=== PATIENT | male | born 1965 | race Caucasian/White ===

== ENCOUNTER 2017-05-16 21:12 | Inpatient (IN) | payer BC ==
[~2017-05-16] VITALS: Ht 182.9 cm; Wt 112.8 kg
[~2017-05-16 21:12] MED LIST: IMOD2TAB PO; LORTA5 PO; ZOFR4TAB3 SL
[2017-05-16 21:14] VITALS: BP 177/71; PULSE 74; RESP 16; TEMP 97.5; O2SAT 98
[2017-05-16] MEDS ORDERED: MORPHINE SULFATE 4 MG/ML INJ IV PUSH ONE (22:00)
[2017-05-16] MEDS ORDERED: SODIUM CHLOR 0.9% 1000 ML INJ 1,000 ML IV ONE (22:00)
[2017-05-16] MEDS ORDERED: ONDANSETRON HCL 4 MG/2 ML VIAL IV PUSH ONE (22:00)
[2017-05-16 22:04] VITALS: O2SAT 100
--- NOTE | 2017-05-16 22:07 | PD ---
HPI Chief Complaint: Lump, Cyst, Hernia Time Seen by Provider: 21:40 Travel History International Travel<30 days: No Contact w/Intl Traveler<30days: No Traveled to known affect area: No History of Present Illness HPI Patient is a 51 year old male with history of hypertension who presents to ER with c/o of incarcerated umbilical hernia. Patient reports that he has had a prior appendectomy by Dr. Sexton in the past. Patient reports that he had a stomach bug yesterday and had multiple episodes of nausea and vomiting (x8). Patient reports that he does have history of an umbilical hernia, reports that usually the hernia is controlled by using a pelvic band. Patient reports that he woke up this morning with the umbilical hernia that was non reducible. Patient reports that he tried to reduce his hernia multiple times by himself but was unable to. In the past, he was able to reduce his hernia without difficulty. Patient reports severe abdominal pain with nausea vomiting. Denies fever/chills. PFSH Past Medical History Arthritis: No Asthma: No Autoimmune Disease: No Blood Disorders: No Heart Rhythm Problems: No Cancer: No Cardiovascular Problems: Yes (HTN) High Cholesterol: No Chemotherapy: No Chest Pain: No Congestive Heart Failure: No COPD: No Cerebrovascular Accident: No Diabetes: No Diminished Hearing: No Endocrine: No Gastrointestinal Disorders: Yes GERD: No Glaucoma: No Genitourinary: Yes Headaches: No Hepatitis: No Hiatal Hernia: No Hypertension: No Immune Disorder: No Kidney Stones: No Musculoskeletal: Yes (UMBILICAL HERNIA) Neurologic: No Psychiatric: No Reproductive: No Respiratory: No Migraines: No Myocardial Infarction: No Radiation Therapy: No Renal Failure: No Seizures: No Sickle Cell Disease: No Sleep Apnea: No Thyroid Disease: No Ulcer: No Past Surgical History Abdominal Surgery: Yes (APPY 08/06/2006 FEEDING TUBE AN DUE TO PRE- MATURE ) AICD: No Appendectomy: Yes (08/06/2006) Arteriovenous Shunt: No Cardiac Surgery: No Cholecystectomy: No Ear Surgery: No Endocrine Surgery: No Eye Surgery: No Genitourinary Surgery: No Gynecologic Surgery: No Insulin Pump: No Joint Replacement: No Oral Surgery: No Pacemaker: No Thoracic Surgery: Yes (LUNG SURGERY AN DUE TO PRE-MATURE W/ COMPLICATIONS) Other Surgery: Yes Social History Alcohol Use: No Tobacco Use: No Substance Use: No Allergies-Medications (Allergen,Severity, Reaction): Coded Allergies: cephalexin (Unverified Allergy, Mild, 05/16/17) hydromorphone (Unverified Adverse Reaction, Unknown, 05/16/17) VOMITING morphine (Unverified Adverse Reaction, Unknown, 05/16/17) VOMITNG Reported Meds & Prescriptions Reported Meds & Active Scripts Active No Active Prescriptions or Reported Medications Review of Systems General / Constitutional: No: Fever, Chills Eyes: No: Visual changes HENT: No: Headaches Cardiovascular: No: Chest Pain or Discomfort Respiratory: No: Shortness of Breath Gastrointestinal: Positive: Nausea, Vomiting, Abdominal Pain Genitourinary: No: Dysuria Musculoskeletal: No: Pain Skin: No Rash Neurologic: No: Weakness Psychiatric: No: Depression Endocrine: No: Polydipsia Hematologic/Lymphatic: No: Easy Bruising Physical Exam Narrative GENERAL: moderate distress SKIN: Focused skin assessment warm/dry. HEAD: Atraumatic. Normocephalic. EYES: Pupils equal and round. No scleral icterus. No injection or drainage. ENT: No nasal bleeding or discharge. Mucous membranes pink and moist. NECK: Trachea midline. No JVD. CARDIOVASCULAR: Regular rate and rhythm. No murmur appreciated. RESPIRATORY: No accessory muscle use. Clear to auscultation. Breath sounds equal bilaterally. GASTROINTESTINAL: Abdomen soft, non-tender, patient with incarcerated umbilical hernia which is nonreducible MUSCULOSKELETAL: No obvious deformities. No clubbing. No cyanosis. No edema. NEUROLOGICAL: Awake and alert. No obvious cranial nerve deficits. Motor grossly within normal limits. Normal speech. PSYCHIATRIC: Appropriate mood and affect; insight and judgment normal. Data Data Last Documented VS Vital Signs Date Time Temp Pulse Resp B/P (MAP) Pulse Ox O2 Delivery O2 Flow Rate FiO2 05/16/17 22:04 100 Room Air 05/16/17 22:04 05/16/17 21:14 97.5 74 16 Orders Orders Act Partial Throm Time (Ptt) (05/16/17 21:48) Lactic Acid Sepsis Protocol (05/16/17 21:48) Urinalysis - C+S If Indicated (05/16/17 21:48) Ecg Monitoring (05/16/17 21:48) Iv Access Insert/Monitor (05/16/17 21:48) Oximetry (05/16/17 21:48) Oxygen Administration (05/16/17 21:48) Ct Abd/Pel W Iv Contrast(Rout) (05/16/17 21:48) Sodium Chlor 0.9% 1000 Ml Inj (Ns 1000 M (05/16/17 22:00) Ondansetron Inj (Zofran Inj) (05/16/17 22:00) Morphine Inj (Morphine Inj) (05/16/17 22:00) Complete Blood Count With Diff (05/16/17 21:48) Comprehensive Metabolic Panel (05/16/17 21:48) Prothrombin Time / Inr (Pt) (05/16/17 21:48) Iohexol 350 Inj (Omnipaque 350 Inj) (05/16/17 23:22) Morphine Inj (Morphine Inj) (05/17/17 00:30) Ondansetron Inj (Zofran Inj) (05/17/17 00:30) Consult General Surgery (05/17/17 00:38) (Hub Use Only)Inp Phy Cons/Ref (05/17/17 ) Admit Order (Ed Use Only) (05/17/17 01:07) Labs Laboratory Tests Test 05/16/17 22:00 05/17/17 00:59 White Blood Count 18.7 TH/MM3 Red Blood Count 5.29 MIL/MM3 Hemoglobin 16.1 GM/DL Hematocrit 46.5 % Mean Corpuscular Volume 87.9 FL Mean Corpuscular Hemoglobin 30.4 PG Mean Corpuscular Hemoglobin Concent 34.6 % Red Cell Distribution Width 13.0 % Platelet Count 264 TH/MM3 Mean Platelet Volume 8.8 FL Neutrophils (%) (Auto) 78.1 % Lymphocytes (%) (Auto) 15.1 % Monocytes (%) (Auto) 6.6 % Eosinophils (%) (Auto) 0.1 % Basophils (%) (Auto) 0.1 % Neutrophils # (Auto) 14.6 TH/MM3 Lymphocytes # (Auto) 2.8 TH/MM3 Monocytes # (Auto) 1.2 TH/MM3 Eosinophils # (Auto) 0.0 TH/MM3 Basophils # (Auto) 0.0 TH/MM3 CBC Comment DIFF FINAL Differential Comment Prothrombin Time 11.0 SEC Prothromb Time International Ratio 1.0 RATIO Activated Partial Thromboplast Time 29.4 SEC Blood Urea Nitrogen 17 MG/DL Creatinine 0.90 MG/DL Random Glucose 112 MG/DL Total Protein 7.5 GM/DL Albumin 3.8 GM/DL Calcium Level 9.3 MG/DL Alkaline Phosphatase 104 U/L Aspartate Amino Transf (AST/SGOT) 25 U/L Alanine Aminotransferase (ALT/SGPT) 24 U/L Total Bilirubin 0.8 MG/DL Sodium Level 132 MEQ/L Potassium Level 3.7 MEQ/L Chloride Level 99 MEQ/L Carbon Dioxide Level 24.7 MEQ/L Anion Gap 8 MEQ/L Estimat Glomerular Filtration Rate 89 ML/MIN Lactic Acid Level 1.0 mmol/L Urine Color LIGHT-YELLOW Urine Turbidity CLEAR Urine pH 6.5 Urine Specific [place] 1.014 Urine Protein NEG mg/dL Urine Glucose (UA) NEG mg/dL Urine Ketones NEG mg/dL Urine Occult Blood NEG Urine Nitrite NEG Urine Bilirubin NEG Urine Urobilinogen LESS THAN 2.0 MG/DL Urine Leukocyte Esterase NEG Urine RBC LESS THAN 1 /hpf Urine WBC 1 /hpf Urine Bacteria RARE /hpf Microscopic Urinalysis Comment CATH-CULTURE IND MDM Medical Decision Making Medical Screen Exam Complete: Yes Emergency Medical Condition: Yes Medical Record Reviewed: Yes Interpretation(s) Vital Signs Date Time Temp Pulse Resp B/P (MAP) Pulse Ox O2 Delivery O2 Flow Rate FiO2 05/16/17 21:14 97.5 74 16 177/71 (106) 98 Room Air Differential Diagnosis incarcerated umbilical hernia, strangulated bowel Narrative Course Patient is a 51-year-old male presents to emergency room with complaints of abdominal pain. Reports that he had episodes of nausea vomiting yesterday, reports that he woke up this morning and noticed that his umbilical hernia was "stuck" and non-reducible. On evaluation, patient has an incarcerated umbilical hernia that is not reducible. An IV line was established, CBC, CMP, lactate ordered. CT with the abdomen pelvis with IV contrast ordered to evaluate for strangulated bowel within umbilical hernia. IV fluid was ordered, patient reports allergies to morphine as "just nausea", he is in severe pain at this time, will premedicate with zofran and administer morphine. CBC & BMP Diagram 05/16/17 22:00 Total Protein 7.5, Albumin 3.8, Calcium Level 9.3, Alkaline Phosphatase 104, Aspartate Amino Transf (AST/SGOT) 25, Alanine Aminotransferase (ALT/SGPT) 24, Total Bilirubin 0.8 Last Impressions Abdomen/Pelvis CT 05/16/17 5024 Signed Impressions: Service Date/Time: Tuesday, May 16, 2017 23:18 - CONCLUSION: Small bowel containing umbilical hernia producing bowel obstruction. Clovis Lainez MD case reviewed with dr. queen who will see patient in consult Dr. Queen evaluated patient in the ER, plan for OR for hernia reduction and umbilical hernia repair. Diagnosis Primary Impression: Umbilical hernia, incarcerated Admitting Information Admitting Physician Requests: Observation Scripts No Active Prescriptions or Reported Meds Ashia Moreno DO May 16, 2017 22:07
[2017-05-16 22:17] LABS: AUTOMATED NEUTROPHIL # 14.6 TH/MM3 (1.8-7.7); BASOPHIL % 0.1 % (0.0-2.0); EOSINOPHIL % 0.1 % (0.0-4.0); HEMATOCRIT 46.5 % (39.0-51.0); HEMO FLAGS DIFF FINAL; LYMPH % 15.1 % (9.0-44.0); LYMPHOCYTE # 2.8 TH/MM3 (1.0-4.8); MEAN CELL VOLUME 87.9 FL (80.0-100.0); MEAN CORPUSCULAR HEMOGLOBIN 30.4 PG (27.0-34.0); MEAN CORPUSCULAR HGB CONC 34.6 % (32.0-36.0); MONO % 6.6 % (0.0-8.0); NEUT % 78.1 % (16.0-70.0); PLATELET COUNT 264 TH/MM3 (150-450); RED BLOOD COUNT 5.29 MIL/MM3 (4.50-5.90); WHITE BLOOD COUNT 18.7 TH/MM3 (4.0-11.0)
[2017-05-16 22:30] LABS: APTT (PATIENT) 29.4 SEC (24.3-30.1)
[2017-05-16 22:37] LABS: ANION GAP 8 MEQ/L (5-15); AST (GOT) 25 U/L (15-37); BICARBONATE 24.7 MEQ/L (21.0-32.0); BLOOD UREA NITROGEN 17 MG/DL (7-18); CHLORIDE 99 MEQ/L (98-107); GLOMERULAR FILTRATION RATE 89 ML/MIN (>89); POTASSIUM 3.7 MEQ/L (3.5-5.1); SODIUM (NA) 132 MEQ/L (136-145)
[2017-05-16 22:39] LABS: ALKALINE PHOSPHATASE 104 U/L (45-117); ALT (GPT) 24 U/L (12-78); TOTAL BILIRUBIN ADULT 0.8 MG/DL (0.2-1.0)
[2017-05-16] MEDS ORDERED: IOHEXOL 350 MG/ML 10 ML VIAL (for RAD DIAG) IVCONTRAST ONE (23:22)
--- NOTE | 2017-05-16 23:48 | RADRPT ---
EXAM DATE/TIME: 05/16/2017 23:18 [facility] COMPARISON: CT ABDOMEN & PELVIS W CONTRAST, September 01, 2014, 10:53. INDICATIONS : Stomach pain with known umbilical hernia. Patient states he vomited and is now unable to reduce his hernia. IV CONTRAST: 98 cc Omnipaque 350 (iohexol) IV ORAL CONTRAST: No oral contrast ingested. RADIATION DOSE: 19.11 CTDIvol (mGy) MEDICAL HISTORY : Hernia, umbilical. SURGICAL HISTORY : Appendectomy. ENCOUNTER: Initial ACUITY: 1 day PAIN SCALE: 4/10 LOCATION: medial abdomen TECHNIQUE: Volumetric scanning of the abdomen and pelvis was performed. Using automated exposure control and ad justment of the mA and/or kV according to patient size, radiation dose was kept as low as reasonably achievable to obtain optimal diagnostic quality images. DICOM format image data is available electro nically for review and comparison. FINDINGS: LOWER LUNGS: The visualized lower lungs are clear. LIVER: Homogeneous density without lesion. There is no dilation of the biliary tree. No calcified [place]ston es. SPLEEN: Normal size without lesion. PANCREAS: Within normal limits. KIDNEYS: Normal in size and shape. There is no mass, stone or hydronephrosis. ADRENAL GLANDS: Within normal limits. VASCULAR: There is no aortic aneurysm. BOWEL/MESENTERY: There is a prominently dilated segment of mid small bowel leading up to a loop which extends into the patient's umbilical hernia. Small bowel exiting the hernia and more distally is decompressed. The co zheng is normal in caliber and appearance throughout. There is no evidence of perforation. No free noelle toneal fluid. ABDOMINAL WALL: Fat and small bowel containing umbilical hernia RETROPERITONEUM: There is no lymphadenopathy. BLADDER: No wall thickening or mass. REPRODUCTIVE: Within normal limits. INGUINAL: There is no lymphadenopathy or hernia. MUSCULOSKELETAL: Within normal limits for patient age. CONCLUSION: Small bowel containing umbilical hernia producing bowel obstruction. Clovis Lainez MD on May 16, 2017 at 23:33 Board Certified Radiologist. This report was verified electronically.
[2017-05-17] MEDS ORDERED: ONDANSETRON HCL 4 MG/2 ML VIAL IV PUSH ONE ×2 (00:30→12:00)
[2017-05-17] MEDS ORDERED: MORPHINE SULFATE 4 MG/ML INJ IV PUSH ONE (00:30)
[2017-05-17] MEDS ORDERED: ACETAMINOPHEN 1000 MG/100 ML 100 ML IV ONE (01:14)
[2017-05-17 01:26] LABS: BACTERIA, URINE RARE /hpf; BLOOD, URINE NEG (NEG); GLUCOSE,URINE NEG (NEG); KETONE, URINE NEG (NEG); NITRITE,URINE NEG (NEG); PH, URINE 6.5 (5.0-8.5); URINE COLOR LIGHT-YELLOW (YELLW/STRAW)
[2017-05-17] MEDS ORDERED: LEVOFLOXACIN 500 MG PREMIX INJ 100 ML IV ONE (01:45)
[2017-05-17 02:03] LABS: COMMENT (UR) CATH-CULTURE IND; CULTURE IF INDICATED CATH CULTURE IND
[2017-05-17] MEDS: SODIUM CHLOR 0.9% 1000 ML INJ 1,000 ML IV SCH ×4 (03:10→23:10)
[2017-05-17] MEDS ORDERED: NALOXONE HCL 0.4 MG/ML AMP IV PUSH PRN ×2 (03:15→10:45)
[2017-05-17] MEDS ORDERED: SODIUM CHLORIDE 0.9% FLUSH 10 ML FLUSH IV FLUSH PRN (03:15)
[2017-05-17] MEDS ORDERED: ACETAMINOPHEN 1000 MG/100 ML 100 ML IV SCH (03:15)
[2017-05-17] MEDS ORDERED: Post-op Orders (for Pharmacy) MISC XX ONE (03:15)
[2017-05-17] MEDS ORDERED: HYDROmorphone HCL PCA 6 MG/30 ML IV SCH ×2 (03:15→10:45)
[2017-05-17] MEDS ORDERED: DO NOT ADM ANY ANTICOAGULANT DRUGS PRN (03:30)
[2017-05-17 04:52] VITALS: BP 114/66; PULSE 72; RESP 18; TEMP 97.4; O2SAT 96
--- NOTE | 2017-05-17 05:21 | MH ---
cc: JAME QUEEN M.D. DATE OF ADMISSION: 05/17/2017 REASON FOR ADMISSION Incarcerated umbilical hernia. HISTORY This is a 51-year-old gentleman who has had a longstanding umbilical hernia. Over the last 24 hours he developed a virus and had a lot of nausea and vomiting, fairly extensive and the hernia got stuck out. He could not push it back in. He tried all day and then it became more tender and he had more vomiting and then came into the emergency room. ER personnel could not push the hernia in as well. He had a CT scan which showed incarcerated bowel in the hernia and surgery was called to evaluate the patient. PAST MEDICAL HISTORY Significant for some hypertension. No cardiac umbilical or pulmonary issues. PAST SURGICAL HISTORY 1. He has had appendectomy laparoscopic. 2. He had some lung surgery as an infant due to premature . 3. He had a feeding tube in place as well when he was an . MEDICATIONS He does not take any routine medications. ALLERGIES His allergy list includes - CEPHALEXIN. HYDROMORPHONE and MORPHINE gives him a little vomiting; not really an allergy but a side effect. REVIEW OF SYSTEMS CONSTITUTIONAL: He has no fever, chills. NEUROLOGIC: No neurologic deficits or neurologic changes. CARDIOVASCULAR: No chest pain or chest discomfort. No shortness of breath. GI: As above with nausea, vomiting and this umbilical hernia that gave him more vomiting. : He has had a little bit of dysuria. PSYCHIATRIC: No problems. PSYCHIATRIC: No problems. PHYSICAL EXAMINATION GENERAL: He was standing up in the emergency room, a little bit of distressed, somewhat frustrated with his medical condition. EYES: Pupils equal and round. NECK: Supple. CHEST: Clear. HEART: Regular rate. ABDOMEN: Soft with 6-cm incarcerated umbilical hernia, very tight and tender. He has got some soreness to the left side of his abdomen. No rebound or guarding. There is a surgical scar just to the right of the umbilicus that is well-healed. NEUROLOGIC: He has no deficits. He is awake, oriented and appropriate psychiatric evaluation. LABORATORY DATA He had a white count of 18,000, H&H of 16 and 46. Chemistry essentially normal with a lactic acid of 1. Coags are all fine. IMAGING STUDIES A CT scan read by Dr. Lainez shows small bowel containing umbilical hernia with bowel obstruction. ASSESSMENT Incarcerated umbilical local hernia somewhat acutely after some type of viral gastroenteritis syndrome. PLAN He will need immediate operative intervention. This was explained to the patient who appeared to understand and we will plan to proceed to the operating room this morning. The OR crew is on their way in. Jame Queen MD JDB/SSB /1:38 AM /5:02 AM
[2017-05-17] MEDS ORDERED: PCA - TOTAL MG DILAUDID DELIVERED PER SHIFT OTHER SCH (06:00)
--- NOTE | 2017-05-17 06:17 | MP ---
cc: JAME QUEEN M.D. DATE OF PROCEDURE 05/17/2017 PREOPERATIVE DIAGNOSIS Incarcerated umbilical hernia. POSTOPERATIVE DIAGNOSIS Incarcerated umbilical hernia with small bowel obstruction secondary to incarcerated small bowel and omentum. PROCEDURE Reduction of incarcerated hernia with primary repair of hernia defect. ANESTHESIA General. SURGEON Dr. Queen. HISTORY This is a 51-year-old gentleman who has had an umbilical hernia. He was unable to reduce it. Plans were made for above. PROCEDURE The patient is taken to the operating room, placed in supine position. After anesthesia his abdomen is prepped with Betadine. We had given him preoperative antibiotics. The size of the incarcerated hernia outside measures approximately 12 cm. The defect probably measures 4. After prepping and draping, time-out is done. We make a linear incision in a vertical fashion overlying the apex of this hernia defect as I feel this is greatest ease of access to the defect. He has some redundant tissue because this umbilical hernia is longstanding. We dissect down just underneath the skin where incarcerated omentum and small bowel can be seen. We avoid injuring these two structures. We extend the incision about 2 cm below and 2 cm above the hernia defect. We are able to see the defect; it is very tight. I still cannot reduce it. The fascia must be incised about 2 cm to be able to reduce the defect. The bowel is then able to be pulled up in the field and see where it was strangulated. There is no vascular compromise but it is bruised where it was stuck in the hernia sac. We watch this pink up. The omentum pinks up as well and this was all reduced into the abdominal cavity. The hernia sac is removed. The redundant skin is all removed. We then dissect out laterally on either side of the abdomen to obtain the edges of the fascia and this is just reapproximated with 0 Ethibond suture in an interrupted fashion, in vertical fashion. Once the fascia is reapproximated in the vertical fashion with the 0 Ethibond suture, we then close the deep layer with a 3-0 Vicryl and skin is reapproximated with a skin stapling device. A sterile bandage is applied. The patient tolerated the procedure well and had no immediate post-op complication at the time of this dictation. Jame Queen MD JDB/SSB /2:52 AM /6:06 AM
[2017-05-17] MEDS: SODIUM CHLORIDE 0.9% FLUSH 10 ML FLUSH IV FLUSH SCH ×2 (08:09→21:33)
[2017-05-17] MEDS: ACETAMINOPHEN 1000 MG/100 ML 100 ML IV SCH ×3 (08:11→21:30)
[2017-05-17] MEDS: guaiFENesin E.R. 600 MG TAB PO SCH ×2 (10:30→21:29)
[2017-05-17 11:52] VITALS: BP 130/76; PULSE 69; RESP 20; TEMP 97; O2SAT 96
[2017-05-17 12:00] VITALS: BP 130/76; PULSE 69; RESP 20; TEMP 97; O2SAT 96
[2017-05-17] MEDS ORDERED: LACTATED RINGER'S 1000 ML INJ 2,000 ML IV ONE (12:00)
[2017-05-17] MEDS ORDERED: ROCURONIUM INJ 50 MG/5 ML SYRINGE IV PUSH ONE (12:00)
[2017-05-17] MEDS ORDERED: PROPOFOL 200 MG/20 ML AMP IV ONE (12:00)
[2017-05-17] MEDS ORDERED: NEOSTIGMINE 3 MG/3 ML SYR IV ONE (12:00)
[2017-05-17] MEDS ORDERED: LIDOCAINE HCL 1% PF 5 ML AMPULE OTHER ONE (12:00)
[2017-05-17] MEDS ORDERED: DEXAMETHASONE SOD PHOS 4 MG/ML VIAL IV ONE (12:00)
[2017-05-17] MEDS ORDERED: MIDAZOLAM HCL 2 MG/2 ML VIAL IV ONE (12:00)
[2017-05-17] MEDS ORDERED: PCA - TOTAL MG DILAUDID DELIVERED PER SHIFT SCH (14:00)
--- NOTE | 2017-05-17 15:18 | HHI.PR ---
cc: Jame Hudson MD Subjective Subjective Notes DAILY PROGRESS NOTE FOR SURGICAL ATTENDING, DR. JAME HUDSON Resting in bed Family at bedside No issues since surgery Objective Vitals/I&O Vital Signs Date Time Temp Pulse Resp B/P (MAP) Pulse Ox O2 Delivery O2 Flow Rate FiO2 05/17/17 12:00 97.0 69 20 130/76 (94) 96 05/17/17 04:00 Nasal Cannula 3.00 Labs Laboratory Tests Test 05/16/17 22:00 05/17/17 00:59 White Blood Count 18.7 Red Blood Count 5.29 Hemoglobin 16.1 Hematocrit 46.5 Mean Corpuscular Volume 87.9 Mean Corpuscular Hemoglobin 30.4 Mean Corpuscular Hemoglobin Concent 34.6 Red Cell Distribution Width 13.0 Platelet Count 264 Mean Platelet Volume 8.8 Neutrophils (%) (Auto) 78.1 Lymphocytes (%) (Auto) 15.1 Monocytes (%) (Auto) 6.6 Eosinophils (%) (Auto) 0.1 Basophils (%) (Auto) 0.1 Neutrophils # (Auto) 14.6 Lymphocytes # (Auto) 2.8 Monocytes # (Auto) 1.2 Eosinophils # (Auto) 0.0 Basophils # (Auto) 0.0 CBC Comment DIFF FINAL Differential Comment Prothrombin Time 11.0 Prothromb Time International Ratio 1.0 Activated Partial Thromboplast Time 29.4 Blood Urea Nitrogen 17 Creatinine 0.90 Random Glucose 112 Total Protein 7.5 Albumin 3.8 Calcium Level 9.3 Alkaline Phosphatase 104 Aspartate Amino Transf (AST/SGOT) 25 Alanine Aminotransferase (ALT/SGPT) 24 Total Bilirubin 0.8 Sodium Level 132 Potassium Level 3.7 Chloride Level 99 Carbon Dioxide Level 24.7 Anion Gap 8 Estimat Glomerular Filtration Rate 89 Lactic Acid Level 1.0 Urine Color LIGHT-YELLOW Urine Turbidity CLEAR Urine pH 6.5 Urine Specific [place] 1.014 Urine Protein NEG Urine Glucose (UA) NEG Urine Ketones NEG Urine Occult Blood NEG Urine Nitrite NEG Urine Bilirubin NEG Urine Urobilinogen LESS THAN 2.0 Urine Leukocyte Esterase NEG Urine RBC LESS THAN 1 Urine WBC 1 Urine Bacteria RARE Microscopic Urinalysis Comment CATH-CULTURE IND Date/Time Source Procedure Growth Status 05/17/17 00:59 Urine Catheterized Urine Urine Culture Pending Received Radiology Last 72 hours Impressions Abdomen/Pelvis CT 05/16/17 2148 Signed Impressions: Service Date/Time: Tuesday, May 16, 2017 23:18 - CONCLUSION: Small bowel containing umbilical hernia producing bowel obstruction. Clovis Lainez MD Cardiovascular: Regular Lungs: Clear Abdomen: Other (abdominal dressing place---minimal tenderness; abdominal binder in place) Extremities: No edema A/P Problem List: (1) Status post umbilical hernia repair, follow-up exam ICD Codes: Z09 - Encounter for follow-up examination after completed treatment for conditions other than malignant neoplasm Status: Acute (2) Umbilical hernia, incarcerated ICD Codes: K42.0 - Umbilical hernia with obstruction, without gangrene Status: Resolved (3) Small bowel obstruction ICD Codes: K56.609 - Unspecified intestinal obstruction, unspecified as to partial versus complete obstruction Status: Resolved (4) Abnormal CT of the abdomen ICD Codes: R93.5 - Abnormal findings on diagnostic imaging of other abdominal regions, including retroperitoneum Status: Resolved Assessment and Plan 51 year old male POD0 repair of incarcerated umbilical hernia -Continue clear liquids -IVF -CABLE SPOOLER for pain control -OOB and mobilize as tolerated Attending Statement NOTE FOR SURGICAL ATTENDING, DR. JAME HUDSON Doing well Ambulating some Will anticipate discharge tomorrow after breakfast I agree with above assessment and plan. The exam, history, and the medical decision-making described in the above note were completed with the assistance of the mid-level provider. I reviewed and agree with the findings presented. I attest that I had a [id number] encounter with the patient on the same day, and personally performed and documented my assessment and findings in the medical record. The following services were provided during this hospital visit: Chart data review, vital sign assessments/reviewing monitor data Review of consultations notes if present. Medication orders/review and/or management Ordering and/or reviewing lab tests Ordering and/or interpreting/reviewing x-rays and/or diagnostic studies Care of the patient and discussion of the patient with the care team Documentation time To help prompt me to consider important information that might be impacting today's encounter and assessment, information from prior notes written by myself or my colleagues may have been "brought forward/copy and pasted" into today's note. Oksana Ferguson May 17, 2017 15:18 Jame Hudson MD May 17, 2017 16:26
[2017-05-17 16:00] VITALS: BP 146/72; PULSE 77; RESP 21; TEMP 97.5; O2SAT 95
[2017-05-17] MEDS ORDERED: NORC5TAB PO (17:40)
[2017-05-17 20:00] VITALS: BP 126/75; PULSE 78; RESP 18; TEMP 97.9; O2SAT 96
[2017-05-17] MEDS ORDERED: ZOLPIDEM TARTRATE 5 MG TAB PO PRN (23:30)
[2017-05-17] MEDS: ONDANSETRON HCL 4 MG/2 ML VIAL IV PUSH PRN (23:57)
[2017-05-18] VITALS: BP 137/85; PULSE 80; RESP 18; TEMP 97.8; O2SAT 94
[2017-05-18] MEDS: ACETAMINOPHEN 1000 MG/100 ML 100 ML IV SCH (02:13)
[2017-05-18 04:24] VITALS: BP 151/83; PULSE 94; RESP 18; TEMP 96.6; O2SAT 92
[2017-05-18] MEDS: ONDANSETRON HCL 4 MG/2 ML VIAL IV PUSH PRN ×4 (05:48→23:34)
[2017-05-18 08:00] VITALS: BP 158/91; PULSE 91; RESP 20; TEMP 97.4; O2SAT 95
[2017-05-18] MEDS: guaiFENesin E.R. 600 MG TAB PO SCH ×2 (08:31→22:08)
[2017-05-18] MEDS: SODIUM CHLOR 0.9% 1000 ML INJ 1,000 ML IV SCH ×2 (08:31→22:08)
[2017-05-18] MEDS: SODIUM CHLORIDE 0.9% FLUSH 10 ML FLUSH IV FLUSH SCH ×2 (08:31→21:00)
[2017-05-18] MEDS: SCOPOLAMINE 1.5 MG PATCH T-DERMAL SCH (11:35)
[2017-05-18 12:00] VITALS: BP 137/90; PULSE 82; RESP 18; TEMP 96.6; O2SAT 96
[2017-05-18] MEDS: METOCLOPRAMIDE HCL 10 MG/2 ML VIAL IV PUSH SCH ×2 (12:50→22:06)
--- NOTE | 2017-05-18 15:45 | HHI.PR ---
cc: Jame Hudson MD Subjective Subjective Notes +nausea/vomiting overnight Objective Vitals/I&O Vital Signs Date Time Temp Pulse Resp B/P (MAP) Pulse Ox O2 Delivery O2 Flow Rate FiO2 05/18/17 12:00 96.6 82 18 137/90 (106) 96 05/17/17 04:00 Nasal Cannula 3.00 Labs Laboratory Tests Test 05/16/17 22:00 05/17/17 00:59 White Blood Count 18.7 TH/MM3 Red Blood Count 5.29 MIL/MM3 Hemoglobin 16.1 GM/DL Hematocrit 46.5 % Mean Corpuscular Volume 87.9 FL Mean Corpuscular Hemoglobin 30.4 PG Mean Corpuscular Hemoglobin Concent 34.6 % Red Cell Distribution Width 13.0 % Platelet Count 264 TH/MM3 Mean Platelet Volume 8.8 FL Neutrophils (%) (Auto) 78.1 % Lymphocytes (%) (Auto) 15.1 % Monocytes (%) (Auto) 6.6 % Eosinophils (%) (Auto) 0.1 % Basophils (%) (Auto) 0.1 % Neutrophils # (Auto) 14.6 TH/MM3 Lymphocytes # (Auto) 2.8 TH/MM3 Monocytes # (Auto) 1.2 TH/MM3 Eosinophils # (Auto) 0.0 TH/MM3 Basophils # (Auto) 0.0 TH/MM3 CBC Comment DIFF FINAL Differential Comment Prothrombin Time 11.0 SEC Prothromb Time International Ratio 1.0 RATIO Activated Partial Thromboplast Time 29.4 SEC Blood Urea Nitrogen 17 MG/DL Creatinine 0.90 MG/DL Random Glucose 112 MG/DL Total Protein 7.5 GM/DL Albumin 3.8 GM/DL Calcium Level 9.3 MG/DL Alkaline Phosphatase 104 U/L Aspartate Amino Transf (AST/SGOT) 25 U/L Alanine Aminotransferase (ALT/SGPT) 24 U/L Total Bilirubin 0.8 MG/DL Sodium Level 132 MEQ/L Potassium Level 3.7 MEQ/L Chloride Level 99 MEQ/L Carbon Dioxide Level 24.7 MEQ/L Anion Gap 8 MEQ/L Estimat Glomerular Filtration Rate 89 ML/MIN Lactic Acid Level 1.0 mmol/L Urine Color LIGHT-YELLOW Urine Turbidity CLEAR Urine pH 6.5 Urine Specific [place] 1.014 Urine Protein NEG mg/dL Urine Glucose (UA) NEG mg/dL Urine Ketones NEG mg/dL Urine Occult Blood NEG Urine Nitrite NEG Urine Bilirubin NEG Urine Urobilinogen LESS THAN 2.0 MG/DL Urine Leukocyte Esterase NEG Urine RBC LESS THAN 1 /hpf Urine WBC 1 /hpf Urine Bacteria RARE /hpf Microscopic Urinalysis Comment CATH-CULTURE IND Date/Time Source Procedure Growth Status 05/17/17 00:59 Urine Catheterized Urine Urine Culture - Preliminary Staphylococcus Species Resulted Radiology Last 72 hours Impressions Abdomen/Pelvis CT 05/16/17 2538 Signed Impressions: Service Date/Time: Tuesday, May 16, 2017 23:18 - CONCLUSION: Small bowel containing umbilical hernia producing bowel obstruction. Clovis Lainez MD Cardiovascular: Regular Lungs: Clear Abdomen: Other (obese abdomen; tender to palpation; mildly distended ) Extremities: No edema A/P Problem List: (1) Status post umbilical hernia repair, follow-up exam ICD Codes: Z09 - Encounter for follow-up examination after completed treatment for conditions other than malignant neoplasm Status: Acute (2) Umbilical hernia, incarcerated ICD Codes: K42.0 - Umbilical hernia with obstruction, without gangrene Status: Resolved (3) Small bowel obstruction ICD Codes: K56.609 - Unspecified intestinal obstruction, unspecified as to partial versus complete obstruction Status: Resolved (4) Abnormal CT of the abdomen ICD Codes: R93.5 - Abnormal findings on diagnostic imaging of other abdominal regions, including retroperitoneum Status: Resolved Assessment and Plan 71 year old male POD1 repair of incarcerated umbilical hernia -Likely has post op ileus -Okay for ice chips and popsicles -Continue IVF -RESEARCH GEOLOGIST for pain control -Start Reglan -OOB and mobilize as tolerated Attending Statement PROGRESS NOTE FOR SURGICAL ATTENDING, DR. JAME HUDSON no increase abd pain ok UOP recheck labs and electrolytes restrict po intake I agree with above assessment and plan. The exam, history, and the medical decision-making described in the above note were completed with the assistance of the mid-level provider. I reviewed and agree with the findings presented. I attest that I had a [id number] encounter with the patient on the same day, and personally performed and documented my assessment and findings in the medical record. The following services were provided during this hospital visit: Chart data review, vital sign assessments/reviewing monitor data Review of consultations notes if present. Medication orders/review and/or management Ordering and/or reviewing lab tests Ordering and/or interpreting/reviewing x-rays and/or diagnostic studies Care of the patient and discussion of the patient with the care team Documentation time To help prompt me to consider important information that might be impacting today's encounter and assessment, information from prior notes written by myself or my colleagues may have been "brought forward/copy and pasted" into today's note. Oksana Ferguson May 18, 2017 15:45 Jame Hudson MD May 18, 2017 17:48
[2017-05-18 16:00] VITALS: BP 171/89; PULSE 92; RESP 18; TEMP 97.7; O2SAT 93
[2017-05-18 19:30] LABS: AUTOMATED NEUTROPHIL # 10.5 TH/MM3 (1.8-7.7); BASOPHIL % 0.1 % (0.0-2.0); EOSINOPHIL % 0.3 % (0.0-4.0); HEMATOCRIT 43.6 % (39.0-51.0); HEMO FLAGS DIFF FINAL; LYMPH % 13.1 % (9.0-44.0); LYMPHOCYTE # 1.8 TH/MM3 (1.0-4.8); MEAN CELL VOLUME 88.5 FL (80.0-100.0); MEAN CORPUSCULAR HEMOGLOBIN 30.5 PG (27.0-34.0); MEAN CORPUSCULAR HGB CONC 34.5 % (32.0-36.0); MONO % 8.7 % (0.0-8.0); NEUT % 77.8 % (16.0-70.0); PLATELET COUNT 252 TH/MM3 (150-450); RED BLOOD COUNT 4.93 MIL/MM3 (4.50-5.90); RED CELL DISTRIBUTION WIDTH 13.3 % (11.6-17.2); WHITE BLOOD COUNT 13.5 TH/MM3 (4.0-11.0)
[2017-05-18 19:56] LABS: ANION GAP 6 MEQ/L (5-15); AST (GOT) 14 U/L (15-37); BICARBONATE 26.9 MEQ/L (21.0-32.0); BLOOD UREA NITROGEN 22 MG/DL (7-18); CHLORIDE 103 MEQ/L (98-107); GLOMERULAR FILTRATION RATE 107 ML/MIN (>89); MAGNESIUM 2.1 MG/DL (1.5-2.5); POTASSIUM 3.5 MEQ/L (3.5-5.1); SODIUM (NA) 136 MEQ/L (136-145)
[2017-05-18 19:57] LABS: ALT (GPT) 20 U/L (12-78)
[2017-05-18 20:00] VITALS: BP 136/94; PULSE 92; RESP 18; TEMP 97.6; O2SAT 94
[2017-05-18 20:00] LABS: ALKALINE PHOSPHATASE 84 U/L (45-117); TOTAL BILIRUBIN ADULT 0.6 MG/DL (0.2-1.0)
[2017-05-18] MEDS: KETOROLAC TROMETHAMINE 30 MG/ML (IVP) VIAL IVP PRN (23:34)
[2017-05-19 00:25] VITALS: BP 136/77; PULSE 77; RESP 18; TEMP 98.7; O2SAT 95
[2017-05-19] MEDS: ONDANSETRON HCL 4 MG/2 ML VIAL IV PUSH PRN ×4 (03:46→21:12)
[2017-05-19] MEDS: SODIUM CHLOR 0.9% 1000 ML INJ 1,000 ML IV SCH ×2 (05:56→14:46)
[2017-05-19] MEDS: METOCLOPRAMIDE HCL 10 MG/2 ML VIAL IV PUSH SCH ×3 (05:56→22:32)
[2017-05-19] MEDS: KETOROLAC TROMETHAMINE 30 MG/ML (IVP) VIAL IVP PRN ×3 (06:01→22:33)
[2017-05-19 08:00] VITALS: BP 141/89; PULSE 75; RESP 18; TEMP 98.2; O2SAT 95
[2017-05-19] MEDS: SODIUM CHLORIDE 0.9% FLUSH 10 ML FLUSH IV FLUSH SCH ×2 (08:37→21:12)
[2017-05-19] MEDS: guaiFENesin E.R. 600 MG TAB PO SCH ×2 (08:37→21:13)
[2017-05-19] MEDS: PHENOL 1.4% SOLN 180 ML BTL OROPHARYNG PRN ×2 (11:46→15:42)
[2017-05-19 12:00] VITALS: BP 139/84; PULSE 67; RESP 18; TEMP 96.7; O2SAT 94
--- NOTE | 2017-05-19 13:59 | HHI.PR ---
cc: Raffy Hudson MD Subjective Subjective Notes PROGRESS NOTE FOR SURGICAL ATTENDING, DR. RAFFY HUDSON Resting in bed Multiple episodes of nausea overnight with one episode of nausea overnight and one this morning Objective Vitals/I&O Vital Signs Date Time Temp Pulse Resp B/P (MAP) Pulse Ox O2 Delivery O2 Flow Rate FiO2 05/19/17 12:00 96.7 67 18 139/84 (102) 94 05/17/17 04:00 Nasal Cannula 3.00 Labs Laboratory Tests Test 05/18/17 18:54 White Blood Count 13.5 Red Blood Count 4.93 Hemoglobin 15.0 Hematocrit 43.6 Mean Corpuscular Volume 88.5 Mean Corpuscular Hemoglobin 30.5 Mean Corpuscular Hemoglobin Concent 34.5 Red Cell Distribution Width 13.3 Platelet Count 252 Mean Platelet Volume 9.3 Neutrophils (%) (Auto) 77.8 Lymphocytes (%) (Auto) 13.1 Monocytes (%) (Auto) 8.7 Eosinophils (%) (Auto) 0.3 Basophils (%) (Auto) 0.1 Neutrophils # (Auto) 10.5 Lymphocytes # (Auto) 1.8 Monocytes # (Auto) 1.2 Eosinophils # (Auto) 0.0 Basophils # (Auto) 0.0 CBC Comment DIFF FINAL Differential Comment Blood Urea Nitrogen 22 Creatinine 0.77 Random Glucose 106 Total Protein 6.9 Albumin 3.1 Calcium Level 8.5 Magnesium Level 2.1 Alkaline Phosphatase 84 Aspartate Amino Transf (AST/SGOT) 14 Alanine Aminotransferase (ALT/SGPT) 20 Total Bilirubin 0.6 Sodium Level 136 Potassium Level 3.5 Chloride Level 103 Carbon Dioxide Level 26.9 Anion Gap 6 Estimat Glomerular Filtration Rate 107 Date/Time Source Procedure Growth Status 05/17/17 00:59 Urine Catheterized Urine Urine Culture - Preliminary Staphylococcus Species Resulted Radiology Last 72 hours Impressions Abdomen/Pelvis CT 05/16/178 Signed Impressions: Service Date/Time: Tuesday, May 16, 2017 23:18 - CONCLUSION: Small bowel containing umbilical hernia producing bowel obstruction. Clovis Lainez MD Cardiovascular: Regular Lungs: Clear Abdomen: Other (distended; midline abdominal incision with germaine c/d/i; distended ) Extremities: No edema A/P Problem List: (1) Post-operative nausea and vomiting ICD Codes: R11.2 - Nausea with vomiting, unspecified; Z98.890 - Other specified postprocedural states Status: Acute (2) Postoperative ileus ICD Codes: K91.89 - Other postprocedural complications and disorders of digestive system; K56.7 - Ileus, unspecified Status: Acute (3) Status post umbilical hernia repair, follow-up exam ICD Codes: Z09 - Encounter for follow-up examination after completed treatment for conditions other than malignant neoplasm Status: Acute (4) Umbilical hernia, incarcerated ICD Codes: K42.0 - Umbilical hernia with obstruction, without gangrene Status: Resolved (5) Small bowel obstruction ICD Codes: K56.609 - Unspecified intestinal obstruction, unspecified as to partial versus complete obstruction Status: Resolved (6) Abnormal CT of the abdomen ICD Codes: R93.5 - Abnormal findings on diagnostic imaging of other abdominal regions, including retroperitoneum Status: Resolved Assessment and Plan 51 year old male POD2 repair of incarcerated umbilical hernia -Likely has post op ileus -Insert NGT and connect to LIWS -Okay for ice chips and non red Gatorade -Continue IVF -Pain control -Continue Reglan -OOB and mobilize as tolerated ---okay to clamp NGT to ambulate as patient tolerates Attending Statement PROGRESS NOTE FOR SURGICAL ATTENDING, DR. RAFFY HUDSON feels better after ngt placed I agree with above assessment and plan. The exam, history, and the medical decision-making described in the above note were completed with the assistance of the mid-level provider. I reviewed and agree with the findings presented. I attest that I had a [id number] encounter with the patient on the same day, and personally performed and documented my assessment and findings in the medical record. The following services were provided during this hospital visit: Chart data review, vital sign assessments/reviewing monitor data Review of consultations notes if present. Medication orders/review and/or management Ordering and/or reviewing lab tests Ordering and/or interpreting/reviewing x-rays and/or diagnostic studies Care of the patient and discussion of the patient with the care team Documentation time To help prompt me to consider important information that might be impacting today's encounter and assessment, information from prior notes written by myself or my colleagues may have been "brought forward/copy and pasted" into today's note. Oksana Ferguson May 19, 2017 13:59 Raffy Hudson MD May 19, 2017 15:10
--- NOTE | 2017-05-19 14:26 | RADRPT ---
EXAM DATE/TIME: 05/19/2017 12:55 [facility] COMPARISON: No previous studies available for comparison. INDICATIONS : NG tube placement. Post hernia repair. MEDICAL HISTORY : Umbilical hernia SURGICAL HISTORY : Appendectomy. ENCOUNTER: Subsequent ACUITY: 4 - 6 days PAIN SCORE: 0/10 LOCATION: FINDINGS: Supine view of the abdomen was performed. Dilated central small bowel loops. Postsurgical changes. Na sogastric tube with tip at the GE junction. No abnormal masses, calcifications, or organomegaly is s een. The osseous structures are unremarkable. CONCLUSION: 1. Dilated central small bowel loops likely ileus. 2. Nasogastric tube with tip at the GE junction. It should be advanced at least 10-15 cm. Nacho Zarate MD on May 19, 2017 at 14:24 Board Certified Radiologist. This report was verified electronically.
[2017-05-19 16:00] VITALS: BP 162/93; PULSE 76; RESP 18; TEMP 98.9; O2SAT 96
[2017-05-19 20:51] VITALS: BP 152/88; PULSE 82; RESP 16; TEMP 98.9; O2SAT 94
[2017-05-20] VITALS: BP 134/87; PULSE 96; RESP 20; TEMP 98.1; O2SAT 94
[2017-05-20] MEDS: SODIUM CHLOR 0.9% 1000 ML INJ 1,000 ML IV SCH ×3 (03:47→19:02)
[2017-05-20] MEDS: ONDANSETRON HCL 4 MG/2 ML VIAL IV PUSH PRN ×4 (03:53→18:53)
[2017-05-20] MEDS: METOCLOPRAMIDE HCL 10 MG/2 ML VIAL IV PUSH SCH ×3 (06:20→21:18)
[2017-05-20 08:00] VITALS: BP 155/88; PULSE 78; RESP 18; TEMP 98.1; O2SAT 95
[2017-05-20] MEDS: SODIUM CHLORIDE 0.9% FLUSH 10 ML FLUSH IV FLUSH SCH ×2 (09:00→21:19)
[2017-05-20] MEDS: guaiFENesin E.R. 600 MG TAB PO SCH ×2 (09:13→21:18)
[2017-05-20] MEDS: ALPRAZolam 0.25 MG TAB PO PRN ×2 (09:13→22:04)
[2017-05-20 12:00] VITALS: BP 154/89; PULSE 77; RESP 19; TEMP 97.2; O2SAT 95
--- NOTE | 2017-05-20 13:10 | HHI.PR ---
cc: Raffy Hudson MD Subjective Subjective Notes Resting in bed States he thinks he had an anxiety attack last night and removed NGT. He is feeling much better now and reports no nausea/vomiting Wants to stick with the clear liquids but also try some crackers Objective Vitals/I&O Vital Signs Date Time Temp Pulse Resp B/P (MAP) Pulse Ox O2 Delivery O2 Flow Rate FiO2 05/20/17 12:00 97.2 77 19 154/89 (110) 95 05/17/17 04:00 Nasal Cannula 3.00 Labs Date/Time Source Procedure Growth Status 05/17/17 00:59 Urine Catheterized Urine Urine Culture - Final Staphylococcus Epidermidis Complete Radiology Last 72 hours Impressions Abdomen/Pelvis CT 05/16/172147 Signed Impressions: Service Date/Time: Tuesday, May 16, 2017 23:18 - CONCLUSION: Small bowel containing umbilical hernia producing bowel obstruction. Clovis Lainez MD Cardiovascular: Regular Lungs: Clear Abdomen: Other (obese abdomen; much less distended that yesterday; midline incision with germaine---minimal serous drainage ), Post-op tenderness Extremities: No edema A/P Problem List: (1) Postoperative ileus ICD Codes: K91.89 - Other postprocedural complications and disorders of digestive system; K56.7 - Ileus, unspecified Status: Acute (2) Status post umbilical hernia repair, follow-up exam ICD Codes: Z09 - Encounter for follow-up examination after completed treatment for conditions other than malignant neoplasm Status: Acute (3) Small bowel obstruction ICD Codes: K56.609 - Unspecified intestinal obstruction, unspecified as to partial versus complete obstruction Status: Resolved Assessment and Plan 51 year old male POD3 repair of incarcerated umbilical hernia -Post op ileus seems to be resolving -No need to replace NGT at this time -Continue with clear liquids + crackers; may advance this afternoon depending on progress -Continue IVF -Pain control -Continue Reglan -Miralax -OOB and mobilize as tolerated Attending Statement Wound clean Seroma under the skin Good bowel sounds Passing flatus and had a couple bowel movements small NOTE FOR SURGICAL ATTENDING, DR. RAFFY HUDSON I agree with above assessment and plan. The exam, history, and the medical decision-making described in the above note were completed with the assistance of the mid-level provider. I reviewed and agree with the findings presented. I attest that I had a [id number] encounter with the patient on the same day, and personally performed and documented my assessment and findings in the medical record. The following services were provided during this hospital visit: Chart data review, vital sign assessments/reviewing monitor data Review of consultations notes if present. Medication orders/review and/or management Ordering and/or reviewing lab tests Ordering and/or interpreting/reviewing x-rays and/or diagnostic studies Care of the patient and discussion of the patient with the care team Documentation time To help prompt me to consider important information that might be impacting today's encounter and assessment, information from prior notes written by myself or my colleagues may have been "brought forward/copy and pasted" into today's note. Oksana Ferguson [facility] May 20, 2017 13:10 Raffy Hudson MD May 20, 2017 17:00
[2017-05-20] MEDS: POLYETHYLENE GLYCOL 17 GM PKG PO SCH (13:49)
[2017-05-20 16:00] VITALS: BP 133/77; PULSE 86; RESP 18; TEMP 98; O2SAT 94
[2017-05-20 20:00] VITALS: BP 170/87; PULSE 76; RESP 22; TEMP 97.7; O2SAT 95
[2017-05-20] MEDS: KETOROLAC TROMETHAMINE 30 MG/ML (IVP) VIAL IVP PRN (22:04)
[2017-05-21] VITALS: BP 156/90; PULSE 83; RESP 22; TEMP 98.5; O2SAT 95
[2017-05-21] MEDS: ONDANSETRON HCL 4 MG/2 ML VIAL IV PUSH PRN ×5 (01:43→21:16)
[2017-05-21] MEDS: METOCLOPRAMIDE HCL 10 MG/2 ML VIAL IV PUSH SCH ×3 (04:57→21:04)
[2017-05-21] MEDS: SODIUM CHLOR 0.9% 1000 ML INJ 1,000 ML IV SCH ×2 (06:04→11:58)
[2017-05-21] MEDS: SODIUM CHLORIDE 0.9% FLUSH 10 ML FLUSH IV FLUSH SCH ×2 (07:08→21:00)
[2017-05-21] MEDS: ALPRAZolam 0.25 MG TAB PO PRN ×2 (07:37→19:06)
[2017-05-21] MEDS: POLYETHYLENE GLYCOL 17 GM PKG PO SCH (07:37)
[2017-05-21] MEDS: KETOROLAC TROMETHAMINE 30 MG/ML (IVP) VIAL IVP PRN ×3 (07:38→21:05)
[2017-05-21 08:00] VITALS: BP 138/71; PULSE 97; RESP 18; TEMP 97.1; O2SAT 93
[2017-05-21] MEDS: guaiFENesin E.R. 600 MG TAB PO SCH ×2 (09:52→21:00)
[2017-05-21] MEDS: SCOPOLAMINE 1.5 MG PATCH T-DERMAL SCH (09:52)
[2017-05-21 12:00] VITALS: BP 164/86; PULSE 99; RESP 18; TEMP 98.1; O2SAT 93
--- NOTE | 2017-05-21 13:48 | HHI.PR ---
cc: Raffy Hudson MD Subjective Subjective Notes DAILY PROGRESS NOTE FOR SURGICAL ATTENDING, DR. RAFFY HUDSON Resting in bed Patient reports he had a rough night; was up all night vomiting; filled a green emesis bag Feeling better today Objective Vitals/I&O Vital Signs Date Time Temp Pulse Resp B/P (MAP) Pulse Ox O2 Delivery O2 Flow Rate FiO2 05/21/17 12:00 98.1 99 18 164/86 (954) 93 Labs Date/Time Source Procedure Growth Status 05/17/17 00:59 Urine Catheterized Urine Urine Culture - Final Staphylococcus Epidermidis Complete Radiology Last 72 hours Impressions Abdomen/Pelvis CT 05/16/17 9381 Signed Impressions: Service Date/Time: Tuesday, May 16, 2017 23:18 - CONCLUSION: Small bowel containing umbilical hernia producing bowel obstruction. Clovis Lainez MD Cardiovascular: Regular Lungs: Clear Abdomen: Other (obese abdomen; mildly distended; midline incision with germaine ), Post-op tenderness Extremities: No edema A/P Problem List: (1) Postoperative ileus ICD Codes: K91.89 - Other postprocedural complications and disorders of digestive system; K56.7 - Ileus, unspecified Status: Acute (2) Status post umbilical hernia repair, follow-up exam ICD Codes: Z09 - Encounter for follow-up examination after completed treatment for conditions other than malignant neoplasm Status: Acute (3) Small bowel obstruction ICD Codes: K56.609 - Unspecified intestinal obstruction, unspecified as to partial versus complete obstruction Status: Resolved Assessment and Plan 71 year old male POD4 repair of incarcerated umbilical hernia -Continues to have post op ileus -No need to replace NGT at this time although if nausea/vomiting continues may need decompression again -Continue with clear liquids + crackers -Continue IVF -Pain control -Continue Reglan -Miralax -OOB and mobilize as tolerated Attending Statement NOTE FOR SURGICAL ATTENDING, DR. RAFFY HUDSON I agree with above assessment and plan. The exam, history, and the medical decision-making described in the above note were completed with the assistance of the mid-level provider. I reviewed and agree with the findings presented. I attest that I had a [id number] encounter with the patient on the same day, and personally performed and documented my assessment and findings in the medical record. The following services were provided during this hospital visit: Chart data review, vital sign assessments/reviewing monitor data Review of consultations notes if present. Medication orders/review and/or management Ordering and/or reviewing lab tests Ordering and/or interpreting/reviewing x-rays and/or diagnostic studies Care of the patient and discussion of the patient with the care team Documentation time To help prompt me to consider important information that might be impacting today's encounter and assessment, information from prior notes written by myself or my colleagues may have been "brought forward/copy and pasted" into today's note. Oksana Ferguson May 21, 2017 13:48 Raffy Hudson MD May 21, 2017 16:27
[2017-05-21 16:00] VITALS: BP 143/71; PULSE 93; RESP 19; TEMP 96.6; O2SAT 93
[2017-05-21] MEDS ORDERED: ZOLPIDEM TARTRATE 10 MG TAB PO PRN (16:15)
[2017-05-21] MEDS: CIPROFLOXACIN 400 MG PREMIX 200 ML IV SCH (17:43)
[2017-05-21 20:00] VITALS: BP 164/104; PULSE 111; RESP 18; TEMP 97.4; O2SAT 92
[2017-05-21] MEDS ORDERED: LORazepam 2 MG/ML VIAL IV ONE (22:15)
[2017-05-21] MEDS: ACETAMINOPHEN 1000 MG/100 ML VIAL IV SCH (22:53)
--- NOTE | 2017-05-21 22:58 | RADRPT ---
EXAM DATE/TIME: 05/21/2017 22:24 [facility] COMPARISON: ABDOMEN KUB ONLY, May 19, 2017, 12:55. INDICATIONS : Abdominal pain and vomitting. MEDICAL HISTORY : None. SURGICAL HISTORY : Appendectomy. ENCOUNTER: Subsequent ACUITY: 4 - 6 days PAIN SCORE: 7/10 LOCATION: Bilateral abdomen. FINDINGS: 2 supine AP views of the abdomen. Multiple dilated air-filled loops of proximal small bowel again julia ntified along with air-filled distended stomach. Findings are very similar to the prior study of 05/19. Nasogastric tube is no longer seen. Paucity of gas in the distal small bowel and colon. CONCLUSION: 1. Findings similar to the prior study of 05/19/2017. Dilated air-filled proximal small bowel. Paucity of gas in the distal small bowel and colon. 2. Differential diagnosis is small bowel obstruction and ileus. Geovani Marquez MD on May 21, 2017 at 22:53 Board Certified Radiologist. This report was verified electronically.
[2017-05-22] VITALS (8 sets, daily range): BP systolic 95–137; BP diastolic 57–87; PULSE 114–126; RESP 14–40; TEMP 95.6–98.7; O2SAT 90–99
[2017-05-22 00:13] LABS: HEMATOCRIT 44.6 % (39.0-51.0); MEAN CELL VOLUME 88.2 FL (80.0-100.0); MEAN CORPUSCULAR HEMOGLOBIN 31.5 PG (27.0-34.0); MEAN CORPUSCULAR HGB CONC 35.7 % (32.0-36.0); PLATELET COUNT 291 TH/MM3 (150-450); RED BLOOD COUNT 5.06 MIL/MM3 (4.50-5.90); REVIEW FLAG FINAL; WHITE BLOOD COUNT 3.6 TH/MM3 (4.0-11.0)
[2017-05-22 00:25] LABS: BLOOD GAS BASE EXCESS -1.6 mmol/L (-2-2); BLOOD GAS CARBOXYHEMOGLOBIN 1.6 % (0-4); BLOOD GAS HCO3 22 mmol/L (22-26); BLOOD GAS METHEMOGLOBIN 0.8 % (0-2); BLOOD GAS PCO2 33 mmHg (38-42); BLOOD GAS PO2 75 mmHg (61-120)
[2017-05-22 00:26] LABS: BLOOD GAS O2 HGB SATURATION 93 % (90-100); BLOOD GAS OXYGEN CONTENT 20.4 Vol % (12.0-20.0); BLOOD GAS TOTAL HGB 15.7 G/DL (12.0-16.0); TEMP CORR TO 98.6
[2017-05-22 00:27] LABS: CRITICAL VALUE NO; LITER FLOW 2 L/M; OXYGEN DEVICE NASAL CANNULA
[2017-05-22 00:28] LABS: DRAW SITE RT RADIAL; NUMBER OF ARTERIAL PUNCTURES 1; STAT YES; ULNAR PULSE PRESENT
[2017-05-22 00:36] LABS: BICARBONATE 26.8 MEQ/L (21.0-32.0); POTASSIUM 3.6 MEQ/L (3.5-5.1)
[2017-05-22] MEDS ORDERED: IOHEXOL 350 MG/ML 10 ML VIAL (for RAD DIAG) IVCONTRAST ONE (00:39)
--- NOTE | 2017-05-22 00:45 | HHI.PR ---
Addendum to Inpatient Note Addendum Reason: Additional Documentation Additional Information S: 51 yo WM with PMH of HTN (no h/o MN) who is post op day 4 of umbilical hernia repair complicated with post operative SBO now with new onset SOB, tachycardia (130's), tachypnea following a large volume emesis after NG tube placement failure. Patient denying CP, abdominal pain. Endorses SOB, nausea. O: Vitals: Vital Signs Date Time Temp Pulse Resp B/P (MAP) Pulse Ox O2 Delivery O2 Flow Rate FiO2 05/21/17 20:00 97.4 111 18 164/104 (124) 92 Vitals on arrival: BP 134/78, HR 134, RR 22, O2 92-94% on 2L NC Gen: obese WM laying in bed in moderate respiratory distress CV: tachycardic to 130's, regular rate, no murmurs Resp: tachypneic in the 20's, shallow breathing, crackles appreciated in LLL base (improved slightly after cough) Ext: No calf tenderness, no swelling or warmth of either lower extremity Laboratory Tests Test 05/22/17 00:02 05/22/17 00:07 White Blood Count 3.6 TH/MM3 Red Blood Count 5.06 MIL/MM3 Hemoglobin 15.9 GM/DL Hematocrit 44.6 % Mean Corpuscular Volume 88.2 FL Mean Corpuscular Hemoglobin 31.5 PG Mean Corpuscular Hemoglobin Concent 35.7 % Red Cell Distribution Width 13.0 % Platelet Count 291 TH/MM3 Mean Platelet Volume 8.2 FL Blood Gas Puncture Site RT RADIAL Blood Gas Patient Temperature 98.6 Blood Gas HCO3 22 mmol/L Blood Gas Base Excess -1.6 mmol/L Blood Gas Oxygen Saturation 93 % Arterial Blood pH 7.44 Arterial Blood Partial Pressure CO2 33 mmHg Arterial Blood Partial Pressure O2 75 mmHg Arterial Blood Oxygen Content 20.4 Vol % Arterial Blood Carboxyhemoglobin 1.6 % Arterial Blood Methemoglobin 0.8 % Blood Gas Hemoglobin 15.7 G/DL Oxygen Delivery Device NASAL CANNULA Blood Gas Liter Flow 2 L/M Current Medications Medications (Trade) Dose Ordered Sig/Lanie Route PRN Reason Start Time Stop Time Status Last Admin Dose Admin Sodium Chloride 1,000 ml @ 999 mls/hr BOLUS ONCE IV 05/16/17 22:00 05/16/17 23:00 DC 05/16/17 22:06 Ondansetron HCl (Zofran Inj) 4 mg ONCE ONCE IV PUSH 05/16/17 22:00 05/16/17 22:01 DC 05/16/17 22:06 Morphine Sulfate (Morphine Inj) 4 mg ONCE ONCE IV PUSH 05/16/17 22:00 05/16/17 22:01 DC 05/16/17 22:07 Iohexol (Omnipaque 350 Inj) 96 ml STK-MED ONCE IVCONTRAST 05/16/17 23:22 05/16/17 23:23 DC 05/16/17 23:22 Morphine Sulfate (Morphine Inj) 4 mg ONCE ONCE IV PUSH 05/17/17 00:30 05/17/17 00:31 DC 05/17/17 01:20 Ondansetron HCl (Zofran Inj) 4 mg ONCE ONCE IV PUSH 05/17/17 00:30 05/17/17 00:31 DC 05/17/17 01:20 Acetaminophen 100 ml @ As Directed STK-MED ONCE IV 05/17/17 01:14 05/17/17 01:15 DC Levofloxacin/ Dextrose 100 ml @ As Directed STK-MED ONCE IV 05/17/17 01:45 05/17/17 01:46 DC Sodium Chloride 1,000 ml @ 100 mls/hr Q10H IV 05/17/17 03:10 05/21/17 11:58 Sodium Chloride (NS Flush) 2 ml UNSCH PRN IV FLUSH FLUSH AFTER USING IV ACCESS 05/17/17 03:15 Sodium Chloride (NS Flush) 2 ml BID IV FLUSH 05/17/17 09:00 05/20/17 21:19 Ketorolac Tromethamine (Toradol Inj) 30 mg Q6H PRN IVP PAIN SCALE 1 TO 5 05/17/17 03:15 05/22/17 03:14 05/21/17 21:05 Ondansetron HCl (Zofran Inj) 4 mg Q4H PRN IV PUSH NAUSEA OR VOMITING 05/17/17 03:15 05/21/17 21:16 Miscellaneous Information (Post-op Orders (for Pharmacy)) STAT ONCE XX 05/17/17 03:15 05/17/17 03:19 DC Naloxone HCl (Narcan Inj) 0.4 mg UNSCH PRN IV PUSH RESPIRATORY RATE LESS THAN 10 05/17/17 03:15 05/17/17 10:39 DC ELECTRONIC IMAGING SYSTEM OPERATOR Dosage Infused (Pha) 1 Q8HR OTHER 05/17/17 06:00 05/17/17 10:39 DC 05/17/17 05:54 Hydromorphone HCl (Dilaudid ELECTRONIC IMAGING SYSTEM OPERATOR Inj) 6 mg UNSCH IV 05/17/17 03:15 05/17/17 10:39 DC 05/17/17 04:07 Acetaminophen 100 ml @ 400 mls/hr Q6H IV 05/17/17 03:15 05/17/17 03:17 DC Acetaminophen 100 ml @ 400 mls/hr Q6H IV 05/17/17 08:00 05/18/17 02:14 DC 05/18/17 02:13 Miscellaneous Information ALL NURSING DEPARTME... UNSCH PRN .XX SEE LABEL COMMENTS 05/17/17 03:30 05/18/17 03:29 DC Guaifenesin (Mucinex Er) 600 mg BID PO 05/17/17 10:15 05/21/17 09:52 Hydromorphone HCl (Dilaudid ELECTRONIC IMAGING SYSTEM OPERATOR Inj) 6 mg UNSCH IV 05/17/17 10:45 05/17/17 17:46 DC ELECTRONIC IMAGING SYSTEM OPERATOR Dosage Infused (Pha) 1 Q8HR .XX 05/17/17 14:00 05/17/17 17:46 DC 05/17/17 13:17 Naloxone HCl (Narcan Inj) 0.4 mg UNSCH PRN IV PUSH RESPIRATORY RATE LESS THAN 10 05/17/17 10:45 05/17/17 17:46 DC Zolpidem Tartrate (Ambien) 5 mg HS PRN PO INSOMNIA 05/17/17 23:30 05/21/17 16:18 DC 05/17/17 23:59 Metoclopramide HCl (Reglan Inj) 10 mg Q8HR IV PUSH 05/18/17 14:00 05/21/17 21:04 Scopolamine (Transderm-Scop 1.5 Mg Patch.72 Hr) 1 patch Q3D T-DERMAL 05/18/17 11:00 05/18/17 11:35 Phenol (Chloraseptic [place]) 2 spray Q2H PRN OROPHARYNG sore throat 05/19/17 11:00 05/19/17 15:42 Alprazolam (Xanax) 0.25 mg Q8H PRN PO ANXIETY 05/20/17 07:15 05/21/17 19:06 Polyethylene Glycol (Miralax) 17 gm DAILY PO 05/20/17 12:45 05/21/17 07:37 Ciprofloxacin/ Dextrose 200 ml @ 200 mls/hr Q12H IV 05/21/17 17:00 05/21/17 17:43 Zolpidem Tartrate (Ambien) 10 mg HS PRN PO sleep 05/21/17 16:15 05/21/17 21:07 Acetaminophen (Ofirmev 1000 Mg/ 100 ml Inj) 1,000 mg Q6H IV 05/21/17 23:00 05/21/17 22:53 Lorazepam (Ativan Inj) 1 mg NOW ONCE IV 05/21/17 22:15 05/21/17 22:16 DC 05/21/17 22:52 A: 51 yo WM post op day 4 of umbilical hernia repair complicated by SBO with acute tachycardia, tachypnea and increased oxygen demand following episode of emesis. P: Differential including atelectasis, PE (patient not anticoagulated), PNA, MN , GI bleed, worsening SBO Orders: CBC, CMP, EKG, ABG, CTA thorax, CT abdomen, Hemoccult of emesis Orders above based on discussion with primary team Primary team was notified and was aware of Hal[facility] - primary team will be informed of lab/imaging results Seen and evaluated with Edu Hope MD R1 May 22, 2017 00:45
--- NOTE | 2017-05-22 01:06 | RADRPT ---
EXAM DATE/TIME: 05/22/2017 00:24 [facility] COMPARISON: ABDOMEN KUB ONLY, May 21, 2017, 22:24. CT ABDOMEN & PELVIS W CONTRAST, May 16, 2017, 23:18. INDICATIONS : Abdomen pain. Post op hernia repair. IV CONTRAST: 100 cc Omnipaque 350 (iohexol) IV ; Cumulative dose for multiple exams. ORAL CONTRAST: No oral contrast ingested. RADIATION DOSE: 14.30 CTDIvol (mGy) ; Combined studies - Thorax/Abdomen/Pelvis MEDICAL HISTORY : Hypertension. Hernia, umbilical. SURGICAL HISTORY : Umbilical hernia repair. Appendectomy. ENCOUNTER: Initial ACUITY: 4 - 6 days PAIN SCALE: 10/10 LOCATION: Bilateral abdomen TECHNIQUE: Volumetric scanning of the abdomen and pelvis was performed. Using automated exposure control and ad justment of the mA and/or kV according to patient size, radiation dose was kept as low as reasonably achievable to obtain optimal diagnostic quality images. DICOM format image data is available electro nically for review and comparison. FINDINGS: LOWER LUNGS: Mild consolidation at the inferior aspects of the lower lobes bilaterally. Trace bilateral pleural ef fusions. LIVER: Homogeneous density without lesion. There is no dilation of the biliary tree. No calcified gallston es. SPLEEN: Normal size without lesion. PANCREAS: Within normal limits. KIDNEYS: Normal in size and shape. There is no mass, stone or hydronephrosis. ADRENAL GLANDS: Within normal limits. VASCULAR: There is no aortic aneurysm. BOWEL/MESENTERY: Small amount of free fluid is seen in all 4 quadrants of the abdomen. Layering fluid in the dependent portion of the pelvis has slightly higher density. Scattered foci of free air also seen in the abdom en. Distended air-filled stomach. Distended proximal loops of small bowel measuring up to 6.7 cm in d iameter. Nondistended distal small bowel. Midline anterior abdominal wall hernia is again identified with several small bowel loops seen in the superficial adipose layer immediately deep to the cutaneou s germaine. Neck of the hernia measures 3.7 cm in width. No bowel wall thickening identified. A discre te transition point is not seen but the distended loops of bowel are proximal to the level of hernia. No distended loops are seen distal to the hernia. RETROPERITONEUM: There is no lymphadenopathy. BLADDER: No wall thickening or mass. REPRODUCTIVE: Within normal limits. INGUINAL: There is no lymphadenopathy or hernia. MUSCULOSKELETAL: Within normal limits for patient age. CONCLUSION: 1. Post surgical findings with cutaneous germaine anteriorly. 2. Anterior abdominal wall hernia with multiple loops of small bowel again seen. Small bowel distenti on is seen proximal to the herniated loops indicating possible partial small bowel obstruction or ile us. 3. Free fluid and free air likely due to recent surgery. Geovani Marquez MD on May 22, 2017 at 0:50 Board Certified Radiologist. This report was verified electronically.
--- NOTE | 2017-05-22 01:08 | RADRPT ---
EXAM DATE/TIME: 05/22/2017 00:24 [facility] COMPARISON: No previous studies available for comparison. INDICATIONS : Shortness of breath. Post op hernia repair. IV CONTRAST: 100 cc Omnipaque 350 (iohexol) IV RADIATION DOSE: 16.34 CTDIvol (mGy) ; Combined studies - Thorax/Abdomen/Pelvis MEDICAL HISTORY : Hypertension. Hernia, umbilical. SURGICAL HISTORY : Umbilical hernia repair. Appendectomy. ENCOUNTER: Initial ACUITY: 1 day PAIN SCALE: 2/10 LOCATION: Bilateral chest TECHNIQUE: Volumetric scanning of the chest was performed using a pulmonary embolism protocol MIP images were re constructed. Using automated exposure control and adjustment of the mA and/or kV according to patien t size, radiation dose was kept as low as reasonably achievable to obtain optimal diagnostic quality images. DICOM format image data is available electronically for review and comparison. Follow-up recommendations for detected pulmonary nodules are based at a minimum on nodule size and pa tient risk factors according to Fleischner Society Guidelines. FINDINGS: PULMONARY ARTERIES: No filling defects are seen in the pulmonary arteries through the segmental level. LUNGS: Bilateral inferior lower lobe pulmonary consolidation. PLEURAE: Trace bilateral pleural effusions MEDIASTINUM: There is good visualization of the great vessels of the middle mediastinum. No evidence of mediastin al or hilar adenopathy/mass. MUSCULOSKELETAL: Within normal limits for patient age. MISCELLANEOUS: Upper abdomen described on abdomen CT report. CONCLUSION: 1. No evidence of pulmonary embolus. 2. Bilateral inferior lower lobe consolidation/atelectasis. 3. Trace bilateral pleural effusions. Geovani Marquez MD on May 22, 2017 at 1:04 Board Certified Radiologist. This report was verified electronically.
[2017-05-22] MEDS ORDERED: LORazepam 2 MG/ML VIAL IV ONE (01:15)
[2017-05-22] MEDS: SODIUM CHLOR 0.9% 1000 ML INJ 1,000 ML IV SCH ×3 (02:20→14:20)
[2017-05-22] MEDS: ACETAMINOPHEN 1000 MG/100 ML VIAL IV SCH ×4 (05:16→23:04)
[2017-05-22] MEDS: CIPROFLOXACIN 400 MG PREMIX 200 ML IV SCH (05:16)
[2017-05-22] MEDS: METOCLOPRAMIDE HCL 10 MG/2 ML VIAL IV PUSH SCH (05:18)
[2017-05-22] MEDS ORDERED: SODIUM CHLOR 0.9% 1000 ML INJ 1,000 ML IV ONE (06:45)
[2017-05-22] MEDS: SODIUM CHLORIDE 0.9% FLUSH 10 ML FLUSH IV FLUSH SCH ×3 (09:00→20:26)
[2017-05-22] MEDS: POLYETHYLENE GLYCOL 17 GM PKG PO SCH (09:00)
[2017-05-22] MEDS: guaiFENesin E.R. 600 MG TAB PO SCH ×2 (09:00→20:26)
[2017-05-22 10:06] LABS: AUTOMATED NEUTROPHIL # 3.8 TH/MM3 (1.8-7.7); BASOPHIL % 0.1 % (0.0-2.0); EOSINOPHIL % 0.1 % (0.0-4.0); HEMATOCRIT 45.2 % (39.0-51.0); HEMO FLAGS DIFF FINAL; LYMPH % 14.5 % (9.0-44.0); LYMPHOCYTE # 0.7 TH/MM3 (1.0-4.8); MEAN CELL VOLUME 90.3 FL (80.0-100.0); MEAN CORPUSCULAR HEMOGLOBIN 30.7 PG (27.0-34.0); MONO % 5.8 % (0.0-8.0); NEUT % 79.5 % (16.0-70.0); PLATELET COUNT 317 TH/MM3 (150-450); RED CELL DISTRIBUTION WIDTH 13.5 % (11.6-17.2); WHITE BLOOD COUNT 4.8 TH/MM3 (4.0-11.0)
[2017-05-22 10:39] LABS: BICARBONATE 19.1 MEQ/L (21.0-32.0)
[2017-05-22] MEDS ORDERED: ACETAMINOPHEN 1000 MG/100 ML 0 ML IV ONE (11:01)
[2017-05-22] MEDS ORDERED: BUPIVACAINE/EPINEPHRINE 0.5% 50 ML VIAL ONE (11:16)
[2017-05-22] MEDS ORDERED: PHENYLEPH/NS 1000 MCG/10 ML SYR IV ONE (12:00)
[2017-05-22] MEDS ORDERED: LIDOCAINE HCL 1% PF 5 ML AMPULE OTHER ONE (12:00)
[2017-05-22] MEDS ORDERED: LACTATED RINGER'S 1000 ML INJ 1,000 ML IV ONE ×2 (12:00→16:45)
[2017-05-22] MEDS ORDERED: ROCURONIUM INJ 50 MG/5 ML SYRINGE IV PUSH ONE (12:00)
[2017-05-22] MEDS ORDERED: DEXAMETHASONE SOD PHOS 4 MG/ML VIAL IV ONE (12:00)
[2017-05-22] MEDS ORDERED: PROPOFOL 200 MG/20 ML AMP IV ONE (12:00)
[2017-05-22] MEDS ORDERED: NORMOSOL R INJ 2,000 ML IV ONE (12:00)
[2017-05-22] MEDS ORDERED: PHENYLEPHRINE HCL 10 MG/ML VIAL IV ONE (12:00)
[2017-05-22] MEDS ORDERED: SUCCINYLCHOLINE CHLORIDE 100 MG/5 ML SYRINGE IV PUSH ONE (12:00)
[2017-05-22] MEDS ORDERED: ceFAZolin 2 GM PREMIX 50 ML ONE (12:06)
[2017-05-22 12:49] LABS: BLOOD GAS BASE EXCESS -6.5 mmol/L (-2-2); BLOOD GAS CARBOXYHEMOGLOBIN 1.1 % (0-4); BLOOD GAS HCO3 19 mmol/L (22-26); BLOOD GAS METHEMOGLOBIN 1.1 % (0-2); BLOOD GAS O2 HGB SATURATION 95 % (90-100); BLOOD GAS OXYGEN CONTENT 18.6 Vol % (12.0-20.0); BLOOD GAS PCO2 39 mmHg (38-42); BLOOD GAS PO2 116 mmHg (61-120); BLOOD GAS TOTAL HGB 13.8 G/DL (12.0-16.0); CRITICAL VALUE NO; DRAW SITE ART LINE; FIO2 100 %; OXYGEN DEVICE VENTILATOR; STAT NO; TEMP CORR TO 98.6; VENT SETTINGS IN OR
--- NOTE | 2017-05-22 13:12 | GIPROC ---
[facility] [address] [facility]. [facility], [address] EGD PROCEDURE REPORT EXAM DATE: 05/22/2017 PATIENT NAME: Willy Alfaro MR #: [id number] BIRTHDATE: 1965 ATTENDING: Meredith Steward MD ORDER #: [id number] BROADCAST MAINTENANCE ENGINEER: Arnulfo Sorto BUSINESS CONTROLLER STATUS: outpatient INDICATIONS: The patient is a 51 yr old male here for an EGD due to therapeutic procedure PROCEDURE PERFORMED: EGD w/ tube or catheter placement MEDICATIONS: None and Per Anesthesia. TOPICAL ANESTHETIC: none CONSENT: The patient understands the risks and benefits of the procedure and understands that these risks include, but are not limited to: sedation, allergic reaction, infection, perforation and/or bleeding. Alternative means of evaluation and treatment include, among others: physical exam, x-rays, and/or surgical intervention. The patient elects to proceed with this endoscopic procedure. medical equipment was checked for proper function. Hand hygiene and appropriate measures for infection prevention was taken. After the risks, benefits and alternatives of the procedure were thoroughly explained, Informed consent was verified, confirmed and timeout was successfully executed by the treatment team. The patient was anesthetized with topical anesthesia and the Pentax EG-[id number] endoscope was introduced through the mouth and advanced to the second portion of the duodenum. Retroflexion was performed and was normal The gastroscope was then slowly withdrawn and removed. ESOPHAGUS: Tortousity. STOMACH: There was a large amount of gastric secreations seen in the entire examined stomach. Due to the large amount of fluids, complete mucosal examination could not be performed. Drained through the scope total of 1200 cc gastric secreations. DUODENUM: The duodenal mucosa appeared normal. ADVERSE EVENTS: There were no complications. IMPRESSIONS: 1. Tortousity of the esophagus 2. Gastric secreations in the entire examined stomach, total of 1200 cc drained 3. Normal duodenal mucosa 4. NGT placed under endoscopic guidance RECOMMENDATIONS: Surgery as planned PATIENT CONDITION: stable DISPOSITION: Observation REPEAT EXAM: NONE Meredith Steward MD eSigned: Meredith Steward MD 05/22/2017 1:11 PM cc: PATIENT NAME: Willy Alfaro MR#: [id number]
[2017-05-22] MEDS ORDERED: PROPOFOL 1000 MG/100 ML INJ 100 ML ONE (13:20)
--- NOTE | 2017-05-22 13:35 | HHI.PR ---
cc: Raffy Queen MD Immediate Post Op Note Procedure Date: May 22, 2017 Pre Op Diagnosis: (1) Perforated small intestine (2) Wound dehiscence (3) Dehiscence of closure of fascia, superficial or muscular (4) Postoperative ileus (5) Umbilical hernia, incarcerated Post Op Diagnosis: (1) Wound dehiscence (2) Perforated small intestine (3) Umbilical hernia, incarcerated (4) Postoperative ileus (5) Post-operative nausea and vomiting Surgeon: Raffy Queen Scouring Machine Operator(s): See operating room records Procedure: Exploratory laparotomy Partial omentectomy Small bowel resection Open packing of abdominal wall Findings: Small pinpoint hole in the small bowel that was massively dilated from postop ileus. It was near the area that was previous incarcerated. Intraoperatively he required an EGD for NG tube placement because of massively dilated stomach and small bowel Additional Information: Will plan to return to the operating room on Wednesday for closure of the abdominal wall fascia Complications: None Specimen(s) removed: Small bowel omentum Estimated blood loss: Minimal Anesthesia: General Drains: SINGH IVF Patient to: PACU Patient Condition: Critical Implant/Devices: SEE IMPLANT LOG (if applicable) Date/Time of Procedure: SEE SURGICAL CARE RECORD Raffy Queen MD May 22, 2017 13:35
[2017-05-22] MEDS: PROPOFOL 1000 MG/100 ML INJ 100 ML IV PRN ×3 (13:38→20:44)
--- NOTE | 2017-05-22 13:47 | HHI.PR ---
cc: Raffy Hudson MD Subjective Subjective Notes DAILY PROGRESS NOTE FOR SURGICAL ATTENDING, DR. RAFFY HUDSON I don't feel very well I'm trying to go to the bathroom I was short of breath last night Objective Vitals/I&O Vital Signs Date Time Temp Pulse Resp B/P (MAP) Pulse Ox O2 Delivery O2 Flow Rate FiO2 05/22/17 08:00 95.6 125 36 109/68 (82) 90 Labs Laboratory Tests Test 05/22/17 00:02 05/22/17 00:07 05/22/17 09:23 05/22/17 12:34 White Blood Count 3.6 4.8 Red Blood Count 5.06 5.00 Hemoglobin 15.9 15.4 Hematocrit 44.6 45.2 Mean Corpuscular Volume 88.2 90.3 Mean Corpuscular Hemoglobin 31.5 30.7 Mean Corpuscular Hemoglobin Concent 35.7 34.0 Red Cell Distribution Width 13.0 13.5 Platelet Count 291 317 Mean Platelet Volume 8.2 8.7 Blood Urea Nitrogen 27 32 Creatinine 1.14 1.45 Random Glucose 128 120 Calcium Level 8.3 8.1 Sodium Level 135 134 Potassium Level 3.6 3.0 Chloride Level 98 101 Carbon Dioxide Level 26.8 19.1 Anion Gap 10 14 Estimat Glomerular Filtration Rate 68 52 Blood Gas Puncture Site RT RADIAL ART LINE Blood Gas Patient Temperature 98.6 98.6 Blood Gas HCO3 22 19 Blood Gas Base Excess -1.6 -6.5 Blood Gas Oxygen Saturation 93 95 Arterial Blood pH 7.44 7.31 Arterial Blood Partial Pressure CO2 33 39 Arterial Blood Partial Pressure O2 75 116 Arterial Blood Oxygen Content 20.4 18.6 Arterial Blood Carboxyhemoglobin 1.6 1.1 Arterial Blood Methemoglobin 0.8 1.1 Blood Gas Hemoglobin 15.7 13.8 Oxygen Delivery Device NASAL CANNULA VENTILATOR Blood Gas Liter Flow 2 Neutrophils (%) (Auto) 79.5 Lymphocytes (%) (Auto) 14.5 Monocytes (%) (Auto) 5.8 Eosinophils (%) (Auto) 0.1 Basophils (%) (Auto) 0.1 Neutrophils # (Auto) 3.8 Lymphocytes # (Auto) 0.7 Monocytes # (Auto) 0.3 Eosinophils # (Auto) 0.0 Basophils # (Auto) 0.0 CBC Comment DIFF FINAL Differential Comment Blood Gas Ventilator Setting IN OR Blood Gas Inspired Oxygen 100 Date/Time Source Procedure Growth Status 05/22/17 00:05 Gastric Gastric Occult Blood - Final GASTROCCULT NEGATIVE Complete 05/17/17 00:59 Urine Catheterized Urine Urine Culture - Final Staphylococcus Epidermidis Complete 05/22/17 12:22 Wound Abdomen Gram Stain Pending Received 05/22/17 12:22 Wound Abdomen Wound Culture Pending Received Radiology Last Impressions CT Angiography 05/22/17 0000 Signed Impressions: Service Date/Time: Monday, May 22, 2017 00:24 - CONCLUSION: 1. No evidence of pulmonary embolus. 2. Bilateral inferior lower lobe consolidation/atelectasis. 3. Trace bilateral pleural effusions. Geovani Marquez MD Abdomen/Pelvis CT 05/22/17 0000 Signed Impressions: Service Date/Time: Monday, May 22, 2017 00:24 - CONCLUSION: 1. Post surgical findings with cutaneous germaine anteriorly. 2. Anterior abdominal wall hernia with multiple loops of small bowel again seen. Small bowel distention is seen proximal to the herniated loops indicating possible partial small bowel obstruction or ileus. 3. Free fluid and free air likely due to recent surgery. Geovani Marquez MD Abdomen X-Ray 05/21/17 0000 Signed Impressions: Service Date/Time: Sunday, May 21, 2017 22:24 - CONCLUSION: 1. Findings similar to the prior study of 05/19/2017. Dilated air-filled proximal small bowel. Paucity of gas in the distal small bowel and colon. 2. Differential diagnosis is small bowel obstruction and ileus. Geovani Marquez MD Last 72 hours Impressions Abdomen/Pelvis CT 05/16/178 Signed Impressions: Service Date/Time: Tuesday, May 16, 2017 23:18 - CONCLUSION: Small bowel containing umbilical hernia producing bowel obstruction. Clovis Lainez MD Cardiovascular: Other (tachycardia) Lungs: Upper airway course sound, Other (short of breath dyspnea) Abdomen: Other (distended tender appears to have ruptured his fascial repair), Post-op tenderness Extremities: Perfused Narrative Exam Appears more ill although he is walking in the room. A/P Problem List: (1) Dehiscence of closure of fascia, superficial or muscular ICD Codes: T81.32XA - Disruption of internal operation (surgical) wound, not elsewhere classified, initial encounter Status: Acute (2) Postoperative ileus ICD Codes: K91.89 - Other postprocedural complications and disorders of digestive system; K56.7 - Ileus, unspecified Status: Acute (3) Status post umbilical hernia repair, follow-up exam ICD Codes: Z09 - Encounter for follow-up examination after completed treatment for conditions other than malignant neoplasm Status: Acute (4) Small bowel obstruction ICD Codes: K56.609 - Unspecified intestinal obstruction, unspecified as to partial versus complete obstruction Status: Resolved Assessment and Plan 51 year old male POD repair of incarcerated umbilical hernia Appears to have ruptured his fascial repair and now is more ill I discussed with him the need to return to the operating room He appeared to understand He had a CT scan of his abdomen and a CTA looking for PE early this morning and. No PE It looks like he's ruptured his fascial repair Attending Statement NOTE FOR SURGICAL ATTENDING, DR. RAFFY HUDSON I attest that I had a [id number] encounter with the patient on the same day, and personally performed and documented my assessment and findings in the medical record. The following services were provided during this hospital visit: Chart data review, vital sign assessments/reviewing monitor data Review of consultations notes if present. Medication orders/review and/or management Ordering and/or reviewing lab tests Ordering and/or interpreting/reviewing x-rays and/or diagnostic studies Care of the patient and discussion of the patient with the care team Documentation time To help prompt me to consider important information that might be impacting today's encounter and assessment, information from prior notes written by myself or my colleagues may have been "brought forward/copy and pasted" into today's note. Problem Qualifiers (1) Dehiscence of closure of fascia, superficial or muscular: Qualified Codes: T81.32XA - Disruption of internal operation (surgical) wound, not elsewhere classified, initial encounter Raffy Hudson MD May 22, 2017 13:47
[2017-05-22] MEDS ORDERED: *HYDROmorphone PF 1 MG VIAL PERIprocedural Use ONLY ONE (13:51)
[2017-05-22] MEDS ORDERED: LACTULOSE SYRUP 20 GM/30 ML CUP PO PRN (14:15)
[2017-05-22] MEDS ORDERED: CHLORHEXIDINE GLUCONATE 2 % 1 PACK (2 CLOTHS) TOP PRN (14:15)
[2017-05-22] MEDS ORDERED: MISCELLANEOUS NURSING INFORMATION XX SCH (14:15)
[2017-05-22] MEDS ORDERED: SODIUM CHLORIDE 0.9% FLUSH 10 ML FLUSH IV FLUSH PRN (14:15)
[2017-05-22] MEDS ORDERED: MIDAZOLAM HCL 2 MG/2 ML VIAL IV PUSH PRN (14:15)
[2017-05-22] MEDS ORDERED: SENNOSIDES 8.6 MG TAB PO PRN (14:15)
[2017-05-22] MEDS ORDERED: BISACODYL 10 MG SUPP RECTAL PRN (14:15)
[2017-05-22] MEDS ORDERED: MAGNESIUM HYDROXIDE SUSP 30 ML CUP PO PRN (14:15)
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
[2017-05-22] MEDS ORDERED: POTASSIUM PHOSPHATE MONOBASIC 500 MG TAB PO/TUBE PRN (14:30)
[2017-05-22] MEDS ORDERED: MAGNESIUM OXIDE 400 MG TAB PO PRN (14:30)
[2017-05-22] MEDS ORDERED: POTASSIUM CHLOR 20 MEQ PREMIX 100 ML IV PRN (14:30)
[2017-05-22] MEDS ORDERED: POTASSIUM PHOSPHATE INJ 30 MMOL in SODIUM CHLOR 0.9% 250 ML INJ 250 ML IV PRN (14:30)
[2017-05-22] MEDS ORDERED: MAGNESIUM SULFATE INJ 2 GM in SODIUM CHLORIDE 0.9% INJ 96 ML IV PRN (14:30)
[2017-05-22] MEDS ORDERED: DO NOT ADM ANY ANTICOAGULANT DRUGS PRN (14:30)
[2017-05-22] MEDS ORDERED: MAGNESIUM SULFATE INJ 4 GM in SODIUM CHLORIDE 0.9% INJ 92 ML IV PRN (14:30)
[2017-05-22] MEDS ORDERED: POTASSIUM PHOSPHATE MONOBASIC 500 MG TAB PO PRN (14:30)
[2017-05-22] MEDS ORDERED: POTASSIUM CHLOR 40 MEQ PREMIX 100 ML IV PRN ×2 (14:30)
[2017-05-22] MEDS ORDERED: POTASSIUM CHLORIDE 25 MEQ EFFERVESCENT TAB PO PRN (14:30)
[2017-05-22] MEDS ORDERED: SODIUM PHOSPHATE INJ 30 MMOL in SODIUM CHLOR 0.9% 250 ML INJ 240 ML IV PRN (14:30)
--- NOTE | 2017-05-22 14:33 | RADRPT ---
EXAM DATE/TIME: 05/22/2017 14:22 [facility] COMPARISON: CT PULMONARY ANGIOGRAM, May 22, 2017, 0:24. INDICATIONS : Post intubation. MEDICAL HISTORY : Hypertension. Hernia, umbilical. SURGICAL HISTORY : Umbilical hernia repair. Appendectomy. ENCOUNTER: Initial ACUITY: 1 day PAIN SCORE: Non-responsive. LOCATION: Bilateral chest FINDINGS: Bibasilar consolidation with small effusions noted. No pneumothorax. Heart size within normal limits. Endotracheal tube tip is approximately 5 cm above the erika. There is a nasogastric tube coursing in to the stomach. CONCLUSION: Appropriately positioned endotracheal tube and nasogastric tubes. Bibasilar consolidation with small effusions again noted. Clovis Reed MD on May 22, 2017 at 14:30 Board Certified Radiologist. This report was verified electronically.
[2017-05-22 14:36] LABS: HEMATOCRIT 41.1 % (39.0-51.0); MEAN CELL VOLUME 89.4 FL (80.0-100.0); MEAN CORPUSCULAR HEMOGLOBIN 30.5 PG (27.0-34.0); MEAN CORPUSCULAR HGB CONC 34.1 % (32.0-36.0); PLATELET COUNT 282 TH/MM3 (150-450); RED BLOOD COUNT 4.61 MIL/MM3 (4.50-5.90); RED CELL DISTRIBUTION WIDTH 13.4 % (11.6-17.2); REVIEW FLAG FINAL; WHITE BLOOD COUNT 4.2 TH/MM3 (4.0-11.0)
[2017-05-22] MEDS: PANTOPRAZOLE SODIUM 40 MG VIAL IVP SCH (15:00)
[2017-05-22] MEDS: FLUCONAZOLE 400 MG PREMIX BAG 200 ML IV SCH (15:00)
[2017-05-22 15:08] LABS: BICARBONATE 21.2 MEQ/L (21.0-32.0); MAGNESIUM 1.7 MG/DL (1.5-2.5); POTASSIUM 3.4 MEQ/L (3.5-5.1)
[2017-05-22 15:38] LABS: CALCIUM-PROTEIN CORRECTED 9.1 MG/DL (8.5-10.1)
[2017-05-22] MEDS: POTASSIUM CHLOR 20 MEQ PREMIX 100 ML IV PRN ×2 (15:55→16:30)
[2017-05-22] MEDS ORDERED: LEVOFLOXACIN 750 MG PREMIX INJ 150 ML IV SCH (16:00)
[2017-05-22] MEDS: MIDAZOLAM 100 MG/100 ML INJ 100 ML IV PRN (16:45)
[2017-05-22] MEDS ORDERED: ALBUMIN 5% INJ 250 ML IV ONE (16:45)
[2017-05-22] MEDS ORDERED: CALCIUM GLUCONATE INJ 1 GM in SODIUM CHLORIDE 0.9% INJ 100 ML IV ONE (16:45)
[2017-05-22] MEDS: MAGNESIUM SULFATE 1 GM PREMIX 100 ML IV SCH ×2 (17:00→18:00)
[2017-05-22 17:06] LABS: BLOOD GAS BASE EXCESS -2.9 mmol/L (-2-2); BLOOD GAS CARBOXYHEMOGLOBIN 0.8 % (0-4); BLOOD GAS HCO3 22 mmol/L (22-26); BLOOD GAS METHEMOGLOBIN 1.1 % (0-2); BLOOD GAS O2 HGB SATURATION 97 % (90-100); BLOOD GAS OXYGEN CONTENT 19.8 Vol % (12.0-20.0); BLOOD GAS PCO2 42 mmHg (38-42); BLOOD GAS PO2 163 mmHg (61-120); BLOOD GAS TOTAL HGB 14.3 G/DL (12.0-16.0); TEMP CORR TO 98.6
[2017-05-22 17:07] LABS: CRITICAL VALUE NO; DRAW SITE ART LINE; FIO2 100 %; OXYGEN DEVICE VENTILATOR; STAT NO; ULNAR PULSE PRESENT
[2017-05-22] MEDS: metroNIDAZOLE 500 MG INJ 100 ML IV SCH ×2 (17:48→23:04)
[2017-05-22] MEDS: POTASSIUM CHLOR 10 MEQ PREMIX 100 ML IV SCH ×3 (18:00→21:25)
[2017-05-22] MEDS: ARTIFICIAL TEARS OPTH SOLN 15 ML BTL EACH EYE SCH ×2 (18:00→21:25)
[2017-05-22] MEDS: LEVOFLOXACIN 750 MG PREMIX INJ 150 ML IV SCH (18:24)
[2017-05-22] MEDS: DOCUSATE SODIUM 50 MG/SENNA 8.6 MG TAB PO SCH (20:26)
[2017-05-22] MEDS: CHLORHEXIDINE 0.12% (ORAL KIT) 15 ML CUP MT SCH (20:26)
[2017-05-22 22:29] LABS: HEMATOCRIT 38.5 % (39.0-51.0); MEAN CELL VOLUME 89.3 FL (80.0-100.0); MEAN CORPUSCULAR HEMOGLOBIN 30.9 PG (27.0-34.0); MEAN CORPUSCULAR HGB CONC 34.7 % (32.0-36.0); PLATELET COUNT 241 TH/MM3 (150-450); RED BLOOD COUNT 4.31 MIL/MM3 (4.50-5.90); RED CELL DISTRIBUTION WIDTH 13.6 % (11.6-17.2); REVIEW FLAG FINAL; WHITE BLOOD COUNT 6.8 TH/MM3 (4.0-11.0)
--- NOTE | 2017-05-22 23:15 | MP ---
cc: TRISTANJAME DATE OF SURGERY 05/22/17 PREOPERATIVE DIAGNOSIS Fascial dehiscence with incarcerated bowel. POSTOPERATIVE DIAGNOSIS Fascial dehiscence with bowel perforation. PROCEDURE 1. Exploratory laparotomy, lysis of adhesions. 2. Small bowel resection of ischemic bowel with two small perforations. 3. Primary anastomosis. 4. Temporary VAC closure of the abdominal wall secondary to increasing abdominal distension. 5. Omentectomy ANESTHESIA General SURGEON Dr. Marie Queen INDICATIONS The patient is a pleasant gentleman who had urgent umbilical hernia repair. At that time, he had told me he was recovering from viral illness with viral gastroenteritis, had some nausea and vomiting. In the postoperative period, he still had vomiting. Over the ensuing days, his abdomen became more distended. He had a recent CT evaluation because of decompensation showed fascial dehiscence with some free fluid and air. Plans were made for above. PROCEDURE IN DETAIL The patient was taken to the operating room and placed in supine position. After anesthesia, his abdomen was prepped with Betadine. We make the previous incision and opened this up right under the skin. There is small bowel that can be seen. We extend the incision larger to fully explore the abdomen because of the amount of spillage in the abdomen. The cultures were taken. The small bowel was run. It is massively dilated the entirety of this small bowel all the way to the cecal valve. The majority of it is more proximal. There are two small pinholes in the area that was previously incarcerated. This was leaking. This portion had been incarcerated again with the fascial dehiscence. This bowel was resected using the GI stapling device. Harmonic scalpel was used to take the mesentery down. The patient's omentum was fairly inflamed and necrotic appearing and fourth this reason omentectomy was performed using the Harmonic Scalpel scalpel. An NG tube could not be placed by Anesthesia. Gastroenterology was close by and so they place an NG tube endoscopically. It returned about a liter of fluid. We were able to milk back a fair amount of the small bowel that was massively dilated. The contents at least into the stomach to decompress it. The NG tube can be palpated in the stomach and this decompressed. The liver is smooth. The peritoneal surfaces are smooth. I do not feel any other gross abnormality. All four quadrants are irrigated copiously. We are able to then create anastomosis using a ELVIN stapler device and the TA 60 oversewing the staple line and closing the mesenteric defect with the silk pop-offs. Once this was done because of his hemodynamics and the fact that his small bowel was fairly dilated and fluid resuscitation, I was concerned about compartment syndrome and closing the abdomen. For this reason, we use 10-10 drape and a towel and two JPs to temporarily close the abdominal wound placing this to suction with the plan to return to the operating room on Wednesday to allow him to become more stable and hopefully decrease his abdominal distension. He remained intubated. I talked to the granite polisher apprentice. We will keep him in the intensive care unit. He returned to the recovery room critical but stable. I was able to talk to the sister afterwards. I then told her about the intraoperative findings. She appeared to understand and knows were are taking him back to the operating room on Wednesday. MD PREMA Donovan/ /6:09 PM /11:03 PM DEXTER
[2017-05-22] MEDS: fentaNYL 2,500 MCG/NS 250 ML IV PRN (23:29)
[2017-05-23] VITALS (19 sets, daily range): BP systolic 94–109; BP diastolic 52–62; PULSE 96–118; RESP 16; TEMP 97.9–99.5; O2SAT 94–99
[2017-05-23] MEDS: PROPOFOL 1000 MG/100 ML INJ 100 ML IV PRN ×4 (00:25→17:15)
[2017-05-23] MEDS: SODIUM CHLOR 0.9% 1000 ML INJ 1,000 ML IV SCH ×3 (03:52→19:52)
[2017-05-23] MEDS: CHLORHEXIDINE GLUCONATE 2 % 1 PACK (2 CLOTHS) TOP SCH (04:00)
[2017-05-23] MEDS: metroNIDAZOLE 500 MG INJ 100 ML IV SCH ×3 (06:02→17:14)
[2017-05-23] MEDS: ACETAMINOPHEN 1000 MG/100 ML VIAL IV SCH ×3 (06:02→17:14)
[2017-05-23] MEDS: ARTIFICIAL TEARS OPTH SOLN 15 ML BTL EACH EYE SCH ×6 (06:02→22:00)
[2017-05-23 06:14] LABS: AUTOMATED NEUTROPHIL # 8.2 TH/MM3 (1.8-7.7); BASOPHIL % 0.1 % (0.0-2.0); EOSINOPHIL % 0.1 % (0.0-4.0); LYMPH % 5.3 % (9.0-44.0); LYMPHOCYTE # 0.5 TH/MM3 (1.0-4.8); MEAN CELL VOLUME 89.6 FL (80.0-100.0); MEAN CORPUSCULAR HEMOGLOBIN 31.1 PG (27.0-34.0); MEAN CORPUSCULAR HGB CONC 34.7 % (32.0-36.0); NEUT % 90.5 % (16.0-70.0); PLATELET COUNT 232 TH/MM3 (150-450); RED BLOOD COUNT 4.12 MIL/MM3 (4.50-5.90); RED CELL DISTRIBUTION WIDTH 13.6 % (11.6-17.2); WHITE BLOOD COUNT 9.1 TH/MM3 (4.0-11.0)
[2017-05-23 06:19] LABS: HEMO FLAGS AUTO DIFF
--- NOTE | 2017-05-23 06:32 | RADRPT ---
EXAM DATE/TIME: 05/23/2017 05:31 [facility] COMPARISON: CHEST SINGLE AP, May 22, 2017, 14:22. INDICATIONS : Evaluate for pnuemonia- Respiratory failure MEDICAL HISTORY : Hypertension. Umbilical hernia SURGICAL HISTORY : Umbilical hernia repair. Appendectomy. ENCOUNTER: Subsequent ACUITY: 1 week PAIN SCORE: Non-responsive. LOCATION: Bilateral chest FINDINGS: Single AP view of the chest. Endotracheal tube and nasogastric tube remain in place. Low lung volumes . Increase in confluent right perihilar pulmonary parenchymal opacity. Persistent bilateral lower saadia g zone consolidation versus atelectasis. Slight increase in bilateral pleural effusions. CONCLUSION: Bilateral pulmonary opacity and bilateral pleural effusions again seen. Increase in opacity in the ri ght perihilar region. Slight increase in pleural effusions. Geovani Marquez MD on May 23, 2017 at 6:29 Board Certified Radiologist. This report was verified electronically.
[2017-05-23 06:41] LABS: ALKALINE PHOSPHATASE 51 U/L (45-117); ALT (GPT) 18 U/L (12-78); ANION GAP 8 MEQ/L (5-15); AST (GOT) 19 U/L (15-37); BLOOD UREA NITROGEN 23 MG/DL (7-18); CHLORIDE 103 MEQ/L (98-107); GLOMERULAR FILTRATION RATE 92 ML/MIN (>89); MAGNESIUM 2.3 MG/DL (1.5-2.5); POTASSIUM 4.2 MEQ/L (3.5-5.1); SODIUM (NA) 137 MEQ/L (136-145); TOTAL BILIRUBIN ADULT 1.4 MG/DL (0.2-1.0)
[2017-05-23] MEDS: CHLORHEXIDINE 0.12% (ORAL KIT) 15 ML CUP MT SCH ×2 (08:00→20:00)
[2017-05-23] MEDS: DOCUSATE SODIUM 50 MG/SENNA 8.6 MG TAB PO SCH ×2 (08:38→21:00)
[2017-05-23] MEDS: guaiFENesin E.R. 600 MG TAB PO SCH ×2 (08:38→21:00)
[2017-05-23] MEDS: SODIUM CHLORIDE 0.9% FLUSH 10 ML FLUSH IV FLUSH SCH ×3 (08:39→21:00)
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
[2017-05-23 09:01] LABS: BANDS 60 % (0-6); METAMYELOCYTES 1 % (0-1); NEUTROPHIL # MANUAL DIFF 8.9 TH/MM3 (1.8-7.7); PLATELET ESTIMATE SMEAR NORMAL (NORMAL); PLATELET MORPHOLOGY NORMAL (NORMAL); POLYS (SEG NEUTROPHILS) 37 % (16-70); SCAN/DIFF FINAL DIFF MANUAL; WBC DIFF SAMPLE 100
--- NOTE | 2017-05-23 09:08 | EKG ---
Date Performed: 05/22/2017 Time Performed: 00:51:50 PTAGE: 51 years EKG: Probable sinus tachycardia. rSr'(V1) - probable normal variant Poor R wave progression - pr obable normal variant Lateral T wave changes are nonspecific Low QRS voltages in precordial leads Com pared to prior tracing no significant change Borderline ECG PREVIOUS TRACING : 08/06/2006 17.55 DOCTOR: Oni Estes Interpretating Date/Time 05/23/2017 09:06:48
[2017-05-23] MEDS ORDERED: TERBUTALINE INJ 1 MG/ML AMP SQ PRN (09:15)
[2017-05-23] MEDS ORDERED: NOREPINEPHRINE-DEXTROSE DRIP 250 ML IV PRN (09:15)
--- NOTE | 2017-05-23 12:01 | EKG ---
Date Performed: 05/22/2017 Time Performed: 17:07:58 PTAGE: 51 years EKG: SINUS TACHYCARDIA LOW QRS VOLTAGE IN PRECORDIAL LEADS POSSIBLE RIGHT VENTRICULAR CONDUCTION DELAY ABNORMAL RHYTHM ECG PREVIOUS TRACING : 05/22/2017 00.51 Consider anteroseptal myocardial infarction - age indetermi mir DOCTOR: Oni Estes Interpretating Date/Time 05/23/2017 11:59:56
--- NOTE | 2017-05-23 13:06 | HHI.PR ---
Subjective Subjective Notes intubated and sedated in ISC, nurse reports they are weaning pressor support, no current issues Objective Vitals/I&O Vital Signs Date Time Temp Pulse Resp B/P (MAP) Pulse Ox O2 Delivery O2 Flow Rate FiO2 05/23/17 11:41 97 50 05/23/17 09:30 100 87/47 05/23/17 04:00 99.2 16 05/22/17 17:00 Mechanical Ventilator Labs Laboratory Tests Test 05/22/17 14:10 05/22/17 17:00 05/22/17 17:35 05/22/17 22:07 White Blood Count 4.2 6.8 Red Blood Count 4.61 4.31 Hemoglobin 14.0 13.3 Hematocrit 41.1 38.5 Mean Corpuscular Volume 89.4 89.3 Mean Corpuscular Hemoglobin 30.5 30.9 Mean Corpuscular Hemoglobin Concent 34.1 34.7 Red Cell Distribution Width 13.4 13.6 Platelet Count 282 241 Mean Platelet Volume 8.5 8.3 Blood Urea Nitrogen 28 Creatinine 0.92 Random Glucose 112 Total Protein 4.1 Calcium Level 7.3 Phosphorus Level 3.6 Magnesium Level 1.7 Sodium Level 137 Potassium Level 3.4 Chloride Level 101 Carbon Dioxide Level 21.2 Anion Gap 15 Estimat Glomerular Filtration Rate 87 Lactic Acid Level 4.5 2.6 Protein Corrected Calcium 9.1 Blood Gas Puncture Site ART LINE Blood Gas Patient Temperature 98.6 Blood Gas HCO3 22 Blood Gas Base Excess -2.9 Blood Gas Oxygen Saturation 97 Arterial Blood pH 7.34 Arterial Blood Partial Pressure CO2 42 Arterial Blood Partial Pressure O2 163 Arterial Blood Oxygen Content 19.8 Arterial Blood Carboxyhemoglobin 0.8 Arterial Blood Methemoglobin 1.1 Blood Gas Hemoglobin 14.3 Oxygen Delivery Device VENTILATOR Blood Gas Ventilator Setting Blood Gas Inspired Oxygen 100 Nasal Screen MRSA (PCR) MRSA NOT DETECTED Test 05/23/17 05:45 White Blood Count 9.1 Red Blood Count 4.12 Hemoglobin 12.8 Hematocrit 37.0 Mean Corpuscular Volume 89.6 Mean Corpuscular Hemoglobin 31.1 Mean Corpuscular Hemoglobin Concent 34.7 Red Cell Distribution Width 13.6 Platelet Count 232 Mean Platelet Volume 8.6 Neutrophils (%) (Auto) 90.5 Lymphocytes (%) (Auto) 5.3 Monocytes (%) (Auto) 4.0 Eosinophils (%) (Auto) 0.1 Basophils (%) (Auto) 0.1 Neutrophils # (Auto) 8.2 Lymphocytes # (Auto) 0.5 Monocytes # (Auto) 0.4 Eosinophils # (Auto) 0.0 Basophils # (Auto) 0.0 CBC Comment AUTO DIFF Differential Total Cells Counted 100 Neutrophils % (Manual) 37 Band Neutrophils % 60 Monocytes % 2 Neutrophils # (Manual) 8.9 Metamyelocytes 1 Differential Comment FINAL DIFF MANUAL Platelet Estimate NORMAL Platelet Morphology Comment NORMAL Red Cell Morphology Comment NORMAL Blood Urea Nitrogen 23 Creatinine 0.88 Random Glucose 112 Total Protein 4.8 Albumin 1.8 Calcium Level 7.7 Phosphorus Level 2.7 Magnesium Level 2.3 Alkaline Phosphatase 51 Aspartate Amino Transf (AST/SGOT) 19 Alanine Aminotransferase (ALT/SGPT) 18 Total Bilirubin 1.4 Sodium Level 137 Potassium Level 4.2 Chloride Level 103 Carbon Dioxide Level 26.0 Anion Gap 8 Estimat Glomerular Filtration Rate 92 Lactic Acid Level 1.9 Date/Time Source Procedure Growth Status 05/22/17 00:05 Gastric Gastric Occult Blood - Final GASTROCCULT NEGATIVE Complete 05/17/17 00:59 Urine Catheterized Urine Urine Culture - Final Staphylococcus Epidermidis Complete 05/22/17 12:22 Wound Abdomen Gram Stain - Final Resulted 05/22/17 12:22 Wound Abdomen Wound Culture - Preliminary Resulted Radiology Last Impressions CT Angiography 05/22/17 0000 Signed Impressions: Service Date/Time: Monday, May 22, 2017 00:24 - CONCLUSION: 1. No evidence of pulmonary embolus. 2. Bilateral inferior lower lobe consolidation/atelectasis. 3. Trace bilateral pleural effusions. Geovani Marquez MD Abdomen/Pelvis CT 05/22/17 0000 Signed Impressions: Service Date/Time: Monday, May 22, 2017 00:24 - CONCLUSION: 1. Post surgical findings with cutaneous germaine anteriorly. 2. Anterior abdominal wall hernia with multiple loops of small bowel again seen. Small bowel distention is seen proximal to the herniated loops indicating possible partial small bowel obstruction or ileus. 3. Free fluid and free air likely due to recent surgery. Geovani Marquez MD Abdomen X-Ray 05/21/17 0000 Signed Impressions: Service Date/Time: Sunday, May 21, 2017 22:24 - CONCLUSION: 1. Findings similar to the prior study of 05/19/2017. Dilated air-filled proximal small bowel. Paucity of gas in the distal small bowel and colon. 2. Differential diagnosis is small bowel obstruction and ileus. Geovani Marquez MD Last 72 hours Impressions Abdomen/Pelvis CT 05/16/17 2148 Signed Impressions: Service Date/Time: Tuesday, May 16, 2017 23:18 - CONCLUSION: Small bowel containing umbilical hernia producing bowel obstruction. Clovis Lainez MD Abdomen: Other, Post-op tenderness Narrative Exam abdomen open with VAC in place A/P Problem List: (1) Dehiscence of closure of fascia, superficial or muscular ICD Codes: T81.32XA - Disruption of internal operation (surgical) wound, not elsewhere classified, initial encounter Status: Acute (2) Postoperative ileus ICD Codes: K91.89 - Other postprocedural complications and disorders of digestive system; K56.7 - Ileus, unspecified Status: Acute (3) Status post umbilical hernia repair, follow-up exam ICD Codes: Z09 - Encounter for follow-up examination after completed treatment for conditions other than malignant neoplasm Status: Acute (4) Small bowel obstruction ICD Codes: K56.609 - Unspecified intestinal obstruction, unspecified as to partial versus complete obstruction Status: Resolved Assessment and Plan s/p exp lap, small bowel resection, open abdomen continue supportive care will need to return to OR for abdominal closure in near future. Problem Qualifiers (1) Dehiscence of closure of fascia, superficial or muscular: Qualified Codes: T81.32XA - Disruption of internal operation (surgical) wound, not elsewhere classified, initial encounter Manjit Fritz MD May 23, 2017 13:06
[2017-05-23] MEDS: fentaNYL 2,500 MCG/NS 250 ML IV PRN (14:26)
[2017-05-23] MEDS: PANTOPRAZOLE SODIUM 40 MG VIAL IVP SCH (14:26)
[2017-05-23] MEDS: FLUCONAZOLE 400 MG PREMIX BAG 200 ML IV SCH (14:27)
[2017-05-23] MEDS: LEVOFLOXACIN 750 MG PREMIX INJ 150 ML IV SCH (17:14)
[2017-05-23] MEDS: MIDAZOLAM 100 MG/100 ML INJ 100 ML IV PRN (18:11)
[2017-05-24] VITALS (18 sets, daily range): BP systolic 98–118; BP diastolic 57–69; PULSE 85–97; RESP 16; TEMP 97.9–99.2; O2SAT 88–100
[2017-05-24] MEDS: ACETAMINOPHEN 1000 MG/100 ML VIAL IV SCH ×4 (00:08→16:24)
[2017-05-24] MEDS: metroNIDAZOLE 500 MG INJ 100 ML IV SCH ×4 (00:09→17:24)
[2017-05-24] MEDS: PROPOFOL 1000 MG/100 ML INJ 100 ML IV PRN ×3 (01:23→17:28)
[2017-05-24] MEDS: SODIUM CHLOR 0.9% 1000 ML INJ 1,000 ML IV SCH ×3 (02:54→20:25)
[2017-05-24] MEDS: CHLORHEXIDINE GLUCONATE 2 % 1 PACK (2 CLOTHS) TOP SCH (04:00)
[2017-05-24] MEDS: fentaNYL 2,500 MCG/NS 250 ML IV PRN ×2 (04:13→22:38)
[2017-05-24 04:52] LABS: HEMATOCRIT 34.5 % (39.0-51.0); MEAN CELL VOLUME 90.4 FL (80.0-100.0); MEAN CORPUSCULAR HEMOGLOBIN 30.4 PG (27.0-34.0); MEAN CORPUSCULAR HGB CONC 33.6 % (32.0-36.0); PLATELET COUNT 267 TH/MM3 (150-450); RED BLOOD COUNT 3.82 MIL/MM3 (4.50-5.90); RED CELL DISTRIBUTION WIDTH 13.7 % (11.6-17.2); WHITE BLOOD COUNT 13.1 TH/MM3 (4.0-11.0)
[2017-05-24 04:58] LABS: HEMO FLAGS AUTO DIFF
[2017-05-24 05:26] LABS: BANDS 22 % (0-6); CORRECTED NUCLEATED RBC 1 /100 WBC (0-0); METAMYELOCYTES 7 % (0-1); NEUTROPHIL # MANUAL DIFF 12.2 TH/MM3 (1.8-7.7); POLYS (SEG NEUTROPHILS) 63 % (16-70); PROMYELOCYTES 1 % (0-0); WBC DIFF SAMPLE 100
[2017-05-24 05:28] LABS: BICARBONATE 29.2 MEQ/L (21.0-32.0); POTASSIUM 4.4 MEQ/L (3.5-5.1)
[2017-05-24] MEDS: ARTIFICIAL TEARS OPTH SOLN 15 ML BTL EACH EYE SCH ×6 (06:00→21:36)
[2017-05-24 06:08] LABS: SCAN/DIFF FINAL DIFF MANUAL
[2017-05-24 06:09] LABS: PLATELET ESTIMATE SMEAR NORMAL (NORMAL); PLATELET MORPHOLOGY NORMAL (NORMAL); TOXIC VACUOLATION PRESENT (NONE SEEN)
[2017-05-24 06:10] LABS: DOHLE BODIES PRESENT (NONE SEEN); TOXIC GRANULATION 1+ (NORMAL)
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
[2017-05-24] MEDS: CHLORHEXIDINE 0.12% (ORAL KIT) 15 ML CUP MT SCH ×2 (08:15→20:25)
[2017-05-24] MEDS: SODIUM CHLORIDE 0.9% FLUSH 10 ML FLUSH IV FLUSH SCH ×2 (08:28→20:26)
[2017-05-24] MEDS: guaiFENesin E.R. 600 MG TAB PO SCH ×2 (08:28→20:26)
[2017-05-24] MEDS: DOCUSATE SODIUM 50 MG/SENNA 8.6 MG TAB PO SCH ×2 (08:28→20:26)
--- NOTE | 2017-05-24 10:20 | HHI.PR ---
cc: Jame Hudson MD Subjective Subjective Notes on vent sedated no pressors making good urine l Objective Vitals/I&O Vital Signs Date Time Temp Pulse Resp B/P (MAP) Pulse Ox O2 Delivery O2 Flow Rate FiO2 05/24/17 10:00 90 05/24/17 08:00 40 05/24/17 08:00 98.3 16 107/58 (74) 96 05/22/17 17:00 Mechanical Ventilator Labs Laboratory Tests Test 05/24/17 04:40 White Blood Count 13.1 Red Blood Count 3.82 Hemoglobin 11.6 Hematocrit 34.5 Mean Corpuscular Volume 90.4 Mean Corpuscular Hemoglobin 30.4 Mean Corpuscular Hemoglobin Concent 33.6 Red Cell Distribution Width 13.7 Platelet Count 267 Mean Platelet Volume 8.1 CBC Comment AUTO DIFF Differential Total Cells Counted 100 Neutrophils % (Manual) 63 Band Neutrophils % 22 Lymphocytes % 2 Monocytes % 5 Neutrophils # (Manual) 12.2 Metamyelocytes 7 Promyelocytes 1 Nucleated Red Blood Cells 1 Differential Comment FINAL DIFF MANUAL Toxic Granulation 1+ Toxic Vacuolation PRESENT Dohle Bodies PRESENT Platelet Estimate NORMAL Platelet Morphology Comment NORMAL Red Cell Morphology Comment NORMAL Blood Urea Nitrogen 23 Creatinine 0.68 Random Glucose 97 Calcium Level 7.9 Sodium Level 141 Potassium Level 4.4 Chloride Level 105 Carbon Dioxide Level 29.2 Anion Gap 7 Estimat Glomerular Filtration Rate 123 Date/Time Source Procedure Growth Status 05/22/17 00:05 Gastric Gastric Occult Blood - Final GASTROCCULT NEGATIVE Complete 05/17/17 00:59 Urine Catheterized Urine Urine Culture - Final Staphylococcus Epidermidis Complete 05/22/17 12:22 Wound Abdomen Gram Stain - Final Resulted 05/22/17 12:22 Wound Abdomen Wound Culture - Preliminary Resulted Radiology Last Impressions Chest X-Ray 05/23/17 0600 Signed Impressions: Service Date/Time: Tuesday, May 23, 2017 05:31 - CONCLUSION: Bilateral pulmonary opacity and bilateral pleural effusions again seen. Increase in opacity in the right perihilar region. Slight increase in pleural effusions. Geovani Marquez MD CT Angiography 05/22/17 0000 Signed Impressions: Service Date/Time: Monday, May 22, 2017 00:24 - CONCLUSION: 1. No evidence of pulmonary embolus. 2. Bilateral inferior lower lobe consolidation/atelectasis. 3. Trace bilateral pleural effusions. Geovani Marquez MD Abdomen/Pelvis CT 05/22/17 Signed Impressions: Service Date/Time: Monday, May 22, 2017 00:24 - CONCLUSION: 1. Post surgical findings with cutaneous germaine anteriorly. 2. Anterior abdominal wall hernia with multiple loops of small bowel again seen. Small bowel distention is seen proximal to the herniated loops indicating possible partial small bowel obstruction or ileus. 3. Free fluid and free air likely due to recent surgery. Geovani Marquez MD Abdomen X-Ray 05/21/17 Signed Impressions: Service Date/Time: Sunday, May 21, 2017 22:24 - CONCLUSION: 1. Findings similar to the prior study of 05/19/2017. Dilated air-filled proximal small bowel. Paucity of gas in the distal small bowel and colon. 2. Differential diagnosis is small bowel obstruction and ileus. Geovani Marquez MD Cardiovascular: Regular Lungs: Other (vent) Abdomen: Other (vac in place ) Extremities: SCD's on, Other Wound Wound : Wound Location: Abdomen Appearance: Clean & Dry Drainage: Clear Dressing: VAC A/P Problem List: (1) Open abdominal incision with drainage ICD Codes: T81.31XA - Disruption of external operation (surgical) wound, not elsewhere classified, initial encounter Status: Acute (2) Dehiscence of closure of fascia, superficial or muscular ICD Codes: T81.32XA - Disruption of internal operation (surgical) wound, not elsewhere classified, initial encounter Status: Acute (3) Postoperative ileus ICD Codes: K91.89 - Other postprocedural complications and disorders of digestive system; K56.7 - Ileus, unspecified Status: Acute Assessment and Plan 51 year old male POD repair of incarcerated umbilical hernia sp bowel resection with open abd plan return to or in am to close abd if he is stable Attending Statement DAILY PROGRESS NOTE FOR SURGICAL ATTENDING, DR. JAME HUDSON I attest that I had a [id number] encounter with the patient on the same day, and personally performed and documented my assessment and findings in the medical record. The following services were provided during this hospital visit: Chart data review, vital sign assessments/reviewing monitor data Review of consultations notes if present. Medication orders/review and/or management Ordering and/or reviewing lab tests Ordering and/or interpreting/reviewing x-rays and/or diagnostic studies Care of the patient and discussion of the patient with the care team Documentation time To help prompt me to consider important information that might be impacting today's encounter and assessment, information from prior notes written by myself or my colleagues may have been "brought forward/copy and pasted" into today's note. Problem Qualifiers (1) Open abdominal incision with drainage: Qualified Codes: T81.31XD - Disruption of external operation (surgical) wound, not elsewhere classified, subsequent encounter (2) Dehiscence of closure of fascia, superficial or muscular: Qualified Codes: T81.32XD - Disruption of internal operation (surgical) wound, not elsewhere classified, subsequent encounter Jame Hudson MD May 24, 2017 10:20
--- NOTE | 2017-05-24 12:22 | HHI.PR ---
Subjective Subjective Notes Intubated/Sedated MELLISSA Jacobs at bedside Objective Vitals/I&O Vital Signs Date Time Temp Pulse Resp B/P (MAP) Pulse Ox O2 Delivery O2 Flow Rate FiO2 05/24/17 12:00 40 05/24/17 12:00 99.0 86 16 118/58 (78) 96 05/22/17 17:00 Mechanical Ventilator Labs Laboratory Tests Test 05/24/17 04:40 05/24/17 10:46 White Blood Count 13.1 Red Blood Count 3.82 Hemoglobin 11.6 Hematocrit 34.5 Mean Corpuscular Volume 90.4 Mean Corpuscular Hemoglobin 30.4 Mean Corpuscular Hemoglobin Concent 33.6 Red Cell Distribution Width 13.7 Platelet Count 267 Mean Platelet Volume 8.1 CBC Comment AUTO DIFF Differential Total Cells Counted 100 Neutrophils % (Manual) 63 Band Neutrophils % 22 Lymphocytes % 2 Monocytes % 5 Neutrophils # (Manual) 12.2 Metamyelocytes 7 Promyelocytes 1 Nucleated Red Blood Cells 1 Differential Comment FINAL DIFF MANUAL Toxic Granulation 1+ Toxic Vacuolation PRESENT Dohle Bodies PRESENT Platelet Estimate NORMAL Platelet Morphology Comment NORMAL Red Cell Morphology Comment NORMAL Blood Urea Nitrogen 23 Creatinine 0.68 Random Glucose 97 Calcium Level 7.9 Sodium Level 141 Potassium Level 4.4 Chloride Level 105 Carbon Dioxide Level 29.2 Anion Gap 7 Estimat Glomerular Filtration Rate 123 Urine Eosinophils NONE SEEN Urine Random Creatinine 102.7 Urine Random Sodium 11 Date/Time Source Procedure Growth Status 05/22/17 00:05 Gastric Gastric Occult Blood - Final GASTROCCULT NEGATIVE Complete 05/17/17 00:59 Urine Catheterized Urine Urine Culture - Final Staphylococcus Epidermidis Complete 05/22/17 12:22 Wound Abdomen Gram Stain - Final Complete 05/22/17 12:22 Wound Abdomen Wound Culture - Final Complete Radiology Last Impressions Chest X-Ray 05/23/17 0600 Signed Impressions: Service Date/Time: Tuesday, May 23, 2017 05:31 - CONCLUSION: Bilateral pulmonary opacity and bilateral pleural effusions again seen. Increase in opacity in the right perihilar region. Slight increase in pleural effusions. Geovani Marquez MD CT Angiography 05/22/17 0000 Signed Impressions: Service Date/Time: Monday, May 22, 2017 00:24 - CONCLUSION: 1. No evidence of pulmonary embolus. 2. Bilateral inferior lower lobe consolidation/atelectasis. 3. Trace bilateral pleural effusions. Geovani Marquez MD Abdomen/Pelvis CT 05/22/17 0000 Signed Impressions: Service Date/Time: Monday, May 22, 2017 00:24 - CONCLUSION: 1. Post surgical findings with cutaneous germaine anteriorly. 2. Anterior abdominal wall hernia with multiple loops of small bowel again seen. Small bowel distention is seen proximal to the herniated loops indicating possible partial small bowel obstruction or ileus. 3. Free fluid and free air likely due to recent surgery. Geovani Marquez MD Abdomen X-Ray 05/21/17 0000 Signed Impressions: Service Date/Time: Sunday, May 21, 2017 22:24 - CONCLUSION: 1. Findings similar to the prior study of 05/19/2017. Dilated air-filled proximal small bowel. Paucity of gas in the distal small bowel and colon. 2. Differential diagnosis is small bowel obstruction and ileus. Geovani Marquez MD Cardiovascular: Regular Lungs: Clear Abdomen: Other (abdomen with suction device in place with good seal) Extremities: Other (moderate generlized edema ) A/P Problem List: (1) Open abdominal incision with drainage ICD Codes: T81.31XA - Disruption of external operation (surgical) wound, not elsewhere classified, initial encounter Status: Acute (2) Dehiscence of closure of fascia, superficial or muscular ICD Codes: T81.32XA - Disruption of internal operation (surgical) wound, not elsewhere classified, initial encounter Status: Acute (3) Postoperative ileus ICD Codes: K91.89 - Other postprocedural complications and disorders of digestive system; K56.7 - Ileus, unspecified Status: Acute Assessment and Plan 51 year old male POD7 repair of incarcerated umbilical hernia taken back to the OR Wednesday for ex lap; DARCI; small bowel resection of ischemic bowel with two small perforation -NPO -Pressors currently on standby -Plan to return to OR tomorrow for abdominal wound closure -Obtain consents -Protonix -CCM following -Discussed with MELLISSA Jacobs at bedside Attending Statement NOTE FOR SURGICAL ATTENDING, DR. RAFFY QUEEN I agree with above assessment and plan. The exam, history, and the medical decision-making described in the above note were completed with the assistance of the mid-level provider. I reviewed and agree with the findings presented. I attest that I had a [id number] encounter with the patient on the same day, and personally performed and documented my assessment and findings in the medical record. The following services were provided during this hospital visit: Chart data review, vital sign assessments/reviewing monitor data Review of consultations notes if present. Medication orders/review and/or management Ordering and/or reviewing lab tests Ordering and/or interpreting/reviewing x-rays and/or diagnostic studies Care of the patient and discussion of the patient with the care team Documentation time To help prompt me to consider important information that might be impacting today's encounter and assessment, information from prior notes written by myself or my colleagues may have been "brought forward/copy and pasted" into today's note. Problem Qualifiers (1) Open abdominal incision with drainage: Qualified Codes: T81.31XD - Disruption of external operation (surgical) wound, not elsewhere classified, subsequent encounter (2) Dehiscence of closure of fascia, superficial or muscular: Qualified Codes: T81.32XD - Disruption of internal operation (surgical) wound, not elsewhere classified, subsequent encounter Oksana Ferguson May 24, 2017 12:22 Raffy Queen MD May 24, 2017 19:00
[2017-05-24] MEDS: FLUCONAZOLE 400 MG PREMIX BAG 200 ML IV SCH (16:23)
[2017-05-24] MEDS: PANTOPRAZOLE SODIUM 40 MG VIAL IVP SCH (16:24)
[2017-05-24] MEDS: LEVOFLOXACIN 750 MG PREMIX INJ 150 ML IV SCH (17:24)
[2017-05-25] VITALS (16 sets, daily range): BP systolic 111–134; BP diastolic 58–75; PULSE 95–120; RESP 16–17; TEMP 99.2–100.6; O2SAT 94–99
[2017-05-25] MEDS: ACETAMINOPHEN 1000 MG/100 ML VIAL IV SCH ×5 (00:21→22:03)
[2017-05-25] MEDS: metroNIDAZOLE 500 MG INJ 100 ML IV SCH ×5 (00:22→23:32)
[2017-05-25] MEDS: PROPOFOL 1000 MG/100 ML INJ 100 ML IV PRN ×3 (01:22→17:11)
[2017-05-25] MEDS: MIDAZOLAM 100 MG/100 ML INJ 100 ML IV PRN (02:24)
[2017-05-25] MEDS: CHLORHEXIDINE GLUCONATE 2 % 1 PACK (2 CLOTHS) TOP SCH (04:00)
[2017-05-25 04:31] LABS: AUTOMATED NEUTROPHIL # 14.8 TH/MM3 (1.8-7.7); BASOPHIL % 0.2 % (0.0-2.0); EOSINOPHIL # 0.1 TH/MM3 (0-0.4); EOSINOPHIL % 0.8 % (0.0-4.0); HEMATOCRIT 33.9 % (39.0-51.0); LYMPHOCYTE # 1.2 TH/MM3 (1.0-4.8); MEAN CELL VOLUME 90.6 FL (80.0-100.0); MEAN CORPUSCULAR HEMOGLOBIN 30.9 PG (27.0-34.0); MEAN CORPUSCULAR HGB CONC 34.2 % (32.0-36.0); MONO % 3.6 % (0.0-8.0); NEUT % 88.4 % (16.0-70.0); PLATELET COUNT 273 TH/MM3 (150-450); RED BLOOD COUNT 3.75 MIL/MM3 (4.50-5.90); RED CELL DISTRIBUTION WIDTH 14.1 % (11.6-17.2); WHITE BLOOD COUNT 16.7 TH/MM3 (4.0-11.0)
[2017-05-25 04:46] LABS: HEMO FLAGS AUTO DIFF
[2017-05-25 04:57] LABS: BICARBONATE 29.6 MEQ/L (21.0-32.0); POTASSIUM 4.6 MEQ/L (3.5-5.1)
[2017-05-25] MEDS: ARTIFICIAL TEARS OPTH SOLN 15 ML BTL EACH EYE SCH ×6 (05:01→21:26)
[2017-05-25] MEDS: SODIUM CHLOR 0.9% 1000 ML INJ 1,000 ML IV SCH ×3 (05:21→20:40)
[2017-05-25] MEDS ORDERED: BUPIVACAINE/EPINEPHRINE 0.5% 50 ML VIAL ONE (07:03)
[2017-05-25 07:05] LABS: BANDS 17 % (0-6); EOSINOPHILS 1 % (0-4); METAMYELOCYTES 2 % (0-1); MYELOCYTES 5 % (0-0); NEUTROPHIL # MANUAL DIFF 15.5 TH/MM3 (1.8-7.7); PLATELET ESTIMATE SMEAR NORMAL (NORMAL); PLATELET MORPHOLOGY NORMAL (NORMAL); POLYS (SEG NEUTROPHILS) 69 % (16-70); SCAN/DIFF FINAL DIFF MANUAL; WBC DIFF SAMPLE 100
[2017-05-25 07:06] LABS: DOHLE BODIES PRESENT (NONE SEEN)
[2017-05-25 07:07] LABS: TOXIC VACUOLATION PRESENT (NONE SEEN)
[2017-05-25] MEDS: CHLORHEXIDINE 0.12% (ORAL KIT) 15 ML CUP MT SCH ×2 (08:00→20:40)
[2017-05-25] MEDS: SODIUM CHLORIDE 0.9% FLUSH 10 ML FLUSH IV FLUSH SCH ×2 (09:00→20:41)
[2017-05-25] MEDS: DOCUSATE SODIUM 50 MG/SENNA 8.6 MG TAB PO SCH ×2 (09:00→20:41)
[2017-05-25] MEDS: guaiFENesin E.R. 600 MG TAB PO SCH ×2 (09:00→20:41)
--- NOTE | 2017-05-25 10:03 | MP ---
cc: RAFFY QUEEN M.D. DATE OF SURGERY: 05/25/2017 PREOPERATIVE DIAGNOSIS Open abdomen. POSTOPERATIVE DIAGNOSIS Open abdomen with adhesions. PROCEDURE 1. Exploratory laparotomy, lysis of adhesions, drainage of cloudy fluid in the abdomen. 2. Closure of midline fascia with permanent suture. ANESTHESIA General. SURGEON Dr. Queen. INDICATION This is a pleasant gentleman who had dehisced his wound from previous umbilical hernia repair, incarcerated some bowel causing necrosis with leakage. He was not able to be closed at his original surgery. He was left open with a VAC pack to allow some of the abdominal swelling to resolve, which it has now, and plans were made for closure. DETAILS OF PROCEDURE The patient was taken to the operating room and placed in the supine position. He was already intubated. The VAC dressing is removed. The skin is prepped with Betadine. He is on antibiotics for his infection and we continued those antibiotics. The fascia is identified. The omentum is elevated. We check our anastomosis; it is quite viable without any leakage. There is some cloudy fluid and adhesions, interloop fluid that is cloudy, and this is all evacuated. We irrigate with two liters of saline. He does have some mild oozing from the inflammatory response and again this is all irrigated. NGT is in the stomach We close the fascia with #2 interrupted nylon suture to reapproximate the fascia in the midline. The midline wound is then washed with saline and Betadine and loosely re-approximated with a skin stapling device with Betadine emeka placed in between the staple lines. An abdominal binder is applied. The patient returns to the intensive care unit intubated. Will wean him later today. Raffy Queen MD JFAUSTINA/CANDELARIA /9:43 AM /10:00 AM DEXTER
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
[2017-05-25] MEDS: METOPROLOL TARTRATE 5 MG/5 ML VIAL IV PUSH PRN (11:07)
[2017-05-25] MEDS ORDERED: ROCURONIUM INJ 50 MG/5 ML SYRINGE IV PUSH ONE (12:00)
[2017-05-25] MEDS ORDERED: LIDOCAINE HCL 1% PF 5 ML AMPULE OTHER ONE (12:00)
[2017-05-25] MEDS ORDERED: PROPOFOL 200 MG/20 ML AMP IV ONE (12:00)
[2017-05-25] MEDS: fentaNYL 2,500 MCG/NS 250 ML IV PRN (14:42)
[2017-05-25] MEDS: PANTOPRAZOLE SODIUM 40 MG VIAL IVP SCH (14:42)
[2017-05-25] MEDS: FLUCONAZOLE 400 MG PREMIX BAG 200 ML IV SCH (14:43)
[2017-05-25] MEDS: LEVOFLOXACIN 750 MG PREMIX INJ 150 ML IV SCH (17:11)
[2017-05-26] VITALS (18 sets, daily range): BP systolic 121–139; BP diastolic 72–82; PULSE 99–114; RESP 11–20; TEMP 99.7–101.2; O2SAT 95–97
[2017-05-26] MEDS: CHLORHEXIDINE GLUCONATE 2 % 1 PACK (2 CLOTHS) TOP SCH (04:00)
[2017-05-26] MEDS: ACETAMINOPHEN 1000 MG/100 ML VIAL IV SCH ×4 (04:02→22:59)
[2017-05-26] MEDS: PROPOFOL 1000 MG/100 ML INJ 100 ML IV PRN ×4 (04:35→22:06)
[2017-05-26 05:01] LABS: BICARBONATE 33.1 MEQ/L (21.0-32.0); POTASSIUM 4.3 MEQ/L (3.5-5.1)
[2017-05-26] MEDS: metroNIDAZOLE 500 MG INJ 100 ML IV SCH ×3 (05:04→17:16)
[2017-05-26] MEDS: ARTIFICIAL TEARS OPTH SOLN 15 ML BTL EACH EYE SCH ×6 (05:04→23:44)
[2017-05-26] MEDS: fentaNYL 2,500 MCG/NS 250 ML IV PRN (07:05)
[2017-05-26] MEDS: SODIUM CHLOR 0.9% 1000 ML INJ 1,000 ML IV SCH ×2 (07:09→15:14)
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
[2017-05-26] MEDS: CHLORHEXIDINE 0.12% (ORAL KIT) 15 ML CUP MT SCH ×2 (08:53→23:44)
[2017-05-26] MEDS: guaiFENesin E.R. 600 MG TAB PO SCH (09:00)
[2017-05-26] MEDS: SODIUM CHLORIDE 0.9% FLUSH 10 ML FLUSH IV FLUSH SCH ×2 (09:35→23:44)
[2017-05-26] MEDS: DOCUSATE SODIUM 50 MG/SENNA 8.6 MG TAB PO SCH ×2 (09:36→23:44)
--- NOTE | 2017-05-26 11:15 | HHI.PR ---
cc: Raffy Queen MD Subjective Subjective Notes DAILY PROGRESS NOTE FOR SURGICAL ATTENDING, DR. RAFFY QUEEN -Niradha at bedside Reviewed case with nurses at bedside Discussed with Dr. Carter Objective Vitals/I&O Vital Signs Date Time Temp Pulse Resp B/P (MAP) Pulse Ox O2 Delivery O2 Flow Rate FiO2 05/26/17 08:06 95 40 05/26/17 08:00 100.5 108 14 128/82 (97) 05/22/17 17:00 Mechanical Ventilator Labs Laboratory Tests Test 05/26/17 04:15 Blood Urea Nitrogen 24 Creatinine 0.62 Random Glucose 122 Calcium Level 7.5 Sodium Level 145 Potassium Level 4.3 Chloride Level 108 Carbon Dioxide Level 33.1 Anion Gap 4 Estimat Glomerular Filtration Rate 137 Date/Time Source Procedure Growth Status 05/22/17 00:05 Gastric Gastric Occult Blood - Final GASTROCCULT NEGATIVE Complete 05/17/17 00:59 Urine Catheterized Urine Urine Culture - Final Staphylococcus Epidermidis Complete 05/22/17 12:22 Wound Abdomen Gram Stain - Final Complete 05/22/17 12:22 Wound Abdomen Wound Culture - Final Complete Radiology Last Impressions Chest X-Ray 05/23/17 0600 Signed Impressions: Service Date/Time: Tuesday, May 23, 2017 05:31 - CONCLUSION: Bilateral pulmonary opacity and bilateral pleural effusions again seen. Increase in opacity in the right perihilar region. Slight increase in pleural effusions. Geovani Marquez MD CT Angiography 05/22/17 0000 Signed Impressions: Service Date/Time: Monday, May 22, 2017 00:24 - CONCLUSION: 1. No evidence of pulmonary embolus. 2. Bilateral inferior lower lobe consolidation/atelectasis. 3. Trace bilateral pleural effusions. Geovani Marquez MD Abdomen/Pelvis CT 05/22/17 0000 Signed Impressions: Service Date/Time: Monday, May 22, 2017 00:24 - CONCLUSION: 1. Post surgical findings with cutaneous germaine anteriorly. 2. Anterior abdominal wall hernia with multiple loops of small bowel again seen. Small bowel distention is seen proximal to the herniated loops indicating possible partial small bowel obstruction or ileus. 3. Free fluid and free air likely due to recent surgery. Geovani Marquez MD Abdomen X-Ray 05/21/17 0000 Signed Impressions: Service Date/Time: Sunday, May 21, 2017 22:24 - CONCLUSION: 1. Findings similar to the prior study of 05/19/2017. Dilated air-filled proximal small bowel. Paucity of gas in the distal small bowel and colon. 2. Differential diagnosis is small bowel obstruction and ileus. Geovani Marquez MD Cardiovascular: Regular Lungs: Other (ventilator) Abdomen: Other (bandage intact), Post-op tenderness Extremities: SCD's on, Other (mild edema) Narrative Exam Good urine output Wound Wound : Wound Location: Abdomen Appearance: Clean & Dry, Erythema Dressing: Dry A/P Problem List: (1) Postop check ICD Codes: Z09 - Encounter for follow-up examination after completed treatment for conditions other than malignant neoplasm (2) Dehiscence of closure of fascia, superficial or muscular ICD Codes: T81.32XA - Disruption of internal operation (surgical) wound, not elsewhere classified, initial encounter Status: Acute (3) Postoperative ileus ICD Codes: K91.89 - Other postprocedural complications and disorders of digestive system; K56.7 - Ileus, unspecified Status: Acute Assessment and Plan 51 year old male s/p repair of incarcerated umbilical hernia taken back to the OR Wednesday for ex lap; DARCI; small bowel resection of ischemic bowel with two small perforation; POD1 ex lap; DARCI; drainage of fluid collection; closure of abdominal wound -Start trickle feed -Slow wean for ventilator -Protonix -CCM following -Discussed with MELLISSA Baltazar at bedside -Discussed with delilah at bedside Attending Statement NOTE FOR SURGICAL ATTENDING, DR. RAFFY QUEEN Patient seen at bedside in the ICU Discussed with Dr. Carter cash control specialist Delilah at bedside I agree with above assessment and plan. The exam, history, and the medical decision-making described in the above note were completed with the assistance of the mid-level provider. I reviewed and agree with the findings presented. I attest that I had a [id number] encounter with the patient on the same day, and personally performed and documented my assessment and findings in the medical record. The following services were provided during this hospital visit: Chart data review, vital sign assessments/reviewing monitor data Review of consultations notes if present. Medication orders/review and/or management Ordering and/or reviewing lab tests Ordering and/or interpreting/reviewing x-rays and/or diagnostic studies Care of the patient and discussion of the patient with the care team Documentation time To help prompt me to consider important information that might be impacting today's encounter and assessment, information from prior notes written by myself or my colleagues may have been "brought forward/copy and pasted" into today's note. Problem Qualifiers (1) Dehiscence of closure of fascia, superficial or muscular: Qualified Codes: T81.32XD - Disruption of internal operation (surgical) wound, not elsewhere classified, subsequent encounter Oksana Ferguson May 26, 2017 11:15 Raffy Queen MD May 26, 2017 11:46
[2017-05-26] MEDS: METOPROLOL TARTRATE 5 MG/5 ML VIAL IV PUSH PRN (11:35)
[2017-05-26] MEDS: FLUCONAZOLE 400 MG PREMIX BAG 200 ML IV SCH (13:41)
[2017-05-26] MEDS: PANTOPRAZOLE SODIUM 40 MG VIAL IVP SCH (13:41)
[2017-05-26] MEDS: LEVOFLOXACIN 750 MG PREMIX INJ 150 ML IV SCH (18:08)
[2017-05-27] VITALS (17 sets, daily range): BP systolic 119–155; BP diastolic 62–92; PULSE 94–110; RESP 14–31; TEMP 98.6–100.3; O2SAT 94–99
[2017-05-27] MEDS: metroNIDAZOLE 500 MG INJ 100 ML IV SCH ×5 (00:14→23:02)
[2017-05-27] MEDS: PROPOFOL 1000 MG/100 ML INJ 100 ML IV PRN ×3 (02:41→07:54)
[2017-05-27] MEDS: CHLORHEXIDINE GLUCONATE 2 % 1 PACK (2 CLOTHS) TOP SCH (03:24)
[2017-05-27] MEDS: fentaNYL 2,500 MCG/NS 250 ML IV PRN (04:00)
[2017-05-27] MEDS: SODIUM CHLOR 0.9% 1000 ML INJ 1,000 ML IV SCH ×3 (04:24→13:27)
[2017-05-27] MEDS: ACETAMINOPHEN 1000 MG/100 ML VIAL IV SCH ×3 (04:25→16:33)
[2017-05-27 05:05] LABS: BICARBONATE 32.6 MEQ/L (21.0-32.0); POTASSIUM 3.8 MEQ/L (3.5-5.1)
[2017-05-27] MEDS: ARTIFICIAL TEARS OPTH SOLN 15 ML BTL EACH EYE SCH ×6 (05:41→17:40)
[2017-05-27] MEDS: RESP: LEVALBUTEROL HYDROCHLORIDE 1.25 MG/3 ML NEB (PRN) NEB (08:25)
[2017-05-27] MEDS: DOCUSATE SODIUM 50 MG/SENNA 8.6 MG TAB PO SCH ×2 (08:33→21:07)
[2017-05-27] MEDS: SODIUM CHLORIDE 0.9% FLUSH 10 ML FLUSH IV FLUSH SCH ×2 (08:34→20:43)
[2017-05-27] MEDS: CHLORHEXIDINE 0.12% (ORAL KIT) 15 ML CUP MT SCH ×2 (08:37→20:00)
[2017-05-27] MEDS: FLUCONAZOLE 400 MG PREMIX BAG 200 ML IV SCH (14:43)
[2017-05-27] MEDS: PANTOPRAZOLE SODIUM 40 MG VIAL IVP SCH (14:44)
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
--- NOTE | 2017-05-27 15:26 | HHI.PR ---
Subjective Subjective Notes DAILY PROGRESS NOTE FOR SURGICAL ATTENDING, DR. RAFFY QUEEN Intubated; on CPAP trials Objective Vitals/I&O 05/27/17 05/27/17 05/28/17 15:00 23:00 07:00 Intake Total 378 ml 200 ml Output Total 515.0 ml Balance -137.0 ml 200 ml IV Total 291 ml 200 ml Tube Feeding 87 ml Gastric Drainage Total 410 ml Tube Feeding Residual Discard 105.0 ml Vital Signs Date Time Temp Pulse Resp B/P (MAP) Pulse Ox O2 Delivery O2 Flow Rate FiO2 05/27/17 12:00 99.1 103 17 147/83 (104) 95 05/27/17 11:50 Nasal Cannula 4 05/27/17 10:35 40 Labs Laboratory Tests Test 05/27/17 04:00 Blood Urea Nitrogen 24 Creatinine 0.54 Random Glucose 116 Calcium Level 7.5 Sodium Level 148 Potassium Level 3.8 Chloride Level 110 Carbon Dioxide Level 32.6 Anion Gap 5 Estimat Glomerular Filtration Rate 161 Date/Time Source Procedure Growth Status 05/22/17 00:05 Gastric Gastric Occult Blood - Final GASTROCCULT NEGATIVE Complete 05/17/17 00:59 Urine Catheterized Urine Urine Culture - Final Staphylococcus Epidermidis Complete 05/22/17 12:22 Wound Abdomen Gram Stain - Final Complete 05/22/17 12:22 Wound Abdomen Wound Culture - Final Complete Radiology Last Impressions Chest X-Ray 05/23/17 0600 Signed Impressions: Service Date/Time: Tuesday, May 23, 2017 05:31 - CONCLUSION: Bilateral pulmonary opacity and bilateral pleural effusions again seen. Increase in opacity in the right perihilar region. Slight increase in pleural effusions. Geovani Marquez MD CT Angiography 05/22/17 0000 Signed Impressions: Service Date/Time: Monday, May 22, 2017 00:24 - CONCLUSION: 1. No evidence of pulmonary embolus. 2. Bilateral inferior lower lobe consolidation/atelectasis. 3. Trace bilateral pleural effusions. Geovani Marquez MD Abdomen/Pelvis CT 05/22/17 0000 Signed Impressions: Service Date/Time: Monday, May 22, 2017 00:24 - CONCLUSION: 1. Post surgical findings with cutaneous germaine anteriorly. 2. Anterior abdominal wall hernia with multiple loops of small bowel again seen. Small bowel distention is seen proximal to the herniated loops indicating possible partial small bowel obstruction or ileus. 3. Free fluid and free air likely due to recent surgery. Geovani Marquez MD Abdomen X-Ray 05/21/17 0000 Signed Impressions: Service Date/Time: Sunday, May 21, 2017 22:24 - CONCLUSION: 1. Findings similar to the prior study of 05/19/2017. Dilated air-filled proximal small bowel. Paucity of gas in the distal small bowel and colon. 2. Differential diagnosis is small bowel obstruction and ileus. Geovani Marquez MD Cardiovascular: Regular Lungs: Clear, Upper airway course sound Abdomen: Other (midline incision---emeka removed; obese abdomen; mildly distended ) Extremities: No edema Wound Wound : Wound Location: Abdomen Appearance: Clean & Dry Drainage: Clear Dressing: Dry A/P Problem List: (1) Physical deconditioning ICD Codes: R53.81 - Other malaise Status: Acute (2) Postop check ICD Codes: Z09 - Encounter for follow-up examination after completed treatment for conditions other than malignant neoplasm (3) Dehiscence of closure of fascia, superficial or muscular ICD Codes: T81.32XA - Disruption of internal operation (surgical) wound, not elsewhere classified, initial encounter Status: Acute (4) Postoperative ileus ICD Codes: K91.89 - Other postprocedural complications and disorders of digestive system; K56.7 - Ileus, unspecified Status: Acute Assessment and Plan 51 year old male s/p repair of incarcerated umbilical hernia taken back to the OR Wednesday for ex lap; DARCI; small bowel resection of ischemic bowel with two small perforation; POD2 ex lap; DARCI; drainage of fluid collection; closure of abdominal wound -CPAP trials; possible extubation -Daily dressing changes -Clamp NGT as tolerated -Protonix -CCM following -Discussed with MELLISSA Baltazar at bedside -Discussed with delilah at bedside Attending Statement NOTE FOR SURGICAL ATTENDING, DR. RAFFY QUEEN Patient has been extubated He is slightly confused NG tube in place minimal output Bandage changed We'll get PT OT May need rehabilitation I agree with above assessment and plan. The exam, history, and the medical decision-making described in the above note were completed with the assistance of the mid-level provider. I reviewed and agree with the findings presented. I attest that I had a [id number] encounter with the patient on the same day, and personally performed and documented my assessment and findings in the medical record. The following services were provided during this hospital visit: Chart data review, vital sign assessments/reviewing monitor data Review of consultations notes if present. Medication orders/review and/or management Ordering and/or reviewing lab tests Ordering and/or interpreting/reviewing x-rays and/or diagnostic studies Care of the patient and discussion of the patient with the care team Documentation time To help prompt me to consider important information that might be impacting today's encounter and assessment, information from prior notes written by myself or my colleagues may have been "brought forward/copy and pasted" into today's note. Problem Qualifiers (1) Dehiscence of closure of fascia, superficial or muscular: Qualified Codes: T81.32XD - Disruption of internal operation (surgical) wound, not elsewhere classified, subsequent encounter Oksana Ferguson May 27, 2017 15:26 Raffy Queen MD May 27, 2017 17:15
[2017-05-27] MEDS: LEVOFLOXACIN 750 MG PREMIX INJ 150 ML IV SCH (17:40)
[2017-05-27] MEDS: ALPRAZolam 0.25 MG TAB PO PRN (21:07)
[2017-05-28] VITALS (12 sets, daily range): BP systolic 137–156; BP diastolic 81–91; PULSE 87–102; RESP 24–29; TEMP 98.5–99.5; O2SAT 95–96
[2017-05-28] MEDS: ONDANSETRON HCL 4 MG/2 ML VIAL IV PUSH PRN (00:05)
[2017-05-28] MEDS: ACETAMINOPHEN 1000 MG/100 ML VIAL IV SCH ×5 (00:51→23:46)
[2017-05-28] MEDS: ARTIFICIAL TEARS OPTH SOLN 15 ML BTL EACH EYE SCH ×6 (00:51→22:09)
[2017-05-28] MEDS: SODIUM CHLOR 0.9% 1000 ML INJ 1,000 ML IV SCH ×2 (03:01→13:08)
[2017-05-28] MEDS: CHLORHEXIDINE GLUCONATE 2 % 1 PACK (2 CLOTHS) TOP SCH (04:00)
[2017-05-28 05:54] LABS: HEMATOCRIT 32.9 % (39.0-51.0); PLATELET COUNT 306 TH/MM3 (150-450); RED BLOOD COUNT 3.61 MIL/MM3 (4.50-5.90); RED CELL DISTRIBUTION WIDTH 14.2 % (11.6-17.2); WHITE BLOOD COUNT 19.4 TH/MM3 (4.0-11.0)
[2017-05-28 06:02] LABS: HEMO FLAGS AUTO DIFF
[2017-05-28] MEDS: metroNIDAZOLE 500 MG INJ 100 ML IV SCH ×4 (06:25→23:46)
[2017-05-28 07:08] LABS: BANDS 17 % (0-6); EOSINOPHILS 1 % (0-4); METAMYELOCYTES 4 % (0-1); MYELOCYTES 3 % (0-0); NEUTROPHIL # MANUAL DIFF 17.5 TH/MM3 (1.8-7.7); PLATELET ESTIMATE SMEAR NORMAL (NORMAL); PLATELET MORPHOLOGY NORMAL (NORMAL); POLYS (SEG NEUTROPHILS) 64 % (16-70); PROMYELOCYTES 2 % (0-0); SCAN/DIFF FINAL DIFF MANUAL; WBC DIFF SAMPLE 100
[2017-05-28 07:10] LABS: BICARBONATE 30.6 MEQ/L (21.0-32.0); POTASSIUM 3.6 MEQ/L (3.5-5.1)
[2017-05-28 07:37] LABS: CALCIUM-PROTEIN CORRECTED 8.8 MG/DL (8.5-10.1)
[2017-05-28] MEDS: CHLORHEXIDINE 0.12% (ORAL KIT) 15 ML CUP MT SCH ×2 (07:51→19:51)
[2017-05-28] MEDS: ALPRAZolam 0.25 MG TAB PO PRN ×2 (08:13→21:27)
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
[2017-05-28] MEDS: SODIUM CHLORIDE 0.9% FLUSH 10 ML FLUSH IV FLUSH SCH ×2 (08:52→19:57)
[2017-05-28] MEDS: DOCUSATE SODIUM 50 MG/SENNA 8.6 MG TAB PO SCH ×2 (08:52→19:57)
[2017-05-28] MEDS: LORazepam 2 MG/ML VIAL IV PUSH PRN ×2 (13:14→18:18)
--- NOTE | 2017-05-28 13:19 | HHI.PR ---
cc: Raffy Queen MD Subjective Subjective Notes DAILY PROGRESS NOTE FOR SURGICAL ATTENDING, DR. RAFFY QUEEN "Dr. Queen please let me go home today" MELLISSA Moulton at bedside Family visiting Objective Vitals/I&O Vital Signs Date Time Temp Pulse Resp B/P (MAP) Pulse Ox O2 Delivery O2 Flow Rate FiO2 05/28/17 12:00 98.6 88 29 148/90 (109) 95 05/28/17 07:00 Nasal Cannula 3.00 05/27/17 10:35 40 Labs Laboratory Tests Test 05/28/17 04:36 White Blood Count 19.4 Red Blood Count 3.61 Hemoglobin 10.9 Hematocrit 32.9 Mean Corpuscular Volume 91.0 Mean Corpuscular Hemoglobin 30.0 Mean Corpuscular Hemoglobin Concent 33.0 Red Cell Distribution Width 14.2 Platelet Count 306 Mean Platelet Volume 8.4 CBC Comment AUTO DIFF Differential Total Cells Counted 100 Neutrophils % (Manual) 64 Band Neutrophils % 17 Lymphocytes % 3 Monocytes % 6 Eosinophils % 1 Neutrophils # (Manual) 17.5 Metamyelocytes 4 Myelocytes 3 Promyelocytes 2 Differential Comment FINAL DIFF MANUAL Platelet Estimate NORMAL Platelet Morphology Comment NORMAL Red Cell Morphology Comment NORMAL Blood Urea Nitrogen 21 Creatinine 0.41 Random Glucose 110 Total Protein 4.7 Calcium Level 7.4 Sodium Level 146 Potassium Level 3.6 Chloride Level 107 Carbon Dioxide Level 30.6 Anion Gap 8 Estimat Glomerular Filtration Rate 221 Protein Corrected Calcium 8.8 Date/Time Source Procedure Growth Status 05/22/17 00:05 Gastric Gastric Occult Blood - Final GASTROCCULT NEGATIVE Complete 05/17/17 00:59 Urine Catheterized Urine Urine Culture - Final Staphylococcus Epidermidis Complete 05/22/17 12:22 Wound Abdomen Gram Stain - Final Complete 05/22/17 12:22 Wound Abdomen Wound Culture - Final Complete Radiology Last Impressions Chest X-Ray 05/23/17 0600 Signed Impressions: Service Date/Time: Tuesday, May 23, 2017 05:31 - CONCLUSION: Bilateral pulmonary opacity and bilateral pleural effusions again seen. Increase in opacity in the right perihilar region. Slight increase in pleural effusions. Geovani Marquez MD CT Angiography 05/22/17 0000 Signed Impressions: Service Date/Time: Monday, May 22, 2017 00:24 - CONCLUSION: 1. No evidence of pulmonary embolus. 2. Bilateral inferior lower lobe consolidation/atelectasis. 3. Trace bilateral pleural effusions. Geovani Marquez MD Abdomen/Pelvis CT 05/22/17 0000 Signed Impressions: Service Date/Time: Monday, May 22, 2017 00:24 - CONCLUSION: 1. Post surgical findings with cutaneous germaine anteriorly. 2. Anterior abdominal wall hernia with multiple loops of small bowel again seen. Small bowel distention is seen proximal to the herniated loops indicating possible partial small bowel obstruction or ileus. 3. Free fluid and free air likely due to recent surgery. Geovani Marquez MD Abdomen X-Ray 05/21/17 0000 Signed Impressions: Service Date/Time: Sunday, May 21, 2017 22:24 - CONCLUSION: 1. Findings similar to the prior study of 05/19/2017. Dilated air-filled proximal small bowel. Paucity of gas in the distal small bowel and colon. 2. Differential diagnosis is small bowel obstruction and ileus. Geovani Marquez MD Cardiovascular: Regular Lungs: Clear Abdomen: Other (midline incision with germaine in place; minimal drainage; dressing replaced ) Extremities: Other (mild generalized edema ) Wound Wound : Wound Location: Abdomen Appearance: Clean & Dry Drainage: Clear Dressing: Dry A/P Problem List: (1) Physical deconditioning ICD Codes: R53.81 - Other malaise Status: Acute (2) Postop check ICD Codes: Z09 - Encounter for follow-up examination after completed treatment for conditions other than malignant neoplasm (3) Dehiscence of closure of fascia, superficial or muscular ICD Codes: T81.32XA - Disruption of internal operation (surgical) wound, not elsewhere classified, initial encounter Status: Acute (4) Postoperative ileus ICD Codes: K91.89 - Other postprocedural complications and disorders of digestive system; K56.7 - Ileus, unspecified Status: Acute Assessment and Plan 51 year old male s/p repair of incarcerated umbilical hernia taken back to the OR Wednesday for ex lap; DARCI; small bowel resection of ischemic bowel with two small perforation; POD3 ex lap; DARCI; drainage of fluid collection; closure of abdominal wound -Extubated; stable on NC -Daily dressing changes -Continue trickle feeds; start sips of clear liquids -Protonix -CCM following---will try some Ativan -Discussed with MELLISSA Moulton at bedside Attending Statement NOTE FOR SURGICAL ATTENDING, DR. RAFFY QUEEN Discussed with Dr. Carter exchange clerk Wound looks good Slowly increase tube feeds Discussed with sister at bedside We'll most likely need rehabilitation I agree with above assessment and plan. The exam, history, and the medical decision-making described in the above note were completed with the assistance of the mid-level provider. I reviewed and agree with the findings presented. I attest that I had a [id number] encounter with the patient on the same day, and personally performed and documented my assessment and findings in the medical record. The following services were provided during this hospital visit: Chart data review, vital sign assessments/reviewing monitor data Review of consultations notes if present. Medication orders/review and/or management Ordering and/or reviewing lab tests Ordering and/or interpreting/reviewing x-rays and/or diagnostic studies Care of the patient and discussion of the patient with the care team Documentation time To help prompt me to consider important information that might be impacting today's encounter and assessment, information from prior notes written by myself or my colleagues may have been "brought forward/copy and pasted" into today's note. Problem Qualifiers (1) Dehiscence of closure of fascia, superficial or muscular: Qualified Codes: T81.32XD - Disruption of internal operation (surgical) wound, not elsewhere classified, subsequent encounter Oksana Ferguson May 28, 2017 13:19 Raffy Queen MD May 28, 2017 13:54
[2017-05-28] MEDS: PANTOPRAZOLE SODIUM 40 MG VIAL IVP SCH (14:01)
[2017-05-28] MEDS: FLUCONAZOLE 400 MG PREMIX BAG 200 ML IV SCH (14:01)
[2017-05-28] MEDS: LEVOFLOXACIN 750 MG PREMIX INJ 150 ML IV SCH (18:05)
[2017-05-29] VITALS (14 sets, daily range): BP systolic 149–169; BP diastolic 90–106; PULSE 87–116; RESP 16–27; TEMP 98.7–99.5; O2SAT 95–98
[2017-05-29] MEDS: LORazepam 2 MG/ML VIAL IV PUSH PRN ×3 (00:44→21:16)
[2017-05-29] MEDS: SODIUM CHLOR 0.9% 1000 ML INJ 1,000 ML IV SCH ×2 (03:54→16:37)
[2017-05-29] MEDS: CHLORHEXIDINE GLUCONATE 2 % 1 PACK (2 CLOTHS) TOP SCH (04:00)
[2017-05-29] MEDS: ARTIFICIAL TEARS OPTH SOLN 15 ML BTL EACH EYE SCH ×6 (05:47→23:10)
[2017-05-29] MEDS: metroNIDAZOLE 500 MG INJ 100 ML IV SCH ×3 (05:47→16:14)
[2017-05-29] MEDS: ACETAMINOPHEN 1000 MG/100 ML VIAL IV SCH ×4 (05:47→23:09)
[2017-05-29 06:24] LABS: AUTOMATED NEUTROPHIL # 19.4 TH/MM3 (1.8-7.7); BASOPHIL % 0.2 % (0.0-2.0); EOSINOPHIL # 0.2 TH/MM3 (0-0.4); HEMATOCRIT 34.5 % (39.0-51.0); LYMPH % 7.2 % (9.0-44.0); LYMPHOCYTE # 1.6 TH/MM3 (1.0-4.8); MEAN CELL VOLUME 91.2 FL (80.0-100.0); MEAN CORPUSCULAR HEMOGLOBIN 30.7 PG (27.0-34.0); MEAN CORPUSCULAR HGB CONC 33.7 % (32.0-36.0); MONO % 3.3 % (0.0-8.0); NEUT % 88.3 % (16.0-70.0); PLATELET COUNT 373 TH/MM3 (150-450); RED BLOOD COUNT 3.79 MIL/MM3 (4.50-5.90)
[2017-05-29 06:30] LABS: BICARBONATE 32.6 MEQ/L (21.0-32.0); POTASSIUM 4.1 MEQ/L (3.5-5.1)
[2017-05-29 06:51] LABS: HEMO FLAGS AUTO DIFF
[2017-05-29] MEDS: CHLORHEXIDINE 0.12% (ORAL KIT) 15 ML CUP MT SCH ×2 (08:00→20:00)
[2017-05-29] MEDS: METOPROLOL TARTRATE 5 MG/5 ML VIAL IV PUSH PRN (08:24)
[2017-05-29] MEDS: SODIUM CHLORIDE 0.9% FLUSH 10 ML FLUSH IV FLUSH SCH ×2 (08:54→21:00)
[2017-05-29] MEDS: DOCUSATE SODIUM 50 MG/SENNA 8.6 MG TAB PO SCH ×2 (08:54→23:09)
[2017-05-29] MEDS: ALPRAZolam 0.25 MG TAB PO PRN (09:06)
[2017-05-29] MEDS ORDERED: LISINOPRIL 5 MG TAB PO SCH (09:15)
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
[2017-05-29] MEDS: METOPROLOL TARTRATE 50 MG TAB PO SCH ×2 (09:27→23:09)
[2017-05-29] MEDS ORDERED: LABETALOL HCL 100 MG/20 ML VIAL IV PUSH PRN (09:30)
[2017-05-29 09:50] LABS: BANDS 2 % (0-6); MYELOCYTES 3 % (0-0); NEUTROPHIL # MANUAL DIFF 20.5 TH/MM3 (1.8-7.7); PLATELET ESTIMATE SMEAR NORMAL (NORMAL); PLATELET MORPHOLOGY NORMAL (NORMAL); POLYS (SEG NEUTROPHILS) 88 % (16-70); SCAN/DIFF FINAL DIFF MANUAL; WBC DIFF SAMPLE 100
--- NOTE | 2017-05-29 11:00 | HHI.PR ---
Subjective Subjective Notes htn, mild tach, better with meds, appears to be tolerating tf, increasing leukocytosis Objective Vitals/I&O Vital Signs Date Time Temp Pulse Resp B/P (MAP) Pulse Ox O2 Delivery O2 Flow Rate FiO2 05/29/17 08:00 98.7 89 25 169/106 (127) 96 05/29/17 07:31 Nasal Cannula 3.00 05/27/17 10:35 40 Labs Laboratory Tests Test 05/29/17 05:15 White Blood Count 22.0 Red Blood Count 3.79 Hemoglobin 11.6 Hematocrit 34.5 Mean Corpuscular Volume 91.2 Mean Corpuscular Hemoglobin 30.7 Mean Corpuscular Hemoglobin Concent 33.7 Red Cell Distribution Width 14.0 Platelet Count 373 Mean Platelet Volume 8.5 Neutrophils (%) (Auto) 88.3 Lymphocytes (%) (Auto) 7.2 Monocytes (%) (Auto) 3.3 Eosinophils (%) (Auto) 1.0 Basophils (%) (Auto) 0.2 Neutrophils # (Auto) 19.4 Lymphocytes # (Auto) 1.6 Monocytes # (Auto) 0.7 Eosinophils # (Auto) 0.2 Basophils # (Auto) 0.0 CBC Comment AUTO DIFF Differential Total Cells Counted 100 Neutrophils % (Manual) 88 Band Neutrophils % 2 Lymphocytes % 6 Monocytes % 1 Neutrophils # (Manual) 20.5 Myelocytes 3 Differential Comment FINAL DIFF MANUAL Platelet Estimate NORMAL Platelet Morphology Comment NORMAL Red Cell Morphology Comment NORMAL Blood Urea Nitrogen 18 Creatinine 0.48 Random Glucose 121 Calcium Level 7.8 Sodium Level 144 Potassium Level 4.1 Chloride Level 107 Carbon Dioxide Level 32.6 Anion Gap 4 Estimat Glomerular Filtration Rate 184 Date/Time Source Procedure Growth Status 05/22/17 00:05 Gastric Gastric Occult Blood - Final GASTROCCULT NEGATIVE Complete 05/17/17 00:59 Urine Catheterized Urine Urine Culture - Final Staphylococcus Epidermidis Complete 05/22/17 12:22 Wound Abdomen Gram Stain - Final Complete 05/22/17 12:22 Wound Abdomen Wound Culture - Final Complete Radiology Last Impressions Chest X-Ray 05/23/17 0600 Signed Impressions: Service Date/Time: Tuesday, May 23, 2017 05:31 - CONCLUSION: Bilateral pulmonary opacity and bilateral pleural effusions again seen. Increase in opacity in the right perihilar region. Slight increase in pleural effusions. Geovani Marquez MD CT Angiography 05/22/17 0000 Signed Impressions: Service Date/Time: Monday, May 22, 2017 00:24 - CONCLUSION: 1. No evidence of pulmonary embolus. 2. Bilateral inferior lower lobe consolidation/atelectasis. 3. Trace bilateral pleural effusions. Geovani Marquez MD Abdomen/Pelvis CT 05/22/17 0000 Signed Impressions: Service Date/Time: Monday, May 22, 2017 00:24 - CONCLUSION: 1. Post surgical findings with cutaneous germaine anteriorly. 2. Anterior abdominal wall hernia with multiple loops of small bowel again seen. Small bowel distention is seen proximal to the herniated loops indicating possible partial small bowel obstruction or ileus. 3. Free fluid and free air likely due to recent surgery. Geovani Marquez MD Abdomen X-Ray 05/21/17 Signed Impressions: Service Date/Time: Sunday, May 21, 2017 22:24 - CONCLUSION: 1. Findings similar to the prior study of 05/19/2017. Dilated air-filled proximal small bowel. Paucity of gas in the distal small bowel and colon. 2. Differential diagnosis is small bowel obstruction and ileus. Geovani Marquez MD Abdomen: Other (incision with germaine scant drainage, no cellulitis) A/P Problem List: (1) Physical deconditioning ICD Codes: R53.81 - Other malaise Status: Acute (2) Postop check ICD Codes: Z09 - Encounter for follow-up examination after completed treatment for conditions other than malignant neoplasm (3) Dehiscence of closure of fascia, superficial or muscular ICD Codes: T81.32XA - Disruption of internal operation (surgical) wound, not elsewhere classified, initial encounter Status: Acute (4) Postoperative ileus ICD Codes: K91.89 - Other postprocedural complications and disorders of digestive system; K56.7 - Ileus, unspecified Status: Acute Assessment and Plan 51 year old male s/p repair of incarcerated umbilical hernia taken back to the OR Wednesday for ex lap; DARCI; small bowel resection of ischemic bowel with two small perforation; POD4 ex lap; DARCI; drainage of fluid collection; closure of abdominal wound -Extubated; stable on NC, still with decreased ms -Daily dressing changes- scant drainage on dressing -Continue trickle feeds; sips of clear only -Protonix -ISC for bp and hr control -Discussed with RN - if persistent leukocytosis may need ReCT in several days Problem Qualifiers (1) Dehiscence of closure of fascia, superficial or muscular: Qualified Codes: T81.32XD - Disruption of internal operation (surgical) wound, not elsewhere classified, subsequent encounter Brandon Cisneros MD May 29, 2017 11:00
[2017-05-29] MEDS: ENOXAPARIN SODIUM 40 MG/0.4 ML SYRINGE SQ SCH (11:02)
[2017-05-29] MEDS: PANTOPRAZOLE SODIUM 40 MG VIAL IVP SCH (14:10)
[2017-05-29] MEDS: ALPRAZolam 1 MG TAB PO PRN (14:10)
[2017-05-29] MEDS: FLUCONAZOLE 400 MG PREMIX BAG 200 ML IV SCH (14:12)
[2017-05-29] MEDS: LEVOFLOXACIN 750 MG PREMIX INJ 150 ML IV SCH (17:21)
[2017-05-30] VITALS (14 sets, daily range): BP systolic 145–169; BP diastolic 84–95; PULSE 91–112; RESP 19–30; TEMP 99.2–101; O2SAT 95–97
[2017-05-30] MEDS: metroNIDAZOLE 500 MG INJ 100 ML IV SCH ×4 (01:21→17:08)
[2017-05-30] MEDS: LORazepam 2 MG/ML VIAL IV PUSH PRN (03:49)
[2017-05-30] MEDS: CHLORHEXIDINE GLUCONATE 2 % 1 PACK (2 CLOTHS) TOP SCH (04:00)
[2017-05-30 05:25] LABS: BICARBONATE 29.1 MEQ/L (21.0-32.0); POTASSIUM 3.9 MEQ/L (3.5-5.1)
[2017-05-30] MEDS: ACETAMINOPHEN 1000 MG/100 ML VIAL IV SCH ×4 (05:42→22:39)
[2017-05-30] MEDS: ARTIFICIAL TEARS OPTH SOLN 15 ML BTL EACH EYE SCH ×6 (05:42→20:35)
[2017-05-30] MEDS ORDERED: cloNIDine HCL 0.1 MG TAB PO PRN (07:30)
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
[2017-05-30] MEDS: CHLORHEXIDINE 0.12% (ORAL KIT) 15 ML CUP MT SCH ×2 (08:00→19:34)
[2017-05-30] MEDS: SODIUM CHLORIDE 0.9% FLUSH 10 ML FLUSH IV FLUSH SCH ×2 (08:03→19:34)
[2017-05-30] MEDS: DOCUSATE SODIUM 50 MG/SENNA 8.6 MG TAB PO SCH ×2 (08:09→20:38)
[2017-05-30] MEDS: SODIUM CHLOR 0.9% 1000 ML INJ 1,000 ML IV SCH ×2 (08:09→18:35)
[2017-05-30] MEDS: amLODIPine BESYLATE 5 MG TAB PO SCH (08:09)
[2017-05-30] MEDS: METOPROLOL TARTRATE 25 MG TAB PO SCH ×2 (08:09→20:35)
[2017-05-30] MEDS: LISINOPRIL 10 MG TAB PO SCH (08:09)
[2017-05-30] MEDS: ENOXAPARIN SODIUM 40 MG/0.4 ML SYRINGE SQ SCH (09:54)
--- NOTE | 2017-05-30 13:15 | HHI.PR ---
Subjective Subjective Notes DAILY PROGRESS NOTE FOR SURGICAL ATTENDING, DR. RAFFY QUEEN i feel bettter can i go home tomorrow xiao tf +bm Objective Vitals/I&O Vital Signs Date Time Temp Pulse Resp B/P (MAP) Pulse Ox O2 Delivery O2 Flow Rate FiO2 05/30/17 12:00 93 05/30/17 12:00 100.0 24 168/84 (112) 96 05/30/17 07:49 Nasal Cannula 3.00 05/27/17 10:35 40 Labs Laboratory Tests Test 05/30/17 03:47 Blood Urea Nitrogen 15 Creatinine 0.43 Random Glucose 113 Calcium Level 7.6 Sodium Level 141 Potassium Level 3.9 Chloride Level 103 Carbon Dioxide Level 29.1 Anion Gap 9 Estimat Glomerular Filtration Rate 209 Date/Time Source Procedure Growth Status 05/22/17 00:05 Gastric Gastric Occult Blood - Final GASTROCCULT NEGATIVE Complete 05/17/17 00:59 Urine Catheterized Urine Urine Culture - Final Staphylococcus Epidermidis Complete 05/22/17 12:22 Wound Abdomen Gram Stain - Final Complete 05/22/17 12:22 Wound Abdomen Wound Culture - Final Complete Radiology Last Impressions Chest X-Ray 05/23/17 0600 Signed Impressions: Service Date/Time: Tuesday, May 23, 2017 05:31 - CONCLUSION: Bilateral pulmonary opacity and bilateral pleural effusions again seen. Increase in opacity in the right perihilar region. Slight increase in pleural effusions. Geovani Marquez MD CT Angiography 05/22/17 0000 Signed Impressions: Service Date/Time: Monday, May 22, 2017 00:24 - CONCLUSION: 1. No evidence of pulmonary embolus. 2. Bilateral inferior lower lobe consolidation/atelectasis. 3. Trace bilateral pleural effusions. Geovani Marquez MD Abdomen/Pelvis CT 05/22/17 0000 Signed Impressions: Service Date/Time: Monday, May 22, 2017 00:24 - CONCLUSION: 1. Post surgical findings with cutaneous germaine anteriorly. 2. Anterior abdominal wall hernia with multiple loops of small bowel again seen. Small bowel distention is seen proximal to the herniated loops indicating possible partial small bowel obstruction or ileus. 3. Free fluid and free air likely due to recent surgery. Geovani Marquez MD Abdomen X-Ray 05/21/17 0000 Signed Impressions: Service Date/Time: Sunday, May 21, 2017 22:24 - CONCLUSION: 1. Findings similar to the prior study of 05/19/2017. Dilated air-filled proximal small bowel. Paucity of gas in the distal small bowel and colon. 2. Differential diagnosis is small bowel obstruction and ileus. Geovani Marquez MD Cardiovascular: Regular Lungs: Upper airway course sound Abdomen: Post-op tenderness, BS normal Extremities: SCD's on, Other (le edema) Narrative Exam Good urine output Wound Wound : Wound Location: Abdomen Appearance: Clean & Dry, Granulating Drainage: Cloudy Dressing: Dry A/P Problem List: (1) Physical deconditioning ICD Codes: R53.81 - Other malaise Status: Acute (2) Postop check ICD Codes: Z09 - Encounter for follow-up examination after completed treatment for conditions other than malignant neoplasm (3) Dehiscence of closure of fascia, superficial or muscular ICD Codes: T81.32XA - Disruption of internal operation (surgical) wound, not elsewhere classified, initial encounter Status: Acute (4) Postoperative ileus ICD Codes: K91.89 - Other postprocedural complications and disorders of digestive system; K56.7 - Ileus, unspecified Status: Acute (5) Elevated WBC count ICD Codes: D72.829 - Elevated white blood cell count, unspecified Status: Chronic Assessment and Plan 51 year old male s/p repair of incarcerated umbilical hernia taken back to the OR week ago Wednesday for ex lap; DARCI; small bowel resection of ischemic bowel with two small perforation; POD ex lap; DARCI; drainage of fluid collection; closure of abdominal wound discussed with Dr Guillen and nursing staff dc tf DC NG tube start po intake wound drainage a little cloudy if wbc up may need wound opened I will keep him in the ICU until he stops hallucinating Discharge Planning May need short stay rehabilitation Attending Statement NOTE FOR SURGICAL ATTENDING, DR. RAFFY QUEEN I attest that I had a [id number] encounter with the patient on the same day, and personally performed and documented my assessment and findings in the medical record. The following services were provided during this hospital visit: Chart data review, vital sign assessments/reviewing monitor data Review of consultations notes if present. Medication orders/review and/or management Ordering and/or reviewing lab tests Ordering and/or interpreting/reviewing x-rays and/or diagnostic studies Care of the patient and discussion of the patient with the care team Documentation time To help prompt me to consider important information that might be impacting today's encounter and assessment, information from prior notes written by myself or my colleagues may have been "brought forward/copy and pasted" into today's note. Problem Qualifiers (1) Dehiscence of closure of fascia, superficial or muscular: Qualified Codes: T81.32XD - Disruption of internal operation (surgical) wound, not elsewhere classified, subsequent encounter Raffy Queen MD May 30, 2017 13:15
[2017-05-30] MEDS: PANTOPRAZOLE SODIUM 40 MG VIAL IVP SCH (15:23)
[2017-05-30] MEDS: FLUCONAZOLE 400 MG PREMIX BAG 200 ML IV SCH (15:23)
[2017-05-30] MEDS: LEVOFLOXACIN 750 MG PREMIX INJ 150 ML IV SCH (17:08)
[2017-05-30] MEDS: ALPRAZolam 1 MG TAB PO PRN (19:34)
[2017-05-31] VITALS (14 sets, daily range): BP systolic 143–166; BP diastolic 70–92; PULSE 88–110; RESP 18–23; TEMP 98.2–100.7; O2SAT 92–99
[2017-05-31] MEDS: metroNIDAZOLE 500 MG INJ 100 ML IV SCH ×4 (00:52→17:53)
[2017-05-31] MEDS: CHLORHEXIDINE GLUCONATE 2 % 1 PACK (2 CLOTHS) TOP SCH (04:00)
[2017-05-31] MEDS: ALPRAZolam 1 MG TAB PO PRN (04:02)
[2017-05-31] MEDS: SODIUM CHLOR 0.9% 1000 ML INJ 1,000 ML IV SCH (05:03)
[2017-05-31] MEDS: ACETAMINOPHEN 1000 MG/100 ML VIAL IV SCH ×3 (05:03→17:01)
[2017-05-31 05:23] LABS: BICARBONATE 27.9 MEQ/L (21.0-32.0); POTASSIUM 3.6 MEQ/L (3.5-5.1)
[2017-05-31] MEDS: ARTIFICIAL TEARS OPTH SOLN 15 ML BTL EACH EYE SCH ×7 (05:57→21:52)
[2017-05-31] MEDS: CHLORHEXIDINE 0.12% (ORAL KIT) 15 ML CUP MT SCH ×2 (07:53→20:00)
[2017-05-31] MEDS: DOCUSATE SODIUM 50 MG/SENNA 8.6 MG TAB PO SCH ×2 (07:54→21:00)
[2017-05-31] MEDS: METOPROLOL TARTRATE 25 MG TAB PO SCH (07:58)
[2017-05-31] MEDS: amLODIPine BESYLATE 5 MG TAB PO SCH (09:00)
[2017-05-31] MEDS: SODIUM CHLORIDE 0.9% FLUSH 10 ML FLUSH IV FLUSH SCH ×2 (09:00→21:00)
[2017-05-31] MEDS: LISINOPRIL 10 MG TAB PO SCH (09:00)
--- NOTE | 2017-05-31 09:01 | HHI.PR ---
cc: Raffy Queen MD Subjective Subjective Notes DAILY PROGRESS NOTE FOR SURGICAL ATTENDING, DR. RAFFY QUEEN Feeling better Tolerated by mouth Bowel movement Family at bedside Objective Vitals/I&O Vital Signs Date Time Temp Pulse Resp B/P (MAP) Pulse Ox O2 Delivery O2 Flow Rate FiO2 05/31/17 08:00 110 05/31/17 08:00 98.2 22 147/80 (102) 96 05/31/17 07:15 Nasal Cannula 2.00 05/27/17 10:35 40 Labs Laboratory Tests Test 05/31/17 04:36 Blood Urea Nitrogen 12 Creatinine 0.40 Random Glucose 100 Calcium Level 7.8 Sodium Level 137 Potassium Level 3.6 Chloride Level 101 Carbon Dioxide Level 27.9 Anion Gap 8 Estimat Glomerular Filtration Rate 228 Date/Time Source Procedure Growth Status 05/22/17 00:05 Gastric Gastric Occult Blood - Final GASTROCCULT NEGATIVE Complete 05/17/17 00:59 Urine Catheterized Urine Urine Culture - Final Staphylococcus Epidermidis Complete 05/22/17 12:22 Wound Abdomen Gram Stain - Final Complete 05/22/17 12:22 Wound Abdomen Wound Culture - Final Complete Radiology Last Impressions Chest X-Ray 05/23/17 0600 Signed Impressions: Service Date/Time: Tuesday, May 23, 2017 05:31 - CONCLUSION: Bilateral pulmonary opacity and bilateral pleural effusions again seen. Increase in opacity in the right perihilar region. Slight increase in pleural effusions. Geovani Marquez MD CT Angiography 05/22/17 0000 Signed Impressions: Service Date/Time: Monday, May 22, 2017 00:24 - CONCLUSION: 1. No evidence of pulmonary embolus. 2. Bilateral inferior lower lobe consolidation/atelectasis. 3. Trace bilateral pleural effusions. Geovani Marquez MD Abdomen/Pelvis CT 05/22/17 0000 Signed Impressions: Service Date/Time: Monday, May 22, 2017 00:24 - CONCLUSION: 1. Post surgical findings with cutaneous germaine anteriorly. 2. Anterior abdominal wall hernia with multiple loops of small bowel again seen. Small bowel distention is seen proximal to the herniated loops indicating possible partial small bowel obstruction or ileus. 3. Free fluid and free air likely due to recent surgery. Geovani Marquez MD Abdomen X-Ray 05/21/17 0000 Signed Impressions: Service Date/Time: Sunday, May 21, 2017 22:24 - CONCLUSION: 1. Findings similar to the prior study of 05/19/2017. Dilated air-filled proximal small bowel. Paucity of gas in the distal small bowel and colon. 2. Differential diagnosis is small bowel obstruction and ileus. Geovani Marquez MD Cardiovascular: Regular Lungs: Clear Abdomen: Non-tender, BS normal Extremities: SCD's on, Other (upper and lower extremity edema) Narrative Exam Good urine output Wound Wound : Wound Location: Abdomen Appearance: Clean & Dry Drainage: Cloudy Dressing: NS - Wet to Dry (upper portion of wound opened about 4 cm small amount of purulent material wet-to-dry applied) A/P Problem List: (1) Superficial postoperative wound infection ICD Codes: T81.4XXA - Infection following a procedure, initial encounter Status: Acute (2) Physical deconditioning ICD Codes: R53.81 - Other malaise Status: Acute (3) Postop check ICD Codes: Z09 - Encounter for follow-up examination after completed treatment for conditions other than malignant neoplasm (4) Dehiscence of closure of fascia, superficial or muscular ICD Codes: T81.32XA - Disruption of internal operation (surgical) wound, not elsewhere classified, initial encounter Status: Acute (5) Postoperative ileus ICD Codes: K91.89 - Other postprocedural complications and disorders of digestive system; K56.7 - Ileus, unspecified Status: Acute (6) Elevated WBC count ICD Codes: D72.829 - Elevated white blood cell count, unspecified Status: Chronic Assessment and Plan 51 year old male s/p repair of incarcerated umbilical hernia taken back to the OR week ago Wednesday for ex lap; DARCI; small bowel resection of ischemic bowel with two small perforation; POD ex lap; DARCI; drainage of fluid collection; closure of abdominal wound discussed with Dr Guillen and nursing staff Doing fairly well Portion of superior germaine removed cloudy fluid removed wet-to-dry applied and a wound approximate 5 cm in length Transfer to floor Remove Echeverria Discharge Planning May need short stay rehabilitation Attending Statement NOTE FOR SURGICAL ATTENDING, DR. RAFFY QUEEN I attest that I had a [id number] encounter with the patient on the same day, and personally performed and documented my assessment and findings in the medical record. The following services were provided during this hospital visit: Chart data review, vital sign assessments/reviewing monitor data Review of consultations notes if present. Medication orders/review and/or management Ordering and/or reviewing lab tests Ordering and/or interpreting/reviewing x-rays and/or diagnostic studies Care of the patient and discussion of the patient with the care team Documentation time To help prompt me to consider important information that might be impacting today's encounter and assessment, information from prior notes written by myself or my colleagues may have been "brought forward/copy and pasted" into today's note. Problem Qualifiers (1) Superficial postoperative wound infection: Qualified Codes: T81.4XXA - Infection following a procedure, initial encounter (2) Dehiscence of closure of fascia, superficial or muscular: Qualified Codes: T81.32XD - Disruption of internal operation (surgical) wound, not elsewhere classified, subsequent encounter Raffy Queen MD May 31, 2017 09:00
[2017-05-31] MEDS: ENOXAPARIN SODIUM 40 MG/0.4 ML SYRINGE SQ SCH (10:24)
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
[2017-05-31 12:06] LABS: BASOPHIL % 0.1 % (0.0-2.0); EOSINOPHIL # 0.1 TH/MM3 (0-0.4); EOSINOPHIL % 0.5 % (0.0-4.0); HEMATOCRIT 36.6 % (39.0-51.0); HEMO FLAGS DIFF FINAL; LYMPHOCYTE # 1.3 TH/MM3 (1.0-4.8); MEAN CELL VOLUME 89.8 FL (80.0-100.0); MEAN CORPUSCULAR HGB CONC 33.4 % (32.0-36.0); MONO % 4.3 % (0.0-8.0); NEUT % 90.1 % (16.0-70.0); PLATELET COUNT 487 TH/MM3 (150-450); RED BLOOD COUNT 4.07 MIL/MM3 (4.50-5.90); RED CELL DISTRIBUTION WIDTH 13.8 % (11.6-17.2); WHITE BLOOD COUNT 25.6 TH/MM3 (4.0-11.0)
[2017-05-31 13:22] LABS: BICARBONATE 31.2 MEQ/L (21.0-32.0); POTASSIUM 3.7 MEQ/L (3.5-5.1)
[2017-05-31] MEDS: PANTOPRAZOLE SODIUM 40 MG VIAL IVP SCH (14:26)
[2017-05-31] MEDS: FLUCONAZOLE 400 MG PREMIX BAG 200 ML IV SCH (14:26)
[2017-05-31] MEDS: LEVOFLOXACIN 750 MG PREMIX INJ 150 ML IV SCH (18:27)
[2017-05-31] MEDS: METOPROLOL TARTRATE 100 MG TAB PO SCH (21:39)
[2017-06-01] VITALS: BP 147/78; PULSE 101; RESP 18; TEMP 98.6; O2SAT 92
[2017-06-01] MEDS: ACETAMINOPHEN 1000 MG/100 ML VIAL IV SCH ×5 (00:34→21:09)
[2017-06-01] MEDS: metroNIDAZOLE 500 MG INJ 100 ML IV SCH ×3 (01:21→11:06)
[2017-06-01] MEDS: CHLORHEXIDINE GLUCONATE 2 % 1 PACK (2 CLOTHS) TOP SCH ×2 (04:00→21:09)
[2017-06-01] MEDS: ARTIFICIAL TEARS OPTH SOLN 15 ML BTL EACH EYE SCH ×5 (06:00→21:10)
[2017-06-01] MEDS: CHLORHEXIDINE 0.12% (ORAL KIT) 15 ML CUP MT SCH ×2 (07:13→20:00)
[2017-06-01 07:47] VITALS: BP 155/87; PULSE 86; RESP 20; TEMP 97.5; O2SAT 92
[2017-06-01] MEDS: DOCUSATE SODIUM 50 MG/SENNA 8.6 MG TAB PO SCH ×2 (08:23→21:00)
[2017-06-01] MEDS: amLODIPine BESYLATE 5 MG TAB PO SCH (08:23)
[2017-06-01] MEDS: METOPROLOL TARTRATE 100 MG TAB PO SCH ×2 (08:24→21:06)
[2017-06-01] MEDS: SODIUM CHLORIDE 0.9% FLUSH 10 ML FLUSH IV FLUSH SCH ×2 (08:24→21:12)
[2017-06-01] MEDS: LISINOPRIL 10 MG TAB PO SCH (08:24)
[2017-06-01 08:34] LABS: AUTOMATED NEUTROPHIL # 18.6 TH/MM3 (1.8-7.7); BASOPHIL # 0.1 TH/MM3 (0-0.2); BASOPHIL % 0.4 % (0.0-2.0); EOSINOPHIL # 0.2 TH/MM3 (0-0.4); EOSINOPHIL % 0.9 % (0.0-4.0); HEMATOCRIT 34.9 % (39.0-51.0); HEMO FLAGS DIFF FINAL; LYMPH % 6.4 % (9.0-44.0); LYMPHOCYTE # 1.4 TH/MM3 (1.0-4.8); MEAN CELL VOLUME 90.3 FL (80.0-100.0); MEAN CORPUSCULAR HEMOGLOBIN 30.2 PG (27.0-34.0); MEAN CORPUSCULAR HGB CONC 33.4 % (32.0-36.0); MONO % 5.8 % (0.0-8.0); NEUT % 86.5 % (16.0-70.0); PLATELET COUNT 539 TH/MM3 (150-450); RED BLOOD COUNT 3.87 MIL/MM3 (4.50-5.90); RED CELL DISTRIBUTION WIDTH 13.9 % (11.6-17.2); WHITE BLOOD COUNT 21.6 TH/MM3 (4.0-11.0)
--- NOTE | 2017-06-01 08:52 | HHI.PR ---
Subjective Subjective Notes DAILY PROGRESS NOTE FOR SURGICAL ATTENDING, DR. RAFFY QUEEN Resting in bed Slept well last night Still issues with mobility but overall better today Objective Vitals/I&O Vital Signs Date Time Temp Pulse Resp B/P (MAP) Pulse Ox O2 Delivery O2 Flow Rate FiO2 06/01/17 07:47 97.5 86 20 155/87 (109) 92 05/31/17 21:05 Nasal Cannula 4.00 Labs Laboratory Tests Test 05/31/17 11:15 05/31/17 16:34 06/01/17 07:21 White Blood Count 25.6 21.6 Red Blood Count 4.07 3.87 Hemoglobin 12.2 11.7 Hematocrit 36.6 34.9 Mean Corpuscular Volume 89.8 90.3 Mean Corpuscular Hemoglobin 30.0 30.2 Mean Corpuscular Hemoglobin Concent 33.4 33.4 Red Cell Distribution Width 13.8 13.9 Platelet Count 487 539 Mean Platelet Volume 8.9 9.1 Neutrophils (%) (Auto) 90.1 86.5 Lymphocytes (%) (Auto) 5.0 6.4 Monocytes (%) (Auto) 4.3 5.8 Eosinophils (%) (Auto) 0.5 0.9 Basophils (%) (Auto) 0.1 0.4 Neutrophils # (Auto) 23.0 18.6 Lymphocytes # (Auto) 1.3 1.4 Monocytes # (Auto) 1.1 1.3 Eosinophils # (Auto) 0.1 0.2 Basophils # (Auto) 0.0 0.1 CBC Comment DIFF FINAL DIFF FINAL Differential Comment Blood Urea Nitrogen 12 Creatinine 0.40 Random Glucose 104 Calcium Level 7.9 Sodium Level 135 Potassium Level 3.7 4.5 Chloride Level 99 Carbon Dioxide Level 31.2 Anion Gap 5 Estimat Glomerular Filtration Rate 228 Date/Time Source Procedure Growth Status 05/22/17 00:05 Gastric Gastric Occult Blood - Final GASTROCCULT NEGATIVE Complete 05/17/17 00:59 Urine Catheterized Urine Urine Culture - Final Staphylococcus Epidermidis Complete 05/22/17 12:22 Wound Abdomen Gram Stain - Final Complete 05/22/17 12:22 Wound Abdomen Wound Culture - Final Complete Radiology Last Impressions Chest X-Ray 05/23/17 0600 Signed Impressions: Service Date/Time: Tuesday, May 23, 2017 05:31 - CONCLUSION: Bilateral pulmonary opacity and bilateral pleural effusions again seen. Increase in opacity in the right perihilar region. Slight increase in pleural effusions. Geovani Marquez MD CT Angiography 05/22/17 0000 Signed Impressions: Service Date/Time: Monday, May 22, 2017 00:24 - CONCLUSION: 1. No evidence of pulmonary embolus. 2. Bilateral inferior lower lobe consolidation/atelectasis. 3. Trace bilateral pleural effusions. Geovani Marquez MD Abdomen/Pelvis CT 05/22/17 0000 Signed Impressions: Service Date/Time: Monday, May 22, 2017 00:24 - CONCLUSION: 1. Post surgical findings with cutaneous germaine anteriorly. 2. Anterior abdominal wall hernia with multiple loops of small bowel again seen. Small bowel distention is seen proximal to the herniated loops indicating possible partial small bowel obstruction or ileus. 3. Free fluid and free air likely due to recent surgery. Geovani Marquez MD Abdomen X-Ray 05/21/17 0000 Signed Impressions: Service Date/Time: Sunday, May 21, 2017 22:24 - CONCLUSION: 1. Findings similar to the prior study of 05/19/2017. Dilated air-filled proximal small bowel. Paucity of gas in the distal small bowel and colon. 2. Differential diagnosis is small bowel obstruction and ileus. Geovani Marquez MD Cardiovascular: Regular Lungs: Clear Abdomen: Other (midline incision with superior portion open with packing in place---packing removed and minimal drainage; replaced ) Extremities: No edema A/P Problem List: (1) Superficial postoperative wound infection ICD Codes: T81.4XXA - Infection following a procedure, initial encounter Status: Acute (2) Physical deconditioning ICD Codes: R53.81 - Other malaise Status: Acute (3) Postop check ICD Codes: Z09 - Encounter for follow-up examination after completed treatment for conditions other than malignant neoplasm (4) Dehiscence of closure of fascia, superficial or muscular ICD Codes: T81.32XA - Disruption of internal operation (surgical) wound, not elsewhere classified, initial encounter Status: Acute (5) Postoperative ileus ICD Codes: K91.89 - Other postprocedural complications and disorders of digestive system; K56.7 - Ileus, unspecified Status: Acute (6) Elevated WBC count ICD Codes: D72.829 - Elevated white blood cell count, unspecified Status: Chronic Assessment and Plan 51 year old male s/p repair of incarcerated umbilical hernia taken back to the OR Wednesday for ex lap; DARCI; small bowel resection of ischemic bowel with two small perforation; s/p ex lap; DARCI; drainage of fluid collection; closure of abdominal wound -Continue dressing changes -Regular diet -+BM -OOB and mobilize; PT -Referral sent to [facility] -Discussed with MELLISSA Preciado Attending Statement NOTE FOR SURGICAL ATTENDING, DR. RAFFY QUEEN Family of bedside More alert Tolerating diet I agree with above assessment and plan. The exam, history, and the medical decision-making described in the above note were completed with the assistance of the mid-level provider. I reviewed and agree with the findings presented. I attest that I had a [id number] encounter with the patient on the same day, and personally performed and documented my assessment and findings in the medical record. The following services were provided during this hospital visit: Chart data review, vital sign assessments/reviewing monitor data Review of consultations notes if present. Medication orders/review and/or management Ordering and/or reviewing lab tests Ordering and/or interpreting/reviewing x-rays and/or diagnostic studies Care of the patient and discussion of the patient with the care team Documentation time To help prompt me to consider important information that might be impacting today's encounter and assessment, information from prior notes written by myself or my colleagues may have been "brought forward/copy and pasted" into today's note. Problem Qualifiers (1) Superficial postoperative wound infection: Qualified Codes: T81.4XXA - Infection following a procedure, initial encounter (2) Dehiscence of closure of fascia, superficial or muscular: Qualified Codes: T81.32XD - Disruption of internal operation (surgical) wound, not elsewhere classified, subsequent encounter Oksana FergusonP Jun 01, 2017 08:52 Raffy Queen MD Jun 02, 2017 10:58
[2017-06-01 09:04] LABS: BICARBONATE 30.7 MEQ/L (21.0-32.0); POTASSIUM 3.8 MEQ/L (3.5-5.1)
[2017-06-01] MEDS: ENOXAPARIN SODIUM 40 MG/0.4 ML SYRINGE SQ SCH (09:59)
[2017-06-01 12:00] VITALS: BP 166/87; PULSE 85; RESP 18; TEMP 98.6; O2SAT 93
[2017-06-01] MEDS: FLUCONAZOLE 200 MG TAB PO SCH (13:47)
[2017-06-01] MEDS: LEVOFLOXACIN 750 MG TAB PO SCH (13:47)
[2017-06-01] MEDS: PANTOPRAZOLE SOD 40 MG DELAYED RELEASE TAB PO SCH (13:47)
[2017-06-01 15:45] VITALS: BP 144/76; PULSE 85; RESP 20; TEMP 98.1; O2SAT 93
[2017-06-01] MEDS: metroNIDAZOLE 500 MG TAB PO SCH ×2 (16:53→21:09)
--- NOTE | 2017-06-01 17:58 | HHI.PR ---
Subjective Remarks Patient states he feels better. Denies fevers and chills. Denies cough, nausea, vomiting or diarrhea Denies cp/sob Objective Vitals Vital Signs Date Time Temp Pulse Resp B/P (MAP) Pulse Ox O2 Delivery O2 Flow Rate FiO2 06/01/17 15:45 98.1 85 20 144/76 (98) 93 06/01/17 12:00 98.6 85 18 166/87 (113) 93 06/01/17 07:47 97.5 86 20 155/87 (109) 92 06/01/17 00:00 98.6 101 18 147/78 (101) 92 05/31/17 21:05 92 Nasal Cannula 4.00 05/31/17 20:00 98.4 97 18 143/87 (105) 92 05/31/17 18:00 107 I/O 05/31/17 05/31/17 05/31/17 06/01/17 06/01/17 06/01/17 07:00 15:00 23:00 07:00 15:00 23:00 Intake Total 1800 ml 327 ml 610 ml 100 ml 200 ml Output Total 1800 ml 475 ml 825 ml Balance 0 ml -148 ml -215 ml 100 ml 200 ml Intake Oral 500 ml 360 ml IV Total 1300 ml 327 ml 250 ml 100 ml 200 ml Output Urine Total 1800 ml 475 ml 825 ml # Voids 2 3 # Bowel Movements 2 3 Result Diagram: 06/01/1772006/01/17720 Objective Remarks GENERAL: 51-year-old male, tachypneic with mild to moderate respiratory distress. SKIN: Warm and dry. Well perfused HEAD: Atraumatic. Normocephalic. EYES: Pupils 2 mm bilaterally and reactive. No scleral icterus. No injection or drainage. ENT: No nasal bleeding or discharge. Mucous membranes pink and moist. NECK: Trachea midline. Supple. Airway widely patent. CARDIOVASCULAR: Tachycardic 99, RR. S1, S2. No murmur, no JVD. RESPIRATORY: Decreased breath sounds at the bases. No wheezing, good air movement. No adventitious sounds. GASTROINTESTINAL: Abdomen is currently closed. BS active. Postsurgical, benign. No guarding. MUSCULOSKELETAL: Extremities with trace edema. No obvious deformities. NEUROLOGICAL: Awake, alert, cooperative. Moves bilateral upper and lower extremities. O X 3. Conversant. Repeats himself a lot. A/P Assessment and Plan Neuro/Psych: SP intubation and mechanical ventilation Extubated 05/27. AAOx3 CV: Sinus tachycardia -4 L crystalloid in the operating room. Currently receiving fifth liter. Negative CT pulmonary angiogram for pulmonary embolism. Continue crystalloid per general surgery's recommendations. Was intermittently on a phenylephrine in OR now on low dose levophed to counter sedation, all off.. Resp: Postoperative respiratory failure PRVC 16/550/0.9/5/100 Ventilator bundle Albuterol/ipratropium aerosols every 6 hours with albuterol aerosols every 2 hours. Dyspnea Spontaneous breathing trials daily Follow-up ABG/chest x-ray post surgery and PACU CT pulmonary angiogram 05/22 revealed bilateral lower lobe infiltrates,'s small bilateral pleural effusions. No central pulmonary embolism. Extubated 05/27. 06/01 Patient stil on high requirement of o2, sating 94% on 4 liters nasal canula. Will start on oral lasix and check a CXR. GI: SP exploratory laparotomy, partial home meniscectomy with small bowel resection and packing of abdominal wall secondary to wound dehiscence, nausea/vomiting and Postoperative ileus. Postoperative day #11 reduction of incarcerated hernia with primary. Hernia defect secondary to incarcerated umbilical hernia with small bowel obstruction secondary to incarcerated small bowel and omentum by Dr. Queen Postoperative ileus GIs status post EGD for NG tube placement secondary to massively dilated stomach and small bowel in OR without cuff cage. Plan to return to OR on Wednesday for closure abdominal wall fascia. Continue NG tube to [facility] Pantoprazole for GI prophylaxis Feed per surgery. 05/22 tolerating regular diet. : Echeverria catheter has been placed for accurate I's and O's in a critically ill patient Endo: Sliding scale with Accu-Cheks to maintain euglycemia/every 6 hours Renal: Acute kidney injury Monitor urine output Accurate I's and O's Noted patient received intravenous dye CT pulmonary angiogram today Resolved Heme: CBC preop within normal limits. Postoperative pending ID: Staph epi cystitis pansensitive Currently on levofloxacin, metronidazole and fluconazole day per Dr. Queen Urine culture 05/17 revealed staph epi FEN: Hyponatremia Hypokalemia Replacing electrolytes per ICU left leg protocol see orders MSK: PT evaluate and treat Access - Utilize peripheral IV. - Left radial arterial line placed in OR 05/22 Prophylaxis - GI - pantoprazole - DVT - SCD/pharmacological prophylaxis lovenox. Bob Figueroa MD Jun 01, 2017 17:58
[2017-06-01 20:00] VITALS: BP 167/81; PULSE 98; RESP 17; TEMP 99.5; O2SAT 91
--- NOTE | 2017-06-01 20:40 | RADRPT ---
EXAM DATE/TIME: 06/01/2017 19:13 [facility] COMPARISON: CHEST SINGLE AP, May 23, 2017, 5:31. INDICATIONS : Short of breath. MEDICAL HISTORY : Hypertension. Hernia, umbilical. SURGICAL HISTORY : Umbilical hernia repair. Appendectomy ENCOUNTER: Initial ACUITY: 2 days PAIN SCORE: 0/10 LOCATION: upper chest FINDINGS: There is increased density at the bases bilaterally secondary to effusions. Some degree of atelectasi s and/or consolidation at the bases needs to be considered. The heart borders are silhouetted. CONCLUSION: Suspected bilateral pleural effusions with accompanying areas of atelectasis or consolidation at the lung bases. Clovis Borrero MD on June 01, 2017 at 20:38 Board Certified Radiologist. This report was verified electronically.
[2017-06-01 22:37] VITALS: O2SAT 93
[2017-06-02] VITALS: BP 140/91; PULSE 89; RESP 17; TEMP 97.9; O2SAT 91
[2017-06-02] MEDS: ALPRAZolam 1 MG TAB PO PRN (02:58)
[2017-06-02] MEDS: metroNIDAZOLE 500 MG TAB PO SCH ×3 (05:34→20:58)
[2017-06-02] MEDS: ARTIFICIAL TEARS OPTH SOLN 15 ML BTL EACH EYE SCH ×6 (05:36→21:00)
[2017-06-02] MEDS: ACETAMINOPHEN 1000 MG/100 ML VIAL IV SCH ×2 (05:37→11:06)
[2017-06-02 08:00] VITALS: BP 151/88; PULSE 94; RESP 16; TEMP 98.8; O2SAT 90
[2017-06-02] MEDS: DOCUSATE SODIUM 50 MG/SENNA 8.6 MG TAB PO SCH ×3 (09:00→21:00)
[2017-06-02] MEDS: SODIUM CHLORIDE 0.9% FLUSH 10 ML FLUSH IV FLUSH SCH ×2 (09:00→20:58)
[2017-06-02] MEDS ORDERED: amLODIPine BESYLATE 5 MG TAB PO ONE (09:45)
--- NOTE | 2017-06-02 10:29 | RADRPT ---
EXAM DATE/TIME: 06/02/2017 10:02 [facility] COMPARISON: CHEST SINGLE AP, June 01, 2017, 19:13. INDICATIONS : Short of breath and evaluate for respiratory failure. MEDICAL HISTORY : Hypertension. Hernia, umbilical. SURGICAL HISTORY : Umbilical hernia repair. Appendectomy. ENCOUNTER: Subsequent ACUITY: 2 weeks PAIN SCORE: 0/10 LOCATION: Bilateral chest FINDINGS: Moderate bibasilar parenchymal changes bilateral pleural effusions.,; As seen on 1416. The heart remains enlarged. The portion of the bony skeleton visualized is unremarkable. CONCLUSION: Persistent bibasal peripheral changes and small bilateral pleural effusions stable in the interval. Julio C Ordonez MD FACR on June 02, 2017 at 10:23 Board Certified Radiologist. This report was verified electronically.
[2017-06-02] MEDS: ENOXAPARIN SODIUM 40 MG/0.4 ML SYRINGE SQ SCH (11:06)
[2017-06-02] MEDS: LEVOFLOXACIN 750 MG TAB PO SCH (11:07)
[2017-06-02] MEDS: FUROSEMIDE 40 MG TAB PO SCH ×2 (11:07→16:18)
[2017-06-02] MEDS: PANTOPRAZOLE SOD 40 MG DELAYED RELEASE TAB PO SCH (11:07)
[2017-06-02] MEDS: METOPROLOL TARTRATE 100 MG TAB PO SCH ×2 (11:08→20:58)
[2017-06-02] MEDS: LISINOPRIL 10 MG TAB PO SCH (11:13)
[2017-06-02] MEDS: FLUCONAZOLE 200 MG TAB PO SCH (11:13)
[2017-06-02 12:00] VITALS: BP 136/84; PULSE 95; RESP 18; TEMP 99.2; O2SAT 92
[2017-06-02 13:26] LABS: AUTOMATED NEUTROPHIL # 20.5 TH/MM3 (1.8-7.7); BASOPHIL % 0.1 % (0.0-2.0); EOSINOPHIL # 0.1 TH/MM3 (0-0.4); EOSINOPHIL % 0.4 % (0.0-4.0); HEMATOCRIT 35.5 % (39.0-51.0); HEMO FLAGS DIFF FINAL; LYMPH % 6.3 % (9.0-44.0); LYMPHOCYTE # 1.5 TH/MM3 (1.0-4.8); MEAN CELL VOLUME 89.6 FL (80.0-100.0); MEAN CORPUSCULAR HEMOGLOBIN 29.7 PG (27.0-34.0); MEAN CORPUSCULAR HGB CONC 33.2 % (32.0-36.0); MONO % 5.2 % (0.0-8.0); PLATELET COUNT 688 TH/MM3 (150-450); RED BLOOD COUNT 3.96 MIL/MM3 (4.50-5.90); RED CELL DISTRIBUTION WIDTH 13.6 % (11.6-17.2); WHITE BLOOD COUNT 23.3 TH/MM3 (4.0-11.0)
[2017-06-02 14:01] LABS: ANION GAP 6 MEQ/L (5-15); AST (GOT) 16 U/L (15-37); BICARBONATE 32.6 MEQ/L (21.0-32.0); BLOOD UREA NITROGEN 13 MG/DL (7-18); CHLORIDE 97 MEQ/L (98-107); GLOMERULAR FILTRATION RATE 257 ML/MIN (>89); MAGNESIUM 2.1 MG/DL (1.5-2.5); POTASSIUM 3.7 MEQ/L (3.5-5.1); SODIUM (NA) 136 MEQ/L (136-145)
[2017-06-02 14:02] LABS: ALT (GPT) 16 U/L (12-78)
[2017-06-02 14:04] LABS: ALKALINE PHOSPHATASE 289 U/L (45-117); TOTAL BILIRUBIN ADULT 0.6 MG/DL (0.2-1.0)
[2017-06-02 16:00] VITALS: BP 137/80; PULSE 98; RESP 19; TEMP 98.7; O2SAT 87
--- NOTE | 2017-06-02 16:13 | HHI.PR ---
Subjective Subjective Notes DAILY PROGRESS NOTE FOR SURGICAL ATTENDING, DR. RAFFY QUEEN Resting in bed Had panic attack again last night Objective Vitals/I&O Vital Signs Date Time Temp Pulse Resp B/P (MAP) Pulse Ox O2 Delivery O2 Flow Rate FiO2 06/02/17 12:00 99.2 95 18 136/84 (101) 92 06/01/17 22:37 Nasal Cannula 4.00 Labs Laboratory Tests Test 06/02/17 12:46 White Blood Count 23.3 Red Blood Count 3.96 Hemoglobin 11.8 Hematocrit 35.5 Mean Corpuscular Volume 89.6 Mean Corpuscular Hemoglobin 29.7 Mean Corpuscular Hemoglobin Concent 33.2 Red Cell Distribution Width 13.6 Platelet Count 688 Mean Platelet Volume 8.4 Neutrophils (%) (Auto) 88.0 Lymphocytes (%) (Auto) 6.3 Monocytes (%) (Auto) 5.2 Eosinophils (%) (Auto) 0.4 Basophils (%) (Auto) 0.1 Neutrophils # (Auto) 20.5 Lymphocytes # (Auto) 1.5 Monocytes # (Auto) 1.2 Eosinophils # (Auto) 0.1 Basophils # (Auto) 0.0 CBC Comment DIFF FINAL Differential Comment Blood Urea Nitrogen 13 Creatinine 0.36 Random Glucose 116 Total Protein 5.8 Albumin 1.5 Calcium Level 7.9 Phosphorus Level 2.4 Magnesium Level 2.1 Alkaline Phosphatase 289 Aspartate Amino Transf (AST/SGOT) 16 Alanine Aminotransferase (ALT/SGPT) 16 Total Bilirubin 0.6 Sodium Level 136 Potassium Level 3.7 Chloride Level 97 Carbon Dioxide Level 32.6 Anion Gap 6 Estimat Glomerular Filtration Rate 257 Date/Time Source Procedure Growth Status 05/22/17 00:05 Gastric Gastric Occult Blood - Final GASTROCCULT NEGATIVE Complete 05/17/17 00:59 Urine Catheterized Urine Urine Culture - Final Staphylococcus Epidermidis Complete 05/22/17 12:22 Wound Abdomen Gram Stain - Final Complete 05/22/17 12:22 Wound Abdomen Wound Culture - Final Complete Radiology Last Impressions Chest X-Ray 05/23/17 0600 Signed Impressions: Service Date/Time: Tuesday, May 23, 2017 05:31 - CONCLUSION: Bilateral pulmonary opacity and bilateral pleural effusions again seen. Increase in opacity in the right perihilar region. Slight increase in pleural effusions. Geovani Marquez MD CT Angiography 05/22/17 0000 Signed Impressions: Service Date/Time: Monday, May 22, 2017 00:24 - CONCLUSION: 1. No evidence of pulmonary embolus. 2. Bilateral inferior lower lobe consolidation/atelectasis. 3. Trace bilateral pleural effusions. Geovani Marquez MD Abdomen/Pelvis CT 05/22/17 0000 Signed Impressions: Service Date/Time: Monday, May 22, 2017 00:24 - CONCLUSION: 1. Post surgical findings with cutaneous germaine anteriorly. 2. Anterior abdominal wall hernia with multiple loops of small bowel again seen. Small bowel distention is seen proximal to the herniated loops indicating possible partial small bowel obstruction or ileus. 3. Free fluid and free air likely due to recent surgery. Geovani Marquez MD Abdomen X-Ray 05/21/17 0000 Signed Impressions: Service Date/Time: Sunday, May 21, 2017 22:24 - CONCLUSION: 1. Findings similar to the prior study of 05/19/2017. Dilated air-filled proximal small bowel. Paucity of gas in the distal small bowel and colon. 2. Differential diagnosis is small bowel obstruction and ileus. Geovani Marquez MD Cardiovascular: Regular Lungs: Clear Abdomen: Other (midline incision--- opened inferior and middle of incision with a moderate amount of pus drainaged---packed open areas ) Extremities: Other (moderate generalized edema ) A/P Problem List: (1) Superficial postoperative wound infection ICD Codes: T81.4XXA - Infection following a procedure, initial encounter Status: Acute (2) Physical deconditioning ICD Codes: R53.81 - Other malaise Status: Acute (3) Postop check ICD Codes: Z09 - Encounter for follow-up examination after completed treatment for conditions other than malignant neoplasm (4) Dehiscence of closure of fascia, superficial or muscular ICD Codes: T81.32XA - Disruption of internal operation (surgical) wound, not elsewhere classified, initial encounter Status: Acute (5) Postoperative ileus ICD Codes: K91.89 - Other postprocedural complications and disorders of digestive system; K56.7 - Ileus, unspecified Status: Acute (6) Elevated WBC count ICD Codes: D72.829 - Elevated white blood cell count, unspecified Status: Chronic Assessment and Plan 51 year old male s/p repair of incarcerated umbilical hernia taken back to the OR Wednesday for ex lap; DARCI; small bowel resection of ischemic bowel with two small perforation; s/p ex lap; DARCI; drainage of fluid collection; closure of abdominal wound -Continue dressing changes ---increase to TID frequency -Regular diet -+BM -OOB and mobilize; PT---encouraged the use of pain medications 30-45 minutes prior to start of PT -Ambien PRN -Referral sent to [facility] Attending Statement NOTE FOR SURGICAL ATTENDING, DR. RAFFY QUEEN I agree with above assessment and plan. The exam, history, and the medical decision-making described in the above note were completed with the assistance of the mid-level provider. I reviewed and agree with the findings presented. I attest that I had a [id number] encounter with the patient on the same day, and personally performed and documented my assessment and findings in the medical record. The following services were provided during this hospital visit: Chart data review, vital sign assessments/reviewing monitor data Review of consultations notes if present. Medication orders/review and/or management Ordering and/or reviewing lab tests Ordering and/or interpreting/reviewing x-rays and/or diagnostic studies Care of the patient and discussion of the patient with the care team Documentation time To help prompt me to consider important information that might be impacting today's encounter and assessment, information from prior notes written by myself or my colleagues may have been "brought forward/copy and pasted" into today's note. Problem Qualifiers (1) Superficial postoperative wound infection: Qualified Codes: T81.4XXA - Infection following a procedure, initial encounter (2) Dehiscence of closure of fascia, superficial or muscular: Qualified Codes: T81.32XD - Disruption of internal operation (surgical) wound, not elsewhere classified, subsequent encounter Oksana Ferguson Jun 02, 2017 16:13 Raffy Queen MD Jun 02, 2017 17:23
--- NOTE | 2017-06-02 18:42 | HHI.PR ---
Subjective Remarks Deferred entry - patient seen at 16:00 hrs Patient has no complaints - denies cp or sob. States had a panic attack last night. Objective Vitals Vital Signs Date Time Temp Pulse Resp B/P (MAP) Pulse Ox O2 Delivery O2 Flow Rate FiO2 06/02/17 16:00 98.7 98 19 137/80 (99) 87 06/02/17 12:00 99.2 95 18 136/84 (101) 92 06/02/17 11:36 18 06/02/17 08:00 98.8 94 16 151/88 (109) 90 06/02/17 00:00 97.9 89 17 140/91 (107) 91 06/01/17 22:37 93 Nasal Cannula 4.00 06/01/17 20:00 99.5 98 17 167/81 (109) 91 I/O 06/01/17 06/01/17 06/01/17 06/02/17 06/02/17 06/02/17 07:00 15:00 23:00 07:00 15:00 23:00 Intake Total 100 ml 200 ml 360 ml 200 ml 240 ml Output Total 1450 ml 1600 ml 1150 ml Balance 100 ml 200 ml -1090 ml -1600 ml 200 ml -910 ml Intake Oral 360 ml 240 ml IV Total 100 ml 200 ml 200 ml Output Urine Total 1450 ml 1600 ml 1150 ml # Voids 3 # Bowel Movements 3 1 Result Diagram: 06/02/17 1246 06/02/17 1246 Imaging Last Impressions Chest X-Ray 06/02/17 0000 Signed Impressions: Service Date/Time: Friday, June 02, 2017 10:02 - CONCLUSION: Persistent bibasal peripheral changes and small bilateral pleural effusions stable in the interval. Julio C Ordonez MD FACR CT Angiography 05/22/17 0000 Signed Impressions: Service Date/Time: Monday, May 22, 2017 00:24 - CONCLUSION: 1. No evidence of pulmonary embolus. 2. Bilateral inferior lower lobe consolidation/atelectasis. 3. Trace bilateral pleural effusions. Geovani Marquez MD Abdomen/Pelvis CT 05/22/17 0000 Signed Impressions: Service Date/Time: Monday, May 22, 2017 00:24 - CONCLUSION: 1. Post surgical findings with cutaneous germaine anteriorly. 2. Anterior abdominal wall hernia with multiple loops of small bowel again seen. Small bowel distention is seen proximal to the herniated loops indicating possible partial small bowel obstruction or ileus. 3. Free fluid and free air likely due to recent surgery. Geovani Marquez MD Abdomen X-Ray 05/21/17 0000 Signed Impressions: Service Date/Time: Sunday, May 21, 2017 22:24 - CONCLUSION: 1. Findings similar to the prior study of 05/19/2017. Dilated air-filled proximal small bowel. Paucity of gas in the distal small bowel and colon. 2. Differential diagnosis is small bowel obstruction and ileus. Geovani Marquez MD Objective Remarks GENERAL: 51-year-old male, tachypneic with mild to moderate respiratory distress. SKIN: Warm and dry. Well perfused HEAD: Atraumatic. Normocephalic. EYES: Pupils 2 mm bilaterally and reactive. No scleral icterus. No injection or drainage. ENT: No nasal bleeding or discharge. Mucous membranes pink and moist. NECK: Trachea midline. Supple. Airway widely patent. CARDIOVASCULAR: Tachycardic 99, RR. S1, S2. No murmur, no JVD. RESPIRATORY: Decreased breath sounds at the bases. No wheezing, good air movement. No adventitious sounds. GASTROINTESTINAL: Abdomen is currently closed. BS active. Postsurgical, benign. No guarding. MUSCULOSKELETAL: Extremities with trace edema. No obvious deformities. NEUROLOGICAL: Awake, alert, cooperative. Moves bilateral upper and lower extremities. O X 3. Conversant. Repeats himself a lot. Medications and IVs Current Medications Medications (Trade) Dose Ordered Sig/Lanie Route Start Time Stop Time Status Last Admin (Zofran Inj) 4 mg Q4H PRN IV PUSH 05/17/17 03:15 05/28/17 00:05 (Chloraseptic [place]) 2 spray Q2H PRN OROPHARYNG 05/19/17 11:00 05/19/17 15:42 (Xopenex Neb) 1.25 mg Q8HR NEB PRN NEB 05/22/17 06:45 05/27/17 08:25 (Lopressor Inj) 5 mg Q8H PRN IV PUSH 05/22/17 08:15 05/29/17 08:24 (NS Flush) 2 ml UNSCH PRN IV FLUSH 05/22/17 14:15 (NS Flush) 2 ml BID IV FLUSH 05/22/17 21:00 06/02/17 09:00 (Tears Naturale Opth Soln) 1 drop TID EACH EYE 05/22/17 18:00 06/02/17 16:19 Miscellaneous Information 1 Q361D XX 05/22/17 14:15 (Chlorhexidine 2% Cloth) Taper DAILY@04 TOP 05/23/17 04:00 05/19/18 03:59 (Chlorhexidine 2% Cloth) 3 pack UNSCH PRN TOP 05/22/17 14:15 (Mayte-Colace) 1 tab BID PO 05/22/17 21:00 05/30/17 08:09 (Milk Of Magnesia Liq) 30 ml Q12H PRN PO 05/22/17 14:15 (Senokot) 17.2 mg Q12H PRN PO 05/22/17 14:15 (Dulcolax Supp) 10 mg DAILY PRN RECTAL 05/22/17 14:15 (Lactulose Liq) 30 ml DAILY PRN PO 05/22/17 14:15 (Tears Naturale Opth Soln) 1 drop Q8HR EACH EYE 05/22/17 22:00 06/02/17 05:36 (Xanax) 1 mg Q8H PRN PO 05/29/17 15:15 06/02/17 02:58 (Lovenox Inj) 40 mg Q24H SQ 05/29/17 10:00 06/02/17 11:06 (Trandate Inj) 20 mg Q3H PRN IV PUSH 05/29/17 09:30 (Prinivil) 10 mg DAILY PO 05/30/17 09:00 06/02/17 11:13 (Catapres) 0.1 mg Q6H PRN PO 05/30/17 07:30 (Lopressor) 100 mg Q12HR PO 05/31/17 21:00 06/02/17 11:08 (Diflucan) 400 mg DAILY PO 06/01/17 13:00 06/02/17 11:13 (Flagyl) 500 mg Q8HR PO 06/01/17 17:00 06/02/17 16:18 (Levaquin) 750 mg DAILY PO 06/01/17 13:00 06/02/17 11:07 (Protonix) 40 mg DAILY PO 06/01/17 13:00 06/02/17 11:07 (Lasix) 40 mg BID@09,18 PO 06/02/17 09:00 06/02/17 16:18 (Norvasc) 10 mg DAILY PO 06/03/17 09:00 (Ambien) 10 mg HS PRN PO 06/02/17 16:00 A/P Assessment and Plan Neuro/Psych: SP intubation and mechanical ventilation Extubated 05/27. AAOx3 CV: Sinus tachycardia -4 L crystalloid in the operating room. Currently receiving fifth liter. Negative CT pulmonary angiogram for pulmonary embolism. Continue crystalloid per general surgery's recommendations. Was intermittently on a phenylephrine in OR now on low dose levophed to counter sedation, all off.. Resp: Postoperative respiratory failure PRVC 16/550/0.9/5/100 Ventilator bundle Albuterol/ipratropium aerosols every 6 hours with albuterol aerosols every 2 hours. Dyspnea Spontaneous breathing trials daily Follow-up ABG/chest x-ray post surgery and PACU CT pulmonary angiogram 05/22 revealed bilateral lower lobe infiltrates,'s small bilateral pleural effusions. No central pulmonary embolism. Extubated 05/27. 06/01 Patient stil on high requirement of o2, sating 94% on 4 liters nasal canula. Will start on oral lasix and check a CXR. 06/02 CXR shows BL pleural effusions. Patient still requiring high O2. Repeat CXR shows BL pleural effusions and persistent bibasilar peripheral changes. Will order a CT chest without IV contrast to look at lung parenchyma and better asses size of effusions. GI: SP exploratory laparotomy, partial home meniscectomy with small bowel resection and packing of abdominal wall secondary to wound dehiscence, nausea/vomiting and Postoperative ileus. SP reduction of incarcerated hernia with primary. Hernia defect secondary to incarcerated umbilical hernia with small bowel obstruction secondary to incarcerated small bowel and omentum by Dr. Queen Postoperative ileus GIs status post EGD for NG tube placement secondary to massively dilated stomach and small bowel in OR without cuff cage. Plan to return to OR on Wednesday for closure abdominal wall fascia. Continue NG tube to [facility] Pantoprazole for GI prophylaxis Feed per surgery. 05/22 tolerating regular diet. 06/02 Discussed case with Oksana [facility] PA. states wound has some purulent discharge. Will obtain wound culture and consult infectious disease. : Echeverria catheter has been placed for accurate I's and O's in a critically ill patient Endo: Sliding scale with Accu-Cheks to maintain euglycemia/every 6 hours Renal: Acute kidney injury Monitor urine output Accurate I's and O's Noted patient received intravenous dye CT pulmonary angiogram today Resolved Heme: CBC preop within normal limits. Postoperative pending ID: Staph epi cystitis pansensitive Currently on levofloxacin, metronidazole and fluconazole day per Dr. Queen Urine culture 05/17 revealed staph epi 06/02 Wounf discharge as per GS. Will consult infecious disease and order a wound culture. WBC is trending up. FEN: Hyponatremia Hypokalemia Replacing electrolytes per ICU left leg protocol see orders MSK: PT evaluate and treat Access - Utilize peripheral IV. - Left radial arterial line placed in OR 05/22 Prophylaxis - GI - pantoprazole - DVT - SCD/pharmacological prophylaxis lovenox. Discharge Planning Patient still on high O2. CT ordered. ID consult ordered. Bob Figueroa MD Jun 02, 2017 18:42
[2017-06-02 20:00] VITALS: BP 144/78; PULSE 106; RESP 20; TEMP 99.7; O2SAT 92
[2017-06-02] MEDS ORDERED: VANCOMYCIN INJ 1,000 MG in SODIUM CHLOR 0.9% 250 ML INJ 250 ML IV SCH (20:30)
[2017-06-02] MEDS ORDERED: Vancomycin Consult Pharmacy 1 EA OTHER SCH (20:30)
[2017-06-02] MEDS: VANCOMYCIN INJ 2,000 MG in SODIUM CHLORID 0.9% 500 ML INJ 500 ML IV SCH (22:27)
[2017-06-02] MEDS: ZOLPIDEM TARTRATE 10 MG TAB PO PRN (22:27)
[2017-06-03] VITALS: BP 137/85; PULSE 105; RESP 20; TEMP 98; O2SAT 92
--- NOTE | 2017-06-03 00:38 | RADRPT ---
EXAM DATE/TIME: 06/02/2017 23:44 [place] COMPARISON: No previous studies available for comparison. INDICATIONS : Left arm pain and swelling. MEDICAL HISTORY : Hypercholesterolemia. Hypertension. Measles. SURGICAL HISTORY : Appendectomy. Umbilical hernia repair. ENCOUNTER: Initial ACUITY: 1 day PAIN SCORE: 6/10 LOCATION: Left arm. FINDINGS: There is spontaneous flow documented in the brachial, basilic, axillary, and subclavian veins. Small amount of thrombus in the cephalic vein and a small superficial vein. There are impressive subcutaneo us edema across the wrist. The vessels are compressible and augmentation response is documented. No filling defects are seen. The flow is phasic with respiration. Direction of flow in the jugular vei n is caudal. CONCLUSION: Significant soft tissue swelling of the wrist. If there is concern for infection then a cross-section al study should be performed. Small amount of superficial thrombus extending into the cephalic vein, minimal. Joshua Adhikari MD on June 03, 2017 at 0:35 Board Certified Radiologist. This report was verified electronically.
[2017-06-03] MEDS: CHLORHEXIDINE GLUCONATE 2 % 1 PACK (2 CLOTHS) TOP SCH ×2 (02:14→20:45)
[2017-06-03] MEDS: metroNIDAZOLE 500 MG TAB PO SCH (05:35)
[2017-06-03] MEDS: ARTIFICIAL TEARS OPTH SOLN 15 ML BTL EACH EYE SCH ×6 (05:35→20:52)
[2017-06-03 08:00] VITALS: BP 148/93; PULSE 102; RESP 19; TEMP 97.1; O2SAT 91
[2017-06-03 08:45] LABS: AUTOMATED NEUTROPHIL # 15.4 TH/MM3 (1.8-7.7); BASOPHIL % 0.2 % (0.0-2.0); EOSINOPHIL # 0.1 TH/MM3 (0-0.4); EOSINOPHIL % 0.7 % (0.0-4.0); HEMATOCRIT 34.1 % (39.0-51.0); HEMO FLAGS DIFF FINAL; LYMPH % 7.5 % (9.0-44.0); LYMPHOCYTE # 1.4 TH/MM3 (1.0-4.8); MEAN CELL VOLUME 90.2 FL (80.0-100.0); MEAN CORPUSCULAR HEMOGLOBIN 30.1 PG (27.0-34.0); MEAN CORPUSCULAR HGB CONC 33.4 % (32.0-36.0); MONO % 7.9 % (0.0-8.0); NEUT % 83.7 % (16.0-70.0); PLATELET COUNT 723 TH/MM3 (150-450); RED BLOOD COUNT 3.78 MIL/MM3 (4.50-5.90); RED CELL DISTRIBUTION WIDTH 13.8 % (11.6-17.2); WHITE BLOOD COUNT 18.4 TH/MM3 (4.0-11.0)
[2017-06-03] MEDS: DOCUSATE SODIUM 50 MG/SENNA 8.6 MG TAB PO SCH ×2 (09:00→20:44)
[2017-06-03 09:21] LABS: CHLORIDE 96 MEQ/L (98-107); POTASSIUM 3.5 MEQ/L (3.5-5.1); SODIUM (NA) 135 MEQ/L (136-145)
[2017-06-03] MEDS: METOPROLOL TARTRATE 100 MG TAB PO SCH ×2 (09:48→20:43)
[2017-06-03] MEDS: LISINOPRIL 10 MG TAB PO SCH (09:48)
[2017-06-03] MEDS: FLUCONAZOLE 200 MG TAB PO SCH (09:48)
[2017-06-03] MEDS: PANTOPRAZOLE SOD 40 MG DELAYED RELEASE TAB PO SCH (09:48)
[2017-06-03] MEDS: SODIUM CHLORIDE 0.9% FLUSH 10 ML FLUSH IV FLUSH SCH ×2 (09:49→20:46)
[2017-06-03] MEDS: FUROSEMIDE 40 MG TAB PO SCH ×2 (09:49→18:00)
[2017-06-03] MEDS: ENOXAPARIN SODIUM 40 MG/0.4 ML SYRINGE SQ SCH (09:51)
[2017-06-03] MEDS: VANCOMYCIN INJ 2,000 MG in SODIUM CHLORID 0.9% 500 ML INJ 500 ML IV SCH ×2 (09:52→20:45)
[2017-06-03 10:03] LABS: ALT (GPT) 14 U/L (12-78); ANION GAP 8 MEQ/L (5-15); BICARBONATE 31.4 MEQ/L (21.0-32.0); BLOOD UREA NITROGEN 14 MG/DL (7-18); GLOMERULAR FILTRATION RATE 209 ML/MIN (>89); MAGNESIUM 2.1 MG/DL (1.5-2.5)
[2017-06-03 10:04] LABS: AST (GOT) 16 U/L (15-37)
[2017-06-03 10:07] LABS: ALKALINE PHOSPHATASE 241 U/L (45-117); TOTAL BILIRUBIN ADULT 0.4 MG/DL (0.2-1.0)
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
[2017-06-03] MEDS ORDERED: LEVOFLOXACIN 750 MG PREMIX INJ 150 ML IV SCH (11:00)
--- NOTE | 2017-06-03 11:49 | RADRPT ---
EXAM DATE/TIME: 06/03/2017 10:58 [facility] COMPARISON: CT PULMONARY ANGIOGRAM, May 22, 2017, 0:24. CHEST SINGLE AP, June 02, 2017, 10:02. INDICATIONS : Dyspnea RADIATION DOSE: 11.12 CTDIvol (mGy) MEDICAL HISTORY : Cardiovascular disease. Hypertension. SURGICAL HISTORY : Appendectomy. ENCOUNTER: Initial ACUITY: 2 days PAIN SCALE: 0/10 LOCATION: chest TECHNIQUE: Volumetric scanning of the chest was performed. Using automated exposure control and adjustment of t he mA and/or kV according to patient size, radiation dose was kept as low as reasonably achievable to obtain optimal diagnostic quality images. DICOM format image data is available electronically for r eview and comparison. Follow-up recommendations for detected pulmonary nodules are based at a minimum on nodule size and pa tient risk factors according to Fleischner Society Guidelines. FINDINGS: Small bilateral pleural effusions are noted. Bibasilar alveolar consolidations are noted consistent w ith pneumonia and/or atelectasis. No nodules or masses are identified within the aerated portions of the lungs. The heart is stable. No mediastinal, hilar or axillary lymphadenopathy is noted. Minimal a scites is noted within the upper abdomen. Degenerative changes and scoliosis of the thoracolumbar spi ne are noted. CONCLUSION: 1. Bibasilar alveolar consolidations consistent with pneumonia and/or atelectasis. 2. Small bilateral pleural effusions. 3. Minimal ascites within the upper abdomen. 4. Degenerative changes and scoliosis of the thoracolumbar spine. Roberto Rivera MD on June 03, 2017 at 11:43 Board Certified Radiologist. This report was verified electronically.
[2017-06-03 12:00] VITALS: BP 158/92; PULSE 102; RESP 19; TEMP 98.4; O2SAT 90
[2017-06-03] MEDS ORDERED: DIATRIZOATE MEGLUM/DIATRIZOATE SOD 9 ML CUP PO ONE (14:15)
[2017-06-03] MEDS: PIPERACIL-TAZO 4.5 GM PREMIX 100 ML IV SCH ×2 (14:35→20:45)
[2017-06-03 16:00] VITALS: BP 149/88; PULSE 92; RESP 19; TEMP 100.4; O2SAT 90
--- NOTE | 2017-06-03 16:53 | HHI.PR ---
Subjective Subjective Notes DAILY PROGRESS NOTE FOR SURGICAL ATTENDING, DR. RAFFY QUEEN Resting in bed Did not sleep well last night Objective Vitals/I&O Vital Signs Date Time Temp Pulse Resp B/P (MAP) Pulse Ox O2 Delivery O2 Flow Rate FiO2 06/03/17 16:13 93 4.00 06/03/17 16:00 100.4 92 19 149/88 (108) 06/03/17 00:00 Nasal Cannula Labs Laboratory Tests Test 06/03/17 06:48 White Blood Count 18.4 Red Blood Count 3.78 Hemoglobin 11.4 Hematocrit 34.1 Mean Corpuscular Volume 90.2 Mean Corpuscular Hemoglobin 30.1 Mean Corpuscular Hemoglobin Concent 33.4 Red Cell Distribution Width 13.8 Platelet Count 723 Mean Platelet Volume 8.5 Neutrophils (%) (Auto) 83.7 Lymphocytes (%) (Auto) 7.5 Monocytes (%) (Auto) 7.9 Eosinophils (%) (Auto) 0.7 Basophils (%) (Auto) 0.2 Neutrophils # (Auto) 15.4 Lymphocytes # (Auto) 1.4 Monocytes # (Auto) 1.4 Eosinophils # (Auto) 0.1 Basophils # (Auto) 0.0 CBC Comment DIFF FINAL Differential Comment Blood Urea Nitrogen 14 Creatinine 0.43 Random Glucose 100 Total Protein 5.7 Albumin 1.5 Calcium Level 7.6 Phosphorus Level 2.9 Magnesium Level 2.1 Alkaline Phosphatase 241 Aspartate Amino Transf (AST/SGOT) 16 Alanine Aminotransferase (ALT/SGPT) 14 Total Bilirubin 0.4 Sodium Level 135 Potassium Level 3.5 Chloride Level 96 Carbon Dioxide Level 31.4 Anion Gap 8 Estimat Glomerular Filtration Rate 209 Date/Time Source Procedure Growth Status 05/22/17 00:05 Gastric Gastric Occult Blood - Final GASTROCCULT NEGATIVE Complete 05/17/17 00:59 Urine Catheterized Urine Urine Culture - Final Staphylococcus Epidermidis Complete 06/03/17 11:25 Wound Abdomen Gram Stain - Final Resulted 06/03/17 11:25 Wound Abdomen Wound Culture Pending Resulted Radiology Last Impressions Chest X-Ray 05/23/17 0600 Signed Impressions: Service Date/Time: Tuesday, May 23, 2017 05:31 - CONCLUSION: Bilateral pulmonary opacity and bilateral pleural effusions again seen. Increase in opacity in the right perihilar region. Slight increase in pleural effusions. Geovani Marquez MD CT Angiography 05/22/17 0000 Signed Impressions: Service Date/Time: Monday, May 22, 2017 00:24 - CONCLUSION: 1. No evidence of pulmonary embolus. 2. Bilateral inferior lower lobe consolidation/atelectasis. 3. Trace bilateral pleural effusions. Geovani Marquez MD Abdomen/Pelvis CT 05/22/17 0000 Signed Impressions: Service Date/Time: Monday, May 22, 2017 00:24 - CONCLUSION: 1. Post surgical findings with cutaneous germaine anteriorly. 2. Anterior abdominal wall hernia with multiple loops of small bowel again seen. Small bowel distention is seen proximal to the herniated loops indicating possible partial small bowel obstruction or ileus. 3. Free fluid and free air likely due to recent surgery. Geovani Marquez MD Abdomen X-Ray 05/21/17 0000 Signed Impressions: Service Date/Time: Sunday, May 21, 2017 22:24 - CONCLUSION: 1. Findings similar to the prior study of 05/19/2017. Dilated air-filled proximal small bowel. Paucity of gas in the distal small bowel and colon. 2. Differential diagnosis is small bowel obstruction and ileus. Geovani Marquez MD Cardiovascular: Regular Lungs: Clear Abdomen: Other (midline incision with open areas---packed---minimal drainage; abdomen soft ) Extremities: No edema A/P Problem List: (1) Superficial postoperative wound infection ICD Codes: T81.4XXA - Infection following a procedure, initial encounter Status: Acute (2) Physical deconditioning ICD Codes: R53.81 - Other malaise Status: Acute (3) Postop check ICD Codes: Z09 - Encounter for follow-up examination after completed treatment for conditions other than malignant neoplasm (4) Dehiscence of closure of fascia, superficial or muscular ICD Codes: T81.32XA - Disruption of internal operation (surgical) wound, not elsewhere classified, initial encounter Status: Acute (5) Postoperative ileus ICD Codes: K91.89 - Other postprocedural complications and disorders of digestive system; K56.7 - Ileus, unspecified Status: Acute (6) Elevated WBC count ICD Codes: D72.829 - Elevated white blood cell count, unspecified Status: Chronic Assessment and Plan 51 year old male s/p repair of incarcerated umbilical hernia taken back to the OR for wound dehiscence for ex lap; DARCI; small bowel resection of ischemic bowel with two small perforation; s/p ex lap; DARCI; drainage of fluid collection ; closure of abdominal wound -Continue dressing changes ---increase to TID frequency -Regular diet -+BM -OOB and mobilize; PT---encouraged the use of pain medications 30-45 minutes prior to start of PT -[place] PRN -Referral sent to [facility] Attending Statement Patient's is making slow steady progress NOTE FOR SURGICAL ATTENDING, DR. RAFFY QUEEN I agree with above assessment and plan. The exam, history, and the medical decision-making described in the above note were completed with the assistance of the mid-level provider. I reviewed and agree with the findings presented. I attest that I had a [id number] encounter with the patient on the same day, and personally performed and documented my assessment and findings in the medical record. The following services were provided during this hospital visit: Chart data review, vital sign assessments/reviewing monitor data Review of consultations notes if present. Medication orders/review and/or management Ordering and/or reviewing lab tests Ordering and/or interpreting/reviewing x-rays and/or diagnostic studies Care of the patient and discussion of the patient with the care team Documentation time To help prompt me to consider important information that might be impacting today's encounter and assessment, information from prior notes written by myself or my colleagues may have been "brought forward/copy and pasted" into today's note. Problem Qualifiers (1) Superficial postoperative wound infection: Qualified Codes: T81.4XXD - Infection following a procedure, subsequent encounter (2) Dehiscence of closure of fascia, superficial or muscular: Qualified Codes: T81.32XD - Disruption of internal operation (surgical) wound, not elsewhere classified, subsequent encounter Oksana Ferguson Jun 03, 2017 16:53 Raffy Queen MD Jun 03, 2017 20:20
--- NOTE | 2017-06-03 16:54 | HHI.PR ---
Subjective Remarks Patient seen at 11:30 am. Patient states he feels better. states left upper extremity swelling is better. wbc trending down. Objective Vitals Vital Signs Date Time Temp Pulse Resp B/P (MAP) Pulse Ox O2 Delivery O2 Flow Rate FiO2 06/03/17 16:13 93 4.00 06/03/17 12:00 98.4 102 19 158/92 (114) 90 06/03/17 08:00 97.1 102 19 148/93 (111) 91 06/03/17 00:00 98.0 105 20 137/85 (102) 92 06/03/17 00:00 Nasal Cannula 4.00 06/02/17 21:29 Nasal Cannula 4.00 06/02/17 20:00 Nasal Cannula 4.00 06/02/17 20:00 99.7 106 20 144/78 (100) 92 I/O 06/02/17 06/02/17 06/02/17 06/03/17 06/03/17 06/03/17 07:00 15:00 23:00 07:00 15:00 23:00 Intake Total 200 ml 240 ml 980 ml Output Total 1600 ml 1150 ml 1450 ml Balance -1600 ml 200 ml -910 ml -470 ml Intake Oral 240 ml 480 ml IV Total 200 ml 500 ml Output Urine Total 1600 ml 1150 ml 1450 ml # Bowel Movements 1 2 Result Diagram: 06/03/1748 06/03/17 0648 Objective Remarks GENERAL: 51-year-old male, tachypneic with mild to moderate respiratory distress. SKIN: Warm and dry. Well perfused HEAD: Atraumatic. Normocephalic. EYES: Pupils 2 mm bilaterally and reactive. No scleral icterus. No injection or drainage. ENT: No nasal bleeding or discharge. Mucous membranes pink and moist. NECK: Trachea midline. Supple. Airway widely patent. CARDIOVASCULAR: Tachycardic 99, RR. S1, S2. No murmur, no JVD. RESPIRATORY: Decreased breath sounds at the bases. No wheezing, good air movement. No adventitious sounds. GASTROINTESTINAL: Abdomen is currently closed. BS active. Postsurgical, benign. No guarding. MUSCULOSKELETAL: Extremities with trace edema. No obvious deformities. NEUROLOGICAL: Awake, alert, cooperative. Moves bilateral upper and lower extremities. O X 3. Conversant. Repeats himself a lot. Medications and IVs Current Medications Medications (Trade) Dose Ordered Sig/Lanie Route Start Time Stop Time Status Last Admin (Zofran Inj) 4 mg Q4H PRN IV PUSH 05/17/17 03:15 05/28/17 00:05 (Chloraseptic [place]) 2 spray Q2H PRN OROPHARYNG 05/19/17 11:00 05/19/17 15:42 (Xopenex Neb) 1.25 mg Q8HR NEB PRN NEB 05/22/17 06:45 05/27/17 08:25 (Lopressor Inj) 5 mg Q8H PRN IV PUSH 05/22/17 08:15 05/29/17 08:24 (NS Flush) 2 ml UNSCH PRN IV FLUSH 05/22/17 14:15 (NS Flush) 2 ml BID IV FLUSH 05/22/17 21:00 06/03/17 09:49 (Tears Naturale Opth Soln) 1 drop TID EACH EYE 05/22/17 18:00 06/03/17 13:00 Miscellaneous Information 1 Q361D XX 05/22/17 14:15 (Chlorhexidine 2% Cloth) Taper DAILY@04 TOP 05/23/17 04:00 05/19/18 03:59 (Chlorhexidine 2% Cloth) 3 pack UNSCH PRN TOP 05/22/17 14:15 (Mayte-Colace) 1 tab BID PO 05/22/17 21:00 05/30/17 08:09 (Milk Of Magnesia Liq) 30 ml Q12H PRN PO 05/22/17 14:15 (Senokot) 17.2 mg Q12H PRN PO 05/22/17 14:15 (Dulcolax Supp) 10 mg DAILY PRN RECTAL 05/22/17 14:15 (Lactulose Liq) 30 ml DAILY PRN PO 05/22/17 14:15 (Tears Naturale Opth Soln) 1 drop Q8HR EACH EYE 05/22/17 22:00 06/03/17 13:27 (Xanax) 1 mg Q8H PRN PO 05/29/17 15:15 06/02/17 02:58 (Lovenox Inj) 40 mg Q24H SQ 05/29/17 10:00 06/03/17 09:51 (Trandate Inj) 20 mg Q3H PRN IV PUSH 05/29/17 09:30 (Prinivil) 10 mg DAILY PO 05/30/17 09:00 06/03/17 09:48 (Catapres) 0.1 mg Q6H PRN PO 05/30/17 07:30 (Lopressor) 100 mg Q12HR PO 05/31/17 21:00 06/03/17 09:48 (Diflucan) 400 mg DAILY PO 06/01/17 13:00 06/03/17 09:48 (Protonix) 40 mg DAILY PO 06/01/17 13:00 06/03/17 09:48 (Lasix) 40 mg BID@,18 PO 06/02/17 09:00 06/03/17 09:49 (Norvasc) 10 mg DAILY PO 06/03/17 09:00 06/03/17 09:49 (Ambien) 10 mg HS PRN PO 06/02/17 16:00 06/02/17 22:27 Pharmacy Profile Note 0 ml @ 0 mls/hr UNSCH OTHER 06/02/17 20:30 Vancomycin HCl 2000 mg/Sodium Chloride 520 ml @ 250 mls/hr Q12H IV 06/02/17 22:00 06/03/17 09:52 Miscellaneous Information SPECIFIC LAB TO BE DRAWN:[facility]... ONCE ONCE .XX 06/04/17 09:45 06/04/17 09:46 Piperacillin Sod/ Tazobactam Sod 100 ml @ 200 mls/hr Q6H IV 06/03/17 11:00 06/03/17 14:35 A/P Assessment and Plan Neuro/Psych: SP intubation and mechanical ventilation Extubated 05/27. AAOx3 CV: Sinus tachycardia -4 L crystalloid in the operating room. Currently receiving fifth liter. Negative CT pulmonary angiogram for pulmonary embolism. Continue crystalloid per general surgery's recommendations. Was intermittently on a phenylephrine in OR now on low dose levophed to counter sedation, all off.. Resp: Postoperative respiratory failure HCAP PRVC 16/550/0.9/5/100 Ventilator bundle Albuterol/ipratropium aerosols every 6 hours with albuterol aerosols every 2 hours. Dyspnea Spontaneous breathing trials daily Follow-up ABG/chest x-ray post surgery and PACU CT pulmonary angiogram 05/22 revealed bilateral lower lobe infiltrates,'s small bilateral pleural effusions. No central pulmonary embolism. Extubated 05/27. 06/01 Patient stil on high requirement of o2, sating 94% on 4 liters nasal canula. Will start on oral lasix and check a CXR. 06/02 CXR shows BL pleural effusions. Patient still requiring high O2. Repeat CXR shows BL pleural effusions and persistent bibasilar peripheral changes. Will order a CT chest without IV contrast to look at lung parenchyma and better asses size of effusions. 06/[address] as described above. Shows bibasilar alveolar consolidations consistent with pneumonia and/or atelectasis. Minimal ascites in the upper abdomen. Degenerative changes and scoliosis of the thoracolumbar spine. Continue Lasix. Patient currently on broad spectrum antibiotics. GI: SP exploratory laparotomy, partial home meniscectomy with small bowel resection and packing of abdominal wall secondary to wound dehiscence, nausea/vomiting and Postoperative ileus. SP reduction of incarcerated hernia with primary. Hernia defect secondary to incarcerated umbilical hernia with small bowel obstruction secondary to incarcerated small bowel and omentum by Dr. Queen Postoperative ileus GIs status post EGD for NG tube placement secondary to massively dilated stomach and small bowel in OR without cuff cage. Plan to return to OR on Wednesday for closure abdominal wall fascia. Continue NG tube to [facility] Pantoprazole for GI prophylaxis Feed per surgery. 05/22 tolerating regular diet. 06/02 Discussed case with Oksana Ferguson, Surgical PA. states wound has some purulent discharge. Will obtain wound culture and consult infectious disease. 06/03 Wound culture pending. Discussed case with Dr Dao from ID who recommended CT abdomen and pelvis. : Echeverria catheter has been placed for accurate I's and O's in a critically ill patient Endo: Sliding scale with Accu-Cheks to maintain euglycemia/every 6 hours Renal: Acute kidney injury Monitor urine output Accurate I's and O's Noted patient received intravenous dye CT pulmonary angiogram today Resolved Heme: CBC preop within normal limits. Postoperative pending ID: Staph epi cystitis pansensitive Currently on levofloxacin, metronidazole and fluconazole day per Dr. Queen Urine culture 05/17 revealed staph epi 06/02 Wound care as per GS. Will consult infecious disease and order a wound culture. WBC is trending up. 06/03 Levaquin and Flagyl discontinued - patient started on IV zosyn, continue Vancomycin. FEN: Hyponatremia Hypokalemia Electrolytes within normal range. MSK: PT evaluate and treat Access - Utilize peripheral IV. - Left radial arterial line placed in OR 05/22 Prophylaxis - GI - pantoprazole - DVT - SCD/pharmacological prophylaxis lovenox. Discharge Planning Patient still on high O2. CT ordered. ID consult ordered. Bob Figueroa MD Jun 03, 2017 16:54
--- NOTE | 2017-06-03 19:07 | RADRPT ---
EXAM DATE/TIME: 06/03/2017 18:18 [place] COMPARISON: CT ABDOMEN & PELVIS W CONTRAST, May 22, 2017, 0:24. INDICATIONS : Abdomenn surgery for incarcerated hernia,now evaluate for abscess. ORAL CONTRAST: Prescribed oral contrast ingested. RADIATION DOSE: 10.76 CTDIvol (mGy) MEDICAL HISTORY : Cardiovascular disease. Hypertension. SURGICAL HISTORY : Appendectomy. Umbilical hernia repair. ENCOUNTER: Initial ACUITY: 1 week PAIN SCALE: 0/10 LOCATION: Abdomen TECHNIQUE: Volumetric scanning of the abdomen and pelvis was performed. Using automated exposure control and ad justment of the mA and/or kV according to patient size, radiation dose was kept as low as reasonably achievable to obtain optimal diagnostic quality images. DICOM format image data is available electro nically for review and comparison. FINDINGS: LOWER LUNGS: There are mild to moderate bilateral pleural effusions with accompanying areas of atelectasis of the lower lobes being worse on the right side. LIVER: Homogeneous density without lesion. There is no dilation of the biliary tree. No calcified gall[place] es. SPLEEN: Normal size without lesion. PANCREAS: Within normal limits. KIDNEYS: Normal in size and shape. There is no mass, stone, or hydronephrosis. ADRENAL GLANDS: Within normal limits. VASCULAR: There is no aortic aneurysm. BOWEL/MESENTERY: The patient is status post bowel surgery with a bowel anastomosis sutures in the small bowel in the l eft lower quadrant. There is thickening of the small bowel throughout the abdomen. No abscess is seen . There is some mild fluid seen in the right paracolic gutter region. ABDOMINAL WALL: The patient is status post abdominal surgery. A portion of the incision is still open at the anterior abdominal wall. There is edema seen in the lateral aspect of the abdominal wall bilaterally. RETROPERITONEUM: There is no lymphadenopathy. BLADDER: No wall thickening or mass. REPRODUCTIVE: Within normal limits. INGUINAL: There is no lymphadenopathy or hernia. MUSCULOSKELETAL: Within normal limits for patient age. CONCLUSION: 1. Thickening of the small bowel especially the distal small bowel. The patient is status post small bowel surgery. An abscess is not seen. The anterior abdominal wall incision is partially still open. 2. Mild to moderate bilateral pleural effusions with accompanying areas of atelectasis. Clovis Borrero MD on June 03, 2017 at 18:57 Board Certified Radiologist. This report was verified electronically.
[2017-06-03 20:00] VITALS: BP 134/80; PULSE 102; RESP 22; TEMP 98.8; O2SAT 91
[2017-06-03 20:30] VITALS: O2SAT 89
[2017-06-03] MEDS: ZOLPIDEM TARTRATE 10 MG TAB PO PRN (21:20)
[2017-06-04] VITALS (8 sets, daily range): BP systolic 116–144; BP diastolic 68–84; PULSE 92–106; RESP 18–22; TEMP 96.3–100.1; O2SAT 90–93
[2017-06-04] MEDS: PIPERACIL-TAZO 4.5 GM PREMIX 100 ML IV SCH ×4 (05:39→20:43)
[2017-06-04] MEDS: RESP: LEVALBUTEROL HYDROCHLORIDE 1.25 MG/3 ML NEB (PRN) NEB ×2 (05:40→20:43)
[2017-06-04] MEDS: ARTIFICIAL TEARS OPTH SOLN 15 ML BTL EACH EYE SCH ×3 (05:43→20:41)
[2017-06-04] MEDS: DOCUSATE SODIUM 50 MG/SENNA 8.6 MG TAB PO SCH ×2 (09:00→20:41)
[2017-06-04 09:13] LABS: AUTOMATED NEUTROPHIL # 13.6 TH/MM3 (1.8-7.7); BASOPHIL % 0.2 % (0.0-2.0); EOSINOPHIL # 0.1 TH/MM3 (0-0.4); EOSINOPHIL % 0.6 % (0.0-4.0); HEMO FLAGS DIFF FINAL; LYMPH % 10.1 % (9.0-44.0); LYMPHOCYTE # 1.7 TH/MM3 (1.0-4.8); MEAN CELL VOLUME 89.9 FL (80.0-100.0); MEAN CORPUSCULAR HEMOGLOBIN 31.4 PG (27.0-34.0); MEAN CORPUSCULAR HGB CONC 34.9 % (32.0-36.0); MONO % 9.3 % (0.0-8.0); NEUT % 79.8 % (16.0-70.0); PLATELET COUNT 721 TH/MM3 (150-450); RED BLOOD COUNT 3.78 MIL/MM3 (4.50-5.90); RED CELL DISTRIBUTION WIDTH 13.5 % (11.6-17.2); WHITE BLOOD COUNT 17.1 TH/MM3 (4.0-11.0)
[2017-06-04 09:38] LABS: ANION GAP 9 MEQ/L (5-15); AST (GOT) 20 U/L (15-37); BICARBONATE 31.7 MEQ/L (21.0-32.0); BLOOD UREA NITROGEN 13 MG/DL (7-18); CHLORIDE 93 MEQ/L (98-107); GLOMERULAR FILTRATION RATE 204 ML/MIN (>89); POTASSIUM 3.5 MEQ/L (3.5-5.1); SODIUM (NA) 134 MEQ/L (136-145)
[2017-06-04 09:41] LABS: ALKALINE PHOSPHATASE 221 U/L (45-117); ALT (GPT) 13 U/L (12-78); TOTAL BILIRUBIN ADULT 0.5 MG/DL (0.2-1.0)
[2017-06-04] MEDS ORDERED: PHARMACY ORDERED LAB ONE (09:45)
[2017-06-04] MEDS: FUROSEMIDE 40 MG TAB PO SCH ×2 (10:40→20:37)
[2017-06-04] MEDS: FLUCONAZOLE 200 MG TAB PO SCH (10:41)
[2017-06-04] MEDS: PANTOPRAZOLE SOD 40 MG DELAYED RELEASE TAB PO SCH (10:41)
[2017-06-04] MEDS: LISINOPRIL 10 MG TAB PO SCH (10:41)
[2017-06-04] MEDS: METOPROLOL TARTRATE 100 MG TAB PO SCH ×2 (10:41→20:35)
[2017-06-04] MEDS: VANCOMYCIN INJ 2,000 MG in SODIUM CHLORID 0.9% 500 ML INJ 500 ML IV SCH ×3 (10:56→20:40)
[2017-06-04] MEDS: SODIUM CHLORIDE 0.9% FLUSH 10 ML FLUSH IV FLUSH SCH ×2 (10:59→20:38)
[2017-06-04] MEDS ORDERED: POTASSIUM CHLORIDE 10 MEQ CONTROLLED RELEASE TAB PO ONE (11:00)
[2017-06-04] MEDS: ENOXAPARIN SODIUM 40 MG/0.4 ML SYRINGE SQ SCH (11:34)
[2017-06-04] MEDS ORDERED: ACETAMINOPHEN/HYDROcodone 325 MG/5 MG TAB PO PRN ×2 (11:45)
--- NOTE | 2017-06-04 13:29 | HHI.IDPN ---
Subjective Subjective Remarks Patient is a 51-year-old male, presented to the hospital complaining of his umbilical hernia. Patient has a known long-standing umbilical hernia, and he usually could do still hernia. Apparently he has been having problem with gastroenteritis and was having nausea and vomiting. He could not push back the hernia, and he was trying all day. It was becoming more tender, and he presented to the hospital and was found to have an incarcerated bowel in the hernia. He underwent surgery on May 17 and had reduction of incarcerated hernia with primary repair of the hernia defect. He was doing well, however he started having problem with abdominal tenderness, and he underwent CAT scan which showed the hernia again with incarcerated bowel, and there was free fluid and free air. He underwent another surgery on May 22, and had exploratory laparotomy, lysis of adhesions, small bowel resection of ischemic bowel with 2 small perforation, primary anastomosis, omentectomy, and temporary closure of the abdominal incision with a wound VAC. He went to surgery again on May 25 and had exploratory laparotomy, lysis of adhesion, and closure of his abdominal incision. Culture from surgery on May 22 showed polymicrobial bacteria including enteric rc. Patient was febrile from May 25 2 June 06. His temps got better. However on May 30 he started having fevers again. Also has had persistent leukocytosis. Yesterday he was noted to have purulent drainage from his midline incision. The incision was opened in 3 areas. His temps are better. Patient is complaining of some shortness of breath which she attributes to the abdominal binder. He is also complaining of pain in his left upper extremity, and ultrasound did not show any DVT. He had some occasional coughing. Denies any chest pain. Appetite is fairly poor. He has good bowel movements. Denies any dysuria, and currently has a condom. Patient has no central line, and has peripheral IV in place. He is on Levaquin , Flagyl, Diflucan. Vancomycin was added yesterday. Infectious disease consultation has been requested to evaluate the patient with persistent leukocytosis Notes reviewed Temps low grade CT A/P no abcess seen CT chest noted On nasal O2 WBC slightly lower Wound C/S pending Antibiotics Vancomycin Zosyn Diflucan Lines PIV Past Medical History Reviewed Allergies: Coded Allergies: cephalexin (Unverified Allergy, Mild, rash, 06/03/17) Has taken penicillin without any problem hydromorphone (Unverified Adverse Reaction, Unknown, 05/16/17) VOMITING morphine (Unverified Adverse Reaction, Unknown, 05/16/17) VOMITNG Objective . Vital Signs Date Time Temp Pulse Resp B/P (MAP) Pulse Ox O2 Delivery O2 Flow Rate FiO2 06/04/17 11:10 92 4.00 06/04/17 08:00 98.6 106 18 130/76 (94) 92 06/04/17 05:42 92 Nasal Cannula 5.00 06/04/17 04:00 96.3 98 20 136/79 (98) 91 06/04/17 00:00 98.9 100 22 144/84 (104) 90 06/03/17 20:30 89 Nasal Cannula 4.00 06/03/17 20:00 98.8 102 22 134/80 (98) 91 06/03/17 16:13 93 4.00 06/03/17 16:00 100.4 92 19 149/88 (108) 90 . Laboratory Tests Test 06/03/17 06:48 06/04/17 07:15 White Blood Count 18.4 TH/MM3 17.1 TH/MM3 Red Blood Count 3.78 MIL/MM3 3.78 MIL/MM3 Hemoglobin 11.4 GM/DL 11.9 GM/DL Hematocrit 34.1 % 34.0 % Mean Corpuscular Volume 90.2 FL 89.9 FL Mean Corpuscular Hemoglobin 30.1 PG 31.4 PG Mean Corpuscular Hemoglobin Concent 33.4 % 34.9 % Red Cell Distribution Width 13.8 % 13.5 % Platelet Count 723 TH/MM3 721 TH/MM3 Mean Platelet Volume 8.5 FL 8.6 FL Neutrophils (%) (Auto) 83.7 % 79.8 % Lymphocytes (%) (Auto) 7.5 % 10.1 % Monocytes (%) (Auto) 7.9 % 9.3 % Eosinophils (%) (Auto) 0.7 % 0.6 % Basophils (%) (Auto) 0.2 % 0.2 % Neutrophils # (Auto) 15.4 TH/MM3 13.6 TH/MM3 Lymphocytes # (Auto) 1.4 TH/MM3 1.7 TH/MM3 Monocytes # (Auto) 1.4 TH/MM3 1.6 TH/MM3 Eosinophils # (Auto) 0.1 TH/MM3 0.1 TH/MM3 Basophils # (Auto) 0.0 TH/MM3 0.0 TH/MM3 CBC Comment DIFF FINAL DIFF FINAL Differential Comment Laboratory Tests Test 06/03/17 06:48 06/04/17 07:15 Blood Urea Nitrogen 14 MG/DL 13 MG/DL Creatinine 0.43 MG/DL 0.44 MG/DL Random Glucose 100 MG/DL 103 MG/DL Total Protein 5.7 GM/DL 5.9 GM/DL Albumin 1.5 GM/DL 1.5 GM/DL Calcium Level 7.6 MG/DL 7.6 MG/DL Phosphorus Level 2.9 MG/DL 3.2 MG/DL Magnesium Level 2.1 MG/DL 2.0 MG/DL Alkaline Phosphatase 241 U/L 221 U/L Aspartate Amino Transf (AST/SGOT) 16 U/L 20 U/L Alanine Aminotransferase (ALT/SGPT) 14 U/L 13 U/L Total Bilirubin 0.4 MG/DL 0.5 MG/DL Sodium Level 135 MEQ/L 134 MEQ/L Potassium Level 3.5 MEQ/L 3.5 MEQ/L Chloride Level 96 MEQ/L 93 MEQ/L Carbon Dioxide Level 31.4 MEQ/L 31.7 MEQ/L Anion Gap 8 MEQ/L 9 MEQ/L Estimat Glomerular Filtration Rate 209 ML/MIN 204 ML/MIN Microbiology Date/Time Source Procedure Growth Status 06/03/17 11:25 Wound Abdomen Gram Stain - Final Resulted 06/03/17 11:25 Wound Abdomen Wound Culture Pending Resulted Imaging Last Impressions Chest CT 06/03/17 0000 Signed Impressions: Service Date/Time: May 10:58 - CONCLUSION: 1. Bibasilar alveolar consolidations consistent with pneumonia and/or atelectasis. 2. Small bilateral pleural effusions. 3. Minimal ascites within the upper abdomen. 4. Degenerative changes and scoliosis of the thoracolumbar spine. Roberto Rivera MD Abdomen/Pelvis CT 06/03/17 0000 Signed Impressions: Service Date/Time: May 18:18 - CONCLUSION: 1. Thickening of the small bowel especially the distal small bowel. The patient is status post small bowel surgery. An abscess is not seen. The anterior abdominal wall incision is partially still open. 2. Mild to moderate bilateral pleural effusions with accompanying areas of atelectasis. Clovis Borrero MD Upper Extremity Ultrasound 06/02/17 0000 Signed Impressions: Service Date/Time: Friday, June 02, 2017 23:44 - CONCLUSION: Significant soft tissue swelling of the wrist. If there is concern for infection then a cross-sectional study should be performed. Small amount of superficial thrombus extending into the cephalic vein, minimal. Joshua Adhikari MD Chest X-Ray 06/02/17 0000 Signed Impressions: Service Date/Time: Friday, June 02, 2017 10:02 - CONCLUSION: Persistent bibasal peripheral changes and small bilateral pleural effusions stable in the interval. Julio C Ordonez MD FACR CT Angiography 05/22/17 0000 Signed Impressions: Service Date/Time: Monday, May 22, 2017 00:24 - CONCLUSION: 1. No evidence of pulmonary embolus. 2. Bilateral inferior lower lobe consolidation/atelectasis. 3. Trace bilateral pleural effusions. Geovani Marquez MD Abdomen X-Ray 05/21/17 0000 Signed Impressions: Service Date/Time: Sunday, May 21, 2017 22:24 - CONCLUSION: 1. Findings similar to the prior study of 05/19/2017. Dilated air-filled proximal small bowel. Paucity of gas in the distal small bowel and colon. 2. Differential diagnosis is small bowel obstruction and ileus. Geovani Marquez MD Physical Exam GENERAL: awake and alert, looks comfortable SKIN: Warm and dry. No generalized rash, no ecchymoses and no evidence of embolic lesions. HEAD: Atraumatic. Normocephalic. No temporal wasting, or tenderness. EYES: [place] conjunctiva. No petechia or hemorrhage. Pupils equal, round and reactive to light. Extraocular movements full and intact. No scleral icterus. No injection or drainage. EARS, NOSE AND THROAT: Nose without bleeding or purulent nasal discharge. Slightly dry oral mucosa. No oral lesions noted. No exudate. No oral thrush. NECK: Trachea midline. Supple and not tender, no meningeal signs CARDIOVASCULAR: Tachycardic. Regular rate and rhythm. No murmurs, rubs or gallops heard RESPIRATORY: Decreased breath sounds at the bases. Breath sounds equal bilaterally. No rales, wheezing or rhonchi ABDOMEN: Obese, has midline incision, with 3 open areas, the longest is about 2.5 inch long, and the other 2 about 1.5 in long, with packing, light yellow drainage, no erythema noted, with diffuse tenderness more on L than on R, no guarding, no rebound. Soft, non-tender, nondistended. Bowel sounds present and hypoactive. EXTREMITIES: No clubbing, cyanosis, or edema in BLE. LUE is swollen with erythema whole LUE, did not appreciate any palpable cord. No joint effusion, has good ROM. No calf tenderness. Well perfused and warm. NEUROLOGICAL: Awake and alert. Cranial nerves grossly intact. Motor grossly within normal limits. PSYCHIATRIC: Normal affect, calm and cooperative. LINE: No evidence of infection Assessment & Plan Remarks IMPRESSION Sepsis post abdominal surgery, has wound infection - concern is intraabdominal abscess especially since he had SB perforations - also has LUE cellulitis, no DVT on US S/P repair of incarcerated hernia 05/17 S/P exp lap, DARCI, SB resection and primary anastomosis, with SB perforation 05/22, 05/25 (closure) SOB, ?fluid, ?PE RECOMMENDATION Continue IV Zosyn Continue IV Vanco Continue Diflucan Follow wound C/S Follow C/S Monitor progress Follow CBC Explained plan to patient D/W K Marty HURD () Shirley Dao MD Jun 04, 2017 13:28
--- NOTE | 2017-06-04 16:10 | HHI.PR ---
Subjective Remarks deferred entry - patient seen at 11:30 Patient states he feels good denies cp/sob. Patient with decreased oxygen saturation in the low 90's on 5 liters nasal canula. Objective Vitals Vital Signs Date Time Temp Pulse Resp B/P (MAP) Pulse Ox O2 Delivery O2 Flow Rate FiO2 06/04/17 11:10 92 4.00 06/04/17 08:00 98.6 106 18 130/76 (94) 92 06/04/17 05:42 92 Nasal Cannula 5.00 06/04/17 04:00 96.3 98 20 136/79 (98) 91 06/04/17 00:00 98.9 100 22 144/84 (104) 90 06/03/17 20:30 89 Nasal Cannula 4.00 06/03/17 20:00 98.8 102 22 134/80 (98) 91 06/03/17 16:13 93 4.00 06/03/17 16:00 100.4 92 19 149/88 (108) 90 I/O 06/03/17 06/03/17 06/03/17 06/04/17 06/04/17 06/04/17 07:00 15:00 23:00 07:00 15:00 23:00 Intake Total 980 ml 620 ml 1100 ml 580 ml Output Total 1450 ml 1600 ml 1900 ml Balance -470 ml 620 ml -500 ml -1320 ml Intake Oral 480 ml 480 ml 480 ml IV Total 500 ml 620 ml 620 ml 100 ml Output Urine Total 1450 ml 1600 ml 1900 ml # Bowel Movements 2 2 1 Result Diagram: 06/04/1715 06/04/17 0715 Imaging Last Impressions Chest CT 06/03/17 0000 Signed Impressions: Service Date/Time: May 10:58 - CONCLUSION: 1. Bibasilar alveolar consolidations consistent with pneumonia and/or atelectasis. 2. Small bilateral pleural effusions. 3. Minimal ascites within the upper abdomen. 4. Degenerative changes and scoliosis of the thoracolumbar spine. Roberto Rivera MD Abdomen/Pelvis CT 06/03/17 0000 Signed Impressions: Service Date/Time: May 18:18 - CONCLUSION: 1. Thickening of the small bowel especially the distal small bowel. The patient is status post small bowel surgery. An abscess is not seen. The anterior abdominal wall incision is partially still open. 2. Mild to moderate bilateral pleural effusions with accompanying areas of atelectasis. Clovis Borrero MD Upper Extremity Ultrasound 06/02/17 0000 Signed Impressions: Service Date/Time: Friday, June 02, 2017 23:44 - CONCLUSION: Significant soft tissue swelling of the wrist. If there is concern for infection then a cross-sectional study should be performed. Small amount of superficial thrombus extending into the cephalic vein, minimal. Joshua Adhikari MD Chest X-Ray 06/02/17 0000 Signed Impressions: Service Date/Time: Friday, June 02, 2017 10:02 - CONCLUSION: Persistent bibasal peripheral changes and small bilateral pleural effusions stable in the interval. Julio C Ordonez MD FACR CT Angiography 05/22/17 0000 Signed Impressions: Service Date/Time: Monday, May 22, 2017 00:24 - CONCLUSION: 1. No evidence of pulmonary embolus. 2. Bilateral inferior lower lobe consolidation/atelectasis. 3. Trace bilateral pleural effusions. Geovani Marquez MD Abdomen X-Ray 05/21/17 0000 Signed Impressions: Service Date/Time: Sunday, May 21, 2017 22:24 - CONCLUSION: 1. Findings similar to the prior study of 05/19/2017. Dilated air-filled proximal small bowel. Paucity of gas in the distal small bowel and colon. 2. Differential diagnosis is small bowel obstruction and ileus. Geovani Marquez MD Objective Remarks GENERAL: 51-year-old male, tachypneic with mild to moderate respiratory distress. SKIN: Warm and dry. Well perfused HEAD: Atraumatic. Normocephalic. EYES: Pupils 2 mm bilaterally and reactive. No scleral icterus. No injection or drainage. ENT: No nasal bleeding or discharge. Mucous membranes pink and moist. NECK: Trachea midline. Supple. Airway widely patent. CARDIOVASCULAR: Tachycardic 99, RR. S1, S2. No murmur, no JVD. RESPIRATORY: Decreased breath sounds at the bases. No wheezing, good air movement. No adventitious sounds. GASTROINTESTINAL: Abdomen is currently closed. BS active. Postsurgical, benign. No guarding. MUSCULOSKELETAL: Left upper extremity is edematous, with erythema and tenderness to palpation which seems to be improving. NEUROLOGICAL: Awake, alert, cooperative. Moves bilateral upper and lower extremities. O X 3. Conversant. Repeats himself a lot. Procedures DATE OF PROCEDURE 05/17/2017 PREOPERATIVE DIAGNOSIS Incarcerated umbilical hernia. POSTOPERATIVE DIAGNOSIS Incarcerated umbilical hernia with small bowel obstruction secondary to incarcerated small bowel and omentum. PROCEDURE Reduction of incarcerated hernia with primary repair of hernia defect. DATE OF SURGERY: 05/25/2017 PREOPERATIVE DIAGNOSIS Open abdomen. POSTOPERATIVE DIAGNOSIS Open abdomen with adhesions. PROCEDURE 1. Exploratory laparotomy, lysis of adhesions, drainage of cloudy fluid in the abdomen. 2. Closure of midline fascia with permanent suture. Date of procedure 05/22/17 Expiratory laparotomy, small bowel resection. Panendoscopy. Medications and IVs Current Medications Medications (Trade) Dose Ordered Sig/Lanie Route Start Time Stop Time Status Last Admin (Zofran Inj) 4 mg Q4H PRN IV PUSH 05/17/17 03:15 05/28/17 00:05 (Chloraseptic [place]) 2 spray Q2H PRN OROPHARYNG 05/19/17 11:00 05/19/17 15:42 (Xopenex Neb) 1.25 mg Q8HR NEB PRN NEB 05/22/17 06:45 06/04/17 05:40 (Lopressor Inj) 5 mg Q8H PRN IV PUSH 05/22/17 08:15 05/29/17 08:24 (NS Flush) 2 ml UNSCH PRN IV FLUSH 05/22/17 14:15 (NS Flush) 2 ml BID IV FLUSH 05/22/17 21:00 06/04/17 10:59 (Tears Naturale Opth Soln) 1 drop TID EACH EYE 05/22/17 18:00 06/04/17 09:00 Miscellaneous Information 1 Q361D XX 05/22/17 14:15 (Chlorhexidine 2% Cloth) Taper DAILY@04 TOP 05/23/17 04:00 05/19/18 03:59 (Chlorhexidine 2% Cloth) 3 pack UNSCH PRN TOP 05/22/17 14:15 (Mayte-Colace) 1 tab BID PO 05/22/17 21:00 05/30/17 08:09 (Milk Of Magnesia Liq) 30 ml Q12H PRN PO 05/22/17 14:15 (Senokot) 17.2 mg Q12H PRN PO 05/22/17 14:15 (Dulcolax Supp) 10 mg DAILY PRN RECTAL 05/22/17 14:15 (Lactulose Liq) 30 ml DAILY PRN PO 05/22/17 14:15 (Tears Naturale Opth Soln) 1 drop Q8HR EACH EYE 05/22/17 22:00 06/03/17 20:52 (Xanax) 1 mg Q8H PRN PO 05/29/17 15:15 06/02/17 02:58 (Lovenox Inj) 40 mg Q24H SQ 05/29/17 10:00 06/04/17 11:34 (Trandate Inj) 20 mg Q3H PRN IV PUSH 05/29/17 09:30 (Prinivil) 10 mg DAILY PO 05/30/17 09:00 06/04/17 10:41 (Catapres) 0.1 mg Q6H PRN PO 05/30/17 07:30 (Lopressor) 100 mg Q12HR PO 05/31/17 21:00 06/04/17 10:41 (Diflucan) 400 mg DAILY PO 06/01/17 13:00 06/04/17 10:41 (Protonix) 40 mg DAILY PO 06/01/17 13:00 06/04/17 10:41 (Lasix) 40 mg BID@09,18 PO 06/02/17 09:00 06/04/17 10:40 (Norvasc) 10 mg DAILY PO 06/03/17 09:00 06/03/17 09:49 (Ambien) 10 mg HS PRN PO 06/02/17 16:00 06/03/17 21:20 Pharmacy Profile Note 0 ml @ 0 mls/hr UNSCH OTHER 06/02/17 20:30 Piperacillin Sod/ Tazobactam Sod 100 ml @ 200 mls/hr Q6H IV 06/03/17 11:00 06/04/17 11:00 ([place] 5-325 Mg) 1 tab Q4H PRN PO 06/04/17 11:45 ([place] 5-325 Mg) 2 tab Q4H PRN PO 06/04/17 11:45 Vancomycin HCl 2000 mg/Sodium Chloride 520 ml @ 250 mls/hr Q8H IV 06/04/17 18:00 Miscellaneous Information SPECIFIC LAB TO BE ANAYELI... ONCE ONCE .XX 06/05/17 09:45 06/05/17 09:46 Urinary Catheter: No Vascular Central Line Catheter: No A/P Problem List: (1) Perforated small intestine ICD Code: K63.1 - Perforation of intestine (nontraumatic) (2) Dehiscence of closure of fascia, superficial or muscular ICD Code: T81.32XA - Disruption of internal operation (surgical) wound, not elsewhere classified, initial encounter Status: Acute (3) Open abdominal incision with drainage ICD Code: T81.31XA - Disruption of external operation (surgical) wound, not elsewhere classified, initial encounter Status: Acute (4) Physical deconditioning ICD Code: R53.81 - Other malaise Status: Acute (5) Superficial postoperative wound infection ICD Code: T81.4XXA - Infection following a procedure, initial encounter Status: Acute (6) Umbilical hernia, incarcerated ICD Code: K42.0 - Umbilical hernia with obstruction, without gangrene Status: Resolved (7) Small bowel obstruction ICD Code: K56.609 - Unspecified intestinal obstruction, unspecified as to partial versus complete obstruction Status: Resolved (8) Hypertension ICD Code: I10 - Essential (primary) hypertension (9) Cellulitis of left upper extremity ICD Code: L03.114 - Cellulitis of left upper limb Assessment and Plan Neuro/Psych: SP intubation and mechanical ventilation Extubated 05/27. AAOx3 Sinus tachycardia SP 4 L crystalloid in the operating room. Currently receiving fifth liter. Negative CT pulmonary angiogram for pulmonary embolism. Continue crystalloid per general surgery's recommendations. Was intermittently on a phenylephrine in OR, levophed in the unit, all has been discontinue. Postoperative respiratory failure HCAP SP intubation and mechanical ventilation. Albuterol/ipratropium aerosols every 6 hours with albuterol aerosols every 2 hours. Dyspnea Spontaneous breathing trials daily CT pulmonary angiogram 05/22 revealed bilateral lower lobe infiltrates,'s small bilateral pleural effusions. No central pulmonary embolism. Extubated 05/27. 06/01 Patient stil on high requirement of o2, sating 94% on 4 liters nasal canula. Started on Lasix and chest x-ray ordered. 06/02 CXR showed BL pleural effusions. Patient still requiring high O2. Repeat CXR shows BL pleural effusions and persistent bibasilar peripheral changes. CTA chest ordered 06/[address] as described above. Shows bibasilar alveolar consolidations consistent with pneumonia and/or atelectasis. Minimal ascites in the upper abdomen. Degenerative changes and scoliosis of the thoracolumbar spine. Continue Lasix. Patient currently on broad spectrum antibiotics. 06/04 patient still requiring elevated him on of oxygen, satting 92% on 5 L nasal cannula. Continue IV Zosyn and IV vancomycin. Tenial supplemental oxygen to keep an oxygen saturation more than 94%. GI: SP exploratory laparotomy, partial home meniscectomy with small bowel resection and packing of abdominal wall secondary to wound dehiscence, nausea/vomiting and Postoperative ileus. SP reduction of incarcerated hernia with primary. Hernia defect secondary to incarcerated umbilical hernia with small bowel obstruction secondary to incarcerated small bowel and omentum by Dr. Queen Postoperative ileus GIs status post EGD for NG tube placement secondary to massively dilated stomach and small bowel in OR without cuff cage. Plan to return to OR on Wednesday for closure abdominal wall fascia. Continue NG tube to [facility] Pantoprazole for GI prophylaxis Feed per surgery. 05/22 tolerating regular diet. 06/02 Discussed case with Oksana Ferguson, Surgical PA. states wound has some purulent discharge. Will obtain wound culture and consult infectious disease. 06/03 Wound culture pending. Discussed case with Dr Dao from ID who recommended CT abdomen and pelvis. 06/04 one culture is growing group D enterococcus , continue antibiotics as per ID. CT abdomen and pelvis showed thickening of the small bowel especially in the distal small bowel. Abscess not seen. Mild to moderate bilateral pleural effusions with accompanying areas of atelectasis. : Echeverria catheter discontinued Endo: Sliding scale with Accu-Cheks to maintain euglycemia/every 6 hours Blood sugars stable. Renal: Acute kidney injury Monitor urine output Accurate I's and O's Likely contrast induced Resolved Heme: Leukocytosis: WBC elevated but trending down from 25.6-17.1. Continue to monitor CBC with differential. ID: Staph epi cystitis pansensitive Left upper extremity cellulitis Initially placed on levofloxacin, metronidazole and fluconazole day per Dr. Queen Urine culture 05/17 revealed staph epi 06/02 Wound care as per GS. Will consult infecious disease and order a wound culture. WBC is trending up. 06/03 Levaquin and Flagyl discontinued - patient started on IV zosyn, continue Vancomycin. FEN: Hyponatremia Hypokalemia Replace orally and monitor BMP Sodium 134, monitor BMP MSK: PT evaluate and treat Access - Utilize peripheral IV. - Left radial arterial line placed in OR 05/22 Prophylaxis - GI - pantoprazole - DVT - SCD/pharmacological prophylaxis lovenox. Discharge Planning Patient still requiring high levels of oxygen with persistent tachycardia and leukocytosis. The patient is not medically clear for DC. Problem Qualifiers (1) Dehiscence of closure of fascia, superficial or muscular: Qualified Codes: T81.32XD - Disruption of internal operation (surgical) wound, not elsewhere classified, subsequent encounter (2) Open abdominal incision with drainage: Qualified Codes: T81.31XD - Disruption of external operation (surgical) wound, not elsewhere classified, subsequent encounter (3) Superficial postoperative wound infection: Qualified Codes: T81.4XXD - Infection following a procedure, subsequent encounter Bob Figueroa MD Jun 04, 2017 16:10
[2017-06-04] MEDS ORDERED: RESP: ALBUTEROL CONC 2.5 MG/0.5 ML NEB NEB PRN (16:15)
--- NOTE | 2017-06-04 16:23 | HHI.PR ---
Subjective Subjective Notes PT at bedside; encouraged patient to try to get up ---wants to only do passive range of motion Objective Vitals/I&O Vital Signs Date Time Temp Pulse Resp B/P (MAP) Pulse Ox O2 Delivery O2 Flow Rate FiO2 06/04/17 11:10 92 4.00 06/04/17 08:00 98.6 106 18 130/76 (94) 06/04/17 05:42 Nasal Cannula Labs Laboratory Tests Test 06/04/17 07:15 06/04/17 11:28 White Blood Count 17.1 Red Blood Count 3.78 Hemoglobin 11.9 Hematocrit 34.0 Mean Corpuscular Volume 89.9 Mean Corpuscular Hemoglobin 31.4 Mean Corpuscular Hemoglobin Concent 34.9 Red Cell Distribution Width 13.5 Platelet Count 721 Mean Platelet Volume 8.6 Neutrophils (%) (Auto) 79.8 Lymphocytes (%) (Auto) 10.1 Monocytes (%) (Auto) 9.3 Eosinophils (%) (Auto) 0.6 Basophils (%) (Auto) 0.2 Neutrophils # (Auto) 13.6 Lymphocytes # (Auto) 1.7 Monocytes # (Auto) 1.6 Eosinophils # (Auto) 0.1 Basophils # (Auto) 0.0 CBC Comment DIFF FINAL Differential Comment Blood Urea Nitrogen 13 Creatinine 0.44 Random Glucose 103 Total Protein 5.9 Albumin 1.5 Calcium Level 7.6 Phosphorus Level 3.2 Magnesium Level 2.0 Alkaline Phosphatase 221 Aspartate Amino Transf (AST/SGOT) 20 Alanine Aminotransferase (ALT/SGPT) 13 Total Bilirubin 0.5 Sodium Level 134 Potassium Level 3.5 Chloride Level 93 Carbon Dioxide Level 31.7 Anion Gap 9 Estimat Glomerular Filtration Rate 204 Vancomycin Level Trough 7.3 Date/Time Source Procedure Growth Status 05/22/17 00:05 Gastric Gastric Occult Blood - Final GASTROCCULT NEGATIVE Complete 05/17/17 00:59 Urine Catheterized Urine Urine Culture - Final Staphylococcus Epidermidis Complete 06/03/17 11:25 Wound Abdomen Gram Stain - Final Resulted 06/03/17 11:25 Wound Culture - Preliminary Group D Enterococcus Resulted Radiology Last Impressions Chest X-Ray 05/23/17 0600 Signed Impressions: Service Date/Time: Tuesday, May 23, 2017 05:31 - CONCLUSION: Bilateral pulmonary opacity and bilateral pleural effusions again seen. Increase in opacity in the right perihilar region. Slight increase in pleural effusions. Geovani Marquez MD CT Angiography 05/22/17 0000 Signed Impressions: Service Date/Time: Monday, May 22, 2017 00:24 - CONCLUSION: 1. No evidence of pulmonary embolus. 2. Bilateral inferior lower lobe consolidation/atelectasis. 3. Trace bilateral pleural effusions. Geovani Marquez MD Abdomen/Pelvis CT 05/22/17 0000 Signed Impressions: Service Date/Time: Monday, May 22, 2017 00:24 - CONCLUSION: 1. Post surgical findings with cutaneous germaine anteriorly. 2. Anterior abdominal wall hernia with multiple loops of small bowel again seen. Small bowel distention is seen proximal to the herniated loops indicating possible partial small bowel obstruction or ileus. 3. Free fluid and free air likely due to recent surgery. Geovani Marquez MD Abdomen X-Ray 05/21/17 0000 Signed Impressions: Service Date/Time: Sunday, May 21, 2017 22:24 - CONCLUSION: 1. Findings similar to the prior study of 05/19/2017. Dilated air-filled proximal small bowel. Paucity of gas in the distal small bowel and colon. 2. Differential diagnosis is small bowel obstruction and ileus. Geovani Marquez MD Cardiovascular: Regular Lungs: Clear Abdomen: Other (midline incision---dressing changed; wound clean ) Extremities: Other (mild generalized edema ) A/P Problem List: (1) Superficial postoperative wound infection ICD Codes: T81.4XXA - Infection following a procedure, initial encounter Status: Acute (2) Physical deconditioning ICD Codes: R53.81 - Other malaise Status: Acute (3) Postop check ICD Codes: Z09 - Encounter for follow-up examination after completed treatment for conditions other than malignant neoplasm (4) Dehiscence of closure of fascia, superficial or muscular ICD Codes: T81.32XA - Disruption of internal operation (surgical) wound, not elsewhere classified, initial encounter Status: Acute (5) Postoperative ileus ICD Codes: K91.89 - Other postprocedural complications and disorders of digestive system; K56.7 - Ileus, unspecified Status: Acute (6) Elevated WBC count ICD Codes: D72.829 - Elevated white blood cell count, unspecified Status: Chronic Assessment and Plan 51 year old male s/p repair of incarcerated umbilical hernia taken back to the OR Wednesday for ex lap; DARCI; small bowel resection of ischemic bowel with two small perforation; s/p ex lap; DARCI; drainage of fluid collection; closure of abdominal wound -Continue dressing changes ---increase to TID frequency -Regular diet -+BM -OOB and mobilize; PT---encouraged the use of pain medications 30-45 minutes prior to start of PT -Ambien PRN -Referral sent to [place] ---has been accepted once medically cleared Attending Statement PROGRESS NOTE FOR SURGICAL ATTENDING, DR. RAFFY QUEEN I agree with above assessment and plan. The exam, history, and the medical decision-making described in the above note were completed with the assistance of the mid-level provider. I reviewed and agree with the findings presented. I attest that I had a [id number] encounter with the patient on the same day, and personally performed and documented my assessment and findings in the medical record. The following services were provided during this hospital visit: Chart data review, vital sign assessments/reviewing monitor data Review of consultations notes if present. Medication orders/review and/or management Ordering and/or reviewing lab tests Ordering and/or interpreting/reviewing x-rays and/or diagnostic studies Care of the patient and discussion of the patient with the care team Documentation time To help prompt me to consider important information that might be impacting today's encounter and assessment, information from prior notes written by myself or my colleagues may have been "brought forward/copy and pasted" into today's note. Problem Qualifiers (1) Superficial postoperative wound infection: Qualified Codes: T81.4XXD - Infection following a procedure, subsequent encounter (2) Dehiscence of closure of fascia, superficial or muscular: Qualified Codes: T81.32XD - Disruption of internal operation (surgical) wound, not elsewhere classified, subsequent encounter Oksana Ferguson Jun 04, 2017 16:22 Raffy Queen MD Jun 04, 2017 18:57
[2017-06-04] MEDS: CHLORHEXIDINE GLUCONATE 2 % 1 PACK (2 CLOTHS) TOP SCH (20:46)
[2017-06-05] VITALS (9 sets, daily range): BP systolic 110–119; BP diastolic 63–72; PULSE 93–106; RESP 17–20; TEMP 96.8–100.1; O2SAT 90–94
[2017-06-05] MEDS: VANCOMYCIN INJ 2,000 MG in SODIUM CHLORID 0.9% 500 ML INJ 500 ML IV SCH ×2 (03:57→11:45)
[2017-06-05] MEDS: PIPERACIL-TAZO 4.5 GM PREMIX 100 ML IV SCH ×4 (03:57→23:15)
[2017-06-05] MEDS: ARTIFICIAL TEARS OPTH SOLN 15 ML BTL EACH EYE SCH ×6 (04:00→20:22)
[2017-06-05] MEDS: RESP: ACETYLCYSTEINE 10% 30 ML NEB NEB SCH ×3 (08:00→22:04)
[2017-06-05] MEDS: RESP: LEVALBUTEROL HYDROCHLORIDE 1.25 MG/3 ML NEB (PRN) NEB ×2 (08:35→22:03)
[2017-06-05] MEDS: DOCUSATE SODIUM 50 MG/SENNA 8.6 MG TAB PO SCH ×2 (09:00→20:21)
[2017-06-05] MEDS: ENOXAPARIN SODIUM 40 MG/0.4 ML SYRINGE SQ SCH (09:28)
[2017-06-05] MEDS: PANTOPRAZOLE SOD 40 MG DELAYED RELEASE TAB PO SCH (09:29)
[2017-06-05] MEDS: METOPROLOL TARTRATE 100 MG TAB PO SCH ×2 (09:29→20:21)
[2017-06-05] MEDS: FLUCONAZOLE 200 MG TAB PO SCH (09:29)
[2017-06-05] MEDS: FUROSEMIDE 40 MG TAB PO SCH (09:29)
[2017-06-05] MEDS: LISINOPRIL 10 MG TAB PO SCH (09:30)
[2017-06-05] MEDS: SODIUM CHLORIDE 0.9% FLUSH 10 ML FLUSH IV FLUSH SCH ×2 (09:32→20:21)
[2017-06-05] MEDS ORDERED: PHARMACY ORDERED LAB ONE (09:45)
--- NOTE | 2017-06-05 10:05 | HHI.IDPN ---
Subjective Subjective Remarks Patient is a 51-year-old male, presented to the hospital complaining of his umbilical hernia. Patient has a known long-standing umbilical hernia, and he usually could do still hernia. Apparently he has been having problem with gastroenteritis and was having nausea and vomiting. He could not push back the hernia, and he was trying all day. It was becoming more tender, and he presented to the hospital and was found to have an incarcerated bowel in the hernia. He underwent surgery on May 17 and had reduction of incarcerated hernia with primary repair of the hernia defect. He was doing well, however he started having problem with abdominal tenderness, and he underwent CAT scan which showed the hernia again with incarcerated bowel, and there was free fluid and free air. He underwent another surgery on May 22, and had exploratory laparotomy, lysis of adhesions, small bowel resection of ischemic bowel with 2 small perforation, primary anastomosis, omentectomy, and temporary closure of the abdominal incision with a wound VAC. He went to surgery again on May 25 and had exploratory laparotomy, lysis of adhesion, and closure of his abdominal incision. Culture from surgery on May 22 showed polymicrobial bacteria including enteric rc. Patient was febrile from May 25 2 June 06. His temps got better. However on May 30 he started having fevers again. Also has had persistent leukocytosis. Yesterday he was noted to have purulent drainage from his midline incision. The incision was opened in 3 areas. His temps are better. Patient is complaining of some shortness of breath which she attributes to the abdominal binder. He is also complaining of pain in his left upper extremity, and ultrasound did not show any DVT. He had some occasional coughing. Denies any chest pain. Appetite is fairly poor. He has good bowel movements. Denies any dysuria, and currently has a condom. Patient has no central line, and has peripheral IV in place. He is on Levaquin , Flagyl, Diflucan. Vancomycin was added yesterday. Infectious disease consultation has been requested to evaluate the patient with persistent leukocytosis Notes reviewed Temps low grade CT A/P no abcess seen CT chest noted On nasal O2 WBC slightly lower Wound C/S Emterococcus Antibiotics Vancomycin Zosyn Diflucan Lines PIV Past Medical History Reviewed Allergies: Coded Allergies: cephalexin (Unverified Allergy, Mild, rash, 06/03/17) Has taken penicillin without any problem hydromorphone (Unverified Adverse Reaction, Unknown, 05/16/17) VOMITING morphine (Unverified Adverse Reaction, Unknown, 05/16/17) VOMITNG Objective . Vital Signs Date Time Temp Pulse Resp B/P (MAP) Pulse Ox O2 Delivery O2 Flow Rate FiO2 06/05/17 08:35 93 Nasal Cannula 5.00 06/05/17 08:00 96.8 99 17 114/72 (86) 92 06/05/17 04:00 99.3 93 20 119/65 (83) 93 06/05/17 00:00 99.2 106 20 114/67 (83) 90 06/04/17 20:55 100.1 93 20 143/68 (93) 93 06/04/17 20:45 91 Nasal Cannula 5.00 06/04/17 16:00 98.9 104 18 132/74 (93) 90 06/04/17 12:00 97.7 92 20 116/75 (89) 91 06/04/17 11:10 92 4.00 . Laboratory Tests Test 06/04/17 07:15 White Blood Count 17.1 TH/MM3 Red Blood Count 3.78 MIL/MM3 Hemoglobin 11.9 GM/DL Hematocrit 34.0 % Mean Corpuscular Volume 89.9 FL Mean Corpuscular Hemoglobin 31.4 PG Mean Corpuscular Hemoglobin Concent 34.9 % Red Cell Distribution Width 13.5 % Platelet Count 721 TH/MM3 Mean Platelet Volume 8.6 FL Neutrophils (%) (Auto) 79.8 % Lymphocytes (%) (Auto) 10.1 % Monocytes (%) (Auto) 9.3 % Eosinophils (%) (Auto) 0.6 % Basophils (%) (Auto) 0.2 % Neutrophils # (Auto) 13.6 TH/MM3 Lymphocytes # (Auto) 1.7 TH/MM3 Monocytes # (Auto) 1.6 TH/MM3 Eosinophils # (Auto) 0.1 TH/MM3 Basophils # (Auto) 0.0 TH/MM3 CBC Comment DIFF FINAL Differential Comment Laboratory Tests Test 06/04/17 07:15 Blood Urea Nitrogen 13 MG/DL Creatinine 0.44 MG/DL Random Glucose 103 MG/DL Total Protein 5.9 GM/DL Albumin 1.5 GM/DL Calcium Level 7.6 MG/DL Phosphorus Level 3.2 MG/DL Magnesium Level 2.0 MG/DL Alkaline Phosphatase 221 U/L Aspartate Amino Transf (AST/SGOT) 20 U/L Alanine Aminotransferase (ALT/SGPT) 13 U/L Total Bilirubin 0.5 MG/DL Sodium Level 134 MEQ/L Potassium Level 3.5 MEQ/L Chloride Level 93 MEQ/L Carbon Dioxide Level 31.7 MEQ/L Anion Gap 9 MEQ/L Estimat Glomerular Filtration Rate 204 ML/MIN Microbiology Date/Time Source Procedure Growth Status 06/03/17 11:25 Wound Abdomen Gram Stain - Final Resulted 06/03/17 11:25 Wound Culture - Preliminary Group D Enterococcus Resulted Imaging Last Impressions Chest CT 06/03/17 0000 Signed Impressions: Service Date/Time: May 10:58 - CONCLUSION: 1. Bibasilar alveolar consolidations consistent with pneumonia and/or atelectasis. 2. Small bilateral pleural effusions. 3. Minimal ascites within the upper abdomen. 4. Degenerative changes and scoliosis of the thoracolumbar spine. Roberto Rivera MD Abdomen/Pelvis CT 06/03/17 0000 Signed Impressions: Service Date/Time: May 18:18 - CONCLUSION: 1. Thickening of the small bowel especially the distal small bowel. The patient is status post small bowel surgery. An abscess is not seen. The anterior abdominal wall incision is partially still open. 2. Mild to moderate bilateral pleural effusions with accompanying areas of atelectasis. Clovis Borrero MD Upper Extremity Ultrasound 06/02/17 0000 Signed Impressions: Service Date/Time: Friday, June 02, 2017 23:44 - CONCLUSION: Significant soft tissue swelling of the wrist. If there is concern for infection then a cross-sectional study should be performed. Small amount of superficial thrombus extending into the cephalic vein, minimal. Joshua Adhikari MD Chest X-Ray 06/02/17 0000 Signed Impressions: Service Date/Time: Friday, June 02, 2017 10:02 - CONCLUSION: Persistent bibasal peripheral changes and small bilateral pleural effusions stable in the interval. Julio C Ordonez MD FACR CT Angiography 05/22/17 0000 Signed Impressions: Service Date/Time: Monday, May 22, 2017 00:24 - CONCLUSION: 1. No evidence of pulmonary embolus. 2. Bilateral inferior lower lobe consolidation/atelectasis. 3. Trace bilateral pleural effusions. Geovani Marquez MD Abdomen X-Ray 05/21/17 0000 Signed Impressions: Service Date/Time: Sunday, May 21, 2017 22:24 - CONCLUSION: 1. Findings similar to the prior study of 05/19/2017. Dilated air-filled proximal small bowel. Paucity of gas in the distal small bowel and colon. 2. Differential diagnosis is small bowel obstruction and ileus. Geovani Marquez MD Physical Exam GENERAL: awake and alert, looks comfortable SKIN: Warm and dry. No generalized rash, no ecchymoses and no evidence of embolic lesions. HEAD: Atraumatic. Normocephalic. No temporal wasting, or tenderness. EYES: [place] conjunctiva. No petechia or hemorrhage. Pupils equal, round and reactive to light. Extraocular movements full and intact. No scleral icterus. No injection or drainage. EARS, NOSE AND THROAT: Nose without bleeding or purulent nasal discharge. Slightly dry oral mucosa. No oral lesions noted. No exudate. No oral thrush. NECK: Trachea midline. Supple and not tender, no meningeal signs CARDIOVASCULAR: Tachycardic. Regular rate and rhythm. No murmurs, rubs or gallops heard RESPIRATORY: Decreased breath sounds at the bases. Breath sounds equal bilaterally. No rales, wheezing or rhonchi ABDOMEN: Obese, has midline incision, with 3 open areas, the longest is about 2.5 inch long, and the other 2 about 1.5 in long, with packing, light yellow drainage, no erythema noted, with diffuse tenderness more on L than on R, no guarding, no rebound. Soft, non-tender, nondistended. Bowel sounds present and hypoactive. EXTREMITIES: No clubbing, cyanosis, or edema in BLE. LUE is swollen with erythema whole LUE, did not appreciate any palpable cord. No joint effusion, has good ROM. No calf tenderness. Well perfused and warm. NEUROLOGICAL: Awake and alert. Cranial nerves grossly intact. Motor grossly within normal limits. PSYCHIATRIC: Normal affect, calm and cooperative. LINE: No evidence of infection Assessment & Plan Remarks IMPRESSION Sepsis post abdominal surgery, has wound infection - concern is intraabdominal abscess especially since he had SB perforations - also has LUE cellulitis, no DVT on US Persistent low grade fevers Leukocytosis S/P repair of incarcerated hernia 10/30 S/P exp lap, DARCI, SB resection and primary anastomosis, with SB perforation 05/22, 05/25 (closure) SOB, ?fluid, ?PE RECOMMENDATION Continue IV Zosyn Continue IV Vanco Continue Diflucan UA and C/S Follow C/S Monitor progress Follow CBC Shirley Dao MD Jun 05, 2017 10:04
[2017-06-05 11:08] LABS: BLOOD, URINE NEG (NEG); GLUCOSE,URINE NEG (NEG); KETONE, URINE NEG (NEG); NITRITE,URINE NEG (NEG); PH, URINE 5.5 (5.0-8.5); URINE COLOR YELLOW (YELLW/STRAW)
[2017-06-05 11:17] LABS: AUTOMATED NEUTROPHIL # 11.7 TH/MM3 (1.8-7.7); BASOPHIL # 0.1 TH/MM3 (0-0.2); BASOPHIL % 0.4 % (0.0-2.0); EOSINOPHIL # 0.1 TH/MM3 (0-0.4); EOSINOPHIL % 0.6 % (0.0-4.0); HEMATOCRIT 35.4 % (39.0-51.0); HEMO FLAGS DIFF FINAL; LYMPH % 9.9 % (9.0-44.0); LYMPHOCYTE # 1.5 TH/MM3 (1.0-4.8); MEAN CELL VOLUME 89.3 FL (80.0-100.0); MEAN CORPUSCULAR HGB CONC 33.5 % (32.0-36.0); MONO % 11.3 % (0.0-8.0); NEUT % 77.8 % (16.0-70.0); PLATELET COUNT 787 TH/MM3 (150-450); RED BLOOD COUNT 3.96 MIL/MM3 (4.50-5.90); RED CELL DISTRIBUTION WIDTH 13.3 % (11.6-17.2); WHITE BLOOD COUNT 15.1 TH/MM3 (4.0-11.0)
[2017-06-05 11:40] LABS: COMMENT (UR) CULT NOT INDICATED; CULTURE IF INDICATED CULT NOT INDICATED
[2017-06-05 11:48] LABS: ANION GAP 4 MEQ/L (5-15); AST (GOT) 16 U/L (15-37); BLOOD UREA NITROGEN 9 MG/DL (7-18); CHLORIDE 94 MEQ/L (98-107); GLOMERULAR FILTRATION RATE 154 ML/MIN (>89); POTASSIUM 3.6 MEQ/L (3.5-5.1); SODIUM (NA) 133 MEQ/L (136-145)
[2017-06-05 11:52] LABS: ALKALINE PHOSPHATASE 185 U/L (45-117); ALT (GPT) 13 U/L (12-78); TOTAL BILIRUBIN ADULT 0.5 MG/DL (0.2-1.0)
--- NOTE | 2017-06-05 15:24 | HHI.PR ---
Subjective Remarks low grade temp with a tmax of 100.1 last night. wbc trending down sodium trending down Patient denies cp/sob denies fevers or chills still on 4 liters nasal canula Objective Vitals Vital Signs Date Time Temp Pulse Resp B/P (MAP) Pulse Ox O2 Delivery O2 Flow Rate FiO2 06/05/17 12:00 97.9 101 19 110/63 (79) 91 06/05/17 09:30 99 Nasal Cannula 4.00 40 06/05/17 08:35 93 Nasal Cannula 5.00 06/05/17 08:00 96.8 99 17 114/72 (86) 92 06/05/17 04:00 99.3 93 20 119/65 (83) 93 06/05/17 00:00 99.2 106 20 114/67 (83) 90 06/04/17 20:55 100.1 93 20 143/68 (93) 93 06/04/17 20:45 91 Nasal Cannula 5.00 06/04/17 16:00 98.9 104 18 132/74 (93) 90 I/O 06/04/17 06/04/17 06/04/17 06/05/17 06/05/17 06/05/17 07:00 15:00 23:00 07:00 15:00 23:00 Intake Total 580 ml 620 ml 1000 ml 720 ml 100 ml 500 ml Output Total 1900 ml 1200 ml 2450 ml Balance -1320 ml 620 ml -200 ml -1730 ml 100 ml 500 ml Intake Oral 480 ml 480 ml IV Total 100 ml 620 ml 520 ml 720 ml 100 ml 500 ml Output Urine Total 1900 ml 1200 ml 2450 ml # Bowel Movements 1 3 Result Diagram: 06/05/17 1020 06/05/17 1020 Imaging Last Impressions Chest CT 06/03/17 0000 Signed Impressions: Service Date/Time: May 10:58 - CONCLUSION: 1. Bibasilar alveolar consolidations consistent with pneumonia and/or atelectasis. 2. Small bilateral pleural effusions. 3. Minimal ascites within the upper abdomen. 4. Degenerative changes and scoliosis of the thoracolumbar spine. Roberto Rivera MD Abdomen/Pelvis CT 06/03/17 0000 Signed Impressions: Service Date/Time: May 18:18 - CONCLUSION: 1. Thickening of the small bowel especially the distal small bowel. The patient is status post small bowel surgery. An abscess is not seen. The anterior abdominal wall incision is partially still open. 2. Mild to moderate bilateral pleural effusions with accompanying areas of atelectasis. Clovis Borrero MD Upper Extremity Ultrasound 06/02/17 0000 Signed Impressions: Service Date/Time: Friday, June 02, 2017 23:44 - CONCLUSION: Significant soft tissue swelling of the wrist. If there is concern for infection then a cross-sectional study should be performed. Small amount of superficial thrombus extending into the cephalic vein, minimal. Joshua Adhikari MD Chest X-Ray 06/02/17 0000 Signed Impressions: Service Date/Time: Friday, June 02, 2017 10:02 - CONCLUSION: Persistent bibasal peripheral changes and small bilateral pleural effusions stable in the interval. Julio C Ordonez MD FACR CT Angiography 05/22/17 0000 Signed Impressions: Service Date/Time: Monday, May 22, 2017 00:24 - CONCLUSION: 1. No evidence of pulmonary embolus. 2. Bilateral inferior lower lobe consolidation/atelectasis. 3. Trace bilateral pleural effusions. Geovani Marquez MD Abdomen X-Ray 05/21/17 0000 Signed Impressions: Service Date/Time: Sunday, May 21, 2017 22:24 - CONCLUSION: 1. Findings similar to the prior study of 05/19/2017. Dilated air-filled proximal small bowel. Paucity of gas in the distal small bowel and colon. 2. Differential diagnosis is small bowel obstruction and ileus. Geovani Marquez MD Objective Remarks GENERAL: 51-year-old male, tachypneic with mild to moderate respiratory distress. SKIN: Warm and dry. Well perfused HEAD: Atraumatic. Normocephalic. EYES: Pupils 2 mm bilaterally and reactive. No scleral icterus. No injection or drainage. ENT: No nasal bleeding or discharge. Mucous membranes pink and moist. NECK: Trachea midline. Supple. Airway widely patent. CARDIOVASCULAR: Tachycardic 99, RR. S1, S2. No murmur, no JVD. RESPIRATORY: Decreased breath sounds at the bases. No wheezing, good air movement. No adventitious sounds. GASTROINTESTINAL: Abdomen is currently closed. BS active. Postsurgical, benign. No guarding. MUSCULOSKELETAL: Left upper extremity is edematous, with erythema and tenderness to palpation which seems to be improving. NEUROLOGICAL: Awake, alert, cooperative. Moves bilateral upper and lower extremities. O X 3. Conversant. Repeats himself a lot. Procedures DATE OF PROCEDURE 05/17/2017 PREOPERATIVE DIAGNOSIS Incarcerated umbilical hernia. POSTOPERATIVE DIAGNOSIS Incarcerated umbilical hernia with small bowel obstruction secondary to incarcerated small bowel and omentum. PROCEDURE Reduction of incarcerated hernia with primary repair of hernia defect. DATE OF SURGERY: 05/25/2017 PREOPERATIVE DIAGNOSIS Open abdomen. POSTOPERATIVE DIAGNOSIS Open abdomen with adhesions. PROCEDURE 1. Exploratory laparotomy, lysis of adhesions, drainage of cloudy fluid in the abdomen. 2. Closure of midline fascia with permanent suture. Date of procedure 05/22/17 Expiratory laparotomy, small bowel resection. Panendoscopy. Medications and IVs Current Medications Medications (Trade) Dose Ordered Sig/Lanie Route Start Time Stop Time Status Last Admin (Zofran Inj) 4 mg Q4H PRN IV PUSH 05/17/17 03:15 05/28/17 00:05 (Chloraseptic [place]) 2 spray Q2H PRN OROPHARYNG 05/19/17 11:00 05/19/17 15:42 (Xopenex Neb) 1.25 mg Q8HR NEB PRN NEB 05/22/17 06:45 06/05/17 08:35 (Lopressor Inj) 5 mg Q8H PRN IV PUSH 05/22/17 08:15 05/29/17 08:24 (NS Flush) 2 ml UNSCH PRN IV FLUSH 05/22/17 14:15 (NS Flush) 2 ml BID IV FLUSH 05/22/17 21:00 06/05/17 09:32 (Tears Naturale Opth Soln) 1 drop TID EACH EYE 05/22/17 18:00 06/05/17 12:22 Miscellaneous Information 1 Q361D XX 05/22/17 14:15 (Chlorhexidine 2% Cloth) Taper DAILY@04 TOP 05/23/17 04:00 05/19/18 03:59 (Chlorhexidine 2% Cloth) 3 pack UNSCH PRN TOP 05/22/17 14:15 (Mayte-Colace) 1 tab BID PO 05/22/17 21:00 05/30/17 08:09 (Milk Of Magnesia Liq) 30 ml Q12H PRN PO 05/22/17 14:15 (Senokot) 17.2 mg Q12H PRN PO 05/22/17 14:15 (Dulcolax Supp) 10 mg DAILY PRN RECTAL 05/22/17 14:15 (Lactulose Liq) 30 ml DAILY PRN PO 05/22/17 14:15 (Tears Naturale Opth Soln) 1 drop Q8HR EACH EYE 05/22/17 22:00 06/05/17 12:22 (Xanax) 1 mg Q8H PRN PO 05/29/17 15:15 06/02/17 02:58 (Lovenox Inj) 40 mg Q24H SQ 05/29/17 10:00 06/05/17 09:28 (Trandate Inj) 20 mg Q3H PRN IV PUSH 05/29/17 09:30 (Prinivil) 10 mg DAILY PO 05/30/17 09:00 06/05/17 09:30 (Catapres) 0.1 mg Q6H PRN PO 05/30/17 07:30 (Lopressor) 100 mg Q12HR PO 05/31/17 21:00 06/05/17 09:29 (Diflucan) 400 mg DAILY PO 06/01/17 13:00 06/05/17 09:29 (Protonix) 40 mg DAILY PO 06/01/17 13:00 06/05/17 09:29 (Lasix) 40 mg BID@,18 PO 06/02/17 09:00 06/05/17 09:29 (Norvasc) 10 mg DAILY PO 06/03/17 09:00 06/05/17 09:31 (Ambien) 10 mg HS PRN PO 06/02/17 16:00 06/03/17 21:20 Pharmacy Profile Note 0 ml @ 0 mls/hr UNSCH OTHER 06/02/17 20:30 Piperacillin Sod/ Tazobactam Sod 100 ml @ 200 mls/hr Q6H IV 06/03/17 11:00 06/05/17 10:44 (Sarver 5-325 Mg) 1 tab Q4H PRN PO 06/04/17 11:45 (Sarver 5-325 Mg) 2 tab Q4H PRN PO 06/04/17 11:45 (Albuterol Concentrated Neb) 2.5 mg Q6HR NEB PRN NEB 06/04/17 16:15 06/05/17 00:38 (Mucomyst 10% Neb) 2 ml Q8HR NEB NEB 06/04/17 19:00 06/05/17 08:00 Vancomycin HCl 1750 mg/Sodium Chloride 517.5 ml @ 250 mls/hr Q8H IV 06/05/17 18:00 Miscellaneous Information SPECIFIC LAB TO BE ANAYELI... ONCE ONCE .XX 06/06/17 09:45 06/06/17 09:46 A/P Problem List: (1) Perforated small intestine ICD Code: K63.1 - Perforation of intestine (nontraumatic) (2) Dehiscence of closure of fascia, superficial or muscular ICD Code: T81.32XA - Disruption of internal operation (surgical) wound, not elsewhere classified, initial encounter Status: Acute (3) Open abdominal incision with drainage ICD Code: T81.31XA - Disruption of external operation (surgical) wound, not elsewhere classified, initial encounter Status: Acute (4) Physical deconditioning ICD Code: R53.81 - Other malaise Status: Acute (5) Superficial postoperative wound infection ICD Code: T81.4XXA - Infection following a procedure, initial encounter Status: Acute (6) Umbilical hernia, incarcerated ICD Code: K42.0 - Umbilical hernia with obstruction, without gangrene Status: Resolved (7) Small bowel obstruction ICD Code: K56.609 - Unspecified intestinal obstruction, unspecified as to partial versus complete obstruction Status: Resolved (8) Hypertension ICD Code: I10 - Essential (primary) hypertension (9) Cellulitis of left upper extremity ICD Code: L03.114 - Cellulitis of left upper limb Assessment and Plan Neuro/Psych: SP intubation and mechanical ventilation Extubated 05/27. AAOx3 Sinus tachycardia SP 4 L crystalloid in the operating room. Currently receiving fifth liter. Negative CT pulmonary angiogram for pulmonary embolism. Continue crystalloid per general surgery's recommendations. Was intermittently on a phenylephrine in OR, levophed in the unit, all has been discontinue. Postoperative respiratory failure HCAP SP intubation and mechanical ventilation. Albuterol/ipratropium aerosols every 6 hours with albuterol aerosols every 2 hours. Dyspnea Spontaneous breathing trials daily CT pulmonary angiogram 05/22 revealed bilateral lower lobe infiltrates,'s small bilateral pleural effusions. No central pulmonary embolism. Extubated 05/27. 06/01 Patient stil on high requirement of o2, sating 94% on 4 liters nasal canula. Started on Lasix and chest x-ray ordered. 06/02 CXR showed BL pleural effusions. Patient still requiring high O2. Repeat CXR shows BL pleural effusions and persistent bibasilar peripheral changes. CTA chest ordered 06/[address] as described above. Shows bibasilar alveolar consolidations consistent with pneumonia and/or atelectasis. Minimal ascites in the upper abdomen. Degenerative changes and scoliosis of the thoracolumbar spine. Continue Lasix. Patient currently on broad spectrum antibiotics. 06/05 patient still requiring elevated him on of oxygen, satting 92% on 5 L nasal cannula. Continue IV Zosyn and IV vancomycin. Continue supplemental oxygen to keep an oxygen saturation more than 94%. GI: SP exploratory laparotomy, partial home meniscectomy with small bowel resection and packing of abdominal wall secondary to wound dehiscence, nausea/vomiting and Postoperative ileus. SP reduction of incarcerated hernia with primary. Hernia defect secondary to incarcerated umbilical hernia with small bowel obstruction secondary to incarcerated small bowel and omentum by Dr. Queen Postoperative ileus GIs status post EGD for NG tube placement secondary to massively dilated stomach and small bowel in OR without cuff cage. Plan to return to OR on Wednesday for closure abdominal wall fascia. Continue NG tube to [facility] Pantoprazole for GI prophylaxis Feed per surgery. 05/22 tolerating regular diet. 06/02 Discussed case with Oksana Ferguson, Surgical PA. states wound has some purulent discharge. Will obtain wound culture and consult infectious disease. 06/03 Wound culture pending. Discussed case with Dr Dao from ID who recommended CT abdomen and pelvis. 06/05 Wound culture is growing group D enterococcus , continue antibiotics as per ID. CT abdomen and pelvis showed thickening of the small bowel especially in the distal small bowel. Abscess not seen. Mild to moderate bilateral pleural effusions with accompanying areas of atelectasis. Continue IV zosyn, IV vancomycin and IV Diflucan. : Echeverria catheter discontinued Endo: Sliding scale with Accu-Cheks to maintain euglycemia/every 6 hours Blood sugars stable. Renal: Acute kidney injury Monitor urine output Accurate I's and O's Likely contrast induced Resolved Heme: Leukocytosis: WBC elevated but trending down from 25.6-17.1. Continue to monitor CBC with differential. ID: Staph epi cystitis pansensitive Left upper extremity cellulitis Initially placed on levofloxacin, metronidazole and fluconazole day per Dr. Queen Urine culture 05/17 revealed staph epi 06/02 Wound care as per GS. Will consult infecious disease and order a wound culture. WBC is trending up. 06/03 Levaquin and Flagyl discontinued - patient started on IV zosyn, continue Vancomycin. FEN: Hyponatremia Hypokalemia Replace orally and monitor BMP sodium slowly trending down. Hold furosemide MSK: PT evaluate and treat Access - Utilize peripheral IV. - Left radial arterial line placed in OR 05/22 Prophylaxis - GI - pantoprazole - DVT - SCD/pharmacological prophylaxis lovenox. Discharge Planning Patient still requiring high levels of oxygen with persistent tachycardia and leukocytosis. The patient is not medically clear for DC. Problem Qualifiers (1) Dehiscence of closure of fascia, superficial or muscular: Qualified Codes: T81.32XD - Disruption of internal operation (surgical) wound, not elsewhere classified, subsequent encounter (2) Open abdominal incision with drainage: Qualified Codes: T81.31XD - Disruption of external operation (surgical) wound, not elsewhere classified, subsequent encounter (3) Superficial postoperative wound infection: Qualified Codes: T81.4XXD - Infection following a procedure, subsequent encounter Bob Figueroa MD Jun 05, 2017 15:24
--- NOTE | 2017-06-05 18:11 | HHI.PR ---
cc: Daniel Modi MD Subjective Subjective Notes Getting stronger, wants to go to [facility] Objective Vitals/I&O Vital Signs Date Time Temp Pulse Resp B/P (MAP) Pulse Ox O2 Delivery O2 Flow Rate FiO2 06/05/17 16:00 96.9 99 18 112/70 (84) 92 06/05/17 09:30 Nasal Cannula 4.00 40 Labs Laboratory Tests Test 06/05/17 10:20 06/05/17 10:40 White Blood Count 15.1 Red Blood Count 3.96 Hemoglobin 11.9 Hematocrit 35.4 Mean Corpuscular Volume 89.3 Mean Corpuscular Hemoglobin 30.0 Mean Corpuscular Hemoglobin Concent 33.5 Red Cell Distribution Width 13.3 Platelet Count 787 Mean Platelet Volume 8.1 Neutrophils (%) (Auto) 77.8 Lymphocytes (%) (Auto) 9.9 Monocytes (%) (Auto) 11.3 Eosinophils (%) (Auto) 0.6 Basophils (%) (Auto) 0.4 Neutrophils # (Auto) 11.7 Lymphocytes # (Auto) 1.5 Monocytes # (Auto) 1.7 Eosinophils # (Auto) 0.1 Basophils # (Auto) 0.1 CBC Comment DIFF FINAL Differential Comment Blood Urea Nitrogen 9 Creatinine 0.56 Random Glucose 128 Total Protein 5.7 Albumin 1.5 Calcium Level 7.6 Alkaline Phosphatase 185 Aspartate Amino Transf (AST/SGOT) 16 Alanine Aminotransferase (ALT/SGPT) 13 Total Bilirubin 0.5 Sodium Level 133 Potassium Level 3.6 Chloride Level 94 Carbon Dioxide Level 35.0 Anion Gap 4 Estimat Glomerular Filtration Rate 154 Vancomycin Level Trough 21.5 Urine Color YELLOW Urine Turbidity CLEAR Urine pH 5.5 Urine Specific [place] 1.008 Urine Protein TRACE Urine Glucose (UA) NEG Urine Ketones NEG Urine Occult Blood NEG Urine Nitrite NEG Urine Bilirubin NEG Urine Urobilinogen LESS THAN 2.0 Urine Leukocyte Esterase NEG Microscopic Urinalysis Comment CULT NOT INDICATED Date/Time Source Procedure Growth Status 05/22/17 00:05 Gastric Gastric Occult Blood - Final GASTROCCULT NEGATIVE Complete 05/17/17 00:59 Urine Catheterized Urine Urine Culture - Final Staphylococcus Epidermidis Complete 06/03/17 11:25 Wound Abdomen Gram Stain - Final Resulted 06/03/17 11:25 Wound Culture - Preliminary Group D Enterococcus Resulted Radiology Last Impressions Chest X-Ray 05/23/17 0600 Signed Impressions: Service Date/Time: Tuesday, May 23, 2017 05:31 - CONCLUSION: Bilateral pulmonary opacity and bilateral pleural effusions again seen. Increase in opacity in the right perihilar region. Slight increase in pleural effusions. Geovani Marquez MD CT Angiography 05/22/17 0000 Signed Impressions: Service Date/Time: Monday, May 22, 2017 00:24 - CONCLUSION: 1. No evidence of pulmonary embolus. 2. Bilateral inferior lower lobe consolidation/atelectasis. 3. Trace bilateral pleural effusions. Geovani Marquez MD Abdomen/Pelvis CT 05/22/17 0000 Signed Impressions: Service Date/Time: Monday, May 22, 2017 00:24 - CONCLUSION: 1. Post surgical findings with cutaneous germaine anteriorly. 2. Anterior abdominal wall hernia with multiple loops of small bowel again seen. Small bowel distention is seen proximal to the herniated loops indicating possible partial small bowel obstruction or ileus. 3. Free fluid and free air likely due to recent surgery. Geovani Marquez MD Abdomen X-Ray 05/21/17 0000 Signed Impressions: Service Date/Time: Sunday, May 21, 2017 22:24 - CONCLUSION: 1. Findings similar to the prior study of 05/19/2017. Dilated air-filled proximal small bowel. Paucity of gas in the distal small bowel and colon. 2. Differential diagnosis is small bowel obstruction and ileus. Geovani Marquez MD Abdomen: Non-distended, Non-tender Narrative Exam Wounds x 3 with granulation, clean; some fat necrosis in base of wounds. No purulence Left arm with minimal erythema distal upper arm and proximal forearm without induration or tissue edema. Resolving cellulitis. Transfer to [facility] Wednesday or Wednesday Since he has poor IV access, if he will continue to need IV antibiotics, he may need a PICC line. A/P Problem List: (1) Superficial postoperative wound infection ICD Codes: T81.4XXA - Infection following a procedure, initial encounter Status: Acute (2) Physical deconditioning ICD Codes: R53.81 - Other malaise Status: Acute (3) Postop check ICD Codes: Z09 - Encounter for follow-up examination after completed treatment for conditions other than malignant neoplasm (4) Dehiscence of closure of fascia, superficial or muscular ICD Codes: T81.32XA - Disruption of internal operation (surgical) wound, not elsewhere classified, initial encounter Status: Acute (5) Postoperative ileus ICD Codes: K91.89 - Other postprocedural complications and disorders of digestive system; K56.7 - Ileus, unspecified Status: Acute (6) Elevated WBC count ICD Codes: D72.829 - Elevated white blood cell count, unspecified Status: Chronic Assessment and Plan Problem List: (1) Superficial postoperative wound infection ICD Codes: T81.4XXA - Infection following a procedure, initial encounter Status: Acute (2) Physical deconditioning ICD Codes: R53.81 - Other malaise Status: Acute (3) Postop check ICD Codes: Z09 - Encounter for follow-up examination after completed treatment for conditions other than malignant neoplasm (4) Dehiscence of closure of fascia, superficial or muscular ICD Codes: T81.32XA - Disruption of internal operation (surgical) wound, not elsewhere classified, initial encounter Status: Acute (5) Postoperative ileus ICD Codes: K91.89 - Other postprocedural complications and disorders of digestive system; K56.7 - Ileus, unspecified Status: Acute (6) Elevated WBC count ICD Codes: D72.829 - Elevated white blood cell count, unspecified Status: Chronic Assessment and Plan 51 year old male s/p repair of incarcerated umbilical hernia taken back to the OR Wednesday (7 days ago) for ex lap; DARCI; small bowel resection of ischemic bowel with two small perforation; s/p ex lap; DARCI; drainage of fluid collection ; closure of abdominal wound -Continue dressing changes ---BID frequency -Regular diet -+BM -OOB and mobilize; PT---encouraged the use of pain medications 30-45 minutes prior to start of PT -Ambien PRN -Referral sent to [facility] ---has been accepted once medically cleared - Will check with ID re: antibiotic mode of administration. Problem Qualifiers (1) Superficial postoperative wound infection: Qualified Codes: T81.4XXD - Infection following a procedure, subsequent encounter (2) Dehiscence of closure of fascia, superficial or muscular: Qualified Codes: T81.32XD - Disruption of internal operation (surgical) wound, not elsewhere classified, subsequent encounter Daniel Modi MD Jun 05, 2017 18:11
[2017-06-05] MEDS: VANCOMYCIN INJ 1,750 MG in SODIUM CHLORID 0.9% 500 ML INJ 500 ML IV SCH (19:09)
[2017-06-06] VITALS (7 sets, daily range): BP systolic 117–133; BP diastolic 65–81; PULSE 93–108; RESP 18–22; TEMP 96.8–99.5; O2SAT 91–96
[2017-06-06] MEDS: CHLORHEXIDINE GLUCONATE 2 % 1 PACK (2 CLOTHS) TOP SCH ×2 (04:00→22:21)
[2017-06-06] MEDS: PIPERACIL-TAZO 4.5 GM PREMIX 100 ML IV SCH (04:37)
[2017-06-06] MEDS: VANCOMYCIN INJ 1,750 MG in SODIUM CHLORID 0.9% 500 ML INJ 500 ML IV SCH (04:37)
[2017-06-06] MEDS: ARTIFICIAL TEARS OPTH SOLN 15 ML BTL EACH EYE SCH ×6 (04:37→19:45)
[2017-06-06 07:03] LABS: AUTOMATED NEUTROPHIL # 11.5 TH/MM3 (1.8-7.7); BASOPHIL # 0.1 TH/MM3 (0-0.2); BASOPHIL % 0.6 % (0.0-2.0); EOSINOPHIL # 0.1 TH/MM3 (0-0.4); HEMATOCRIT 33.6 % (39.0-51.0); HEMO FLAGS DIFF FINAL; LYMPH % 10.5 % (9.0-44.0); LYMPHOCYTE # 1.6 TH/MM3 (1.0-4.8); MEAN CELL VOLUME 89.2 FL (80.0-100.0); MEAN CORPUSCULAR HEMOGLOBIN 29.8 PG (27.0-34.0); MEAN CORPUSCULAR HGB CONC 33.4 % (32.0-36.0); MONO % 12.6 % (0.0-8.0); NEUT % 75.3 % (16.0-70.0); PLATELET COUNT 725 TH/MM3 (150-450); RED BLOOD COUNT 3.76 MIL/MM3 (4.50-5.90); RED CELL DISTRIBUTION WIDTH 13.3 % (11.6-17.2); WHITE BLOOD COUNT 15.3 TH/MM3 (4.0-11.0)
[2017-06-06 07:21] LABS: ALT (GPT) 13 U/L (12-78); ANION GAP 7 MEQ/L (5-15); AST (GOT) 19 U/L (15-37); BICARBONATE 33.3 MEQ/L (21.0-32.0); BLOOD UREA NITROGEN 9 MG/DL (7-18); CHLORIDE 95 MEQ/L (98-107); GLOMERULAR FILTRATION RATE 117 ML/MIN (>89); MAGNESIUM 2.2 MG/DL (1.5-2.5); POTASSIUM 3.7 MEQ/L (3.5-5.1); SODIUM (NA) 135 MEQ/L (136-145)
[2017-06-06 07:23] LABS: ALKALINE PHOSPHATASE 172 U/L (45-117); TOTAL BILIRUBIN ADULT 0.6 MG/DL (0.2-1.0)
[2017-06-06] MEDS: RESP: ACETYLCYSTEINE 10% 30 ML NEB NEB SCH ×2 (07:38→16:00)
[2017-06-06] MEDS: DOCUSATE SODIUM 50 MG/SENNA 8.6 MG TAB PO SCH ×2 (09:00→19:43)
[2017-06-06] MEDS: SODIUM CHLORIDE 0.9% FLUSH 10 ML FLUSH IV FLUSH SCH ×2 (09:00→19:44)
[2017-06-06] MEDS ORDERED: PHARMACY ORDERED LAB ONE (09:45)
--- NOTE | 2017-06-06 09:54 | HHI.IDPN ---
Subjective Subjective Remarks Patient is a 51-year-old male, presented to the hospital complaining of his umbilical hernia. Patient has a known long-standing umbilical hernia, and he usually could do still hernia. Apparently he has been having problem with gastroenteritis and was having nausea and vomiting. He could not push back the hernia, and he was trying all day. It was becoming more tender, and he presented to the hospital and was found to have an incarcerated bowel in the hernia. He underwent surgery on May 17 and had reduction of incarcerated hernia with primary repair of the hernia defect. He was doing well, however he started having problem with abdominal tenderness, and he underwent CAT scan which showed the hernia again with incarcerated bowel, and there was free fluid and free air. He underwent another surgery on May 22, and had exploratory laparotomy, lysis of adhesions, small bowel resection of ischemic bowel with 2 small perforation, primary anastomosis, omentectomy, and temporary closure of the abdominal incision with a wound VAC. He went to surgery again on May 25 and had exploratory laparotomy, lysis of adhesion, and closure of his abdominal incision. Culture from surgery on May 22 showed polymicrobial bacteria including enteric rc. Patient was febrile from May 25 2 June 06. His temps got better. However on May 30 he started having fevers again. Also has had persistent leukocytosis. Yesterday he was noted to have purulent drainage from his midline incision. The incision was opened in 3 areas. His temps are better. Patient is complaining of some shortness of breath which she attributes to the abdominal binder. He is also complaining of pain in his left upper extremity, and ultrasound did not show any DVT. He had some occasional coughing. Denies any chest pain. Appetite is fairly poor. He has good bowel movements. Denies any dysuria, and currently has a condom. Patient has no central line, and has peripheral IV in place. He is on Levaquin , Flagyl, Diflucan. Vancomycin was added yesterday. Infectious disease consultation has been requested to evaluate the patient with persistent leukocytosis Notes reviewed Continues to have low grade temps Feels good No new complaints [facility]cess seen CT chest noted On nasal O2 WBC same at 15K Wound C/S Enterococcus, skin rc (Corynebacterium and strep viridans) Antibiotics Vancomycin Zosyn Diflucan Lines PIV Past Medical History Reviewed Allergies: Coded Allergies: cephalexin (Unverified Allergy, Mild, rash, 06/03/17) Has taken penicillin without any problem hydromorphone (Unverified Adverse Reaction, Unknown, 05/16/17) VOMITING morphine (Unverified Adverse Reaction, Unknown, 05/16/17) VOMITNG Objective . Vital Signs Date Time Temp Pulse Resp B/P (MAP) Pulse Ox O2 Delivery O2 Flow Rate FiO2 06/06/17 08:00 98.1 97 18 127/72 (90) 92 06/06/17 07:38 92 Nasal Cannula 5.00 06/06/17 06:00 98.3 93 22 117/69 (85) 91 06/05/17 22:21 94 Nasal Cannula 5.00 06/05/17 22:06 90 Nasal Cannula 4.00 06/05/17 21:22 100.1 104 20 117/68 (84) 92 06/05/17 16:00 96.9 99 18 112/70 (84) 92 06/05/17 12:00 97.9 101 19 110/63 (79) 91 . Laboratory Tests Test 06/05/17 10:20 06/06/17 04:43 White Blood Count 15.1 TH/MM3 15.3 TH/MM3 Red Blood Count 3.96 MIL/MM3 3.76 MIL/MM3 Hemoglobin 11.9 GM/DL 11.2 GM/DL Hematocrit 35.4 % 33.6 % Mean Corpuscular Volume 89.3 FL 89.2 FL Mean Corpuscular Hemoglobin 30.0 PG 29.8 PG Mean Corpuscular Hemoglobin Concent 33.5 % 33.4 % Red Cell Distribution Width 13.3 % 13.3 % Platelet Count 787 TH/MM3 725 TH/MM3 Mean Platelet Volume 8.1 FL 8.6 FL Neutrophils (%) (Auto) 77.8 % 75.3 % Lymphocytes (%) (Auto) 9.9 % 10.5 % Monocytes (%) (Auto) 11.3 % 12.6 % Eosinophils (%) (Auto) 0.6 % 1.0 % Basophils (%) (Auto) 0.4 % 0.6 % Neutrophils # (Auto) 11.7 TH/MM3 11.5 TH/MM3 Lymphocytes # (Auto) 1.5 TH/MM3 1.6 TH/MM3 Monocytes # (Auto) 1.7 TH/MM3 1.9 TH/MM3 Eosinophils # (Auto) 0.1 TH/MM3 0.1 TH/MM3 Basophils # (Auto) 0.1 TH/MM3 0.1 TH/MM3 CBC Comment DIFF FINAL DIFF FINAL Differential Comment Laboratory Tests Test 06/05/17 10:20 06/06/17 04:43 Blood Urea Nitrogen 9 MG/DL 9 MG/DL Creatinine 0.56 MG/DL 0.71 MG/DL Random Glucose 128 MG/DL 109 MG/DL Total Protein 5.7 GM/DL 5.6 GM/DL Albumin 1.5 GM/DL 1.3 GM/DL Calcium Level 7.6 MG/DL 7.7 MG/DL Alkaline Phosphatase 185 U/L 172 U/L Aspartate Amino Transf (AST/SGOT) 16 U/L 19 U/L Alanine Aminotransferase (ALT/SGPT) 13 U/L 13 U/L Total Bilirubin 0.5 MG/DL 0.6 MG/DL Sodium Level 133 MEQ/L 135 MEQ/L Potassium Level 3.6 MEQ/L 3.7 MEQ/L Chloride Level 94 MEQ/L 95 MEQ/L Carbon Dioxide Level 35.0 MEQ/L 33.3 MEQ/L Anion Gap 4 MEQ/L 7 MEQ/L Estimat Glomerular Filtration Rate 154 ML/MIN 117 ML/MIN Phosphorus Level 3.8 MG/DL Magnesium Level 2.2 MG/DL Microbiology Date/Time Source Procedure Growth Status 06/03/17 11:25 Wound Abdomen Gram Stain - Final Complete 06/03/17 11:25 Wound Culture - Final Enterococcus Faecium Complete Imaging Last Impressions Chest CT 06/03/17 0000 Signed Impressions: Service Date/Time: May 10:58 - CONCLUSION: 1. Bibasilar alveolar consolidations consistent with pneumonia and/or atelectasis. 2. Small bilateral pleural effusions. 3. Minimal ascites within the upper abdomen. 4. Degenerative changes and scoliosis of the thoracolumbar spine. Roberto Rivera MD Abdomen/Pelvis CT 06/03/17 0000 Signed Impressions: Service Date/Time: May 18:18 - CONCLUSION: 1. Thickening of the small bowel especially the distal small bowel. The patient is status post small bowel surgery. An abscess is not seen. The anterior abdominal wall incision is partially still open. 2. Mild to moderate bilateral pleural effusions with accompanying areas of atelectasis. Clovis Borrero MD Upper Extremity Ultrasound 06/02/17 0000 Signed Impressions: Service Date/Time: Friday, June 02, 2017 23:44 - CONCLUSION: Significant soft tissue swelling of the wrist. If there is concern for infection then a cross-sectional study should be performed. Small amount of superficial thrombus extending into the cephalic vein, minimal. Joshua Adhikari MD Chest X-Ray 06/02/17 0000 Signed Impressions: Service Date/Time: Friday, June 02, 2017 10:02 - CONCLUSION: Persistent bibasal peripheral changes and small bilateral pleural effusions stable in the interval. Julio C Ordonez MD FACR CT Angiography 05/22/17 0000 Signed Impressions: Service Date/Time: Monday, May 22, 2017 00:24 - CONCLUSION: 1. No evidence of pulmonary embolus. 2. Bilateral inferior lower lobe consolidation/atelectasis. 3. Trace bilateral pleural effusions. Geovani Marquez MD Abdomen X-Ray 05/21/17 0000 Signed Impressions: Service Date/Time: Sunday, May 21, 2017 22:24 - CONCLUSION: 1. Findings similar to the prior study of 05/19/2017. Dilated air-filled proximal small bowel. Paucity of gas in the distal small bowel and colon. 2. Differential diagnosis is small bowel obstruction and ileus. Geovani Marquez MD Physical Exam GENERAL: awake and alert, looks comfortable SKIN: Warm and dry. No generalized rash, no ecchymoses and no evidence of embolic lesions. HEAD: Atraumatic. Normocephalic. No temporal wasting, or tenderness. EYES: [place] conjunctiva. No petechia or hemorrhage. Pupils equal, round and reactive to light. Extraocular movements full and intact. No scleral icterus. No injection or drainage. EARS, NOSE AND THROAT: Nose without bleeding or purulent nasal discharge. Slightly dry oral mucosa. No oral lesions noted. No exudate. No oral thrush. NECK: Trachea midline. Supple and not tender, no meningeal signs CARDIOVASCULAR: Tachycardic. Regular rate and rhythm. No murmurs, rubs or gallops heard RESPIRATORY: Decreased breath sounds at the bases. Breath sounds equal bilaterally. No rales, wheezing or rhonchi ABDOMEN: Obese, has midline incision, with 3 open areas, the longest is about 2.5 inch long, and the other 2 about 1.5 in long, with packing, light yellow drainage, no erythema noted, with diffuse tenderness more on L than on R, no guarding, no rebound. Soft, non-tender, nondistended. Bowel sounds present and hypoactive. EXTREMITIES: No clubbing, cyanosis, or edema in BLE. LUE is swollen with erythema whole LUE, did not appreciate any palpable cord. No joint effusion, has good ROM. No calf tenderness. Well perfused and warm. NEUROLOGICAL: Awake and alert. Cranial nerves grossly intact. Motor grossly within normal limits. PSYCHIATRIC: Normal affect, calm and cooperative. LINE: No evidence of infection Assessment & Plan Remarks IMPRESSION Sepsis post abdominal surgery, has wound infection - concern is intraabdominal abscess especially since he had SB perforations - also has LUE cellulitis, no DVT on US Persistent low grade fevers Leukocytosis S/P repair of incarcerated hernia 05/17 S/P exp lap, DARCI, SB resection and primary anastomosis, with SB perforation 05/22, 05/25 (closure) SOB, ?fluid, ?PE RECOMMENDATION Stop IV Zosyn Stop IV Vanco Also on Diflucan Start Augmentin to cover Enterococcus - at least 10 more days on D/C Start Levaquin for additional GNR coverage and pulmonary coverage Monitor progress Follow CBC Would like to have temps less than 100 for 24 hours before D/C Patient has been accepted at [facility] Explained plan to patient Shirley Dao MD Jun 06, 2017 09:54
[2017-06-06] MEDS: FLUCONAZOLE 200 MG TAB PO SCH (10:51)
[2017-06-06] MEDS: PANTOPRAZOLE SOD 40 MG DELAYED RELEASE TAB PO SCH (10:51)
[2017-06-06] MEDS: METOPROLOL TARTRATE 100 MG TAB PO SCH ×2 (10:51→19:44)
[2017-06-06] MEDS: LISINOPRIL 10 MG TAB PO SCH (10:51)
[2017-06-06] MEDS: ENOXAPARIN SODIUM 40 MG/0.4 ML SYRINGE SQ SCH (11:04)
--- NOTE | 2017-06-06 11:21 | HHI.PR ---
Subjective Subjective Notes doing well, no complaints, tolerating diet, waiting to go to rehab tomorrow Objective Vitals/I&O Vital Signs Date Time Temp Pulse Resp B/P (MAP) Pulse Ox O2 Delivery O2 Flow Rate FiO2 06/06/17 08:00 98.1 97 18 127/72 (90) 92 06/06/17 07:38 Nasal Cannula 5.00 06/05/17 09:30 40 Labs Laboratory Tests Test 06/06/17 04:43 White Blood Count 15.3 Red Blood Count 3.76 Hemoglobin 11.2 Hematocrit 33.6 Mean Corpuscular Volume 89.2 Mean Corpuscular Hemoglobin 29.8 Mean Corpuscular Hemoglobin Concent 33.4 Red Cell Distribution Width 13.3 Platelet Count 725 Mean Platelet Volume 8.6 Neutrophils (%) (Auto) 75.3 Lymphocytes (%) (Auto) 10.5 Monocytes (%) (Auto) 12.6 Eosinophils (%) (Auto) 1.0 Basophils (%) (Auto) 0.6 Neutrophils # (Auto) 11.5 Lymphocytes # (Auto) 1.6 Monocytes # (Auto) 1.9 Eosinophils # (Auto) 0.1 Basophils # (Auto) 0.1 CBC Comment DIFF FINAL Differential Comment Blood Urea Nitrogen 9 Creatinine 0.71 Random Glucose 109 Total Protein 5.6 Albumin 1.3 Calcium Level 7.7 Phosphorus Level 3.8 Magnesium Level 2.2 Alkaline Phosphatase 172 Aspartate Amino Transf (AST/SGOT) 19 Alanine Aminotransferase (ALT/SGPT) 13 Total Bilirubin 0.6 Sodium Level 135 Potassium Level 3.7 Chloride Level 95 Carbon Dioxide Level 33.3 Anion Gap 7 Estimat Glomerular Filtration Rate 117 Date/Time Source Procedure Growth Status 05/22/17 00:05 Gastric Gastric Occult Blood - Final GASTROCCULT NEGATIVE Complete 05/17/17 00:59 Urine Catheterized Urine Urine Culture - Final Staphylococcus Epidermidis Complete 06/03/17 11:25 Wound Abdomen Gram Stain - Final Complete 06/03/17 11:25 Wound Culture - Final Enterococcus Faecium Complete Radiology Last Impressions Chest X-Ray 05/23/17 0600 Signed Impressions: Service Date/Time: Tuesday, May 23, 2017 05:31 - CONCLUSION: Bilateral pulmonary opacity and bilateral pleural effusions again seen. Increase in opacity in the right perihilar region. Slight increase in pleural effusions. Geovani Marquez MD CT Angiography 05/22/17 0000 Signed Impressions: Service Date/Time: Monday, May 22, 2017 00:24 - CONCLUSION: 1. No evidence of pulmonary embolus. 2. Bilateral inferior lower lobe consolidation/atelectasis. 3. Trace bilateral pleural effusions. Geovani Marquez MD Abdomen/Pelvis CT 05/22/17 0000 Signed Impressions: Service Date/Time: Monday, May 22, 2017 00:24 - CONCLUSION: 1. Post surgical findings with cutaneous germaine anteriorly. 2. Anterior abdominal wall hernia with multiple loops of small bowel again seen. Small bowel distention is seen proximal to the herniated loops indicating possible partial small bowel obstruction or ileus. 3. Free fluid and free air likely due to recent surgery. Geovani Marquez MD Abdomen X-Ray 05/21/17 0000 Signed Impressions: Service Date/Time: Sunday, May 21, 2017 22:24 - CONCLUSION: 1. Findings similar to the prior study of 05/19/2017. Dilated air-filled proximal small bowel. Paucity of gas in the distal small bowel and colon. 2. Differential diagnosis is small bowel obstruction and ileus. Geovani Marquez MD Cardiovascular: Regular Lungs: Clear Abdomen: Non-distended Narrative Exam abdomen open in areas with wet to dry, no pus Wound Wound : Wound Location: Abdomen Appearance: Clean & Dry Dressing: NS - Wet to Dry A/P Problem List: (1) Superficial postoperative wound infection ICD Codes: T81.4XXA - Infection following a procedure, initial encounter Status: Acute (2) Physical deconditioning ICD Codes: R53.81 - Other malaise Status: Acute (3) Postop check ICD Codes: Z09 - Encounter for follow-up examination after completed treatment for conditions other than malignant neoplasm (4) Dehiscence of closure of fascia, superficial or muscular ICD Codes: T81.32XA - Disruption of internal operation (surgical) wound, not elsewhere classified, initial encounter Status: Acute (5) Postoperative ileus ICD Codes: K91.89 - Other postprocedural complications and disorders of digestive system; K56.7 - Ileus, unspecified Status: Acute (6) Elevated WBC count ICD Codes: D72.829 - Elevated white blood cell count, unspecified Status: Chronic Assessment and Plan s/p exp lap, small bowel resection, delayed closure of abdomen continue supportive care rehab tomorrow per patient Problem Qualifiers (1) Superficial postoperative wound infection: Qualified Codes: T81.4XXD - Infection following a procedure, subsequent encounter (2) Dehiscence of closure of fascia, superficial or muscular: Qualified Codes: T81.32XD - Disruption of internal operation (surgical) wound, not elsewhere classified, subsequent encounter Manjit Fritz MD Jun 06, 2017 11:21
[2017-06-06] MEDS: AMOXICILLIN/CLAVULANATE K 500 MG TAB PO SCH ×3 (14:00→22:20)
--- NOTE | 2017-06-06 14:38 | HHI.PR ---
Subjective Remarks patient feels better. left arm swelling almost completely resolved. fever with a tmax of 100.1 last night. still on 5 liters nasal canula denies cp/sob Objective Vitals Vital Signs Date Time Temp Pulse Resp B/P (MAP) Pulse Ox O2 Delivery O2 Flow Rate FiO2 06/06/17 12:00 96.8 108 19 133/81 (98) 96 06/06/17 08:00 98.1 97 18 127/72 (90) 92 06/06/17 07:38 92 Nasal Cannula 5.00 06/06/17 06:00 98.3 93 22 117/69 (85) 91 06/05/17 22:21 94 Nasal Cannula 5.00 06/05/17 22:06 90 Nasal Cannula 4.00 06/05/17 21:22 100.1 104 20 117/68 (84) 92 06/05/17 16:00 96.9 99 18 112/70 (84) 92 I/O 06/05/17 06/05/17 06/05/17 06/06/17 06/06/17 06/06/17 07:00 15:00 23:00 07:00 15:00 23:00 Intake Total 720 ml 100 ml 2100 ml 700 ml Output Total 2450 ml 2150 ml 2450 ml Balance -1730 ml 100 ml -50 ml -1750 ml Intake Oral 1500 ml IV Total 720 ml 100 ml 600 ml 700 ml Output Urine Total 2450 ml 2150 ml 2450 ml # Bowel Movements 0 Result Diagram: 06/06/17 0443 06/06/17 0443 Imaging Last Impressions Chest CT 06/03/17 0000 Signed Impressions: Service Date/Time: May 10:58 - CONCLUSION: 1. Bibasilar alveolar consolidations consistent with pneumonia and/or atelectasis. 2. Small bilateral pleural effusions. 3. Minimal ascites within the upper abdomen. 4. Degenerative changes and scoliosis of the thoracolumbar spine. Roberto Rivera MD Abdomen/Pelvis CT 06/03/17 0000 Signed Impressions: Service Date/Time: May 18:18 - CONCLUSION: 1. Thickening of the small bowel especially the distal small bowel. The patient is status post small bowel surgery. An abscess is not seen. The anterior abdominal wall incision is partially still open. 2. Mild to moderate bilateral pleural effusions with accompanying areas of atelectasis. Clovis Borrero MD Upper Extremity Ultrasound 06/02/17 0000 Signed Impressions: Service Date/Time: Friday, June 02, 2017 23:44 - CONCLUSION: Significant soft tissue swelling of the wrist. If there is concern for infection then a cross-sectional study should be performed. Small amount of superficial thrombus extending into the cephalic vein, minimal. Joshua Adhikari MD Chest X-Ray 06/02/17 0000 Signed Impressions: Service Date/Time: Friday, June 02, 2017 10:02 - CONCLUSION: Persistent bibasal peripheral changes and small bilateral pleural effusions stable in the interval. Julio C Ordonez MD FACR CT Angiography 05/22/17 0000 Signed Impressions: Service Date/Time: Monday, May 22, 2017 00:24 - CONCLUSION: 1. No evidence of pulmonary embolus. 2. Bilateral inferior lower lobe consolidation/atelectasis. 3. Trace bilateral pleural effusions. Geovani Marquez MD Abdomen X-Ray 05/21/17 0000 Signed Impressions: Service Date/Time: Sunday, May 21, 2017 22:24 - CONCLUSION: 1. Findings similar to the prior study of 05/19/2017. Dilated air-filled proximal small bowel. Paucity of gas in the distal small bowel and colon. 2. Differential diagnosis is small bowel obstruction and ileus. Geovani Marquez MD Objective Remarks GENERAL: 51-year-old male, tachypneic with mild to moderate respiratory distress. SKIN: Warm and dry. Well perfused HEAD: Atraumatic. Normocephalic. EYES: Pupils 2 mm bilaterally and reactive. No scleral icterus. No injection or drainage. ENT: No nasal bleeding or discharge. Mucous membranes pink and moist. NECK: Trachea midline. Supple. Airway widely patent. CARDIOVASCULAR: Tachycardic 99, RR. S1, S2. No murmur, no JVD. RESPIRATORY: Decreased breath sounds at the bases. No wheezing, good air movement. No adventitious sounds. GASTROINTESTINAL: Abdomen is currently closed. BS active. Postsurgical, benign. No guarding. MUSCULOSKELETAL: Left upper extremity is edematous, with erythema and tenderness to palpation which seems to be improving. NEUROLOGICAL: Awake, alert, cooperative. Moves bilateral upper and lower extremities. O X 3. Conversant. Repeats himself a lot. Procedures DATE OF PROCEDURE 05/17/2017 PREOPERATIVE DIAGNOSIS Incarcerated umbilical hernia. POSTOPERATIVE DIAGNOSIS Incarcerated umbilical hernia with small bowel obstruction secondary to incarcerated small bowel and omentum. PROCEDURE Reduction of incarcerated hernia with primary repair of hernia defect. DATE OF SURGERY: 05/25/2017 PREOPERATIVE DIAGNOSIS Open abdomen. POSTOPERATIVE DIAGNOSIS Open abdomen with adhesions. PROCEDURE 1. Exploratory laparotomy, lysis of adhesions, drainage of cloudy fluid in the abdomen. 2. Closure of midline fascia with permanent suture. Date of procedure 05/22/17 Expiratory laparotomy, small bowel resection. Panendoscopy. Medications and IVs Current Medications Medications (Trade) Dose Ordered Sig/Lanie Route Start Time Stop Time Status Last Admin (Zofran Inj) 4 mg Q4H PRN IV PUSH 05/17/17 03:15 05/28/17 00:05 (Chloraseptic [place]) 2 spray Q2H PRN OROPHARYNG 05/19/17 11:00 05/19/17 15:42 (Xopenex Neb) 1.25 mg Q8HR NEB PRN NEB 05/22/17 06:45 06/05/17 22:03 (Lopressor Inj) 5 mg Q8H PRN IV PUSH 05/22/17 08:15 05/29/17 08:24 (NS Flush) 2 ml UNSCH PRN IV FLUSH 05/22/17 14:15 (NS Flush) 2 ml BID IV FLUSH 05/22/17 21:00 06/05/17 20:21 (Tears Naturale Opth Soln) 1 drop TID EACH EYE 05/22/17 18:00 06/05/17 17:47 Miscellaneous Information 1 Q361D XX 05/22/17 14:15 (Chlorhexidine 2% Cloth) Taper DAILY@04 TOP 05/23/17 04:00 05/19/18 03:59 (Chlorhexidine 2% Cloth) 3 pack UNSCH PRN TOP 05/22/17 14:15 (Mayte-Colace) 1 tab BID PO 05/22/17 21:00 06/05/17 20:21 (Milk Of Magnesia Liq) 30 ml Q12H PRN PO 05/22/17 14:15 (Senokot) 17.2 mg Q12H PRN PO 05/22/17 14:15 (Dulcolax Supp) 10 mg DAILY PRN RECTAL 05/22/17 14:15 (Lactulose Liq) 30 ml DAILY PRN PO 05/22/17 14:15 (Tears Naturale Opth Soln) 1 drop Q8HR EACH EYE 05/22/17 22:00 06/05/17 12:22 (Xanax) 1 mg Q8H PRN PO 05/29/17 15:15 06/02/17 02:58 (Lovenox Inj) 40 mg Q24H SQ 05/29/17 10:00 06/06/17 11:04 (Trandate Inj) 20 mg Q3H PRN IV PUSH 05/29/17 09:30 (Prinivil) 10 mg DAILY PO 05/30/17 09:00 06/06/17 10:51 (Catapres) 0.1 mg Q6H PRN PO 05/30/17 07:30 (Lopressor) 100 mg Q12HR PO 05/31/17 21:00 06/06/17 10:51 (Diflucan) 400 mg DAILY PO 06/01/17 13:00 06/06/17 10:51 (Protonix) 40 mg DAILY PO 06/01/17 13:00 06/06/17 10:51 (Lasix) 40 mg BID@ PO 06/02/17 09:00 Future hold 06/05/17 09:29 (Norvasc) 10 mg DAILY PO 06/03/17 09:00 06/06/17 10:51 (Ambien) 10 mg HS PRN PO 06/02/17 16:00 06/03/17 21:20 ([place] 5-325 Mg) 1 tab Q4H PRN PO 06/04/17 11:45 ([place] 5-325 Mg) 2 tab Q4H PRN PO 06/04/17 11:45 (Albuterol Concentrated Neb) 2.5 mg Q6HR NEB PRN NEB 06/04/17 16:15 06/05/17 00:38 (Mucomyst 10% Neb) 2 ml Q8HR NEB NEB 06/04/17 19:00 06/05/17 22:04 (Augmentin) 500 mg Q8HR PO 06/06/17 11:00 (Levaquin) 750 mg DAILY PO 06/06/17 10:00 06/13/17 09:59 A/P Problem List: (1) Perforated small intestine ICD Code: K63.1 - Perforation of intestine (nontraumatic) (2) Dehiscence of closure of fascia, superficial or muscular ICD Code: T81.32XA - Disruption of internal operation (surgical) wound, not elsewhere classified, initial encounter Status: Acute (3) Open abdominal incision with drainage ICD Code: T81.31XA - Disruption of external operation (surgical) wound, not elsewhere classified, initial encounter Status: Acute (4) Physical deconditioning ICD Code: R53.81 - Other malaise Status: Acute (5) Superficial postoperative wound infection ICD Code: T81.4XXA - Infection following a procedure, initial encounter Status: Acute (6) Umbilical hernia, incarcerated ICD Code: K42.0 - Umbilical hernia with obstruction, without gangrene Status: Resolved (7) Small bowel obstruction ICD Code: K56.609 - Unspecified intestinal obstruction, unspecified as to partial versus complete obstruction Status: Resolved (8) Hypertension ICD Code: I10 - Essential (primary) hypertension (9) Cellulitis of left upper extremity ICD Code: L03.114 - Cellulitis of left upper limb Assessment and Plan Neuro/Psych: SP intubation and mechanical ventilation Extubated 05/27. AAOx3 Sinus tachycardia SP 4 L crystalloid in the operating room. Currently receiving fifth liter. Negative CT pulmonary angiogram for pulmonary embolism. Continue crystalloid per general surgery's recommendations. Was intermittently on a phenylephrine in OR, levophed in the unit, all has been discontinue. Postoperative respiratory failure HCAP SP intubation and mechanical ventilation. Albuterol/ipratropium aerosols every 6 hours with albuterol aerosols every 2 hours. Dyspnea Spontaneous breathing trials daily CT pulmonary angiogram 05/22 revealed bilateral lower lobe infiltrates,'s small bilateral pleural effusions. No central pulmonary embolism. Extubated 05/27. 06/01 Patient stil on high requirement of o2, sating 94% on 4 liters nasal canula. Started on Lasix and chest x-ray ordered. 06/02 CXR showed BL pleural effusions. Patient still requiring high O2. Repeat CXR shows BL pleural effusions and persistent bibasilar peripheral changes. CTA chest ordered 06/[address] as described above. Shows bibasilar alveolar consolidations consistent with pneumonia and/or atelectasis. Minimal ascites in the upper abdomen. Degenerative changes and scoliosis of the thoracolumbar spine. Continue Lasix. Patient currently on broad spectrum antibiotics. 06/05 patient still requiring elevated him on of oxygen, satting 92% on 5 L nasal cannula. Continue IV Zosyn and IV vancomycin. Continue supplemental oxygen to keep an oxygen saturation more than 94%. 06/06 Iv antibiotics discontinued - Patient started on oral Levaquin to cover for HCAP. GI: SP exploratory laparotomy, partial home meniscectomy with small bowel resection and packing of abdominal wall secondary to wound dehiscence, nausea/vomiting and Postoperative ileus. SP reduction of incarcerated hernia with primary. Hernia defect secondary to incarcerated umbilical hernia with small bowel obstruction secondary to incarcerated small bowel and omentum by Dr. Queen Postoperative ileus GIs status post EGD for NG tube placement secondary to massively dilated stomach and small bowel in OR without cuff cage. Plan to return to OR on Wednesday for closure abdominal wall fascia. Continue NG tube to [facility] Pantoprazole for GI prophylaxis Feed per surgery. 05/22 tolerating regular diet. 06/02 Discussed case with Oksana Ferguson, Surgical PA. states wound has some purulent discharge. Will obtain wound culture and consult infectious disease. 06/03 Wound culture pending. Discussed case with Dr Dao from ID who recommended CT abdomen and pelvis. 06/05 Wound culture is growing group D enterococcus , continue antibiotics as per ID. CT abdomen and pelvis showed thickening of the small bowel especially in the distal small bowel. Abscess not seen. Mild to moderate bilateral pleural effusions with accompanying areas of atelectasis. Continue IV zosyn, IV vancomycin and IV Diflucan. 06/06 IV antibiotics discontinued. Discussed case with ID. Recommends Augmentin for 10 to 14 days to cover for enterococcus. : Echeverria catheter discontinued Endo: Sliding scale with Accu-Cheks to maintain euglycemia/every 6 hours Blood sugars stable. Renal: Acute kidney injury Monitor urine output Accurate I's and O's Likely contrast induced Resolved Heme: Leukocytosis: WBC elevated but trending down from 25.6-17.1. Continue to monitor CBC with differential. ID: Staph epi cystitis pansensitive Left upper extremity cellulitis Initially placed on levofloxacin, metronidazole and fluconazole day per Dr. Queen Urine culture 10/30 revealed staph epi 06/02 Wound care as per GS. Will consult infecious disease and order a wound culture. WBC is trending up. 06/03 Levaquin and Flagyl discontinued - patient started on IV zosyn, continue Vancomycin. 06/03 Cellulitis resolving. IV antibiotics discontinued. On Po levaquin and augmentin. FEN: Hyponatremia Hypokalemia Replace orally and monitor BMP 06/06 Sodium trending down, lasix held with improvement, resume lasix. Will DC on once a day lasix regime. MSK: PT evaluate and treat Access - Utilize peripheral IV. - Left radial arterial line placed in OR 05/22 Prophylaxis - GI - pantoprazole - DVT - SCD/pharmacological prophylaxis lovenox. Discharge Planning Dc pending 24 hr fever free period. Problem Qualifiers (1) Dehiscence of closure of fascia, superficial or muscular: Qualified Codes: T81.32XD - Disruption of internal operation (surgical) wound, not elsewhere classified, subsequent encounter (2) Open abdominal incision with drainage: Qualified Codes: T81.31XD - Disruption of external operation (surgical) wound, not elsewhere classified, subsequent encounter (3) Superficial postoperative wound infection: Qualified Codes: T81.4XXD - Infection following a procedure, subsequent encounter Bob Figueroa MD Jun 06, 2017 14:38
[2017-06-06] MEDS: LEVOFLOXACIN 750 MG TAB PO SCH (15:04)
[2017-06-06] MEDS: FUROSEMIDE 40 MG TAB PO SCH (17:33)
[2017-06-07] VITALS (7 sets, daily range): BP systolic 120–130; BP diastolic 72–76; PULSE 100–117; RESP 17–20; TEMP 96.9–100.5; O2SAT 90–93
[2017-06-07] MEDS: ZOLPIDEM TARTRATE 10 MG TAB PO PRN (01:04)
[2017-06-07] MEDS: AMOXICILLIN/CLAVULANATE K 500 MG TAB PO SCH ×3 (05:34→20:28)
[2017-06-07] MEDS: ARTIFICIAL TEARS OPTH SOLN 15 ML BTL EACH EYE SCH ×6 (05:34→20:28)
[2017-06-07] MEDS: DOCUSATE SODIUM 50 MG/SENNA 8.6 MG TAB PO SCH ×2 (09:40→20:28)
[2017-06-07] MEDS: FLUCONAZOLE 200 MG TAB PO SCH (09:40)
[2017-06-07] MEDS: FUROSEMIDE 40 MG TAB PO SCH ×2 (09:40→17:04)
[2017-06-07] MEDS: METOPROLOL TARTRATE 100 MG TAB PO SCH ×2 (09:40→20:27)
[2017-06-07] MEDS: PANTOPRAZOLE SOD 40 MG DELAYED RELEASE TAB PO SCH (09:40)
[2017-06-07] MEDS: LEVOFLOXACIN 750 MG TAB PO SCH (09:40)
[2017-06-07] MEDS: LISINOPRIL 10 MG TAB PO SCH (09:40)
[2017-06-07] MEDS: RESP: LEVALBUTEROL HYDROCHLORIDE 1.25 MG/3 ML NEB (PRN) NEB (11:05)
[2017-06-07] MEDS: RESP: ACETYLCYSTEINE 10% 30 ML NEB NEB SCH ×3 (11:05→15:47)
[2017-06-07 12:18] LABS: BASOPHIL % 0.2 % (0.0-2.0); EOSINOPHIL # 0.1 TH/MM3 (0-0.4); EOSINOPHIL % 0.3 % (0.0-4.0); HEMATOCRIT 34.1 % (39.0-51.0); HEMO FLAGS DIFF FINAL; LYMPH % 9.4 % (9.0-44.0); LYMPHOCYTE # 1.7 TH/MM3 (1.0-4.8); MEAN CELL VOLUME 88.4 FL (80.0-100.0); MEAN CORPUSCULAR HEMOGLOBIN 29.9 PG (27.0-34.0); MEAN CORPUSCULAR HGB CONC 33.8 % (32.0-36.0); MONO % 9.2 % (0.0-8.0); NEUT % 80.9 % (16.0-70.0); PLATELET COUNT 745 TH/MM3 (150-450); RED BLOOD COUNT 3.86 MIL/MM3 (4.50-5.90); RED CELL DISTRIBUTION WIDTH 13.3 % (11.6-17.2); WHITE BLOOD COUNT 18.5 TH/MM3 (4.0-11.0)
[2017-06-07 12:49] LABS: ANION GAP 8 MEQ/L (5-15); AST (GOT) 17 U/L (15-37); BICARBONATE 31.8 MEQ/L (21.0-32.0); BLOOD UREA NITROGEN 10 MG/DL (7-18); CHLORIDE 92 MEQ/L (98-107); GLOMERULAR FILTRATION RATE 132 ML/MIN (>89); POTASSIUM 3.6 MEQ/L (3.5-5.1); SODIUM (NA) 132 MEQ/L (136-145)
[2017-06-07 12:53] LABS: ALKALINE PHOSPHATASE 170 U/L (45-117); ALT (GPT) 14 U/L (12-78); TOTAL BILIRUBIN ADULT 0.6 MG/DL (0.2-1.0)
[2017-06-07] MEDS: SODIUM CHLORIDE 0.9% FLUSH 10 ML FLUSH IV FLUSH SCH ×2 (13:15→20:28)
[2017-06-07] MEDS: ENOXAPARIN SODIUM 40 MG/0.4 ML SYRINGE SQ SCH (13:18)
--- NOTE | 2017-06-07 15:01 | HHI.PR ---
Subjective Remarks deferred entry - patient seen at 11:30 am Patient denies cp/sob. NO fevers since 06/05. Denies abdominal pain, nausea or vomiting. The patient initially down to 4 L nasal cannula, no back up to 5 L. Objective Vitals Vital Signs Date Time Temp Pulse Resp B/P (MAP) Pulse Ox O2 Delivery O2 Flow Rate FiO2 06/07/17 12:00 96.9 112 18 128/72 (90) 92 06/07/17 11:05 93 Nasal Cannula 5.00 06/07/17 10:05 Nasal Cannula 4.00 40 Humidified 06/07/17 08:00 99.0 117 18 120/76 (91) 90 06/07/17 01:21 98.4 100 20 125/72 (89) 90 06/06/17 21:46 99.5 104 20 118/65 (82) 91 06/06/17 21:30 Nasal Cannula 4.00 Humidified 06/06/17 18:43 93 Nasal Cannula 5.00 06/06/17 16:00 98.5 101 18 120/80 (93) 93 I/O 06/06/17 06/06/17 06/06/17 06/07/17 06/07/17 06/07/17 06:59 14:59 22:59 06:59 14:59 22:59 Intake Total 700 ml 2000 ml Output Total 2450 ml 1650 ml 1700 ml Balance -1750 ml 350 ml -1700 ml Intake Oral 2000 ml IV Total 700 ml Output Urine Total 2450 ml 1650 ml 1700 ml # Bowel Movements 1 Result Diagram: 06/07/17 1107 06/07/17 1107 Imaging Last Impressions Chest CT 06/03/17 0000 Signed Impressions: Service Date/Time: May 10:58 - CONCLUSION: 1. Bibasilar alveolar consolidations consistent with pneumonia and/or atelectasis. 2. Small bilateral pleural effusions. 3. Minimal ascites within the upper abdomen. 4. Degenerative changes and scoliosis of the thoracolumbar spine. Roberto Rivera MD Abdomen/Pelvis CT 06/03/17 0000 Signed Impressions: Service Date/Time: May 18:18 - CONCLUSION: 1. Thickening of the small bowel especially the distal small bowel. The patient is status post small bowel surgery. An abscess is not seen. The anterior abdominal wall incision is partially still open. 2. Mild to moderate bilateral pleural effusions with accompanying areas of atelectasis. Clovis Borrero MD Upper Extremity Ultrasound 06/02/17 0000 Signed Impressions: Service Date/Time: Friday, June 02, 2017 23:44 - CONCLUSION: Significant soft tissue swelling of the wrist. If there is concern for infection then a cross-sectional study should be performed. Small amount of superficial thrombus extending into the cephalic vein, minimal. Joshua Adhikari MD Chest X-Ray 06/02/17 0000 Signed Impressions: Service Date/Time: Friday, June 02, 2017 10:02 - CONCLUSION: Persistent bibasal peripheral changes and small bilateral pleural effusions stable in the interval. Julio C Ordonez MD FACR CT Angiography 05/22/17 0000 Signed Impressions: Service Date/Time: Monday, May 22, 2017 00:24 - CONCLUSION: 1. No evidence of pulmonary embolus. 2. Bilateral inferior lower lobe consolidation/atelectasis. 3. Trace bilateral pleural effusions. Geovani Marquez MD Abdomen X-Ray 05/21/17 0000 Signed Impressions: Service Date/Time: Sunday, May 21, 2017 22:24 - CONCLUSION: 1. Findings similar to the prior study of 05/19/2017. Dilated air-filled proximal small bowel. Paucity of gas in the distal small bowel and colon. 2. Differential diagnosis is small bowel obstruction and ileus. Geovani Marquez MD Objective Remarks GENERAL: 51-year-old male, tachypneic with mild to moderate respiratory distress. SKIN: Warm and dry. Well perfused HEAD: Atraumatic. Normocephalic. EYES: Pupils 2 mm bilaterally and reactive. No scleral icterus. No injection or drainage. ENT: No nasal bleeding or discharge. Mucous membranes pink and moist. NECK: Trachea midline. Supple. Airway widely patent. CARDIOVASCULAR: Tachycardic 99, RR. S1, S2. No murmur, no JVD. RESPIRATORY:CTA BL No wheezing, good air movement. No adventitious sounds. GASTROINTESTINAL: Abdomen is currently closed. BS active. Postsurgical, benign. No guarding. MUSCULOSKELETAL: Left upper extremity edema and erythema resolved. NO edema in lower extremities. NEUROLOGICAL: Awake, alert, cooperative. Moves bilateral upper and lower extremities. O X 3. Conversant. Repeats himself a lot. Procedures DATE OF PROCEDURE 05/17/2017 PREOPERATIVE DIAGNOSIS Incarcerated umbilical hernia. POSTOPERATIVE DIAGNOSIS Incarcerated umbilical hernia with small bowel obstruction secondary to incarcerated small bowel and omentum. PROCEDURE Reduction of incarcerated hernia with primary repair of hernia defect. DATE OF SURGERY: 05/25/2017 PREOPERATIVE DIAGNOSIS Open abdomen. POSTOPERATIVE DIAGNOSIS Open abdomen with adhesions. PROCEDURE 1. Exploratory laparotomy, lysis of adhesions, drainage of cloudy fluid in the abdomen. 2. Closure of midline fascia with permanent suture. Date of procedure 05/22/17 Expiratory laparotomy, small bowel resection. Panendoscopy. Medications and IVs Current Medications Medications (Trade) Dose Ordered Sig/Lanie Route Start Time Stop Time Status Last Admin (Zofran Inj) 4 mg Q4H PRN IV PUSH 05/17/17 03:15 05/28/17 00:05 (Chloraseptic Coy) 2 spray Q2H PRN OROPHARYNG 05/19/17 11:00 05/19/17 15:42 (Xopenex Neb) 1.25 mg Q8HR NEB PRN NEB 05/22/17 06:45 06/07/17 11:05 (Lopressor Inj) 5 mg Q8H PRN IV PUSH 05/22/17 08:15 05/29/17 08:24 (NS Flush) 2 ml UNSCH PRN IV FLUSH 05/22/17 14:15 (NS Flush) 2 ml BID IV FLUSH 05/22/17 21:00 06/07/17 13:15 (Tears Naturale Opth Soln) 1 drop TID EACH EYE 05/22/17 18:00 06/07/17 09:00 Miscellaneous Information 1 Q361D XX 05/22/17 14:15 (Chlorhexidine 2% Cloth) Taper DAILY@04 TOP 05/23/17 04:00 05/19/18 03:59 (Chlorhexidine 2% Cloth) 3 pack UNSCH PRN TOP 05/22/17 14:15 (Mayte-Colace) 1 tab BID PO 05/22/17 21:00 06/07/17 09:40 (Milk Of Magnesia Liq) 30 ml Q12H PRN PO 05/22/17 14:15 (Senokot) 17.2 mg Q12H PRN PO 05/22/17 14:15 (Dulcolax Supp) 10 mg DAILY PRN RECTAL 05/22/17 14:15 (Lactulose Liq) 30 ml DAILY PRN PO 05/22/17 14:15 (Tears Naturale Opth Soln) 1 drop Q8HR EACH EYE 05/22/17 22:00 06/05/17 12:22 (Xanax) 1 mg Q8H PRN PO 05/29/17 15:15 06/02/17 02:58 (Lovenox Inj) 40 mg Q24H SQ 05/29/17 10:00 06/07/17 13:18 (Trandate Inj) 20 mg Q3H PRN IV PUSH 05/29/17 09:30 (Prinivil) 10 mg DAILY PO 05/30/17 09:00 06/07/17 09:40 (Catapres) 0.1 mg Q6H PRN PO 05/30/17 07:30 (Lopressor) 100 mg Q12HR PO 05/31/17 21:00 06/07/17 09:40 (Diflucan) 400 mg DAILY PO 06/01/17 13:00 06/07/17 09:40 (Protonix) 40 mg DAILY PO 06/01/17 13:00 06/07/17 09:40 (Lasix) 40 mg BID@ PO 06/02/17 09:00 Future hold 06/07/17 09:40 (Norvasc) 10 mg DAILY PO 06/03/17 09:00 06/07/17 09:41 (Ambien) 10 mg HS PRN PO 06/02/17 16:00 06/07/17 01:04 (Olton 5-325 Mg) 1 tab Q4H PRN PO 06/04/17 11:45 (Olton 5-325 Mg) 2 tab Q4H PRN PO 06/04/17 11:45 (Albuterol Concentrated Neb) 2.5 mg Q6HR NEB PRN NEB 06/04/17 16:15 06/05/17 00:38 (Mucomyst 10% Neb) 2 ml Q8HR NEB NEB 06/04/17 19:00 06/07/17 11:05 (Augmentin) 500 mg Q8HR PO 06/06/17 11:00 06/07/17 13:15 (Levaquin) 750 mg DAILY PO 06/06/17 10:00 06/13/17 09:59 06/07/17 09:40 A/P Problem List: (1) Perforated small intestine ICD Code: K63.1 - Perforation of intestine (nontraumatic) (2) Dehiscence of closure of fascia, superficial or muscular ICD Code: T81.32XA - Disruption of internal operation (surgical) wound, not elsewhere classified, initial encounter Status: Acute (3) Open abdominal incision with drainage ICD Code: T81.31XA - Disruption of external operation (surgical) wound, not elsewhere classified, initial encounter Status: Acute (4) Physical deconditioning ICD Code: R53.81 - Other malaise Status: Acute (5) Superficial postoperative wound infection ICD Code: T81.4XXA - Infection following a procedure, initial encounter Status: Acute (6) Umbilical hernia, incarcerated ICD Code: K42.0 - Umbilical hernia with obstruction, without gangrene Status: Resolved (7) Small bowel obstruction ICD Code: K56.609 - Unspecified intestinal obstruction, unspecified as to partial versus complete obstruction Status: Resolved (8) Hypertension ICD Code: I10 - Essential (primary) hypertension (9) Cellulitis of left upper extremity ICD Code: L03.114 - Cellulitis of left upper limb Assessment and Plan Neuro/Psych: SP intubation and mechanical ventilation Extubated 05/27. AAOx3 Sinus tachycardia SP 4 L crystalloid in the operating room. Currently receiving fifth liter. Negative CT pulmonary angiogram for pulmonary embolism. Continue crystalloid per general surgery's recommendations. Was intermittently on a phenylephrine in OR, levophed in the unit, all has been discontinue. Postoperative respiratory failure HCAP SP intubation and mechanical ventilation. Albuterol/ipratropium aerosols every 6 hours with albuterol aerosols every 2 hours. Dyspnea Spontaneous breathing trials daily CT pulmonary angiogram 05/22 revealed bilateral lower lobe infiltrates,'s small bilateral pleural effusions. No central pulmonary embolism. Extubated 05/27. 06/01 Patient stil on high requirement of o2, sating 94% on 4 liters nasal canula. Started on Lasix and chest x-ray ordered. 06/02 CXR showed BL pleural effusions. Patient still requiring high O2. Repeat CXR shows BL pleural effusions and persistent bibasilar peripheral changes. CTA chest ordered 06/[address] as described above. Shows bibasilar alveolar consolidations consistent with pneumonia and/or atelectasis. Minimal ascites in the upper abdomen. Degenerative changes and scoliosis of the thoracolumbar spine. Continue Lasix. Patient currently on broad spectrum antibiotics. 06/05 patient still requiring elevated him on of oxygen, satting 92% on 5 L nasal cannula. Continue IV Zosyn and IV vancomycin. Continue supplemental oxygen to keep an oxygen saturation more than 94%. 06/06 Iv antibiotics discontinued - Patient started on oral Levaquin to cover for HCAP. 06/07 Patient still requiring high levels of oxygen. Pulmonology following. Continue Diuresis, Check CXR. If CXR normal will consider CT pulmonary angiogram to rule out PE. GI: SP exploratory laparotomy, partial home meniscectomy with small bowel resection and packing of abdominal wall secondary to wound dehiscence, nausea/vomiting and Postoperative ileus. SP reduction of incarcerated hernia with primary. Hernia defect secondary to incarcerated umbilical hernia with small bowel obstruction secondary to incarcerated small bowel and omentum by Dr. Queen Postoperative ileus GIs status post EGD for NG tube placement secondary to massively dilated stomach and small bowel in OR without cuff cage. Plan to return to OR on Wednesday for closure abdominal wall fascia. Continue NG tube to [facility] Pantoprazole for GI prophylaxis Feed per surgery. 05/22 tolerating regular diet. 06/02 Discussed case with Oksana Ferguson, Surgical PA. states wound has some purulent discharge. Will obtain wound culture and consult infectious disease. 06/03 Wound culture pending. Discussed case with Dr Dao from ID who recommended CT abdomen and pelvis. 06/05 Wound culture is growing group D enterococcus , continue antibiotics as per ID. CT abdomen and pelvis showed thickening of the small bowel especially in the distal small bowel. Abscess not seen. Mild to moderate bilateral pleural effusions with accompanying areas of atelectasis. Continue IV zosyn, IV vancomycin and IV Diflucan. 06/06 IV antibiotics discontinued. Discussed case with ID. Recommends Augmentin for 10 to 14 days to cover for enterococcus. : Echeverria catheter discontinued Endo: Sliding scale with Accu-Cheks to maintain euglycemia/every 6 hours Blood sugars stable. Renal: Acute kidney injury Monitor urine output Accurate I's and O's Likely contrast induced Resolved Heme: Leukocytosis: With blood cell count initially trending down to 15.3, however today on 06/12- 18.5. Continue to monitor CBC with differential. Follow-up ID recommendations. ID: Staph epi cystitis pansensitive Left upper extremity cellulitis Initially placed on levofloxacin, metronidazole and fluconazole day per Dr. Queen Urine culture 05/17 revealed staph epi 06/02 Wound care as per GS. Will consult infecious disease and order a wound culture. WBC is trending up. 06/03 Levaquin and Flagyl discontinued - patient started on IV zosyn, continue Vancomycin. 06/03 Cellulitis resolving. IV antibiotics discontinued. On Po levaquin and augmentin. FEN: Hyponatremia Hypokalemia Replace orally and monitor BMP 06/06 Sodium trending down, lasix held with improvement, resume lasix. Will DC on once a day lasix regime. 06/07 Sodium trending down - today 132, monitor BMP. Continue Lasix for now. MSK: PT evaluate and treat Access - Utilize peripheral IV. - Left radial arterial line placed in OR 05/22 Prophylaxis - GI - pantoprazole - DVT - SCD/pharmacological prophylaxis lovenox. Discharge Planning Dc pending 24 hr fever free period. Problem Qualifiers (1) Dehiscence of closure of fascia, superficial or muscular: Qualified Codes: T81.32XD - Disruption of internal operation (surgical) wound, not elsewhere classified, subsequent encounter (2) Open abdominal incision with drainage: Qualified Codes: T81.31XD - Disruption of external operation (surgical) wound, not elsewhere classified, subsequent encounter (3) Superficial postoperative wound infection: Qualified Codes: T81.4XXD - Infection following a procedure, subsequent encounter Bob Figueroa MD Jun 07, 2017 15:01
--- NOTE | 2017-06-07 15:50 | RADRPT ---
EXAM DATE/TIME: 06/07/2017 15:37 [place] COMPARISON: CT THORAX W/O CONTRAST, June 03, 2017, 10:58. CHEST SINGLE AP, June 02, 2017, 10:02. INDICATIONS : Respiratory disease. MEDICAL HISTORY : Cardiovascular disease. Hypertension. SURGICAL HISTORY : Appendectomy. Umbilical hernia repair. ENCOUNTER: Subsequent ACUITY: 1 week PAIN SCORE: 0/10 LOCATION: Bilateral chest FINDINGS: Portable AP view of the chest demonstrates a normal-sized cardiac silhouette. There are bibasilar ple ural-parenchymal opacities, stable from the prior study. No pneumothorax is visualized. Bones and sof t tissues demonstrate no acute finding. CONCLUSION: Stable chest x-ray with bilateral pleural effusions with associated volume loss and/or airspace conso lidation. Clovis Ashley MD on June 07, 2017 at 15:47 Board Certified Radiologist. This report was verified electronically.
--- NOTE | 2017-06-07 16:22 | HHI.PR ---
Subjective Subjective Notes Resting in bed Did not sleep well last night Objective Vitals/I&O Vital Signs Date Time Temp Pulse Resp B/P (MAP) Pulse Ox O2 Delivery O2 Flow Rate FiO2 06/07/17 12:00 96.9 112 18 128/72 (90) 92 06/07/17 11:05 Nasal Cannula 5.00 06/07/17 10:05 40 Labs Laboratory Tests Test 06/07/17 11:07 White Blood Count 18.5 Red Blood Count 3.86 Hemoglobin 11.5 Hematocrit 34.1 Mean Corpuscular Volume 88.4 Mean Corpuscular Hemoglobin 29.9 Mean Corpuscular Hemoglobin Concent 33.8 Red Cell Distribution Width 13.3 Platelet Count 745 Mean Platelet Volume 8.5 Neutrophils (%) (Auto) 80.9 Lymphocytes (%) (Auto) 9.4 Monocytes (%) (Auto) 9.2 Eosinophils (%) (Auto) 0.3 Basophils (%) (Auto) 0.2 Neutrophils # (Auto) 15.0 Lymphocytes # (Auto) 1.7 Monocytes # (Auto) 1.7 Eosinophils # (Auto) 0.1 Basophils # (Auto) 0.0 CBC Comment DIFF FINAL Differential Comment Blood Urea Nitrogen 10 Creatinine 0.64 Random Glucose 107 Total Protein 6.2 Albumin 1.4 Calcium Level 8.1 Alkaline Phosphatase 170 Aspartate Amino Transf (AST/SGOT) 17 Alanine Aminotransferase (ALT/SGPT) 14 Total Bilirubin 0.6 Sodium Level 132 Potassium Level 3.6 Chloride Level 92 Carbon Dioxide Level 31.8 Anion Gap 8 Estimat Glomerular Filtration Rate 132 Date/Time Source Procedure Growth Status 05/22/17 00:05 Gastric Gastric Occult Blood - Final GASTROCCULT NEGATIVE Complete 05/17/17 00:59 Urine Catheterized Urine Urine Culture - Final Staphylococcus Epidermidis Complete 06/03/17 11:25 Wound Abdomen Gram Stain - Final Complete 06/03/17 11:25 Wound Culture - Final Enterococcus Faecium Complete Radiology Last Impressions Chest X-Ray 05/23/17 0600 Signed Impressions: Service Date/Time: Tuesday, May 23, 2017 05:31 - CONCLUSION: Bilateral pulmonary opacity and bilateral pleural effusions again seen. Increase in opacity in the right perihilar region. Slight increase in pleural effusions. Geovani Marquez MD CT Angiography 05/22/17 0000 Signed Impressions: Service Date/Time: Monday, May 22, 2017 00:24 - CONCLUSION: 1. No evidence of pulmonary embolus. 2. Bilateral inferior lower lobe consolidation/atelectasis. 3. Trace bilateral pleural effusions. Geovani Marquez MD Abdomen/Pelvis CT 05/22/17 Signed Impressions: Service Date/Time: Monday, May 22, 2017 00:24 - CONCLUSION: 1. Post surgical findings with cutaneous germaine anteriorly. 2. Anterior abdominal wall hernia with multiple loops of small bowel again seen. Small bowel distention is seen proximal to the herniated loops indicating possible partial small bowel obstruction or ileus. 3. Free fluid and free air likely due to recent surgery. Geovani Marquez MD Abdomen X-Ray 05/21/17 Signed Impressions: Service Date/Time: Sunday, May 21, 2017 22:24 - CONCLUSION: 1. Findings similar to the prior study of 05/19/2017. Dilated air-filled proximal small bowel. Paucity of gas in the distal small bowel and colon. 2. Differential diagnosis is small bowel obstruction and ileus. Geovani Marquez MD Cardiovascular: Regular Lungs: Clear Abdomen: Other (midline incision---packing removed and replaced; otherwise soft non tender ) Extremities: No edema A/P Problem List: (1) Superficial postoperative wound infection ICD Codes: T81.4XXA - Infection following a procedure, initial encounter Status: Acute (2) Physical deconditioning ICD Codes: R53.81 - Other malaise Status: Acute (3) Postop check ICD Codes: Z09 - Encounter for follow-up examination after completed treatment for conditions other than malignant neoplasm (4) Dehiscence of closure of fascia, superficial or muscular ICD Codes: T81.32XA - Disruption of internal operation (surgical) wound, not elsewhere classified, initial encounter Status: Acute (5) Postoperative ileus ICD Codes: K91.89 - Other postprocedural complications and disorders of digestive system; K56.7 - Ileus, unspecified Status: Acute (6) Elevated WBC count ICD Codes: D72.829 - Elevated white blood cell count, unspecified Status: Chronic Assessment and Plan 51 year old male s/p repair of incarcerated umbilical hernia taken back to the OR Wednesday for ex lap; [facility]; small bowel resection of ischemic bowel with two small perforation; s/p ex lap; [facility]; drainage of fluid collection; closure of abdominal wound -Continue dressing changes -Regular diet -+BM -OOB and mobilize; PT---encouraged the use of pain medications 30-45 minutes prior to start of PT -Theodora PRN -Referral sent to [facility] ---has been accepted once medically cleared -Discussed with Dr. Hassan Attending Statement very frustrated by not going to rehab, concerned about bills that need to be paid, being evicted. Abdomen soft and ND, dressing dry and intact. Plan to rehab when OK with primary team. Continue dressing changes. Get the assistance of case management with disability/ bills/ eviction. The exam, history, and the medical decision-making described in the above note were completed with the assistance of the mid-level provider. I reviewed and agree with the findings presented. I attest that I had a [id number] encounter with the patient on the same day, and personally performed and documented my assessment and findings in the medical record. Problem Qualifiers (1) Superficial postoperative wound infection: Qualified Codes: T81.4XXD - Infection following a procedure, subsequent encounter (2) Dehiscence of closure of fascia, superficial or muscular: Qualified Codes: T81.32XD - Disruption of internal operation (surgical) wound, not elsewhere classified, subsequent encounter Oksana Ferguson Jun 07, 2017 16:22 Emile Delaney MD Jun 07, 2017 16:51
[2017-06-08] VITALS (7 sets, daily range): BP systolic 113–125; BP diastolic 65–76; PULSE 99–107; RESP 17–20; TEMP 96.8–99.7; O2SAT 89–93
[2017-06-08] MEDS: RESP: LEVALBUTEROL HYDROCHLORIDE 1.25 MG/3 ML NEB (PRN) NEB ×3 (00:30→16:35)
[2017-06-08] MEDS: CHLORHEXIDINE GLUCONATE 2 % 1 PACK (2 CLOTHS) TOP SCH ×2 (04:00→21:25)
[2017-06-08] MEDS: ARTIFICIAL TEARS OPTH SOLN 15 ML BTL EACH EYE SCH (04:35)
[2017-06-08] MEDS: AMOXICILLIN/CLAVULANATE K 500 MG TAB PO SCH ×3 (04:36→21:32)
[2017-06-08] MEDS: RESP: ACETYLCYSTEINE 10% 30 ML NEB NEB SCH ×3 (08:11→16:00)
[2017-06-08] MEDS: ENOXAPARIN SODIUM 40 MG/0.4 ML SYRINGE SQ SCH (08:59)
[2017-06-08] MEDS: SODIUM CHLORIDE 0.9% FLUSH 10 ML FLUSH IV FLUSH SCH ×2 (09:00→21:36)
[2017-06-08] MEDS: DOCUSATE SODIUM 50 MG/SENNA 8.6 MG TAB PO SCH ×2 (09:01→21:32)
[2017-06-08] MEDS: FLUCONAZOLE 200 MG TAB PO SCH (09:01)
[2017-06-08] MEDS: FUROSEMIDE 40 MG TAB PO SCH (09:01)
[2017-06-08] MEDS: LEVOFLOXACIN 750 MG TAB PO SCH (09:01)
[2017-06-08] MEDS: METOPROLOL TARTRATE 100 MG TAB PO SCH ×2 (09:02→21:32)
[2017-06-08] MEDS: LISINOPRIL 10 MG TAB PO SCH (09:02)
[2017-06-08] MEDS: PANTOPRAZOLE SOD 40 MG DELAYED RELEASE TAB PO SCH (09:02)
[2017-06-08 09:27] LABS: ANION GAP 9 MEQ/L (5-15); AST (GOT) 18 U/L (15-37); AUTOMATED NEUTROPHIL # 14.7 TH/MM3 (1.8-7.7); BASOPHIL # 0.1 TH/MM3 (0-0.2); BASOPHIL % 0.5 % (0.0-2.0); BICARBONATE 32.4 MEQ/L (21.0-32.0); BLOOD UREA NITROGEN 13 MG/DL (7-18); CHLORIDE 89 MEQ/L (98-107); EOSINOPHIL # 0.1 TH/MM3 (0-0.4); EOSINOPHIL % 0.6 % (0.0-4.0); GLOMERULAR FILTRATION RATE 117 ML/MIN (>89); HEMATOCRIT 32.4 % (39.0-51.0); LYMPH % 8.1 % (9.0-44.0); LYMPHOCYTE # 1.4 TH/MM3 (1.0-4.8); MAGNESIUM 2.2 MG/DL (1.5-2.5); MEAN CELL VOLUME 88.4 FL (80.0-100.0); MEAN CORPUSCULAR HEMOGLOBIN 29.3 PG (27.0-34.0); MEAN CORPUSCULAR HGB CONC 33.2 % (32.0-36.0); MONO % 8.3 % (0.0-8.0); NEUT % 82.5 % (16.0-70.0); PLATELET COUNT 637 TH/MM3 (150-450); POTASSIUM 3.8 MEQ/L (3.5-5.1); RED BLOOD COUNT 3.67 MIL/MM3 (4.50-5.90); RED CELL DISTRIBUTION WIDTH 13.4 % (11.6-17.2); SODIUM (NA) 130 MEQ/L (136-145); WHITE BLOOD COUNT 17.8 TH/MM3 (4.0-11.0)
[2017-06-08 09:28] LABS: ALT (GPT) 10 U/L (12-78); HEMO FLAGS AUTO DIFF
[2017-06-08 09:29] LABS: ALKALINE PHOSPHATASE 192 U/L (45-117); TOTAL BILIRUBIN ADULT 0.6 MG/DL (0.2-1.0)
--- NOTE | 2017-06-08 09:51 | HHI.IDPN ---
Subjective Subjective Remarks Patient is a 51-year-old male, presented to the hospital complaining of his umbilical hernia. Patient has a known long-standing umbilical hernia, and he usually could do still hernia. Apparently he has been having problem with gastroenteritis and was having nausea and vomiting. He could not push back the hernia, and he was trying all day. It was becoming more tender, and he presented to the hospital and was found to have an incarcerated bowel in the hernia. He underwent surgery on May 17 and had reduction of incarcerated hernia with primary repair of the hernia defect. He was doing well, however he started having problem with abdominal tenderness, and he underwent CAT scan which showed the hernia again with incarcerated bowel, and there was free fluid and free air. He underwent another surgery on May 22, and had exploratory laparotomy, lysis of adhesions, small bowel resection of ischemic bowel with 2 small perforation, primary anastomosis, omentectomy, and temporary closure of the abdominal incision with a wound VAC. He went to surgery again on May 25 and had exploratory laparotomy, lysis of adhesion, and closure of his abdominal incision. Culture from surgery on May 22 showed polymicrobial bacteria including enteric rc. Patient was febrile from May 25 2 June 06. His temps got better. However on May 30 he started having fevers again. Also has had persistent leukocytosis. Yesterday he was noted to have purulent drainage from his midline incision. The incision was opened in 3 areas. His temps are better. Patient is complaining of some shortness of breath which she attributes to the abdominal binder. He is also complaining of pain in his left upper extremity, and ultrasound did not show any DVT. He had some occasional coughing. Denies any chest pain. Appetite is fairly poor. He has good bowel movements. Denies any dysuria, and currently has a condom. Patient has no central line, and has peripheral IV in place. He is on Levaquin , Flagyl, Diflucan. Vancomycin was added yesterday. Infectious disease consultation has been requested to evaluate the patient with persistent leukocytosis Notes reviewed D/W Devon HURD (GS) D/C on hold WBC has increased again Also had fevers again last night Breathing is the same, not worse, get DUNCAN Not congested Redness in arm better UA ok CXR with stable effusions and opacities Has not been doing much movement except ROM No line No vines No diarrhea Voiding ok On oral Abx Antibiotics Augmentin Levaquin Diflucan Lines PIV Past Medical History Reviewed Allergies: Coded Allergies: cephalexin (Unverified Allergy, Mild, rash, 06/03/17) Has taken penicillin without any problem hydromorphone (Unverified Adverse Reaction, Unknown, 05/16/17) VOMITING morphine (Unverified Adverse Reaction, Unknown, 05/16/17) VOMITNG Objective . Vital Signs Date Time Temp Pulse Resp B/P (MAP) Pulse Ox O2 Delivery O2 Flow Rate FiO2 06/08/17 08:14 90 Nasal Cannula 4.00 06/08/17 08:00 96.8 106 18 121/65 (83) 91 06/08/17 00:31 93 High Flow Nasal Cannula 4.00 06/07/17 22:25 100.5 115 17 122/72 (89) 90 06/07/17 20:25 Nasal Cannula 5.00 06/07/17 20:00 100.2 115 17 130/72 (91) 91 06/07/17 16:00 98.5 108 18 120/76 (91) 91 06/07/17 12:00 96.9 112 18 128/72 (90) 92 06/07/17 11:05 93 Nasal Cannula 5.00 06/07/17 10:05 Nasal Cannula 4.00 40 Humidified . Laboratory Tests Test 06/07/17 11:07 06/08/17 08:12 White Blood Count 18.5 TH/MM3 17.8 TH/MM3 Red Blood Count 3.86 MIL/MM3 3.67 MIL/MM3 Hemoglobin 11.5 GM/DL 10.8 GM/DL Hematocrit 34.1 % 32.4 % Mean Corpuscular Volume 88.4 FL 88.4 FL Mean Corpuscular Hemoglobin 29.9 PG 29.3 PG Mean Corpuscular Hemoglobin Concent 33.8 % 33.2 % Red Cell Distribution Width 13.3 % 13.4 % Platelet Count 745 TH/MM3 637 TH/MM3 Mean Platelet Volume 8.5 FL 8.1 FL Neutrophils (%) (Auto) 80.9 % 82.5 % Lymphocytes (%) (Auto) 9.4 % 8.1 % Monocytes (%) (Auto) 9.2 % 8.3 % Eosinophils (%) (Auto) 0.3 % 0.6 % Basophils (%) (Auto) 0.2 % 0.5 % Neutrophils # (Auto) 15.0 TH/MM3 14.7 TH/MM3 Lymphocytes # (Auto) 1.7 TH/MM3 1.4 TH/MM3 Monocytes # (Auto) 1.7 TH/MM3 1.5 TH/MM3 Eosinophils # (Auto) 0.1 TH/MM3 0.1 TH/MM3 Basophils # (Auto) 0.0 TH/MM3 0.1 TH/MM3 CBC Comment DIFF FINAL AUTO DIFF Differential Comment Laboratory Tests Test 06/07/17 11:07 06/08/17 08:12 Blood Urea Nitrogen 10 MG/DL 13 MG/DL Creatinine 0.64 MG/DL 0.71 MG/DL Random Glucose 107 MG/DL 108 MG/DL Total Protein 6.2 GM/DL 6.1 GM/DL Albumin 1.4 GM/DL 1.4 GM/DL Calcium Level 8.1 MG/DL 7.9 MG/DL Alkaline Phosphatase 170 U/L 192 U/L Aspartate Amino Transf (AST/SGOT) 17 U/L 18 U/L Alanine Aminotransferase (ALT/SGPT) 14 U/L 10 U/L Total Bilirubin 0.6 MG/DL 0.6 MG/DL Sodium Level 132 MEQ/L 130 MEQ/L Potassium Level 3.6 MEQ/L 3.8 MEQ/L Chloride Level 92 MEQ/L 89 MEQ/L Carbon Dioxide Level 31.8 MEQ/L 32.4 MEQ/L Anion Gap 8 MEQ/L 9 MEQ/L Estimat Glomerular Filtration Rate 132 ML/MIN 117 ML/MIN Phosphorus Level 3.2 MG/DL Magnesium Level 2.2 MG/DL Imaging Last Impressions Chest CT 06/03/17 0000 Signed Impressions: Service Date/Time: May 10:58 - CONCLUSION: 1. Bibasilar alveolar consolidations consistent with pneumonia and/or atelectasis. 2. Small bilateral pleural effusions. 3. Minimal ascites within the upper abdomen. 4. Degenerative changes and scoliosis of the thoracolumbar spine. Roberto Rivera MD Abdomen/Pelvis CT 06/03/17 0000 Signed Impressions: Service Date/Time: May 18:18 - CONCLUSION: 1. Thickening of the small bowel especially the distal small bowel. The patient is status post small bowel surgery. An abscess is not seen. The anterior abdominal wall incision is partially still open. 2. Mild to moderate bilateral pleural effusions with accompanying areas of atelectasis. Clovis Borrero MD Upper Extremity Ultrasound 06/02/17 0000 Signed Impressions: Service Date/Time: Friday, June 02, 2017 23:44 - CONCLUSION: Significant soft tissue swelling of the wrist. If there is concern for infection then a cross-sectional study should be performed. Small amount of superficial thrombus extending into the cephalic vein, minimal. Joshua Adhikari MD Chest X-Ray 06/02/17 0000 Signed Impressions: Service Date/Time: Friday, June 02, 2017 10:02 - CONCLUSION: Persistent bibasal peripheral changes and small bilateral pleural effusions stable in the interval. Julio C Ordonez MD FACR CT Angiography 05/22/17 0000 Signed Impressions: Service Date/Time: Monday, May 22, 2017 00:24 - CONCLUSION: 1. No evidence of pulmonary embolus. 2. Bilateral inferior lower lobe consolidation/atelectasis. 3. Trace bilateral pleural effusions. Geovani Marquez MD Abdomen X-Ray 05/21/17 0000 Signed Impressions: Service Date/Time: Sunday, May 21, 2017 22:24 - CONCLUSION: 1. Findings similar to the prior study of 05/19/2017. Dilated air-filled proximal small bowel. Paucity of gas in the distal small bowel and colon. 2. Differential diagnosis is small bowel obstruction and ileus. Geovani Marquez MD Physical Exam GENERAL: awake and alert, looks comfortable at rest SKIN: Warm and dry. No generalized rash HEAD: Atraumatic. Normocephalic. No temporal wasting, or tenderness. EYES: [place] conjunctiva. No petechia or hemorrhage. Pupils equal, round and reactive to light. Extraocular movements full and intact. No scleral icterus. e. EARS, NOSE AND THROAT: Nose without bleeding or purulent nasal discharge. Slightly dry oral mucosa. No oral lesions noted. No exudate. No oral thrush. NECK: Trachea midline. Supple and not tender, no meningeal signs CARDIOVASCULAR: Tachycardic. Regular rate and rhythm. No murmurs, rubs or gallops heard RESPIRATORY: Decreased breath sounds at the bases. Breath sounds equal bilaterally. No rales, wheezing or rhonchi ABDOMEN: Obese, has midline incision, with 3 open areas, has intact dressings, no erythema noted, min diffuse tenderness. EXTREMITIES: No clubbing, cyanosis, or edema in BLE. LUE swelling almost gone. No calf tenderness. Well perfused and warm. NEUROLOGICAL: Awake and alert. Cranial nerves grossly intact. Motor grossly within normal limits. PSYCHIATRIC: Normal affect, calm and cooperative. LINE: No evidence of infection Assessment & Plan Remarks IMPRESSION Sepsis post abdominal surgery, has wound infection - concern is intraabdominal abscess especially since he had SB perforations - also has LUE cellulitis, no DVT on US Low grade fevers Leukocytosis S/P repair of incarcerated hernia 05/17 S/P exp lap, DARCI, SB resection and primary anastomosis, with SB perforation 05/22, 05/25 (closure) SOB, ?fluid, ?PE RECOMMENDATION On Augmentin and Levaquin Also on Diflucan CTA has been ordered Low grade temps could be due to atelectasis from effusion since patient has not really been doing much with PT Monitor progress Follow CBC Would like to have temps less than 100 for 24 hours before D/C Patient has been accepted at [facility] Explained plan to patient D/W Devon HURD () Shirley Dao MD Jun 08, 2017 09:51
[2017-06-08 10:05] LABS: SCAN/DIFF AUTO DIFF CONFIRMED
[2017-06-08] MEDS ORDERED: IOHEXOL 350 MG/ML 10 ML VIAL (for RAD DIAG) IVCONTRAST ONE (10:42)
--- NOTE | 2017-06-08 11:10 | RADRPT ---
EXAM DATE/TIME: 06/08/2017 10:16 [facility] COMPARISON: CT PULMONARY ANGIOGRAM, May 22, 2017, 0:24. INDICATIONS : Shortness of breath. IV CONTRAST: 73 cc Omnipaque 350 (iohexol) IV RADIATION DOSE: 24.84 CTDIvol (mGy) MEDICAL HISTORY : Hypertension. SURGICAL HISTORY : Appendectomy. Multiple abdominal surgeries ENCOUNTER: Subsequent ACUITY: 1 week PAIN SCALE: 0/10 LOCATION: chest TECHNIQUE: Volumetric scanning of the chest was performed using a pulmonary embolism protocol MIP images were re constructed. Using automated exposure control and adjustment of the mA and/or kV according to patien t size, radiation dose was kept as low as reasonably achievable to obtain optimal diagnostic quality images. DICOM format image data is available electronically for review and comparison. Follow-up recommendations for detected pulmonary nodules are based at a minimum on nodule size and pa tient risk factors according to Fleischner Society Guidelines. FINDINGS: PULMONARY ARTERIES: No filling defects are seen in the pulmonary arteries through the segmental level. LUNGS: There is extensive areas of consolidation throughout the lungs. No pneumothorax is seen. No concern ing pulmonary nodule is visualized. PLEURAE: There is no pleural thickening but there are large bilateral pleural effusions. The right hemidiaphr agm is markedly elevated MEDIASTINUM: There is good visualization of the great vessels of the middle mediastinum. No evidence of mediastin al or hilar adenopathy/mass. MUSCULOSKELETAL: Within normal limits for patient age. MISCELLANEOUS: The visualized upper abdominal organs demonstrate no acute abnormality. CONCLUSION: There are bilateral pleural effusions with adjacent consolidations. No evidence of pulmonary embolis roshan Adhikari MD on June 08, 2017 at 10:52 Board Certified Radiologist. This report was verified electronically.
--- NOTE | 2017-06-08 12:21 | HHI.PR ---
Subjective Subjective Notes Resting in bed No issues overnight Happy to find out no PEs on CT scan Objective Vitals/I&O Vital Signs Date Time Temp Pulse Resp B/P (MAP) Pulse Ox O2 Delivery O2 Flow Rate FiO2 06/08/17 08:14 90 Nasal Cannula 4.00 06/08/17 08:00 96.8 106 18 121/65 (83) 06/07/17 10:05 40 Labs Laboratory Tests Test 06/08/17 08:12 White Blood Count 17.8 Red Blood Count 3.67 Hemoglobin 10.8 Hematocrit 32.4 Mean Corpuscular Volume 88.4 Mean Corpuscular Hemoglobin 29.3 Mean Corpuscular Hemoglobin Concent 33.2 Red Cell Distribution Width 13.4 Platelet Count 637 Mean Platelet Volume 8.1 Neutrophils (%) (Auto) 82.5 Lymphocytes (%) (Auto) 8.1 Monocytes (%) (Auto) 8.3 Eosinophils (%) (Auto) 0.6 Basophils (%) (Auto) 0.5 Neutrophils # (Auto) 14.7 Lymphocytes # (Auto) 1.4 Monocytes # (Auto) 1.5 Eosinophils # (Auto) 0.1 Basophils # (Auto) 0.1 CBC Comment AUTO DIFF Differential Comment AUTO DIFF CONFIRMED Blood Urea Nitrogen 13 Creatinine 0.71 Random Glucose 108 Total Protein 6.1 Albumin 1.4 Calcium Level 7.9 Phosphorus Level 3.2 Magnesium Level 2.2 Alkaline Phosphatase 192 Aspartate Amino Transf (AST/SGOT) 18 Alanine Aminotransferase (ALT/SGPT) 10 Total Bilirubin 0.6 Sodium Level 130 Potassium Level 3.8 Chloride Level 89 Carbon Dioxide Level 32.4 Anion Gap 9 Estimat Glomerular Filtration Rate 117 Date/Time Source Procedure Growth Status 05/22/17 00:05 Gastric Gastric Occult Blood - Final GASTROCCULT NEGATIVE Complete 05/17/17 00:59 Urine Catheterized Urine Urine Culture - Final Staphylococcus Epidermidis Complete 06/03/17 11:25 Wound Abdomen Gram Stain - Final Complete 06/03/17 11:25 Wound Culture - Final Enterococcus Faecium Complete Radiology Last Impressions Chest X-Ray 05/23/17 0600 Signed Impressions: Service Date/Time: Tuesday, May 23, 2017 05:31 - CONCLUSION: Bilateral pulmonary opacity and bilateral pleural effusions again seen. Increase in opacity in the right perihilar region. Slight increase in pleural effusions. Geovani Marquez MD CT Angiography 05/22/17 0000 Signed Impressions: Service Date/Time: Monday, May 22, 2017 00:24 - CONCLUSION: 1. No evidence of pulmonary embolus. 2. Bilateral inferior lower lobe consolidation/atelectasis. 3. Trace bilateral pleural effusions. Geovani Marquez MD Abdomen/Pelvis CT 05/22/17 0000 Signed Impressions: Service Date/Time: Monday, May 22, 2017 00:24 - CONCLUSION: 1. Post surgical findings with cutaneous germaine anteriorly. 2. Anterior abdominal wall hernia with multiple loops of small bowel again seen. Small bowel distention is seen proximal to the herniated loops indicating possible partial small bowel obstruction or ileus. 3. Free fluid and free air likely due to recent surgery. Geovani Marquez MD Abdomen X-Ray 05/21/17 0000 Signed Impressions: Service Date/Time: Sunday, May 21, 2017 22:24 - CONCLUSION: 1. Findings similar to the prior study of 05/19/2017. Dilated air-filled proximal small bowel. Paucity of gas in the distal small bowel and colon. 2. Differential diagnosis is small bowel obstruction and ileus. Geovani Marquez MD Cardiovascular: Regular Lungs: Clear Abdomen: Other (midline incision with packing; abdomen soft; non tender ) Extremities: Other (minimal generalzed edema ) A/P Problem List: (1) Superficial postoperative wound infection ICD Codes: T81.4XXA - Infection following a procedure, initial encounter Status: Acute (2) Physical deconditioning ICD Codes: R53.81 - Other malaise Status: Acute (3) Postop check ICD Codes: Z09 - Encounter for follow-up examination after completed treatment for conditions other than malignant neoplasm (4) Dehiscence of closure of fascia, superficial or muscular ICD Codes: T81.32XA - Disruption of internal operation (surgical) wound, not elsewhere classified, initial encounter Status: Acute (5) Postoperative ileus ICD Codes: K91.89 - Other postprocedural complications and disorders of digestive system; K56.7 - Ileus, unspecified Status: Acute (6) Elevated WBC count ICD Codes: D72.829 - Elevated white blood cell count, unspecified Status: Chronic Assessment and Plan 51 year old male s/p repair of incarcerated umbilical hernia taken back to the OR Wednesday for ex lap; DARCI; small bowel resection of ischemic bowel with two small perforation; s/p ex lap; DARCI; drainage of fluid collection; closure of abdominal wound -CT angiogram shows no PE; still with bilateral pleural effusions -Continue dressing changes -Regular diet -+BM -OOB and mobilize; PT---encouraged the use of pain medications 30-45 minutes prior to start of PT -[facility] PRN -Referral sent to [facility] ---has been accepted once medically cleared Problem Qualifiers (1) Superficial postoperative wound infection: Qualified Codes: T81.4XXD - Infection following a procedure, subsequent encounter (2) Dehiscence of closure of fascia, superficial or muscular: Qualified Codes: T81.32XD - Disruption of internal operation (surgical) wound, not elsewhere classified, subsequent encounter Oksana Ferguson Jun 08, 2017 12:21
--- NOTE | 2017-06-08 12:50 | HHI.PR ---
Subjective Remarks Patient with fevers with a tmax of 100.5 overnight. Denies cp/sob. Denies nausea, vomiting. WBC trending down slowly Patient states that he has trouble taking a deep breath. Patient still requiring elevated levels of oxygen. Objective Vitals Vital Signs Date Time Temp Pulse Resp B/P (MAP) Pulse Ox O2 Delivery O2 Flow Rate FiO2 06/08/17 12:00 98.6 102 18 122/76 (91) 92 06/08/17 08:14 90 Nasal Cannula 4.00 06/08/17 08:00 96.8 106 18 121/65 (83) 91 06/08/17 00:31 93 High Flow Nasal Cannula 4.00 06/07/17 22:25 100.5 115 17 122/72 (89) 90 06/07/17 20:25 Nasal Cannula 5.00 06/07/17 20:00 100.2 115 17 130/72 (91) 91 06/07/17 16:00 98.5 108 18 120/76 (91) 91 I/O 06/07/17 06/07/17 06/07/17 06/08/17 06/08/17 06/08/17 07:00 15:00 23:00 07:00 15:00 23:00 Intake Total 2000 ml 240 ml Output Total 1700 ml 2650 ml 500 ml Balance -1700 ml -650 ml -260 ml Intake Oral 2000 ml 240 ml Output Urine Total 1700 ml 2650 ml 500 ml # Bowel Movements 0 Result Diagram: 06/08/17 0812 06/08/17 [address] Angiography 06/08/17 0000 Signed Impressions: Service Date/Time: Thursday, June 08, 2017 10:16 - CONCLUSION: There are bilateral pleural effusions with adjacent consolidations. No evidence of pulmonary embolism. Joshua Adhikari MD Chest X-Ray 06/07/17 0000 Signed Impressions: Service Date/Time: Wednesday, June 07, 2017 15:37 - CONCLUSION: Stable chest x-ray with bilateral pleural effusions with associated volume loss and/or airspace consolidation. Clovis Ashley MD Chest CT 06/03/17 0000 Signed Impressions: Service Date/Time: May 10:58 - CONCLUSION: 1. Bibasilar alveolar consolidations consistent with pneumonia and/or atelectasis. 2. Small bilateral pleural effusions. 3. Minimal ascites within the upper abdomen. 4. Degenerative changes and scoliosis of the thoracolumbar spine. Roberto Rivera MD Abdomen/Pelvis CT 06/03/17 0000 Signed Impressions: Service Date/Time: May 18:18 - CONCLUSION: 1. Thickening of the small bowel especially the distal small bowel. The patient is status post small bowel surgery. An abscess is not seen. The anterior abdominal wall incision is partially still open. 2. Mild to moderate bilateral pleural effusions with accompanying areas of atelectasis. Clovis Borrero MD Upper Extremity Ultrasound 06/02/17 0000 Signed Impressions: Service Date/Time: Friday, June 02, 2017 23:44 - CONCLUSION: Significant soft tissue swelling of the wrist. If there is concern for infection then a cross-sectional study should be performed. Small amount of superficial thrombus extending into the cephalic vein, minimal. Joshua Adhikari MD Abdomen X-Ray 05/21/17 0000 Signed Impressions: Service Date/Time: Sunday, May 21, 2017 22:24 - CONCLUSION: 1. Findings similar to the prior study of 05/19/2017. Dilated air-filled proximal small bowel. Paucity of gas in the distal small bowel and colon. 2. Differential diagnosis is small bowel obstruction and ileus. Geovani Marquez MD Objective Remarks GENERAL: 51-year-old male, tachypneic with mild to moderate respiratory distress. SKIN: Warm and dry. Well perfused HEAD: Atraumatic. Normocephalic. EYES: Pupils 2 mm bilaterally and reactive. No scleral icterus. No injection or drainage. ENT: No nasal bleeding or discharge. Mucous membranes pink and moist. NECK: Trachea midline. Supple. Airway widely patent. CARDIOVASCULAR: Tachycardic 99, RR. S1, S2. No murmur, no JVD. RESPIRATORY:CTA BL Decreased breath sounds at the bases. NO wheezing or rhonchi auscultated. GASTROINTESTINAL: Abdomen is currently closed. BS active. Postsurgical, benign. No guarding. MUSCULOSKELETAL: Left upper extremity edema and erythema resolved. NO edema in lower extremities. NEUROLOGICAL: Awake, alert, cooperative. Moves bilateral upper and lower extremities. O X 3. Conversant. Repeats himself a lot. Procedures DATE OF PROCEDURE 05/17/2017 PREOPERATIVE DIAGNOSIS Incarcerated umbilical hernia. POSTOPERATIVE DIAGNOSIS Incarcerated umbilical hernia with small bowel obstruction secondary to incarcerated small bowel and omentum. PROCEDURE Reduction of incarcerated hernia with primary repair of hernia defect. DATE OF SURGERY: 05/25/2017 PREOPERATIVE DIAGNOSIS Open abdomen. POSTOPERATIVE DIAGNOSIS Open abdomen with adhesions. PROCEDURE 1. Exploratory laparotomy, lysis of adhesions, drainage of cloudy fluid in the abdomen. 2. Closure of midline fascia with permanent suture. Date of procedure 05/22/17 Expiratory laparotomy, small bowel resection. Panendoscopy. Medications and IVs Current Medications Medications (Trade) Dose Ordered Sig/Lanie Route Start Time Stop Time Status Last Admin (Zofran Inj) 4 mg Q4H PRN IV PUSH 05/17/17 03:15 05/28/17 00:05 (Xopenex Neb) 1.25 mg Q8HR NEB PRN NEB 05/22/17 06:45 06/08/17 08:09 (Lopressor Inj) 5 mg Q8H PRN IV PUSH 05/22/17 08:15 05/29/17 08:24 (NS Flush) 2 ml UNSCH PRN IV FLUSH 05/22/17 14:15 (NS Flush) 2 ml BID IV FLUSH 05/22/17 21:00 06/07/17 20:28 Miscellaneous Information 1 Q361D XX 05/22/17 14:15 (Chlorhexidine 2% Cloth) Taper DAILY@04 TOP 05/23/17 04:00 05/19/18 03:59 (Chlorhexidine 2% Cloth) 3 pack UNSCH PRN TOP 05/22/17 14:15 (Mayte-Colace) 1 tab BID PO 05/22/17 21:00 06/08/17 09:01 (Milk Of Magnesia Liq) 30 ml Q12H PRN PO 05/22/17 14:15 (Senokot) 17.2 mg Q12H PRN PO 05/22/17 14:15 (Dulcolax Supp) 10 mg DAILY PRN RECTAL 05/22/17 14:15 (Lactulose Liq) 30 ml DAILY PRN PO 05/22/17 14:15 (Xanax) 1 mg Q8H PRN PO 05/29/17 15:15 06/02/17 02:58 (Lovenox Inj) 40 mg Q24H SQ 05/29/17 10:00 06/08/17 08:59 (Trandate Inj) 20 mg Q3H PRN IV PUSH 05/29/17 09:30 (Prinivil) 10 mg DAILY PO 05/30/17 09:00 06/08/17 09:02 (Catapres) 0.1 mg Q6H PRN PO 05/30/17 07:30 (Lopressor) 100 mg Q12HR PO 05/31/17 21:00 06/08/17 09:02 (Diflucan) 400 mg DAILY PO 06/01/17 13:00 06/08/17 09:01 (Protonix) 40 mg DAILY PO 06/01/17 13:00 06/08/17 09:02 (Norvasc) 10 mg DAILY PO 06/03/17 09:00 06/08/17 09:01 (Ambien) 10 mg HS PRN PO 06/02/17 16:00 06/07/17 01:04 ([place] 5-325 Mg) 1 tab Q4H PRN PO 06/04/17 11:45 ([place] 5-325 Mg) 2 tab Q4H PRN PO 06/04/17 11:45 (Albuterol Concentrated Neb) 2.5 mg Q6HR NEB PRN NEB 06/04/17 16:15 06/05/17 00:38 (Mucomyst 10% Neb) 2 ml Q8HR NEB NEB 06/04/17 19:00 06/08/17 08:11 (Augmentin) 500 mg Q8HR PO 06/06/17 11:00 06/08/17 04:36 (Levaquin) 750 mg DAILY PO 06/06/17 10:00 06/13/17 09:59 06/08/17 09:01 A/P Problem List: (1) Perforated small intestine ICD Code: K63.1 - Perforation of intestine (nontraumatic) (2) Dehiscence of closure of fascia, superficial or muscular ICD Code: T81.32XA - Disruption of internal operation (surgical) wound, not elsewhere classified, initial encounter Status: Acute (3) Open abdominal incision with drainage ICD Code: T81.31XA - Disruption of external operation (surgical) wound, not elsewhere classified, initial encounter Status: Acute (4) Physical deconditioning ICD Code: R53.81 - Other malaise Status: Acute (5) Superficial postoperative wound infection ICD Code: T81.4XXA - Infection following a procedure, initial encounter Status: Acute (6) Umbilical hernia, incarcerated ICD Code: K42.0 - Umbilical hernia with obstruction, without gangrene Status: Resolved (7) Small bowel obstruction ICD Code: K56.609 - Unspecified intestinal obstruction, unspecified as to partial versus complete obstruction Status: Resolved (8) Hypertension ICD Code: I10 - Essential (primary) hypertension (9) Cellulitis of left upper extremity ICD Code: L03.114 - Cellulitis of left upper limb Assessment and Plan Neuro/Psych: SP intubation and mechanical ventilation Extubated 05/27. AAOx3 Sinus tachycardia SP 4 L crystalloid in the operating room. Currently receiving fifth liter. Negative CT pulmonary angiogram for pulmonary embolism. Continue crystalloid per general surgery's recommendations. Was intermittently on a phenylephrine in OR, levophed in the unit, all has been discontinue. Postoperative respiratory failure HCAP BL Pleural effusions - likely parapneumonic SP intubation and mechanical ventilation. Albuterol/ipratropium aerosols every 6 hours with albuterol aerosols every 2 hours. Dyspnea Spontaneous breathing trials daily CT pulmonary angiogram 05/22 revealed bilateral lower lobe infiltrates,'s small bilateral pleural effusions. No central pulmonary embolism. Extubated 05/27. 06/01 Patient stil on high requirement of o2, sating 94% on 4 liters nasal canula. Started on Lasix and chest x-ray ordered. 06/02 CXR showed BL pleural effusions. Patient still requiring high O2. Repeat CXR shows BL pleural effusions and persistent bibasilar peripheral changes. CTA chest ordered 06/[address] as described above. Shows bibasilar alveolar consolidations consistent with pneumonia and/or atelectasis. Minimal ascites in the upper abdomen. Degenerative changes and scoliosis of the thoracolumbar spine. Continue Lasix. Patient currently on broad spectrum antibiotics. 06/05 patient still requiring elevated him on of oxygen, satting 92% on 5 L nasal cannula. Continue IV Zosyn and IV vancomycin. Continue supplemental oxygen to keep an oxygen saturation more than 94%. 06/06 Iv antibiotics discontinued - Patient started on oral Levaquin to cover for HCAP. 06/07 Patient still requiring high levels of oxygen. Pulmonology following. Continue Diuresis, Check CXR. If CXR normal will consider CT pulmonary angiogram to rule out PE. 06/08 CT pulmonary angiogram ruled out pulmonary embolism. However it shows bilateral pleural effusions with adjacent consolidations. Will order US guided thoracentesis. GI: SP exploratory laparotomy, partial home meniscectomy with small bowel resection and packing of abdominal wall secondary to wound dehiscence, nausea/vomiting and Postoperative ileus. SP reduction of incarcerated hernia with primary. Hernia defect secondary to incarcerated umbilical hernia with small bowel obstruction secondary to incarcerated small bowel and omentum by Dr. Queen Postoperative ileus GIs status post EGD for NG tube placement secondary to massively dilated stomach and small bowel in OR without cuff cage. Plan to return to OR on Wednesday for closure abdominal wall fascia. Continue NG tube to [facility] Pantoprazole for GI prophylaxis Feed per surgery. 05/22 tolerating regular diet. 06/02 Discussed case with Oksana Ferguson, Surgical PA. states wound has some purulent discharge. Will obtain wound culture and consult infectious disease. 06/03 Wound culture pending. Discussed case with Dr Dao from ID who recommended CT abdomen and pelvis. 06/05 Wound culture is growing group D enterococcus , continue antibiotics as per ID. CT abdomen and pelvis showed thickening of the small bowel especially in the distal small bowel. Abscess not seen. Mild to moderate bilateral pleural effusions with accompanying areas of atelectasis. Continue IV zosyn, IV vancomycin and IV Diflucan. 06/06 IV antibiotics discontinued. Discussed case with ID. Recommends Augmentin for 10 to 14 days to cover for enterococcus. : Echeverria catheter discontinued Endo: Sliding scale with Accu-Cheks to maintain euglycemia/every 6 hours Blood sugars stable. Renal: Acute kidney injury Monitor urine output Accurate I's and O's Likely contrast induced Resolved Heme: Leukocytosis: The patient presented with a WBC count of 18.7 which normalized for a few days and then started to increase again. WBC peaked at 18.5 on 06/07/17 and now is trending down to 17.8. Leukocytosis likely secondary to hospital-acquired pneumonia and abdominal wound infection. Continue to monitor CBC with differential. ID: Staph epi cystitis pansensitive Left upper extremity cellulitis Initially placed on levofloxacin, metronidazole and fluconazole day per Dr. Queen Urine culture 05/17 revealed staph epi 06/02 Wound care as per GS. Will consult infecious disease and order a wound culture. WBC is trending up. 06/03 Levaquin and Flagyl discontinued - patient started on IV zosyn, continue Vancomycin. 06/08 Cellulitis resolved. IV antibiotics discontinued. Continue antibiotics as per ID recommendations. On Po levaquin and augmentin. FEN: Hyponatremia Hypokalemia Replace orally and monitor BMP 06/06 Sodium trending down, lasix held with improvement, resume lasix. Will DC on once a day lasix regime. 06/07 Sodium trending down - today 132, monitor BMP. Continue Lasix for now. 06/08 sodium continues to trend down, now 130. I will discontinue Lasix as peripheral edema has resolved. We'll place patient on a fluid restriction. Continue to monitor BMP and sodium levels. MSK: PT evaluate and treat Access - Utilize peripheral IV. - Left radial arterial line placed in OR 05/22 Prophylaxis - GI - pantoprazole - DVT - SCD/pharmacological prophylaxis lovenox. Discharge Planning Dc pending clinical improvement iwth improvement of the level of hypoxemia and decrease need in oxygen consumption. DC when patient afebrile x 24 hrs. Problem Qualifiers (1) Dehiscence of closure of fascia, superficial or muscular: Qualified Codes: T81.32XD - Disruption of internal operation (surgical) wound, not elsewhere classified, subsequent encounter (2) Open abdominal incision with drainage: Qualified Codes: T81.31XD - Disruption of external operation (surgical) wound, not elsewhere classified, subsequent encounter (3) Superficial postoperative wound infection: Qualified Codes: T81.4XXD - Infection following a procedure, subsequent encounter Bob Figueroa MD Jun 08, 2017 12:50
[2017-06-08 14:53] LABS: INTERNATIONAL NORMALIZED RATIO 1.1 RATIO; PROTHROMBIN TIME - PATIENT 11.7 SEC (9.8-11.6)
[2017-06-08 19:19] LABS: APTT (PATIENT) 31.3 SEC (24.3-30.1)
[2017-06-09] VITALS: BP 120/80; PULSE 119; RESP 17; TEMP 99.2; O2SAT 90
[2017-06-09 03:41] VITALS: O2SAT 92
[2017-06-09] MEDS: AMOXICILLIN/CLAVULANATE K 500 MG TAB PO SCH ×2 (06:00→13:54)
[2017-06-09 08:00] VITALS: BP 110/72; PULSE 109; RESP 18; TEMP 96.4; O2SAT 94
[2017-06-09] MEDS: LISINOPRIL 10 MG TAB PO SCH (09:12)
[2017-06-09] MEDS: LEVOFLOXACIN 750 MG TAB PO SCH (09:12)
[2017-06-09] MEDS: PANTOPRAZOLE SOD 40 MG DELAYED RELEASE TAB PO SCH (09:12)
[2017-06-09] MEDS: FLUCONAZOLE 200 MG TAB PO SCH (09:13)
[2017-06-09] MEDS: DOCUSATE SODIUM 50 MG/SENNA 8.6 MG TAB PO SCH (09:13)
[2017-06-09] MEDS: METOPROLOL TARTRATE 100 MG TAB PO SCH (09:13)
[2017-06-09] MEDS: SODIUM CHLORIDE 0.9% FLUSH 10 ML FLUSH IV FLUSH SCH (09:15)
--- NOTE | 2017-06-09 09:40 | RADRPT ---
EXAM DATE/TIME: 06/09/2017 07:50 [facility] COMPARISON: CT PULMONARY ANGIOGRAM, June 08, 2017, 10:16. INDICATIONS : Pleural effusion. MEDICAL HISTORY : Hypercholesterolemia. Hypertension. Measles. SURGICAL HISTORY : Appendectomy. Bowel resection. Abdominal wound closure. ENCOUNTER: Initial ACUITY: 1 day PAIN SCORE: 3/10 LOCATION: Left chest MEASUREMENTS: SKIN TO PARIETAL PLEURA: 3.3 cm SKIN TO MAX SAFE DEPTH: 4.5 cm ESTIMATED FLUID VOLUME: 187 cc FLUID COMPOSITION: simple FINDINGS: No marking was performed. There is a small left-sided pleural effusion with volume of approximately 1 90 mL. CONCLUSION: 1. Very small, approximately 190 mL volume, left-sided pleural effusion. The patient has significantl y restricted mobility and unable to tolerate ideal positioning for thoracentesis. Safe thoracentesis procedure would be very challenging but may be performed if absolutely clinically necessary. Sumanth Hill MD on June 09, 2017 at 9:35 Board Certified Radiologist. This report was verified electronically.
--- NOTE | 2017-06-09 11:11 | HHI.PR ---
Subjective Subjective Notes Resting in bed More motivated to move out of bed today Objective Vitals/I&O Vital Signs Date Time Temp Pulse Resp B/P (MAP) Pulse Ox O2 Delivery O2 Flow Rate FiO2 06/09/17 08:00 96.4 109 18 110/72 (85) 94 06/09/17 03:41 Nasal Cannula 5.00 06/07/17 10:05 40 Labs Laboratory Tests Test 06/08/17 13:46 06/08/17 18:33 Prothrombin Time 11.7 Prothromb Time International Ratio 1.1 Activated Partial Thromboplast Time 31.3 Date/Time Source Procedure Growth Status 05/22/17 00:05 Gastric Gastric Occult Blood - Final GASTROCCULT NEGATIVE Complete 05/17/17 00:59 Urine Catheterized Urine Urine Culture - Final Staphylococcus Epidermidis Complete 06/03/17 11:25 Wound Abdomen Gram Stain - Final Complete 06/03/17 11:25 Wound Culture - Final Enterococcus Faecium Complete Radiology Last Impressions Chest X-Ray 05/23/17 0600 Signed Impressions: Service Date/Time: Tuesday, May 23, 2017 05:31 - CONCLUSION: Bilateral pulmonary opacity and bilateral pleural effusions again seen. Increase in opacity in the right perihilar region. Slight increase in pleural effusions. Geovani Marquez MD CT Angiography 05/22/17 0000 Signed Impressions: Service Date/Time: Monday, May 22, 2017 00:24 - CONCLUSION: 1. No evidence of pulmonary embolus. 2. Bilateral inferior lower lobe consolidation/atelectasis. 3. Trace bilateral pleural effusions. Geovani Marquez MD Abdomen/Pelvis CT 05/22/17 0000 Signed Impressions: Service Date/Time: Monday, May 22, 2017 00:24 - CONCLUSION: 1. Post surgical findings with cutaneous germaine anteriorly. 2. Anterior abdominal wall hernia with multiple loops of small bowel again seen. Small bowel distention is seen proximal to the herniated loops indicating possible partial small bowel obstruction or ileus. 3. Free fluid and free air likely due to recent surgery. Geovani Marquez MD Abdomen X-Ray 05/21/17 0000 Signed Impressions: Service Date/Time: Sunday, May 21, 2017 22:24 - CONCLUSION: 1. Findings similar to the prior study of 05/19/2017. Dilated air-filled proximal small bowel. Paucity of gas in the distal small bowel and colon. 2. Differential diagnosis is small bowel obstruction and ileus. Geovani Marquez MD Cardiovascular: Regular Lungs: Clear Abdomen: Other (midline incision with packing--- abdomen soft non tender ) Extremities: Other (generalized edema---appears better today ) A/P Problem List: (1) Superficial postoperative wound infection ICD Codes: T81.4XXA - Infection following a procedure, initial encounter Status: Acute (2) Physical deconditioning ICD Codes: R53.81 - Other malaise Status: Acute (3) Postop check ICD Codes: Z09 - Encounter for follow-up examination after completed treatment for conditions other than malignant neoplasm (4) Dehiscence of closure of fascia, superficial or muscular ICD Codes: T81.32XA - Disruption of internal operation (surgical) wound, not elsewhere classified, initial encounter Status: Acute (5) Postoperative ileus ICD Codes: K91.89 - Other postprocedural complications and disorders of digestive system; K56.7 - Ileus, unspecified Status: Acute (6) Elevated WBC count ICD Codes: D72.829 - Elevated white blood cell count, unspecified Status: Chronic Assessment and Plan 51 year old male s/p repair of incarcerated umbilical hernia taken back to the OR for ex lap; DARCI; small bowel resection of ischemic bowel with two small perforation; s/p ex lap; DARCI; drainage of fluid collection; closure of abdominal wound -CT angiogram shows no PE; still with bilateral pleural effusions -US to eval for possible thoracentesis--- not enough visualized to drain -Continue dressing changes -Regular diet -+BM -OOB and mobilize; PT---encouraged the use of pain medications 30-45 minutes prior to start of PT; encouraged increase in mobilization -IS -Ambien PRN -Referral sent to [facility] ---has been accepted once medically cleared Attending Statement patient seen at bedside patient doing better needs to ambulate work on transfer to stark Attestation The exam, history, and the medical decision-making described in the above note were completed with the assistance of the mid-level provider. I reviewed and agree with the findings presented. I attest that I had a [id number] encounter with the patient on the same day, and personally performed and documented my assessment and findings in the medical record. Problem Qualifiers (1) Superficial postoperative wound infection: Qualified Codes: T81.4XXD - Infection following a procedure, subsequent encounter (2) Dehiscence of closure of fascia, superficial or muscular: Qualified Codes: T81.32XD - Disruption of internal operation (surgical) wound, not elsewhere classified, subsequent encounter Oksana Ferguson Jun 09, 2017 11:11 Brandon Cisneros MD Jun 14, 2017 13:37
--- NOTE | 2017-06-09 11:44 | HHI.DS ---
Discharge Summary Admission Date May 17, 2017 at 03:13 Admitting Diagnosis Incarcerated Umbilical Hernia (1) Superficial postoperative wound infection ICD Codes: T81.4XXA - Infection following a procedure, initial encounter Status: Acute (2) Physical deconditioning ICD Codes: R53.81 - Other malaise Status: Acute (3) Postop check ICD Codes: Z09 - Encounter for follow-up examination after completed treatment for conditions other than malignant neoplasm (4) Dehiscence of closure of fascia, superficial or muscular ICD Codes: T81.32XA - Disruption of internal operation (surgical) wound, not elsewhere classified, initial encounter Status: Acute (5) Postoperative ileus ICD Codes: K91.89 - Other postprocedural complications and disorders of digestive system; K56.7 - Ileus, unspecified Status: Acute (6) Elevated WBC count ICD Codes: D72.829 - Elevated white blood cell count, unspecified Status: Chronic CBC/BMP: 06/08/17 0812 06/08/17 0812 Significant Findings Laboratory Tests Test 06/07/17 11:07 06/08/17 08:12 06/08/17 13:46 06/08/17 18:33 White Blood Count 18.5 TH/MM3 (4.0-11.0) 17.8 TH/MM3 (4.0-11.0) Red Blood Count 3.86 MIL/MM3 (4.50-5.90) 3.67 MIL/MM3 (4.50-5.90) Hemoglobin 11.5 GM/DL (13.0-17.0) 10.8 GM/DL (13.0-17.0) Hematocrit 34.1 % (39.0-51.0) 32.4 % (39.0-51.0) Platelet Count 745 TH/MM3 (150-450) 637 TH/MM3 (150-450) Neutrophils (%) (Auto) 80.9 % (16.0-70.0) 82.5 % (16.0-70.0) Monocytes (%) (Auto) 9.2 % (0.0-8.0) 8.3 % (0.0-8.0) Neutrophils # (Auto) 15.0 TH/MM3 (1.8-7.7) 14.7 TH/MM3 (1.8-7.7) Monocytes # (Auto) 1.7 TH/MM3 (0-0.9) 1.5 TH/MM3 (0-0.9) Random Glucose 107 MG/DL (74-106) 108 MG/DL (74-106) Total Protein 6.2 GM/DL (6.4-8.2) 6.1 GM/DL (6.4-8.2) Albumin 1.4 GM/DL (3.4-5.0) 1.4 GM/DL (3.4-5.0) Calcium Level 8.1 MG/DL (8.5-10.1) 7.9 MG/DL (8.5-10.1) Alkaline Phosphatase 170 U/L (45-117) 192 U/L (45-117) Sodium Level 132 MEQ/L (136-145) 130 MEQ/L (136-145) Chloride Level 92 MEQ/L (98-107) 89 MEQ/L (98-107) Lymphocytes (%) (Auto) 8.1 % (9.0-44.0) Alanine Aminotransferase (ALT/SGPT) 10 U/L (12-78) Carbon Dioxide Level 32.4 MEQ/L (21.0-32.0) Prothrombin Time 11.7 SEC (9.8-11.6) Activated Partial Thromboplast Time 31.3 SEC (24.3-30.1) PE at Discharge abdomen open in areas with wet to dry, no pus Pt Condition on Discharge: Good Discharge Disposition: Rehab Inpatient Discharge Instructions DIET: Follow Instructions for: As Tolerated, No Restrictions Activities you can perform: Regular-No Restrictions Oksana Ferguson Jun 09, 2017 11:44
[2017-06-09] MEDS ORDERED: LEVA750T9 PO (11:56)
[2017-06-09] MEDS ORDERED: Amoxicil-Clavulanate PO (11:56)
[2017-06-09] MEDS ORDERED: ALBU.5I NEB (11:56)
[2017-06-09] MEDS ORDERED: XANA1TAB2 PO (11:56)
[2017-06-09] MEDS ORDERED: AMBI10TA PO (11:56)
[2017-06-09] MEDS ORDERED: LISI10TA3 PO (11:56)
[2017-06-09] MEDS ORDERED: METO-338 PO (11:56)
[2017-06-09] MEDS ORDERED: LEVA1.257 NEB (11:56)
[2017-06-09] MEDS ORDERED: PANT40TA3 PO (11:56)
[2017-06-09] MEDS ORDERED: ENOX40P SQ (11:56)
[2017-06-09] MEDS ORDERED: AMLO10 PO (11:56)
[2017-06-09] MEDS ORDERED: CLON.1 PO (11:56)
[2017-06-09] MEDS ORDERED: DIFL200T PO (11:56)
[2017-06-09 12:00] VITALS: BP 118/77; PULSE 103; RESP 18; TEMP 96.1; O2SAT 93
--- NOTE | 2017-06-09 12:44 | HHI.PR ---
Subjective Remarks DOING BETTER NEEDS TO DO IS HAS BEEN ACCEPTED BY [facility] Objective Vitals Vital Signs Date Time Temp Pulse Resp B/P (MAP) Pulse Ox O2 Delivery O2 Flow Rate FiO2 06/09/17 12:00 96.1 103 18 118/77 (91) 93 06/09/17 08:00 96.4 109 18 110/72 (85) 94 06/09/17 03:41 92 Nasal Cannula 5.00 06/09/17 00:00 99.2 119 17 120/80 (93) 90 06/08/17 21:38 91 Nasal Cannula 5.00 06/08/17 20:00 98.0 99 17 113/71 (85) 91 06/08/17 16:00 99.7 107 20 125/71 (89) 89 I/O 06/08/17 06/08/17 06/08/17 06/09/17 06/09/17 06/09/17 07:00 15:00 23:00 07:00 15:00 23:00 Intake Total 240 ml 480 ml 240 ml Output Total 500 ml 1270 ml Balance -260 ml -790 ml 240 ml Intake Oral 240 ml 480 ml 240 ml Output Urine Total 500 ml 1270 ml Result Diagram: 06/08/17 0812 06/08/17 0812 Other Results Laboratory Tests Test 06/07/17 11:07 06/08/17 08:12 06/08/17 13:46 06/08/17 18:33 White Blood Count 18.5 TH/MM3 17.8 TH/MM3 Red Blood Count 3.86 MIL/MM3 3.67 MIL/MM3 Hemoglobin 11.5 GM/DL 10.8 GM/DL Hematocrit 34.1 % 32.4 % Mean Corpuscular Volume 88.4 FL 88.4 FL Mean Corpuscular Hemoglobin 29.9 PG 29.3 PG Mean Corpuscular Hemoglobin Concent 33.8 % 33.2 % Red Cell Distribution Width 13.3 % 13.4 % Platelet Count 745 TH/MM3 637 TH/MM3 Mean Platelet Volume 8.5 FL 8.1 FL Neutrophils (%) (Auto) 80.9 % 82.5 % Lymphocytes (%) (Auto) 9.4 % 8.1 % Monocytes (%) (Auto) 9.2 % 8.3 % Eosinophils (%) (Auto) 0.3 % 0.6 % Basophils (%) (Auto) 0.2 % 0.5 % Neutrophils # (Auto) 15.0 TH/MM3 14.7 TH/MM3 Lymphocytes # (Auto) 1.7 TH/MM3 1.4 TH/MM3 Monocytes # (Auto) 1.7 TH/MM3 1.5 TH/MM3 Eosinophils # (Auto) 0.1 TH/MM3 0.1 TH/MM3 Basophils # (Auto) 0.0 TH/MM3 0.1 TH/MM3 CBC Comment DIFF FINAL AUTO DIFF Differential Comment AUTO DIFF CONFIRMED Blood Urea Nitrogen 10 MG/DL 13 MG/DL Creatinine 0.64 MG/DL 0.71 MG/DL Random Glucose 107 MG/DL 108 MG/DL Total Protein 6.2 GM/DL 6.1 GM/DL Albumin 1.4 GM/DL 1.4 GM/DL Calcium Level 8.1 MG/DL 7.9 MG/DL Alkaline Phosphatase 170 U/L 192 U/L Aspartate Amino Transf (AST/SGOT) 17 U/L 18 U/L Alanine Aminotransferase (ALT/SGPT) 14 U/L 10 U/L Total Bilirubin 0.6 MG/DL 0.6 MG/DL Sodium Level 132 MEQ/L 130 MEQ/L Potassium Level 3.6 MEQ/L 3.8 MEQ/L Chloride Level 92 MEQ/L 89 MEQ/L Carbon Dioxide Level 31.8 MEQ/L 32.4 MEQ/L Anion Gap 8 MEQ/L 9 MEQ/L Estimat Glomerular Filtration Rate 132 ML/MIN 117 ML/MIN Phosphorus Level 3.2 MG/DL Magnesium Level 2.2 MG/DL Prothrombin Time 11.7 SEC Prothromb Time International Ratio 1.1 RATIO Activated Partial Thromboplast Time 31.3 SEC Imaging Last Impressions Chest Ultrasound 06/09/17 0000 Signed Impressions: Service Date/Time: Friday, June 09, 2017 07:50 - CONCLUSION: 1. Very small, approximately 190 mL volume, left-sided pleural effusion. The patient has significantly restricted mobility and unable to tolerate ideal positioning for thoracentesis. Safe thoracentesis procedure would be very challenging but may be performed if absolutely clinically necessary. Sumanth Hill MD CT Angiography 06/08/17 0000 Signed Impressions: Service Date/Time: Thursday, June 08, 2017 10:16 - CONCLUSION: There are bilateral pleural effusions with adjacent consolidations. No evidence of pulmonary embolism. Joshua Adhikari MD Chest X-Ray 06/07/17 0000 Signed Impressions: Service Date/Time: Wednesday, June 07, 2017 15:37 - CONCLUSION: Stable chest x-ray with bilateral pleural effusions with associated volume loss and/or airspace consolidation. Clovis Ashley MD Chest CT 06/03/17 0000 Signed Impressions: Service Date/Time: May 10:58 - CONCLUSION: 1. Bibasilar alveolar consolidations consistent with pneumonia and/or atelectasis. 2. Small bilateral pleural effusions. 3. Minimal ascites within the upper abdomen. 4. Degenerative changes and scoliosis of the thoracolumbar spine. Roberto Rivera MD Abdomen/Pelvis CT 06/03/17 0000 Signed Impressions: Service Date/Time: May 18:18 - CONCLUSION: 1. Thickening of the small bowel especially the distal small bowel. The patient is status post small bowel surgery. An abscess is not seen. The anterior abdominal wall incision is partially still open. 2. Mild to moderate bilateral pleural effusions with accompanying areas of atelectasis. Clovis Borrero MD Upper Extremity Ultrasound 06/02/17 0000 Signed Impressions: Service Date/Time: Friday, June 02, 2017 23:44 - CONCLUSION: Significant soft tissue swelling of the wrist. If there is concern for infection then a cross-sectional study should be performed. Small amount of superficial thrombus extending into the cephalic vein, minimal. Joshua Adhikari MD Abdomen X-Ray 05/21/17 0000 Signed Impressions: Service Date/Time: Sunday, May 21, 2017 22:24 - CONCLUSION: 1. Findings similar to the prior study of 05/19/2017. Dilated air-filled proximal small bowel. Paucity of gas in the distal small bowel and colon. 2. Differential diagnosis is small bowel obstruction and ileus. Geovani Marquez MD Objective Remarks GENERAL: Awake alert and Oriented- talkative and cooperative SKIN: Warm and dry. HEAD: Atraumatic. Normocephalic. EYES: Pupils equal and round. No scleral icterus. No injection or drainage. Extraocular muscles intact ENT: No nasal bleeding or discharge. Mucous membranes pink and moist. Tongue is midline NECK: Trachea midline. No JVD. Supple CARDIOVASCULAR: Regular rate and rhythm. S1 and S2 no S3-S4 RESPIRATORY: No accessory muscle use. Clear to auscultation. Breath sounds equal bilaterally. Decreased breath sounds bilaterally GASTROINTESTINAL: Abdomen soft, non-tender, nondistended. Hepatic and splenic margins not palpable. Abdomen is dressed and packed MUSCULOSKELETAL: Extremities without clubbing, cyanosis, or edema. No obvious deformities. NEUROLOGICAL: Awake and alert. No obvious cranial nerve deficits. Motor grossly within normal limits. 4 out of 5 muscle strength in the arms and legs. Normal speech. PSYCHIATRIC: Appropriate mood and affect; insight and judgment normal. Procedures DATE OF PROCEDURE 05/17/2017 PREOPERATIVE DIAGNOSIS Incarcerated umbilical hernia. POSTOPERATIVE DIAGNOSIS Incarcerated umbilical hernia with small bowel obstruction secondary to incarcerated small bowel and omentum. PROCEDURE Reduction of incarcerated hernia with primary repair of hernia defect. DATE OF SURGERY: 05/25/2017 PREOPERATIVE DIAGNOSIS Open abdomen. POSTOPERATIVE DIAGNOSIS Open abdomen with adhesions. PROCEDURE 1. Exploratory laparotomy, lysis of adhesions, drainage of cloudy fluid in the abdomen. 2. Closure of midline fascia with permanent suture. Date of procedure 05/22/17 Expiratory laparotomy, small bowel resection. Panendoscopy. Medications and IVs Current Medications Sodium Chloride 1,000 ml @ 999 mls/hr BOLUS ONCE IV Last administered on 22:06; Start 05/16/17 at 22:00; Stop 05/16/17 at 23:00; Status DC Ondansetron HCl (Zofran Inj) 4 mg ONCE ONCE IV PUSH Last administered on 05/16 22:06; Start 05/16/17 at 22:00; Stop 05/16/17 at 22:01; Status DC Morphine Sulfate (Morphine Inj) 4 mg ONCE ONCE IV PUSH Last administered on 22:07; Start 05/16/17 at 22:00; Stop 05/16/17 at 22:01; Status DC Iohexol (Omnipaque 350 Inj) 96 ml STK-MED ONCE IVCONTRAST Last administered on 05/16/17 23:22; Start 05/16/17 at 23:22; Stop 05/16/17 at 23:23; Status DC Morphine Sulfate (Morphine Inj) 4 mg ONCE ONCE IV PUSH Last administered on 10 /30/17at 01:20; Start 05/17/17 at 00:30; Stop 05/17/17 at 00:31; Status DC Ondansetron HCl (Zofran Inj) 4 mg ONCE ONCE IV PUSH Last administered on 05/17 01:20; Start 05/17/17 at 00:30; Stop 05/17/17 at 00:31; Status DC Acetaminophen 100 ml @ As Directed STK-MED ONCE IV ; Start 05/17/17 at 01:14; Stop 05/17/17 at 01:15; Status DC Levofloxacin/ Dextrose 100 ml @ As Directed STK-MED ONCE IV ; Start 05/17/17 at 01:45; Stop 05/17/17 at 01:46; Status DC Sodium Chloride 1,000 ml @ 0 mls/hr [id number] IV Last administered on 05:03; Start 05/17/17 at 03:10; Stop 06/01/17 at 13:02; Status DC Sodium Chloride (NS Flush) 2 ml UNSCH PRN IV FLUSH FLUSH AFTER USING IV ACCESS ; Start 05/17/17 at 03:15; Stop 05/23/17 at 09:49; Status DC Sodium Chloride (NS Flush) 2 ml BID IV FLUSH Last administered on 05/23/17 09: 26; Start 05/17/17 at 09:00; Stop 05/23/17 at 09:49; Status DC Ketorolac Tromethamine (Toradol Inj) 30 mg Q6H PRN IVP PAIN SCALE 1 TO 5 Last administered on 05/21/17 21:05; Start 05/17/17 at 03:15; Stop 05/22/17 at 03: 14; Status DC Ondansetron HCl (Zofran Inj) 4 mg Q4H PRN IV PUSH NAUSEA OR VOMITING Last administered on 05/28/17 00:05; Start 05/17/17 at 03:15 Miscellaneous Information (Post-op Orders (for Pharmacy)) STAT ONCE XX ; Start 05/17/17 at 03:15; Stop 05/17/17 at 03:19; Status DC Naloxone HCl (Narcan Inj) 0.4 mg UNSCH PRN IV PUSH RESPIRATORY RATE LESS THAN 10; Start 05/17/17 at 03:15; Stop 05/17/17 at 10:39; Status DC BLIND HANGER Dosage Infused (Pha) 1 Q8HR OTHER Last administered on 05/17/17 05:54; Start 05/17/17 at 06:00; Stop 05/17/17 at 10:39; Status DC Hydromorphone HCl (Dilaudid BLIND HANGER Inj) 6 mg UNSCH IV Last administered on 04:07; Start 05/17/17 at 03:15; Stop 05/17/17 at 10:39; Status DC Acetaminophen 100 ml @ 400 mls/hr Q6H IV ; Start 05/17/17 at 03:15; Stop at 03:17; Status DC Acetaminophen 100 ml @ 400 mls/hr Q6H IV Last administered on 05/18/17 02:13 ; Start 05/17/17 at 08:00; Stop 05/18/17 at 02:14; Status DC Miscellaneous Information ALL NURSING DEPARTME... UNSCH PRN .XX SEE LABEL COMMENTS; Start 05/17/17 at 03:30; Stop 05/18/17 at 03:29; Status DC Guaifenesin (Mucinex Er) 600 mg BID PO Last administered on 05/22/17 20:26; Start 05/17/17 at 10:15; Stop 05/26/17 at 09:57; Status DC Hydromorphone HCl (Dilaudid BLIND HANGER Inj) 6 mg UNSCH IV ; Start 05/17/17 at 10:45; Stop 05/17/17 at 17:46; Status DC BLIND HANGER Dosage Infused (Pha) 1 Q8HR .XX Last administered on 05/17/17 13:17; Start 05/17/17 at 14:00; Stop 05/17/17 at 17:46; Status DC Naloxone HCl (Narcan Inj) 0.4 mg UNSCH PRN IV PUSH RESPIRATORY RATE LESS THAN 10; Start 05/17/17 at 10:45; Stop 05/17/17 at 17:46; Status DC Zolpidem Tartrate (Ambien) 5 mg HS PRN PO INSOMNIA Last administered on 23:59; Start 05/17/17 at 23:30; Stop 05/21/17 at 16:18; Status DC Metoclopramide HCl (Reglan Inj) 10 mg Q8HR IV PUSH Last administered on 05:18; Start 05/18/17 at 14:00; Stop 05/22/17 at 13:39; Status DC Scopolamine (Transderm-Scop 1.5 Mg Patch.72 Hr) 1 patch Q3D T-DERMAL Last administered on 05/18/17 11:35; Start 05/18/17 at 11:00; Stop 05/22/17 at 13: 39; Status DC Phenol (Chloraseptic [place]) 2 spray Q2H PRN OROPHARYNG sore throat Last administered on 05/19/17 15:42; Start 05/19/17 at 11:00; Stop 06/08/17 at 08: 45; Status DC Alprazolam (Xanax) 0.25 mg Q8H PRN PO ANXIETY Last administered on 05/29/17 09:06; Start 05/20/17 at 07:15; Stop 05/29/17 at 09:17; Status DC Polyethylene Glycol (Miralax) 17 gm DAILY PO Last administered on 05/21/17 07: 37; Start 05/20/17 at 12:45; Stop 05/22/17 at 13:39; Status DC Ciprofloxacin/ Dextrose 200 ml @ 200 mls/hr Q12H IV Last administered on 05:16; Start 05/21/17 at 17:00; Stop 05/22/17 at 13:39; Status DC Zolpidem Tartrate (Ambien) 10 mg HS PRN PO sleep Last administered on 21:07; Start 05/21/17 at 16:15; Stop 05/22/17 at 13:40; Status DC Acetaminophen (Ofirmev 1000 Mg/ 100 ml Inj) 1,000 mg Q6H IV Last administered on 06/02/17 11:06; Start 05/21/17 at 23:00; Stop 06/02/17 at 15:51; Status DC Lorazepam (Ativan Inj) 1 mg NOW ONCE IV Last administered on 05/21/17 22:52; Start 05/21/17 at 22:15; Stop 05/21/17 at 22:16; Status DC Iohexol (Omnipaque 350 Inj) 100 ml STK-MED ONCE IVCONTRAST Last administered on 05/22/17 00:39; Start 05/22/17 at 00:39; Stop 05/22/17 at 00:40; Status DC Lorazepam (Ativan Inj) 1 mg ONCE ONCE IV Last administered on 05/22/17 01:13 ; Start 05/22/17 at 01:15; Stop 05/22/17 at 01:16; Status DC Sodium Chloride 1,000 ml @ 999 mls/hr Q1H1M ONCE IV Last administered on 07:48; Start 05/22/17 at 06:45; Stop 05/22/17 at 07:45; Status DC Levalbuterol HCl (Xopenex Neb) 1.25 mg Q8HR NEB PRN NEB SHORTNESS OF BREATH Last administered on 06/08/17 16:35; Start 05/22/17 at 06:45 Metoprolol Tartrate (Lopressor Inj) 5 mg Q8H PRN IV PUSH HR > 110 Last administered on 05/29/17 08:24; Start 05/22/17 at 08:15 Acetaminophen 0 ml @ As Directed STK-MED ONCE IV ; Start 05/22/17 at 11:01; Stop 05/22/17 at 11:02; Status DC Bupivacaine HCl/ Epinephrine Bitart (Sensorcaine-Epi 0.5% 50 ml Inj) 50 ml STK- MED ONCE .ROUTE ; Start 05/22/17 at 11:16; Stop 05/22/17 at 11:17; Status DC Cefazolin Sodium/ Dextrose 50 ml @ As Directed STK-MED ONCE .ROUTE Last administered on 05/22/17 12:02; Start 05/22/17 at 12:06; Stop 05/22/17 at 13:40 ; Status DC Propofol 100 ml @ As Directed STK-MED ONCE .ROUTE ; Start 05/22/17 at 13:20; Stop 05/22/17 at 13:21; Status DC Fluconazole/ Sodium Chloride 200 ml @ 100 mls/hr Q24H IV Last administered on 05/31/17 14:26; Start 05/22/17 at 15:00; Stop 06/01/17 at 13:02; Status DC Levofloxacin/ Dextrose 150 ml @ 100 mls/hr Q24H IV ; Start 05/22/17 at 16:00; Stop 05/22/17 at 16:00; Status DC Metronidazole 100 ml @ 100 mls/hr Q6HR IV Last administered on 06/01/17 11: 06; Start 05/22/17 at 18:00; Stop 06/01/17 at 13:02; Status DC Pantoprazole Sodium (Protonix Inj) 40 mg Q24H IVP Last administered on 14:26; Start 05/22/17 at 15:00; Stop 06/01/17 at 13:02; Status DC Hydromorphone HCl (*DILAUDID PF INJ PERIprocedural ONLY) 1 mg STK-MED ONCE .ROUTE Last administered on 05/22/17 13:51; Start 05/22/17 at 13:51; Stop 05/22/17 at 13:52; Status DC Chlorhexidine Gluconate (Peridex 0.12% Liq) 15 ml BID@08,20 MT Last administered on 05/30/17 19:34; Start 05/22/17 at 20:00; Stop 06/02/17 at 10: 27; Status DC Propofol 100 ml @ 3.597 mls/ hr TITRATE PRN IV SEDATION Last administered on 05/27/17 07:54; Start 05/22/17 at 14:00; Stop 05/28/17 at 03:57; Status DC Sodium Chloride (NS Flush) 2 ml UNSCH PRN IV FLUSH FLUSH AFTER USING IV ACCESS ; Start 05/22/17 at 14:15 Sodium Chloride (NS Flush) 2 ml BID IV FLUSH Last administered on 06/09/17 09 :15; Start 05/22/17 at 21:00 Midazolam HCl (Versed Inj) 2 mg Q1H PRN IV PUSH SEDATION Last administered on 05/22/17 16:00; Start 05/22/17 at 14:15; Stop 05/28/17 at 03:57; Status DC Artificial Tears (Tears Naturale Opth Soln) 1 drop TID EACH EYE Last administered on 06/07/17 09:00; Start 05/22/17 at 18:00; Stop 06/08/17 at 08: 45; Status DC Miscellaneous Information 1 Q361D XX ; Start 05/22/17 at 14:15 Chlorhexidine Gluconate (Chlorhexidine 2% Cloth) Taper DAILY@04 TOP ; Start 05/23/17 at 04:00; Stop 05/19/18 at 03:59 Chlorhexidine Gluconate (Chlorhexidine 2% Cloth) 3 pack UNSCH PRN TOP HYGIENIC CARE; Start 05/22/17 at 14:15 Senna/Docusate Sodium (Mayte-Colace) 1 tab BID PO Last administered on t 09:13; Start 05/22/17 at 21:00 Magnesium Hydroxide (Milk Of Magnesia Liq) 30 ml Q12H PRN PO Mild constipation ; Start 05/22/17 at 14:15 Sennosides (Senokot) 17.2 mg Q12H PRN PO Moderate constipation; Start 05/22/17 at 14:15 Bisacodyl (Dulcolax Supp) 10 mg DAILY PRN RECTAL SEVERE CONSITIPATION; Start 05/22/17 at 14:15 Lactulose (Lactulose Liq) 30 ml DAILY PRN PO SEVERE CONSITIPATION; Start at 14:15 Miscellaneous Information ALL NURSING DEPARTME... UNSCH PRN .XX SEE LABEL COMMENTS; Start 05/22/17 at 14:30; Stop 05/23/17 at 14:29; Status DC Potassium Chloride 100 ml @ 50 mls/hr Q2H PRN IV For Potassium 2.8 - 3.2 mEq/L ; Start 05/22/17 at 14:30; Stop 06/01/17 at 13:16; Status DC Potassium Chloride 100 ml @ 50 mls/hr Q2H PRN IV For Potassium 2.8 - 3.2 mEq/L ; Start 05/22/17 at 14:30; Stop 06/01/17 at 13:16; Status DC Potassium Bicarb/ Potassium Chloride (K-Lyte Cl Eff) 50 meq UNSCH PRN PO For Potassium 3.3 - 3.5 mEq/L; Start 05/22/17 at 14:30; Stop 06/01/17 at 13:16; Status DC Potassium Chloride 100 ml @ 25 mls/hr UNSCH PRN IV For Potassium 3.3 - 3.5 mEq /L; Start 05/22/17 at 14:30; Stop 06/01/17 at 13:16; Status DC Potassium Chloride 100 ml @ 50 mls/hr Q2H PRN IV For Potassium 3.3 - 3.5 mEq/ L Last administered on 05/22/17 16:30; Start 05/22/17 at 14:30; Stop 06/01/17 at 13:16; Status DC Magnesium Sulfate 4 gm/Sodium Chloride 100 ml @ 50 mls/hr UNSCH PRN IV For Magnesium 0.9 - 1.1 mg/dL; Start 05/22/17 at 14:30; Stop 06/01/17 at 13:15; Status DC Magnesium Oxide (Mag-Ox) 800 mg UNSCH PRN PO For Magnesium 1.2 - 1.6 mg/dL; Start 05/22/17 at 14:30; Stop 06/01/17 at 13:16; Status DC Magnesium Sulfate 2 gm/Sodium Chloride 100 ml @ 50 mls/hr UNSCH PRN IV For Magnesium 1.2 - 1.6 mg/dL; Start 05/22/17 at 14:30; Stop 06/01/17 at 13:16; Status DC Potassium Phosphate (K-Phos) 2,000 mg Q4H PRN PO For Phosphorus < 2.5 mg/dL; Start 05/22/17 at 14:30; Stop 06/01/17 at 13:16; Status DC Sodium Phosphate 30 mmol/Sodium Chloride 250 ml @ 42 mls/hr UNSCH PRN IV For Phosphorus < 2.5 mg/dL; Start 05/22/17 at 14:30; Stop 06/01/17 at 13:16; Status DC Potassium Phosphate (K-Phos) 2,000 mg UNSCH PRN PO/TUBE SEE LABEL COMMENTS; Start 05/22/17 at 14:30; Stop 06/01/17 at 13:16; Status DC Potassium Phosphate 30 mmol/ Sodium Chloride 260 ml @ 42 mls/hr UNSCH PRN IV SEE LABEL COMMENTS; Start 05/22/17 at 14:30; Stop 06/01/17 at 13:16; Status DC Artificial Tears (Tears Naturale Opth Soln) 1 drop Q8HR EACH EYE Last administered on 06/05/17 12:22; Start 05/22/17 at 22:00; Stop 06/08/17 at 08: 45; Status DC Levofloxacin/ Dextrose 150 ml @ 100 mls/hr Q24H IV Last administered on 18:27; Start 05/22/17 at 18:00; Stop 06/01/17 at 13:02; Status DC Midazolam HCl 100 ml @ 2 mls/hr TITRATE PRN IV SEDATION Last administered on 02:24; Start 05/22/17 at 16:45; Stop 05/28/17 at 03:57; Status DC Albumin Human 250 ml @ 250 mls/hr NOW ONCE IV Last administered on 05/22/17 16:45; Start 05/22/17 at 16:45; Stop 05/22/17 at 17:44; Status DC Magnesium Sulfate/ Dextrose 100 ml @ 100 mls/hr Q1H IV Last administered on 18:00; Start 05/22/17 at 17:00; Stop 05/22/17 at 18:59; Status DC Calcium Gluconate 1 gm/Sodium Chloride 110 ml @ 110 mls/hr ONCE ONCE IV Last administered on 05/22/17 16:45; Start 05/22/17 at 16:45; Stop 05/22/17 at 17:44 ; Status DC Potassium Chloride 100 ml @ 100 mls/hr Q1H IV Last administered on 05/22/17 21:25; Start 05/22/17 at 18:00; Stop 05/22/17 at 20:59; Status DC Lactated Ringer's 1,000 ml @ 999 mls/hr BOLUS ONCE IV Last administered on 16:45; Start 05/22/17 at 16:45; Stop 05/22/17 at 17:45; Status DC Fentanyl Citrate 250 ml @ 5 mls/hr TITRATE PRN IV Sedation Last administered on 05/27/17 04:00; Start 05/22/17 at 23:30; Stop 05/27/17 at 15:58; Status DC Norepinephrine Bitartrate 250 ml @ 7.5 mls/hr TITRATE PRN IV Blood pressure management Last administered on 05/23/17 09:30; Start 05/23/17 at 09:15; Stop 05/28/17 at 03:57; Status DC Terbutaline Sulfate (Brethine Inj) 1 mg UNSCH PRN SQ For Extravasation; Start 05/23/17 at 09:15; Stop 05/28/17 at 03:57; Status DC Bupivacaine HCl/ Epinephrine Bitart (Sensorcaine-Epi 0.5% 50 ml Inj) 50 ml STK- MED ONCE .ROUTE ; Start 05/25/17 at 07:03; Stop 05/25/17 at 07:04; Status DC Fentanyl Citrate (fentaNYL INJ) 100 mcg Q1H PRN IV PUSH vent disynchrony Last administered on 05/30/17t 22:40; Start 05/25/17 at 10:30; Stop 06/02/17 at 10: 27; Status DC Lidocaine HCl (Xylocaine-Mpf 1% Inj) 100 ml STK-MED ONCE OTHER ; Start at 12:00; Stop 05/27/17 at 09:24; Status DC Rocuronium [place] (Zemuron Inj) 50 mg STK-MED ONCE IV PUSH ; Start 05/17/17 at 12:00; Stop 05/27/17 at 09:24; Status DC Neostigmine Methylsulfate (Prostigmin Inj) 3 mg STK-MED ONCE IV ; Start at 12:00; Stop 05/27/17 at 09:24; Status DC Midazolam HCl (Versed Inj) 2 mg STK-MED ONCE IV ; Start 05/17/17 at 12:00; Stop 05/27/17 at 09:24; Status DC Dexamethasone Sodium Phosphate (Decadron Inj) 8 mg STK-MED ONCE IV ; Start at 12:00; Stop 05/27/17 at 09:24; Status DC Ondansetron HCl (Zofran Inj) 4 mg STK-MED ONCE IV PUSH ; Start 05/17/17 at 12: 00; Stop 05/27/17 at 09:24; Status DC Fentanyl Citrate (fentaNYL INJ) 300 mcg STK-MED ONCE IV ; Start 05/17/17 at 12: 00; Stop 05/27/17 at 09:24; Status DC Propofol (Diprivan 200 Mg/20 ml Inj) 200 mg STK-MED ONCE IV ; Start 05/17/17 at 12:00; Stop 05/27/17 at 09:24; Status DC Lactated Ringer's 2,000 ml @ As Directed STK-MED ONCE IV ; Start 05/17/17 at 12:00; Stop 05/27/17 at 09:24; Status DC Lidocaine HCl (Xylocaine-Mpf 1% Inj) 50 ml STK-MED ONCE OTHER ; Start 05/22/17 at 12:00; Stop 05/27/17 at 11:59; Status DC Rocuronium [place] (Zemuron Inj) 100 mg STK-MED ONCE IV PUSH ; Start 05/22/17 at 12:00; Stop 05/27/17 at 11:59; Status DC Phenylephrine HCl (Neosynephrine/ NS 1000 Mcg/10ml Syr) 2,000 mcg STK-MED ONCE IV ; Start 05/22/17 at 12:00; Stop 05/27/17 at 11:59; Status DC Phenylephrine HCl (Neosynephrine Inj) 20 mg STK-MED ONCE IV ; Start 05/22/17 at 12:00; Stop 05/27/17 at 11:59; Status DC Succinylcholine Chloride (Quelicin Inj) 100 mg STK-MED ONCE IV PUSH ; Start 05/22/17 at 12:00; Stop 05/27/17 at 11:59; Status DC Dexamethasone Sodium Phosphate (Decadron Inj) 8 mg STK-MED ONCE IV ; Start 05/22 at 12:00; Stop 05/27/17 at 11:59; Status DC Fentanyl Citrate (fentaNYL INJ) 200 mcg STK-MED ONCE IV ; Start 05/22/17 at 12: 00; Stop 05/27/17 at 11:59; Status DC Propofol (Diprivan 200 Mg/20 ml Inj) 400 mg STK-MED ONCE IV ; Start 05/22/17 at 12:00; Stop 05/27/17 at 11:59; Status DC Lactated Ringer's 1,000 ml @ As Directed STK-MED ONCE IV ; Start 05/22/17 at 12 :00; Stop 05/27/17 at 11:59; Status DC Parenteral Electrolytes 2,000 ml @ As Directed STK-MED ONCE IV ; Start at 12:00; Stop 05/27/17 at 11:59; Status DC Lidocaine HCl (Xylocaine-Mpf 1% Inj) 50 ml STK-MED ONCE OTHER ; Start 05/25/17 at 12:00; Stop 05/27/17 at 14:08; Status DC Rocuronium [place] (Zemuron Inj) 50 mg STK-MED ONCE IV PUSH ; Start 05/25/17 at 12:00; Stop 05/27/17 at 14:08; Status DC Fentanyl Citrate (fentaNYL INJ) 200 mcg STK-MED ONCE IV ; Start 05/25/17 at 12: 00; Stop 05/27/17 at 14:08; Status DC Propofol (Diprivan 200 Mg/20 ml Inj) 200 mg STK-MED ONCE IV ; Start 05/25/17 at 12:00; Stop 05/27/17 at 14:08; Status DC Fentanyl Citrate (fentaNYL INJ) 50 mcg Q1H PRN IV PUSH PAIN SCALE 1 TO 5; Start 05/27/17 at 16:00; Stop 06/01/17 at 13:02; Status DC Fentanyl Citrate (fentaNYL INJ) 100 mcg Q3H PRN IV PUSH Pain 6-10 Last administered on 05/30/17 17:08; Start 05/27/17 at 16:00; Stop 06/01/17 at 13: 02; Status DC Lorazepam (Ativan Inj) 1 mg Q6H PRN IV PUSH Severe AGITATION OR ANXIETY Last administered on 05/30/17 03:49; Start 05/28/17 at 13:00; Stop 05/30/17 at 17 :30; Status DC Alprazolam (Xanax) 1 mg Q8H PRN PO ANXIETY Last administered on 06/02/17 02: 58; Start 05/29/17 at 15:15 Metoprolol Tartrate (Lopressor) 50 mg Q12HR PO Last administered on 05/29/17 23:09; Start 05/29/17 at 09:15; Stop 05/30/17 at 07:29; Status DC Lisinopril (Prinivil) 5 mg DAILY PO Last administered on 05/29/17 09:27; Start 05/29/17 at 09:15; Stop 05/30/17 at 07:29; Status DC Enoxaparin Sodium (Lovenox Inj) 40 mg Q24H SQ Last administered on 06/08/17 08:59; Start 05/29/17 at 10:00; Status Future Hold Labetalol HCl (Trandate Inj) 20 mg Q3H PRN IV PUSH SBP > 160, DBP > 100; Start 05/29/17 at 09:30 Lisinopril (Prinivil) 10 mg DAILY PO Last administered on 06/09/17 09:12; Start 05/30/17 at 09:00 Metoprolol Tartrate (Lopressor) 75 mg Q12HR PO Last administered on 05/31/17 07:58; Start 05/30/17 at 09:00; Stop 05/31/17 at 10:47; Status DC Amlodipine Besylate (Norvasc) 5 mg DAILY PO Last administered on 06/01/17 08: 23; Start 05/30/17 at 09:00; Stop 06/02/17 at 09:37; Status DC Clonidine (Catapres) 0.1 mg Q6H PRN PO Systolic BP > 160; Start 05/30/17 at 07 :30 Metoprolol Tartrate (Lopressor) 100 mg Q12HR PO Last administered on 21:32; Start 05/31/17 at 21:00 Fluconazole (Diflucan) 400 mg DAILY PO Last administered on 06/09/17 09:13; Start 06/01/17 at 13:00 Metronidazole (Flagyl) 500 mg Q8HR PO Last administered on 06/03/17 05:35; Start 06/01/17 at 17:00; Stop 06/03/17 at 10:28; Status DC Levofloxacin (Levaquin) 750 mg DAILY PO Last administered on 06/02/17 11:07; Start 06/01/17 at 13:00; Stop 06/02/17 at 20:20; Status DC Pantoprazole Sodium (Protonix) 40 mg DAILY PO Last administered on 06/09/17 09:12; Start 06/01/17 at 13:00 Furosemide (Lasix) 40 mg BID@18 PO Last administered on 06/08/17 09:01; Start 06/02/17 at 09:00; Stop 06/08/17 at 12:31; Status DC Amlodipine Besylate (Norvasc) 10 mg DAILY PO Last administered on 06/09/17 09 :13; Start 06/03/17 at 09:00 Amlodipine Besylate (Norvasc) 5 mg ONCE ONCE PO Last administered on 11:07; Start 06/02/17 at 09:45; Stop 06/02/17 at 09:55; Status DC Zolpidem Tartrate (Ambien) 10 mg HS PRN PO INSOMNIA Last administered on 01:04; Start 06/02/17 at 16:00 Levofloxacin/ Dextrose 150 ml @ 100 mls/hr Q24H IV ; Start 06/03/17 at 11:00; Stop 06/03/17 at 11:00; Status DC Vancomycin HCl 1000 mg/Sodium Chloride 250 ml @ 250 mls/hr Q12H IV ; Start at 20:30; Status Cancel Pharmacy Profile Note 0 ml @ 0 mls/hr UNSCH OTHER ; Start 06/02/17 at 20:30; Stop 06/06/17 at 09:47; Status DC Vancomycin HCl 2000 mg/Sodium Chloride 520 ml @ 250 mls/hr Q12H IV Last administered on 06/04/17 10:59; Start 06/02/17 at 22:00; Stop 06/04/17 at 13 :51; Status DC Miscellaneous Information SPECIFIC LAB TO BE DRAWN:VA... ONCE ONCE .XX Last administered on 06/04/17 09:45; Start 06/04/17 at 09:45; Stop 06/04/17 at 09 :46; Status DC Piperacillin Sod/ Tazobactam Sod 100 ml @ 200 mls/hr Q6H IV Last administered on 06/06/17 04:37; Start 06/03/17 at 11:00; Stop 06/06/17 at 09:47; Status DC Diatrizoate Meglum/ Diatrizoate Sod ( Gastroview Liq) 18 ml ONCE ONCE PO Last administered on 06/03/17 14:35; Start 06/03/17 at 14:15; Stop 06/03/17 at 14:16; Status DC Potassium Chloride (KCl) 30 meq ONCE ONCE PO Last administered on 06/04/17 11:33; Start 06/04/17 at 11:00; Stop 06/04/17 at 11:01; Status DC Acetaminophen/ Hydrocodone Bitart ([place] 5-325 Mg) 1 tab Q4H PRN PO pain 1-5; Start 06/04/17 at 11:45 Acetaminophen/ Hydrocodone Bitart ([place] 5-325 Mg) 2 tab Q4H PRN PO pain 6-10 ; Start 06/04/17 at 11:45 Vancomycin HCl 2000 mg/Sodium Chloride 520 ml @ 250 mls/hr Q8H IV Last administered on 06/05/17 11:45; Start 06/04/17 at 18:00; Stop 06/05/17 at 12 :02; Status DC Miscellaneous Information SPECIFIC LAB TO BE ANAYELI... ONCE ONCE .XX ; Start at 09:45; Stop 06/05/17 at 09:46; Status DC Albuterol Sulfate (Albuterol Concentrated Neb) 2.5 mg Q6HR NEB PRN NEB sob Last administered on 06/05/17 00:38; Start 06/04/17 at 16:15 Acetylcysteine (Mucomyst 10% Neb) 2 ml Q8HR NEB NEB Last administered on 06/08 08:11; Start 06/04/17 at 19:00; Stop 06/08/17 at 18:59; Status DC Vancomycin HCl 1750 mg/Sodium Chloride 517.5 ml @ 250 mls/hr Q8H IV Last administered on 06/06/17 04:37; Start 06/05/17 at 18:00; Stop 06/06/17 at 09 :47; Status DC Miscellaneous Information SPECIFIC LAB TO BE ANAYELI... ONCE ONCE .XX ; Start at 09:45; Stop 06/06/17 at 09:46; Status DC Amoxicillin/ Clavulanate Potassium (Augmentin) 500 mg Q8HR PO Last administered on 06/08/17 21:32; Start 06/06/17 at 11:00 Levofloxacin (Levaquin) 750 mg DAILY PO Last administered on 06/09/17 09:12; Start 06/06/17 at 10:00; Stop 06/13/17 at 09:59 Iohexol (Omnipaque 350 Inj) 73 ml STK-MED ONCE IVCONTRAST Last administered on 06/08/17 10:42; Start 06/08/17 at 10:42; Stop 06/08/17 at 10:43; Status DC A/P Problem List: (1) Perforated small intestine ICD Code: K63.1 - Perforation of intestine (nontraumatic) (2) Dehiscence of closure of fascia, superficial or muscular ICD Code: T81.32XA - Disruption of internal operation (surgical) wound, not elsewhere classified, initial encounter Status: Acute (3) Open abdominal incision with drainage ICD Code: T81.31XA - Disruption of external operation (surgical) wound, not elsewhere classified, initial encounter Status: Acute (4) Physical deconditioning ICD Code: R53.81 - Other malaise Status: Acute (5) Superficial postoperative wound infection ICD Code: T81.4XXA - Infection following a procedure, initial encounter Status: Acute (6) Umbilical hernia, incarcerated ICD Code: K42.0 - Umbilical hernia with obstruction, without gangrene Status: Resolved (7) Small bowel obstruction ICD Code: K56.609 - Unspecified intestinal obstruction, unspecified as to partial versus complete obstruction Status: Resolved (8) Hypertension ICD Code: I10 - Essential (primary) hypertension (9) Cellulitis of left upper extremity ICD Code: L03.114 - Cellulitis of left upper limb Assessment and Plan Assessment and Plan Neuro/Psych: SP intubation and mechanical ventilation Extubated 05/27. AAOx3 Sinus tachycardia SP 4 L crystalloid in the operating room. Currently receiving fifth liter. Negative CT pulmonary angiogram for pulmonary embolism. Continue crystalloid per general surgery's recommendations. Was intermittently on a phenylephrine in OR, levophed in the unit, all has been discontinue. Postoperative respiratory failure HCAP BL Pleural effusions - likely parapneumonic SP intubation and mechanical ventilation. Albuterol/ipratropium aerosols every 6 hours with albuterol aerosols every 2 hours. Dyspnea Spontaneous breathing trials daily CT pulmonary angiogram 05/22 revealed bilateral lower lobe infiltrates,'s small bilateral pleural effusions. No central pulmonary embolism. Extubated 05/27. 06/01 Patient stil on high requirement of o2, sating 94% on 4 liters nasal canula. Started on Lasix and chest x-ray ordered. 06/02 CXR showed BL pleural effusions. Patient still requiring high O2. Repeat CXR shows BL pleural effusions and persistent bibasilar peripheral changes. CTA chest ordered 06/[address] as described above. Shows bibasilar alveolar consolidations consistent with pneumonia and/or atelectasis. Minimal ascites in the upper abdomen. Degenerative changes and scoliosis of the thoracolumbar spine. Continue Lasix. Patient currently on broad spectrum antibiotics. 06/05 patient still requiring elevated him on of oxygen, satting 92% on 5 L nasal cannula. Continue IV Zosyn and IV vancomycin. Continue supplemental oxygen to keep an oxygen saturation more than 94%. 06/06 Iv antibiotics discontinued - Patient started on oral Levaquin to cover for HCAP. 06/07 Patient still requiring high levels of oxygen. Pulmonology following. Continue Diuresis, Check CXR. If CXR normal will consider CT pulmonary angiogram to rule out PE. 06/08 CT pulmonary angiogram ruled out pulmonary embolism. However it shows bilateral pleural effusions with adjacent consolidations. Will order US guided thoracentesis. GI: SP exploratory laparotomy, partial home meniscectomy with small bowel resection and packing of abdominal wall secondary to wound dehiscence, nausea/vomiting and Postoperative ileus. SP reduction of incarcerated hernia with primary. Hernia defect secondary to incarcerated umbilical hernia with small bowel obstruction secondary to incarcerated small bowel and omentum by Dr. Queen Postoperative ileus GIs status post EGD for NG tube placement secondary to massively dilated stomach and small bowel in OR without cuff cage. Plan to return to OR on Wednesday for closure abdominal wall fascia. Continue NG tube to [facility] Pantoprazole for GI prophylaxis Feed per surgery. 05/22 tolerating regular diet. 06/02 Discussed case with Oksana Ferguson, Surgical PA. states wound has some purulent discharge. Will obtain wound culture and consult infectious disease. 06/03 Wound culture pending. Discussed case with Dr Dao from ID who recommended CT abdomen and pelvis. 06/05 Wound culture is growing group D enterococcus , continue antibiotics as per ID. CT abdomen and pelvis showed thickening of the small bowel especially in the distal small bowel. Abscess not seen. Mild to moderate bilateral pleural effusions with accompanying areas of atelectasis. Continue IV zosyn, IV vancomycin and IV Diflucan. 06/06 IV antibiotics discontinued. Discussed case with ID. Recommends Augmentin for 10 to 14 days to cover for enterococcus. : Echeverria catheter discontinued Endo: Sliding scale with Accu-Cheks to maintain euglycemia/every 6 hours Blood sugars stable. Renal: Acute kidney injury Monitor urine output Accurate I's and O's Likely contrast induced Resolved Heme: Leukocytosis: The patient presented with a WBC count of 18.7 which normalized for a few days and then started to increase again. WBC peaked at 18.5 on 06/07/17 and now is trending down to 17.8. Leukocytosis likely secondary to hospital-acquired pneumonia and abdominal wound infection. Continue to monitor CBC with differential. ID: Staph epi cystitis pansensitive Left upper extremity cellulitis Initially placed on levofloxacin, metronidazole and fluconazole day per Dr. Queen Urine culture 05/17 revealed staph epi 06/02 Wound care as per GS. Will consult infecious disease and order a wound culture. WBC is trending up. 06/03 Levaquin and Flagyl discontinued - patient started on IV zosyn, continue Vancomycin. 06/08 Cellulitis resolved. IV antibiotics discontinued. Continue antibiotics as per ID recommendations. On Po levaquin and augmentin. FEN: Hyponatremia Hypokalemia Replace orally and monitor BMP 06/06 Sodium trending down, lasix held with improvement, resume lasix. Will DC on once a day lasix regime. 06/07 Sodium trending down - today 132, monitor BMP. Continue Lasix for now. 06/08 sodium continues to trend down, now 130. I will discontinue Lasix as peripheral edema has resolved. We'll place patient on a fluid restriction. Continue to monitor BMP and sodium levels. MSK: PT evaluate and treat Access - Utilize peripheral IV. - Left radial arterial line placed in OR 05/22 Prophylaxis - GI - pantoprazole - DVT - SCD/pharmacological prophylaxis lovenox. Discharge Planning Dc pending clinical improvement iwth improvement of the level of hypoxemia and decrease need in oxygen consumption. DC when patient afebrile x 24 hrs. Discharge Planning HAS BEEN ACCEPTED AT [facility] DC TO [place] TODAY SUJEY RN AND PT AND CM AND SURGERY Problem Qualifiers (1) Dehiscence of closure of fascia, superficial or muscular: Qualified Codes: T81.32XD - Disruption of internal operation (surgical) wound, not elsewhere classified, subsequent encounter (2) Open abdominal incision with drainage: Qualified Codes: T81.31XD - Disruption of external operation (surgical) wound, not elsewhere classified, subsequent encounter (3) Superficial postoperative wound infection: Qualified Codes: T81.4XXD - Infection following a procedure, subsequent encounter Julio C Diehl DO Jun 09, 2017 12:44
[2017-06-09 13:34] VITALS: O2SAT 93
== END 2017-06-09 14:21 | DRG 329 ==
LOC: NEPC 21:12 → NEDA 05-17 01:09 → OBSVTOIN 05-17 03:13 → N07B 05-17 03:56 → N03B 05-22 15:13 → N07B 05-31 19:01
PROVIDERS: ADMIT Surgery; ATTEND Hospitalist
PROC: 0WQF0ZZ Repair Abdominal Wall, Open Approach (ICD-10-PCS; principal; 2017-05-17 01:49)
PROC: 5A1955Z Respiratory Ventilation, Greater than 96 Consecutive Hours (ICD-10-PCS; 2017-05-22)
PROC: 0DBU0ZZ Excision of Omentum, Open Approach (ICD-10-PCS; 2017-05-22)
PROC: 0DH68UZ Insertion of Feeding Device into Stomach, Via Natural or Artificial Opening Endoscopic (ICD-10-PCS; 2017-05-22)
PROC: 0DB80ZZ Excision of Small Intestine, Open Approach (ICD-10-PCS; 2017-05-22 11:36)
PROC: 0WQF0ZZ Repair Abdominal Wall, Open Approach (ICD-10-PCS; 2017-05-25)
PROC: 0W9F0ZZ Drainage of Abdominal Wall, Open Approach (ICD-10-PCS; 2017-05-25)
DX: K42.0 Umbilical hernia with obstruction, without gangrene (principal); K63.1 Perforation of intestine (nontraumatic); J95.821 Acute postprocedural respiratory failure; A41.9 Sepsis, unspecified organism; J18.9 Pneumonia, unspecified organism; J90 Pleural effusion, not elsewhere classified; N17.9 Acute kidney failure, unspecified; K55.9 Vascular disorder of intestine, unspecified; K56.7 Ileus, unspecified; E87.1 Hypo-osmolality and hyponatremia; T81.4XXA Infection following a procedure, initial encounter; L03.114 Cellulitis of left upper limb; J98.11 Atelectasis; T81.31XA Disruption of external operation (surgical) wound, not elsewhere classified, initial encounter; N30.90 Cystitis, unspecified without hematuria; I10 Essential (primary) hypertension; R00.0 Tachycardia, unspecified; K66.0 Peritoneal adhesions (postprocedural) (postinfection); E87.6 Hypokalemia; B95.7 Other staphylococcus as the cause of diseases classified elsewhere; Y95 Nosocomial condition; B95.2 Enterococcus as the cause of diseases classified elsewhere; Z88.1 Allergy status to other antibiotic agents; Z88.5 Allergy status to narcotic agent
CPT/HCPCS: 36600; 71010; 71250; 71275; 74000; 74176; 74177; 76604; 76937; 80048; 80053; 80202; 81001; 82270; 82570; 82805; 83605; 83735; 84100; 84132; 84155; 84300; 85007; 85025; 85027; 85610; 85730; 86403; 87015; 87070; 87077; 87086; 87186; 87205; 87641; 88302; 88305; 88307; 93005; 93971; 94002; 94003; 94150; 94640; 94664; 96361; 96374; 96375; C1765; C9113; J0131; J0330; J0610; J0690; J0744; J1100; J1170; J1450; J1650; J1885; J1956; J2060; J2250; J2270; J2370; J2405; J2543; J2710; J2765; J3010; J3370; J3475; J3480; J7030; J7040; J7120; J7608; J7611; J7614; P9045; Q9963; Q9967